=== PATIENT | male | born 1940 | race Caucasian/White ===

== ENCOUNTER 2020-02-26 01:32 | Inpatient (IN) | payer MEDICARE, OTHER, SELFPAY ==
[2020-02-26] VITALS (32 sets, daily range): BP systolic 91–144; BP diastolic 49–96; PULSE 65–86; RESP 14–21; TEMP 36.2–36.6; O2SAT 90–96; BMI 30.1; BMI 34.9
--- NOTE | 2020-02-26 02:01 | HP.PCM_ITS ---
Problem List (1) Septic shock Status: Acute (2) Acute respiratory failure with hypoxia Status: Acute (3) Pneumonia due to COVID-19 virus Status: Acute (4) Hyperglycemia Status: Acute (5) SURINDER (acute kidney injury) Status: Acute (6) Hypertension Status: Chronic Qualifiers: Hypertension type: essential hypertension Qualified Code(s): I10 - Essential (primary) hypertension (7) Hyperlipidemia Status: Chronic Qualifiers: Hyperlipidemia type: unspecified Qualified Code(s): E78.5 - Hyperlipidemia, unspecified (8) Hypothyroidism Status: Chronic Qualifiers: Hypothyroidism type: unspecified Qualified Code(s): E03.9 - Hypothyroidism, unspecified (9) Morbid obesity Status: Chronic (10) GERD (gastroesophageal reflux disease) Status: Chronic Qualifiers: Esophagitis presence: esophagitis presence not specified Qualified Code(s): K21.9 - Gastro-esophageal reflux disease without esophagitis History of Present Illness Date of Admission: 02/26/20 Chief Complaint: Worsening diarrhea, dyspnea, cough, alteration to sense of taste and smell The patient is a 79 w/ PMHx: HTN, HLD, GERD, Hypothyroidism, Morbid Obesity who presents to the [facility] on 02/25/20 from OSH ED [facility] in [facility] with history of onset COVID type symptoms ~ 1 week prior per their report with specifically noted diarrhea, abdominal cramping, body aches, dyspnea and cough with mild loss/decreased in sense of taste/smell however patient upon transfer noting it has been several weeks with these symptoms. Patient was initially seen the day prior in the [facility] ED on 02/24/20 with encouragement at that time to remain and be admitted given his worsened status; however, patient at that time per ED physician left AMA but returned 02/25/20 for re-evaluation per family strong encouragement given severe fatigue, malaise, weakness, increased dyspnea and continued ongoing additional symptoms. Patient clinically declined therefore OSH ED requested transfer to [facility] ICU. Requested prior to the patient transfer central line be placed given hypotension, critical presentation and usage of pressors upon transfer. Also, discussed transition to BIPAP for transfer if any concerns. Upon transfer and presentation to the [facility] ED ICU, patient placed on NRB with appropriate saturations, DA d/c with BP low normal range. OSH ED work-up included: VS: 98.6, 66, 18, 91/48, 96% on RA-->95/46, 94%, 76, NRB 15L, weight 250 lb CBC: WBC 3.7, Hgb 14.1, Plts 130 CMP: Na 137, K 3.7, Chl 102, CO2 27, glucose 166, BUN/Cr 31/1.65 (02/24/20 Cr 1.48), T bili 1.2, normal LFTs, alk phos 42, CA 7.5 LA: 1.4 BNP: 1877 Trop: 0.020 COVID: Positive PCR CXR: BL upper lobe PNA consistent with COVID EKG: Sinus bradycardia without acute evidence of ischemia Medications: DA 5 mcg, azithromycin 500 mg x 1, Lovenox 40 mg SC, Remdesivir 200 mg, Decadron 6 mg IV x 1 Bld Cx x 2 pending per ED Past Medical History Past Medical History (Chronic Problems): Chronic Problems Hypertension (Chronic) Hyperlipidemia (Chronic) Hypothyroidism (Chronic) Morbid obesity (Chronic) GERD (gastroesophageal reflux disease) (Chronic) Allergies No Known Allergies Allergy (Verified 02/26/20 01:38) Home Medications: Ambulatory Orders Medication Instructions Recorded Amlodipine [Norvasc] 10 mg PO DAILY 02/26/20 Carvedilol [Coreg] 25 mg PO BID 02/26/20 Furosemide [Lasix] 40 mg PO DAILY 02/26/20 Levothyroxine [Synthroid] 50 mcg PO DAILY 02/26/20 Losartan Potassium 100 mg PO DAILY 02/26/20 Surgical History: - - Testicular hydrocele intervention. Psychiatric History: No pertinent psych hx Lives: Alone Smoking Status: Never smoker Tobacco Use: Non-smoker Alcohol: None Drugs: None - *Family History Maternal History Items: Diabetes Paternal History Items: Heart Disease Review of Systems Constitutional: Reports: Anorexia, Malaise, Weakness, Fatigue. Denies: Chills, Fever, Weight Change HEENT: Reports: Nasal Congestion, - - Alteration to sense of taste and smell.. Denies: Head Aches, Sinus Congestion, Sinus Drainage Cardiovascular: Denies: Chest Pain, Palpitations Respiratory: Reports: Cough, Shortness of Breath, Shortness of breath at rest, Shortness of breath upon exertion. Denies: Sputum production, Wheezing Gastrointestinal: Reports: Abdominal Pain, Diarrhea. Denies: Nausea, Vomiting Genitourinary: Denies: Dysuria Musculoskeletal: Reports: Back Pain, Joint Pain, Muscle pain. Denies: Joint Tenderness Skin: Denies: Rash, Wounds Neurological: Reports: Confusion. Denies: Focal weakness, Numbness, Tingling Psychiatric: Denies: Anxiety, Depression, Homicidal Ideations, Suicidal Ideations Hematologic/ Lymphatic: Denies: Easy Bruising, Easy Bleeding VTE Information - Inpt Only VTE Present on Admission: No VTE Mechan Device Prophylaxis: SCD's VTE Pharm Prophylaxis ordered?: Yes Patient Problems: Active and Suspected Problems Septic shock (Acute) Acute respiratory failure with hypoxia (Acute) Pneumonia due to COVID-19 virus (Acute) Hyperglycemia (Acute) SURINDER (acute kidney injury) (Acute) Subjective: Patient seated upright in ICU bed, fatigued appearance, no overt respiratory distress currently, transition back to nonrebreather. Objective: Physical Examination: General: awake, alert, oriented x >3 including person, month, year, president and cooperative, seated upright in the ICU bed, fatigued and ill-appearing, no obvious respiratory distress. Skin: normal color, turgor, no icterus, cyanosis. HEENT: AT/NC, EOMI, PERRLA, moderately dry MM, no carotid bruits or JVD noted. Lungs: Diminished breath sounds throughout, greater bases, nonrebreather in place, no evident respiratory distress, no rales, ronchi or wheezing. Heart: Regular rate and rhythm; no gallop, rub audible. Abdomen: soft, morbidly obese, NTTP, ND, normal BS, no HSM. Extremities: no cyanosis or clubbing, bilateral ankle edema. Neurological: patient awake, alert, oriented as noted; cognitive function suspect nearing baseline intact; pupils equally reactive to light and accomodation; cranial nerves II-XII grossly normal, moving all 4 extremities, no focal deficits, strength moderately to severely global decrease secondary to acute presentation. Psychiatric: affect appears ill-appearing, fatigued otherwise normal, no acute evidence of depressive or anxiety feelings. - Physical Exam Current Medications Acetaminophen (Acetaminophen 325 Mg Tablet) 650 mg PO Q6H PRN PRN PRN Reason: Pain Score 1-10/Temp > 100.7 F Al Hydroxide/Mg Hydroxide (Mag Hydrox/Al Hydrox/Simeth 30 Ml Udc) 30 ml PO Q6H PRN PRN PRN Reason: Gastric Burning Dexamethasone Sodium Phosphate (Dexamethasone 10 Mg/Ml Vial) 6 mg IV DAILY [facility] Enoxaparin Sodium (Enoxaparin 40 Mg/0.4 Ml Syringe) 40 mg SC BID [facility] Guaifenesin (Guaifenesin 10 Ml Udc (200mg/10ml)) 10 ml PO Q4H PRN PRN PRN Reason: COUGH Hydralazine HCl (Hydralazine 20 Mg/Ml Vial) 10 mg IV Q4H PRN PRN PRN Reason: SBP > 160 Norepinephrine Bitartrate 8 mg (/ Sodium Chloride) 250 mls @ 9.375 mls/hr CONT INF .[id number] [facility]; Protocol Levothyroxine Sodium (Levothyroxine 50 Mcg Tablet) 50 mcg PO DAILY [facility] Magnesium Hydroxide (Magnesium Hydroxide 30 Ml Udc) 30 ml PO DAILY PRN PRN PRN Reason: Constipation Melatonin (Melatonin 3 Mg Tablet) 3 mg PO QHS PRN PRN PRN Reason: INSOMNIA Morphine Sulfate (Morphine 2 Mg/Ml Syringe) 2 mg IV Q3H PRN PRN PRN Reason: Pain Score 6-10 Nitroglycerin (Nitroglycerin (Inpatient Use) 0.4 Mg Tab.Subl) 0.4 mg SUBLINGUAL Q5M PRN PRN Reason: CARDIAC/CHEST PAIN Ondansetron HCl (Ondansetron 4 Mg/2 Ml Vial) 4 mg IV Q8H PRN PRN PRN Reason: NAUSEA/VOMITING Oxycodone HCl (Oxycodone 5 Mg Tablet) 5 mg PO Q4H PRN PRN PRN Reason: Pain Score 4-5 Pantoprazole Sodium (Pantoprazole Sodium 20 Mg Tablet) 20 mg PO BID [facility] Prochlorperazine Edisylate (Prochlorperazine 10 Mg/2 Ml Vial) 5 mg IV Q4H PRN PRN PRN Reason: Breakthrough Nausea/Vomiting Psyllium Hydrophilic Mucilloid (Psyllium 1 Packet) 1 packet PO DAILY PRN PRN PRN Reason: Constipation Senna/Docusate Sodium (Senna/Docusate Sodium 1 Tablet) 2 tablet PO BID PRN PRN PRN Reason: Constipation Throat Lozenges (Benzocaine/Menthol 1 Lozenge) 1 lozenge MUCOUS MEM Q2H PRN PRN PRN Reason: SORE THROAT Assessment/Plan All Active Problems Septic shock (Acute) Acute respiratory failure with hypoxia (Acute) Pneumonia due to COVID-19 virus (Acute) Hyperglycemia (Acute) SURINDER (acute kidney injury) (Acute) The patient is a 79 w/ PMHx: HTN, HLD, GERD, Hypothyroidism, Morbid Obesity who presents to the [facility] on 02/25/20 from OSH ED [facility] in [facility] with history of onset COVID type symptoms ~ 1 week prior per their report with specifically noted diarrhea, abdominal cramping, body aches, dyspnea and cough with mild loss/decreased in sense of taste/smell however patient upon transfer noting it has been several weeks with these symptoms. 1. Acute Septic Shock secondary to Acute Encephalopathy secondary to Acute Hypoxic Respiratory Failure secondary to Bilateral Pneumonia secondary to Acute Viral Syndrome, COVID-19: Will directly admit to the ICU under COVID precautions, given improved appearance from OSH ED report will continue NRB and place BIPAP if worsened status versus Airvo, hold on ABG, hold any further pressors but if needed would initaite NEP, HOB, IS parameters w/ respiratory viral panel and urine antigens, will obtain procalcitonin, CRP, CPK, Ferritin, LDH, D-dimer and if significantly elevated will request CTPA, continue suppo rtive care including q 2 hour turning including prone given no prone bed availability and judicious hydration, closely monitor for worsening status for ARDS and multiorgan failure, may require intubation given severity of presentation and decline, will consult both ICU and ID. Already per OSH ED received Decadron 6 mg IV x1 which will be continued for total of 10 days as well as remdesivir 200 mg IV x1 with continued regimen per ID discretion and likely convalescent plasma consideration therefore will obtain type and screen. Bld cx x 2 obtained in the OSH ED. 2. Hyperglycemia: OSH ED glucose 166, will obtain HgbA1c, possibly stress reponse. 3. CKD stage III versus SURINDER, unclear baseline: OSH ED BUN/Cr 31/1.65, prior day 02/24/20 Cr 1.48, unclear baseline, repeat CMP in AM. 4. Hypertension: We will hold patient losartan-HCTZ given acute presentation as noted #1, requiring pressor therapy, add back once appropriate. 5. Hyperlipidemia: Not on statin, defer to outpatient. 6. Hypothyroidism: Continue home synthroid regimen. 7. Morbid Obesity: Weight loss and lifestyle changes encouraged, nutrition consulted. 8. GERD: We will maintain on IV PPI. 9. DVT prophylaxis: SCDs, Lovenox 40 g subcu twice daily pending dimer with transition to therapeutic regimen if appropriate. 10. CODE status: Patient HCPOA and living will is not set up, encouraged him to request assist per case management/social work up for help setting up. Discussed CODE status at length including difference between FULL code, DNR-CCA and DNR-CC status. Following discussions about the differences in these status, requested Full Code status. Advanced Care Planning Face to Face Time: 16 minutes. Per patient request contacted family, Niece Elva French [employer]IC[employer]. She was updated about his current status and intended to relay to the other family members. Inpatient E&M: 86575 Init Hosp L3 Procedures: 10116 Advncd Care Plan 30 Min
[2020-02-26 02:15] LABS: Absolute Lymphocyte Count 0.35 X10^3/uL (0.83-4.51); Absolute Neutrophil Count 3.4 X10^3/uL (2.0-7.7); Basophil# 0.05 X10^3/uL; Basophil% 1.3 % (0-1); Hematocrit 40.5 % (40-54); Hemoglobin 13.5 g/dL (13.0-16.5); Lymphocyte # 0.35 X10^3/ul (4.0); Lymphocyte % 8.8 % (19-41); Mean Corp Hgb Conc 33.3 g/dL (32-36); Mean Corpuscular Hgb 32.6 pg (27.0-32.0); Mean Corpuscular Volume 97.8 fL (80-94); Mean Platelet Vol. 10.1 fl (6.2-12.0); Monocyte# 0.13 X10^3/uL; Monocyte% 3.3 % (0-10); NRBC Flagged by Analyzer 0 % (0-5); Neutrophil # 3.43 X10^3/uL (2.7-7.7); Neutrophil % 86.3 % (47-70); POSITIVE DIFFERENTIAL YES; Platelet Count 126 K/mm3 (150-450); RBC Distribution Width CV 13.5 % (11.6-14.6); RBC Distribution Width SD 48.7 fl (35.1-43.9); Red Blood Count 4.14 M/mm3 (4.6-6.2)
[2020-02-26 02:26] LABS: Allen Test Positive; Base Excess -1 mmol/L (-2 to +2); Bicarbonate 24.1 mmol/L (22-26); Blood Gas Specimen Type ART; FI02 100; O2 Delivery Device NRB; PO2 60 mmHG (75-100); SITE L Radial; SO2 91 % (95-99); Total Carbon Dioxide 25 mmol/L; pCO2 38.1 mmHg (35-45); pH 7.41 (7.35-7.45)
[2020-02-26 02:29] LABS: D-Dimer Quantitative (DVT/PE) 1.57 FEU/ug/m (0.27-0.49); Differential Indicated SCAN CRITERIA MET
--- NOTE | 2020-02-26 02:36 | CT_ITS ---
STUDY: CTA CHEST REASON FOR EXAM: Male, 79 years old. COVID, SEPTIC SHOCK, PNEUMONIA, DIARRHEA, DYSPNEA, COUGH, CENTRAL LINE PLACED, RESPIRATORY FAILURE, HX HTN RADIATION DOSAGE (If Supplied By Facility): CTDIvol = ( 18.56 ) mGy, DLP = ( 572.26 ) mGycm TECHNIQUE: The examination was performed with the intravenous administration of IV 100mL [id number]-370. Post-processing of the angiographic images was performed, with multiplanar reformation and 3D reconstruction. Individualized dose optimization techniques were used for this CT. COMPARISON: None. FINDINGS: Normal enhancement of the main pulmonary artery and right and left pulmonary arteries. Normal enhancement of the bilateral peripheral pulmonary arteries. There is no demonstrated pulmonary embolism. Normal thoracic aorta and visualized great vessels. There is no demonstrated aortic dissection. Normal heart and pericardium. There are visualized mediastinal lymph nodes, which mildly increased in size suggesting an infectious process. There are mildly enlarged bilateral hilar lymph nodes, which are consistent with lymphoid hyperplasia. Normal visualized trachea and bronchi. Scattered reticular interstitial opacities are seen in both lungs suggesting chronic interstitial lung disease. There are superimposed ill-defined groundglass opacities are seen more prominent in the upper lobes, may represent atypical pneumonia or viral pneumonia (COVID-19 ?). Normal pleura. Normal chest wall structures. Normal osseous structures. Normal visualized upper abdomen. CT/CTA Chest W/WO Contrast IMPRESSION: No demonstrated pulmonary embolism or arterial dissection. Scattered reticular interstitial opacities are seen in both lungs suggesting chronic interstitial lung disease. There are superimposed ill-defined groundglass opacities are seen more prominent in the upper lobes, may represent atypical pneumonia or viral pneumonia (COVID-19 ?). Electronically Signed: Meena Bro, at 6:05 EST Tel , Service support ,
[2020-02-26 02:37] LABS: Ferritin 921 ng/mL (26-388); LDH 477 U/L (87-241); Magnesium 2.3 mg/dL (1.6-2.6)
[2020-02-26 02:38] LABS: Lactic Acid 1.4 mmol/L (0.4-1.9)
[2020-02-26 02:47] LABS: Procalcitonin 0.16 ng/mL (0.00-0.09)
[2020-02-26 02:51] LABS: ALB/GLOB Ratio 0.8 RATIO (0.9-2.4); AST(SGOT) 43 U/L (15-37); Alanine Aminotransfer ALT/SGPT 31 U/L (16-61); Alkaline Phosphatase 45 U/L (45-117); Anion Gap 6 (5-15); BUN 35 mg/dL (7-18); BUN/Creat Ratio 25.4 RATIO (10-20); Calcium,Total 7.3 mg/dL (8.5-10.1); Chloride 105 mmol/L (98-107); Creatinine, Serum 1.38 mg/dL (0.70-1.30); EST Glomerular Filtration Rate 53 mL/min (>60); Est Glom Filt Rate - Afr Amer 64 mL/min (>60); Estimated Creatinine Clearance 46.99 ml/min; Globulin 3.7 g/dL (2.2-4.2); Glucose 215 mg/dL (74-106); Potassium 3.8 mmol/L (3.5-5.1); Protein, Total 6.7 g/dL (6.4-8.2); Sodium Level 139 mmol/L (136-145)
[2020-02-26 02:59] LABS: Differential Comment SCANNED
--- NOTE | 2020-02-26 06:11 | CON.PCM_ITS ---
Reason for Consult Date of Consultation: 02/26/20 Reason for Consultation: Respiratory failure, Covid, septic shock History of Present Illness: The patient is a 79-year-old male, with a history as outlined below, who presented as a transfer of care from an outside hospital with progressive short ness of breath, cough, diarrhea and altered taste/smell sensation. The patient reported to me that his symptoms have been present now for approximately 7 to 8 days. The patient was noted to have a positive coronavirus PCR at the outside hospital. He was also noted to have an elevated BNP to 1877. The patient was apparently hypotensive and started on dopamine prior to his transfer to our institution. The patient did receive a loading dose of remdesivir. On presentation to the intensive care unit, the patient was noted to be afebrile and hemodynamically stable. D-dimer was elevated to 1.57. Chemistry profile revealed a creatinine of 1.38. Liver function profile was largely within normal limits. Procalcitonin was not significantly elevated at 0.16. Type and screen was sent. The patient was started on Airvo heated high flow supplemental oxygen and is currently maintaining sats in the mid 90s on a flow rate of 60 L/min and FiO2 of 90%. He remains on scheduled Decadron and Lovenox. The patient's dopamine was discontinued upon his arrival to our ICU and he never had to be restarted on any form of vasopressor support. Past Medical History Past Medical History (Chronic Problems): Chronic Problems Hypertension (Chronic) Hyperlipidemia (Chronic) Hypothyroidism (Chronic) Morbid obesity (Chronic) GERD (gastroesophageal reflux disease) (Chronic) Allergies No Known Allergies Allergy (Verified 02/26/20 01:38) Home Medications: Ambulatory Orders Medication Instructions Recorded Carvedilol [Coreg] 12.5 mg PO BID 02/26/20 Levothyroxine [Synthroid] 50 mcg PO DAILY 02/26/20 Losartan Potassium 100 mg PO DAILY 02/26/20 Omeprazole 40 mg PO DAILY 02/26/20 Surgical History: - - Testicular hydrocele intervention. Psychiatric History: No pertinent psych hx Lives: Alone Smoking Status: Never smoker Tobacco Use: Non-smoker Alcohol: None Drugs: None - *Family History Maternal History Items: Diabetes Paternal History Items: Heart Disease Review of Systems Constitutional: Reports: Malaise, Weakness, Fatigue Eyes: Denies: Blurred vision, Double vision HEENT: Reports: Nasal Congestion Cardiovascular: Denies: Chest Pain, Palpitations Respiratory: Reports: Cough, Shortness of Breath Gastrointestinal: Reports: Abdominal Pain Genitourinary: Denies: Dysuria Musculoskeletal: Reports: Joint Pain, Muscle pain Skin: Denies: Rash, Wounds Neurological: Denies: Numbness, Tingling, Focal weakness Psychiatric: Denies: Anxiety, Depression, Homicidal Ideations, Suicidal Ideations Hematologic/ Lymphatic: Denies: Easy Bruising, Easy Bleeding Patient Problems: Active and Suspected Problems Septic shock (Acute) Acute respiratory failure with hypoxia (Acute) Pneumonia due to COVID-19 virus (Acute) Hyperglycemia (Acute) SURINDER (acute kidney injury) (Acute) Objective: The patient's most recent lab work, culture data and imaging studies have all been personally reviewed. Respiratory viral panel was negative. - Physical Exam Vitals/I&O's: Vital Signs Temp Pulse Resp BP Pulse Ox 97.9 F 68 14 107/82 H 92 02/26/20 04:00 02/26/20 05:00 02/26/20 05:00 02/26/20 05:00 02/26/20 05:00 Oxygen Flow Rate (L/min) 60 Oxygen Delivery Method Airvo Weight: 215 lb 13.321 oz Body Mass Index (BMI) 34.8 General: Alert, Cooperative, No apparent distress HEENT: Atraumatic, Normocephalic Oral: Moist Mucosa Neck: Supple, No Nodes, Trachea Midline Lungs: No rhonchi, No wheeze, No rales, Diminished Cardiovascular: Regular rate, Regular Rhythm Abdomen: Bowel Sounds Present, Soft, Non Tender, Obese Extremities: No clubbing, No cyanosis, No edema Skin: No breakdown Musculoskeletal: No Muscle Wasting Lymphatic: No Cervical, Supraclavicular, or Inguinal Adenopathy Neurological: Neuro grossly intact Psych/Mental Status: Normal Affect, Appropriate Labs (Last 48 Hours) 02/26/20 02/26/20 02/26/20 02:00 02:00 02:00 WBC RBC Hgb Hct MCV MCH MCHC RDW Std Deviation RDW Coeff of Charo Plt Count MPV Immature Gran % (Auto) Neut % (Auto) Lymph % (Auto) [place] % (Auto) Eos % (Auto) Baso % (Auto) Absolute Neuts (auto) Absolute Lymphs (auto) Nucleated RBC % Differential Comment Diff Path Review D-Dimer Quant (PE/DVT) 1.57 H* Specimen Type Sample Site pH Bicarbonate Actual Total CO2 Base Excess O2 Saturation O2 % ABG pCO2 ABG pO2 Gutierrez Test O2 Delivery Device Sodium Potassium Chloride Carbon Dioxide Anion Gap BUN Creatinine Estim Creat Clear Calc Est GFR (MDRD) Af Amer Est GFR (MDRD) Non-Af BUN/Creatinine Ratio Glucose Hemoglobin A1c Lactic Acid Calcium Magnesium 2.3 Ferritin 921 H Total Bilirubin AST ALT Alkaline Phosphatase Lactate Dehydrogenase 477 H C-React Prot Ext Range 111.00 H Total Protein Albumin Globulin Albumin/Globulin Ratio Procalcitonin 0.16 H Blood Type Antibody Screen 02/26/20 02/26/20 02/26/20 02:00 02:00 02:00 WBC 4.0 L RBC 4.14 L Hgb 13.5 Hct 40.5 MCV 97.8 H MCH 32.6 H MCHC 33.3 RDW Std Deviation 48.7 H RDW Coeff of Charo 13.5 Plt Count 126 L MPV 10.1 Immature Gran % (Auto) 0.300 Neut % (Auto) 86.3 H Lymph % (Auto) 8.8 L [place] % (Auto) 3.3 Eos % (Auto) 0.0 Baso % (Auto) 1.3 H Absolute Neuts (auto) 3.4 Absolute Lymphs (auto) 0.35 L Nucleated RBC % 0 Differential Comment SCANNED Diff Path Review May foll D-Dimer Quant (PE/DVT) Specimen Type Sample Site pH Bicarbonate Actual Total CO2 Base Excess O2 Saturation O2 % ABG pCO2 ABG pO2 Gutierrez Test O2 Delivery Device Sodium 139 Potassium 3.8 Chloride 105 Carbon Dioxide 28.0 Anion Gap 6 BUN 35 H Creatinine 1.38 H Estim Creat Clear Calc 46.99 Est GFR (MDRD) Af Amer 64 Est GFR (MDRD) Non-Af 53 L BUN/Creatinine Ratio 25.4 H Glucose 215 H Hemoglobin A1c Pending Lactic Acid Calcium 7.3 L Magnesium Ferritin Total Bilirubin 1.00 AST 43 H ALT 31 Alkaline Phosphatase 45 Lactate Dehydrogenase C-React Prot Ext Range Total Protein 6.7 Albumin 3.0 L Globulin 3.7 Albumin/Globulin Ratio 0.8 L Procalcitonin Blood Type Antibody Screen 02/26/20 02/26/20 02/26/20 02:00 02:15 02:17 WBC RBC Hgb Hct MCV MCH MCHC RDW Std Deviation RDW Coeff of Charo Plt Count MPV Immature Gran % (Auto) Neut % (Auto) Lymph % (Auto) [place] % (Auto) Eos % (Auto) Baso % (Auto) Absolute Neuts (auto) Absolute Lymphs (auto) Nucleated RBC % Differential Comment Diff Path Review D-Dimer Quant (PE/DVT) Specimen Type ART Sample Site L Radial pH 7.41 Bicarbonate Actual 24.1 Total CO2 25 Base Excess -1 O2 Saturation 91 L O2 % 100 ABG pCO2 38.1 ABG pO2 60 L Gutierrez Test Positive O2 Delivery Device NRB Sodium Potassium Chloride Carbon Dioxide Anion Gap BUN Creatinine Estim Creat Clear Calc Est GFR (MDRD) Af Amer Est GFR (MDRD) Non-Af BUN/Creatinine Ratio Glucose Hemoglobin A1c Lactic Acid 1.4 Calcium Magnesium Ferritin Total Bilirubin AST ALT Alkaline Phosphatase Lactate Dehydrogenase C-React Prot Ext Range Total Protein Albumin Globulin Albumin/Globulin Ratio Procalcitonin Blood Type A POSITIVE Antibody Screen NEGATIVE Microbiology 02/26/20 02:00 Mucosa - Nasopharyngeal Respiratory Panel (PCR) - Final Clinical Impression(s) from Imaging Studies Chest CTA 02/26/20 02:36 IMPRESSION: No demonstrated pulmonary embolism or arterial dissection. Scattered reticular interstitial opacities are seen in both lungs suggesting chronic interstitial lung disease. There are superimposed ill-defined groundglass opacities are seen more prominent in the upper lobes, may represent atypical pneumonia or viral pneumonia (COVID-19 ?). Electronically Signed: Meena Bro, at 6:05 EST Tel , Service support , Current Medications Acetaminophen (Acetaminophen 325 Mg Tablet) 650 mg PO Q6H PRN PRN PRN Reason: Pain Score 1-10/Temp > 100.7 F Al Hydroxide/Mg Hydroxide (Mag Hydrox/Al Hydrox/Simeth 30 Ml Udc) 30 ml PO Q6H PRN PRN PRN Reason: Gastric Burning Dexamethasone Sodium Phosphate (Dexamethasone 10 Mg/Ml Vial) 6 mg IV DAILY JONO Enoxaparin Sodium (Enoxaparin 40 Mg/0.4 Ml Syringe) 40 mg SC BID JONO Guaifenesin (Guaifenesin 10 Ml Udc (200mg/10ml)) 10 ml PO Q4H PRN PRN PRN Reason: COUGH Hydralazine HCl (Hydralazine 20 Mg/Ml Vial) 10 mg IV Q4H PRN PRN PRN Reason: SBP > 160 Norepinephrine Bitartrate 8 mg (/ Sodium Chloride) 250 mls @ 9.375 mls/hr CONT INF .[id number] JONO; Protocol Sodium Chloride () 1,000 mls @ 100 mls/hr IV .Q10H [facility] Stop: 02/26/20 12:39 Levothyroxine Sodium (Levothyroxine 50 Mcg Tablet) 50 mcg PO DAILY [facility] Magnesium Hydroxide (Magnesium Hydroxide 30 Ml Udc) 30 ml PO DAILY PRN PRN PRN Reason: Constipation Melatonin (Melatonin 3 Mg Tablet) 3 mg PO QHS PRN PRN PRN Reason: INSOMNIA Morphine Sulfate (Morphine 2 Mg/Ml Syringe) 2 mg IV Q3H PRN PRN PRN Reason: Pain Score 6-10 Nitroglycerin (Nitroglycerin (Inpatient Use) 0.4 Mg Tab.Subl) 0.4 mg SUBLINGUAL Q5M PRN PRN Reason: CARDIAC/CHEST PAIN Ondansetron HCl (Ondansetron 4 Mg/2 Ml Vial) 4 mg IV Q8H PRN PRN PRN Reason: NAUSEA/VOMITING Oxycodone HCl (Oxycodone 5 Mg Tablet) 5 mg PO Q4H PRN PRN PRN Reason: Pain Score 4-5 Pantoprazole Sodium (Pantoprazole Sodium 20 Mg Tablet) 20 mg PO BID [facility] Prochlorperazine Edisylate (Prochlorperazine 10 Mg/2 Ml Vial) 5 mg IV Q4H PRN PRN PRN Reason: Breakthrough Nausea/Vomiting Psyllium Hydrophilic Mucilloid (Psyllium 1 Packet) 1 packet PO DAILY PRN PRN PRN Reason: Constipation Senna/Docusate Sodium (Senna/Docusate Sodium 1 Tablet) 2 tablet PO BID PRN PRN PRN Reason: Constipation Sodium Chloride (0.9% Saline Lock 10 Ml Syringe) 10 - 40 ml IV UD PRN PRN Reason: Multilumen/Michel Flush Sodium Chloride (0.9 % Nacl (Sterile) Posiflush 10 Ml) 10 - 40 ml IV UD PRN PRN Reason: Port access or dressing change Throat Lozenges (Benzocaine/Menthol 1 Lozenge) 1 lozenge MUCOUS MEM Q2H PRN PRN PRN Reason: SORE THROAT Assessment/Plan Active and Suspected Problems Septic shock (Acute) Acute respiratory failure with hypoxia (Acute) Pneumonia due to COVID-19 virus (Acute) Hyperglycemia (Acute) SURINDER (acute kidney injury) (Acute) RECOMMENDATIONS: 1. Stop supplemental IV fluids. 2. Continue Airvo heated high flow supplemental oxygen to maintain saturations at or above 90%. 3. Continue Decadron daily. 4. Continue remdesivir daily. Monitor liver and renal function accordingly. 5. Infectious diseases consultation is pending. Will defer need for convalescent plasma. 6. Continue Lovenox as ordered. IMPRESSIONS: 1. Acute hypoxemic respiratory failure secondary to COVID-19 pneumonia The patient presented as a transfer from an outside facility with Covid-like symptoms for approximately 1 week. Plan to continue current supportive measures with Airvo heated high flow oxygen to maintain saturations at or above 90%. The patient will be continued on Decadron 6 mg daily x10 days. Recommend continuing remdesivir. Recommend discontinuation of supplemental IV fluids. Continue Lovenox at current dose, given lack of PE identified on CTA chest. 2. Morbid obesity/hypertension/hypothyroidism/GERD Complicates care, management, recovery and prognosis. Continue home medications as indicated. Start sliding scale insulin coverage, given risk for steroid- induced hyperglycemia. This note was generated with sciencebite dictation software. It may contain incorrect words, spelling, and punctuation that were not noted in checking the note before signing. Inpatient E&M: 39364 Init Hosp L3
[2020-02-26 07:19] LABS: Hemoglobin A1c 6.6 % (3.8-5.6)
--- NOTE | 2020-02-26 07:29 | PN_ITS ---
Patient Problems: Active and Suspected Problems Septic shock (Acute) Acute respiratory failure with hypoxia (Acute) Pneumonia due to COVID-19 virus (Acute) Hyperglycemia (Acute) SURINDER (acute kidney injury) (Acute) Reason for Visit: Follow-up for acute hypoxic respiratory failure due to COVID-19 pneumonia Objective: No fever. Patient on AIR VO. Patient still short of breath. Was admitted early in the morning today Physical exam General: Alert, Oriented x3, Cooperative HEENT: Atraumatic, PERRLA, EOMI, Normocephalic Oral: No Gingival or Mucosal Lesions/ Ulcerations Neck: Supple, No JVD, Negative Carotid Bruits Lungs: Air entry diminished in bilateral lungs. Bilateral coarse rhonchi. On 90% FiO2, 60 L/min flow rate. Cardiovascular: Regular rate, Regular Rhythm, Normal S1, Normal S2, No murmurs Abdomen: Bowel Sounds Present, Soft, Non Tender, Non-Distended : No renal angle tenderness. No suprapubic tenderness. Extremities: Mild bilateral ankle edema, Capillary Refill Less than 3 Seconds Skin: No rashes, No breakdown Musculoskeletal: No Tenderness to Palpation of Joints or Extremities Neurological: Cranial nerves II-XII grossly intact, Deep Tendon Reflexes 2+/4 and Symmetrical, Neuro grossly intact Psych/Mental Status: Normal Affect, Appropriate. Vitals/I&O's: Vital Signs Temp Pulse Resp BP Pulse Ox 97.9 F 69 18 109/63 93 02/26/20 04:00 02/26/20 07:24 02/26/20 07:24 02/26/20 07:00 02/26/20 07:24 Oxygen Flow Rate (L/min) 60 Oxygen Delivery Method Airvo Weight: 215 lb 13.321 oz Body Mass Index (BMI) 30.1 Microbiology Past 72 Hours 02/26/20 02:00 Mucosa - Nasopharyngeal Respiratory Panel (PCR) - Final Laboratory Results 02/26/20 02:00: D-Dimer Quant (PE/DVT) 1.57 H* 02/26/20 02:00: Magnesium 2.3, Ferritin 921 H, Lactate Dehydrogenase 477 H, C- React Prot Ext Range 111.00 H 02/26/20 02:00: Procalcitonin 0.16 H 02/26/20 02:00: WBC 4.0 L, RBC 4.14 L, Hgb 13.5, Hct 40.5, MCV 97.8 H, MCH 32.6 H, MCHC 33.3, RDW Std Deviation 48.7 H, RDW Coeff of Charo 13.5, Plt Count 126 L, MPV 10.1, Immature Gran % (Auto) 0.300, Neut % (Auto) 86.3 H, Lymph % (Auto) 8.8 L, [place] % (Auto) 3.3, Eos % (Auto) 0.0, Baso % (Auto) 1.3 H, Absolute Neuts (auto) 3.4, Absolute Lymphs (auto) 0.35 L, Nucleated RBC % 0, Differential Comment SCANNED, Diff Path Review August02/26/20 02:00: Sodium 139, Potassium 3.8, Chloride 105, Carbon Dioxide 28.0, Anion Gap 6, BUN 35 H, Creatinine 1.38 H, Estim Creat Clear Calc 46.99, Est GFR (MDRD) Af Amer 64, Est GFR (MDRD) Non-Af 53 L, BUN/Creatinine Ratio 25.4 H, Glucose 215 H, Calcium 7.3 L, Total Bilirubin 1.00, AST 43 H, ALT 31, Alkaline Phosphatase 45, Total Protein 6.7, Albumin 3.0 L, Globulin 3.7, Albumin/Globulin Ratio 0.8 L 02/26/20 02:00: Hemoglobin A1c 6.6 H 02/26/20 02:00: Lactic Acid 1.4 02/26/20 02:15: Blood Type A POSITIVE, Antibody Screen NEGATIVE 02/26/20 02:17: Specimen Type ART, Sample Site L Radial, pH 7.41, Bicarbonate Actual 24.1, Total CO2 25, Base Excess -1, O2 Saturation 91 L, O2 % 100, ABG pCO2 38.1, ABG pO2 60 L, Gutierrez Test Positive, O2 Delivery Device NRB Current Medications Acetaminophen (Acetaminophen 325 Mg Tablet) 650 mg PO Q6H PRN PRN PRN Reason: Pain Score 1-10/Temp > 100.7 F Al Hydroxide/Mg Hydroxide (Mag Hydrox/Al Hydrox/Simeth 30 Ml Udc) 30 ml PO Q6H PRN PRN PRN Reason: Gastric Burning Dexamethasone Sodium Phosphate (Dexamethasone 10 Mg/Ml Vial) 6 mg IV DAILY JONO Enoxaparin Sodium (Enoxaparin 40 Mg/0.4 Ml Syringe) 40 mg SC BID JONO Guaifenesin (Guaifenesin 10 Ml Udc (200mg/10ml)) 10 ml PO Q4H PRN PRN PRN Reason: COUGH Hydralazine HCl (Hydralazine 20 Mg/Ml Vial) 10 mg IV Q4H PRN PRN PRN Reason: SBP > 160 Norepinephrine Bitartrate 8 mg (/ Sodium Chloride) 250 mls @ 9.375 mls/hr CONT INF .[id number] JONO; Protocol Sodium Chloride () 1,000 mls @ 100 mls/hr IV .Q10H [facility] Stop: 02/26/20 12:39 Levothyroxine Sodium (Levothyroxine 50 Mcg Tablet) 50 mcg PO DAILY [facility] Magnesium Hydroxide (Magnesium Hydroxide 30 Ml Udc) 30 ml PO DAILY PRN PRN PRN Reason: Constipation Melatonin (Melatonin 3 Mg Tablet) 3 mg PO QHS PRN PRN PRN Reason: INSOMNIA Morphine Sulfate (Morphine 2 Mg/Ml Syringe) 2 mg IV Q3H PRN PRN PRN Reason: Pain Score 6-10 Nitroglycerin (Nitroglycerin (Inpatient Use) 0.4 Mg Tab.Subl) 0.4 mg SUBLINGUAL Q5M PRN PRN Reason: CARDIAC/CHEST PAIN Ondansetron HCl (Ondansetron 4 Mg/2 Ml Vial) 4 mg IV Q8H PRN PRN PRN Reason: NAUSEA/VOMITING Oxycodone HCl (Oxycodone 5 Mg Tablet) 5 mg PO Q4H PRN PRN PRN Reason: Pain Score 4-5 Pantoprazole Sodium (Pantoprazole Sodium 20 Mg Tablet) 20 mg PO BID [facility] Prochlorperazine Edisylate (Prochlorperazine 10 Mg/2 Ml Vial) 5 mg IV Q4H PRN PRN PRN Reason: Breakthrough Nausea/Vomiting Psyllium Hydrophilic Mucilloid (Psyllium 1 Packet) 1 packet PO DAILY PRN PRN PRN Reason: Constipation Senna/Docusate Sodium (Senna/Docusate Sodium 1 Tablet) 2 tablet PO BID PRN PRN PRN Reason: Constipation Sodium Chloride (0.9% Saline Lock 10 Ml Syringe) 10 - 40 ml IV UD PRN PRN Reason: Multilumen/Michel Flush Sodium Chloride (0.9 % Nacl (Sterile) Posiflush 10 Ml) 10 - 40 ml IV UD PRN PRN Reason: Port access or dressing change Throat Lozenges (Benzocaine/Menthol 1 Lozenge) 1 lozenge MUCOUS MEM Q2H PRN PRN PRN Reason: SORE THROAT STROKE Vital Signs/Narrative: Vital Signs Temp Pulse Resp BP Pulse Ox 02/26/20 07:24 69 18 93 02/26/20 07:00 68 16 109/63 93 02/26/20 06:00 65 15 94/55 L 96 02/26/20 05:00 68 14 107/82 H 92 02/26/20 04:00 97.9 F 66 17 105/70 93 Medical Necessity - Tobacco Use Smoking Status: Never smoker Tobacco Use: Non-smoker Assessment/Plan All Active Problems Septic shock (Acute) Acute respiratory failure with hypoxia (Acute) Pneumonia due to COVID-19 virus (Acute) Hyperglycemia (Acute) SURINDER (acute kidney injury) (Acute) The patient is a 79 w/ PMHx: HTN, HLD, GERD, Hypothyroidism, Morbid Obesity who was directly admitted in [facility] ICU on 02/26/2020 from OSH ED [facility] in [facility] with history of onset COVID type symptoms for several weeks including diarrhea, abdominal cramping, body aches, dyspnea and cough with decreased in sense of taste/smell with chest CTA finding s uggestive of atypical pneumonia in upper lobes but negative for PE. 1. Septic Shock with Acute Hypoxic Respiratory Failure and Acute Encephalopathy secondary to Bilateral Pneumonia secondary to COVID-19: Patient is being admitted in ICU on BiPAP. D-dimer elevated to 1.57. Creatinine 1.38. Procalcitonin 0.16 not significantly elevated. Patient on norepinephrine drip. On AIR VO, FiO2 91%, flow rate 60 L/min. On Decadron. D-dimer 1.57. CRP, LDH elevated. Lactic acid normal. Patient had remdesivir 200 mg IV in OSH. ID consult. Remdesivir and Decadron to continue. 2. Hyperglycemia: OSH ED glucose 166. A1c 6.6, suggestive of prediabetes. 3. CKD stage III versus SURINDER, unclear baseline: OSH ED BUN/Cr 31/1.65, prior day 02/24/20 Cr 1.48, unclear baseline. Here BUN/creatinine 35/1.38. Monitor kidney function electrolytes. 4. Hypertension: Hold losartan-HCTZ as patient had septic shock on norepinephrine drip. 5. Hyperlipidemia: Not on statin, outpatient evaluation and management 6. Hypothyroidism: Continue home synthroid regimen. 7. Morbid Obesity: Weight loss and lifestyle changes encouraged, nutrition consulted. A1c 6.6 suggestive of prediabetes. 8. GERD: on IV PPI. 9. DVT prophylaxis: SCDs, Lovenox 40 g subcu twice daily. Clinical Impression(s) from Imaging Studies Chest CTA 02/26/20 02:36 IMPRESSION: No demonstrated pulmonary embolism or arterial dissection. Scattered reticular interstitial opacities are seen in both lungs suggesting chronic interstitial lung disease. There are superimposed ill-defined groundglass opacities are seen more prominent in the upper lobes, may represent atypical pneumonia or viral pneumonia (COVID-19 ?).
[2020-02-26] MEDS: 0.9% Saline Lock 10 ML Syringe IV ×2 (08:44→21:45)
[2020-02-26] MEDS: Levothyroxine 50 MCG Tablet PO (10:12)
[2020-02-26] MEDS: Pantoprazole Sodium 20 MG Tablet PO ×2 (10:12→21:32)
[2020-02-26] MEDS: Enoxaparin 40 MG/0.4 ML Syringe SC ×2 (10:43→21:32)
[2020-02-26] MEDS: dexAMETHasone 10 MG/ML Vial 6 MG IV (10:43)
[2020-02-26 13:20] LABS: Bedside Glucose 197 mg/dL (70-110)
[2020-02-26 13:54] LABS: Pathologist Review Reviewed
[2020-02-26 15:19] LABS: Alkaline Phosphatase 46 U/L (45-117)
--- NOTE | 2020-02-26 15:44 | CASEMGMT ---
Social Work Phone call placed to pt in room as he is in Covid precautions. Pt able to speak on phone and is alert and oriented x3. SW spoke extensively with pt and discussed health care POA. Pt is aware of what a health care POA is and is able to explain what the document is and why it is important. SW confirmed pt knowledge and provided additional information. Pt stating that at this time that he does not want to complete this document. SW reinforced the importance of having the legal documentation in place and that without it, his sisters would be the legal next of kin on decision makers. Pt stating he would need to think about who he would like to make decisions for him. Pt made aware that SW will remain available should pt decide that he would like to complete paperwork. GARRET Gonzalez
--- NOTE | 2020-02-26 16:24 | PCM.HP.ID ---
Problem List (1) Pneumonia due to COVID-19 virus Status: Acute Reason for Consult: covid Consulted by: Dr. Nguyen History of Present Illness: The patient is a 79 year old M presented with septic shock. Sx started 02/09, had headache, cough, diarrhea, change in smell, ahces, and fatigue. Lives alone, no sick contacts. Came to ED, admitted on dex, oxygen, started on remdesivir. Feeling about the same today. Full ROS performed and neg except as noted above. - Medical History Past Medical History (Chronic Problems): Chronic Problems Hypertension (Chronic) Hyperlipidemia (Chronic) Hypothyroidism (Chronic) Morbid obesity (Chronic) GERD (gastroesophageal reflux disease) (Chronic) Allergies/Adverse Reactions: Allergies No Known Allergies Allergy (Verified 02/26/20 01:38) Home Medications: Ambulatory Orders Medication Instructions Recorded Carvedilol [Coreg] 12.5 mg PO BID 02/26/20 Levothyroxine [Synthroid] 50 mcg PO DAILY 02/26/20 Losartan Potassium 100 mg PO DAILY 02/26/20 Omeprazole 40 mg PO DAILY 02/26/20 - Social History Tobacco Use: non-smoker Vital Signs Temp Pulse Resp BP Pulse Ox 97.4 F L 77 19 H 144/89 H 93 02/26/20 13:00 02/26/20 14:00 02/26/20 14:00 02/26/20 14:00 02/26/20 07:24 Oxygen Flow Rate (L/min) 60 Oxygen Delivery Method Airvo Weight: 97.9 kg Body Mass Index (BMI) 30.1 Microbiology Past 72 Hours 02/26/20 02:00 Respiratory Panel (PCR) - Final Mucosa - Nasopharyngeal Laboratory Tests Past 24 Hrs 02/26/20 02/26/20 02/26/20 02:00 02:00 02:00 WBC RBC Hgb Hct MCV MCH MCHC RDW Std Deviation RDW Coeff of Charo Plt Count MPV Immature Gran % (Auto) Neut % (Auto) Lymph % (Auto) [place] % (Auto) Eos % (Auto) Baso % (Auto) Absolute Neuts (auto) Absolute Lymphs (auto) Nucleated RBC % Differential Comment Diff Path Review D-Dimer Quant (PE/DVT) 1.57 H* Specimen Type Sample Site pH Bicarbonate Actual Total CO2 Base Excess O2 Saturation O2 % ABG pCO2 ABG pO2 Gutierrez Test O2 Delivery Device Sodium Potassium Chloride Carbon Dioxide Anion Gap BUN Creatinine Estim Creat Clear Calc Est GFR (MDRD) Af Amer Est GFR (MDRD) Non-Af BUN/Creatinine Ratio Glucose Hemoglobin A1c Lactic Acid Calcium Magnesium 2.3 Ferritin 921 H Total Bilirubin AST ALT Alkaline Phosphatase Lactate Dehydrogenase 477 H C-React Prot Ext Range 111.00 H Total Protein Albumin Globulin Albumin/Globulin Ratio Procalcitonin 0.16 H Blood Type Antibody Screen 02/26/20 02/26/20 02/26/20 02:00 02:00 02:00 WBC 4.0 L RBC 4.14 L Hgb 13.5 Hct 40.5 MCV 97.8 H MCH 32.6 H MCHC 33.3 RDW Std Deviation 48.7 H RDW Coeff of Charo 13.5 Plt Count 126 L MPV 10.1 Immature Gran % (Auto) 0.300 Neut % (Auto) 86.3 H Lymph % (Auto) 8.8 L [place] % (Auto) 3.3 Eos % (Auto) 0.0 Baso % (Auto) 1.3 H Absolute Neuts (auto) 3.4 Absolute Lymphs (auto) 0.35 L Nucleated RBC % 0 Differential Comment SCANNED Diff Path Review Reviewed D-Dimer Quant (PE/DVT) Specimen Type Sample Site pH Bicarbonate Actual Total CO2 Base Excess O2 Saturation O2 % ABG pCO2 ABG pO2 Gutierrez Test O2 Delivery Device Sodium 139 Potassium 3.8 Chloride 105 Carbon Dioxide 28.0 Anion Gap 6 BUN 35 H Creatinine 1.38 H Estim Creat Clear Calc 46.99 Est GFR (MDRD) Af Amer 64 Est GFR (MDRD) Non-Af 53 L BUN/Creatinine Ratio 25.4 H Glucose 215 H Hemoglobin A1c 6.6 H Lactic Acid Calcium 7.3 L Magnesium Ferritin Total Bilirubin 1.00 AST 43 H ALT 31 Alkaline Phosphatase 45 Lactate Dehydrogenase C-React Prot Ext Range Total Protein 6.7 Albumin 3.0 L Globulin 3.7 Albumin/Globulin Ratio 0.8 L Procalcitonin Blood Type Antibody Screen 02/26/20 02/26/20 02/26/20 02:00 02:15 02:17 WBC RBC Hgb Hct MCV MCH MCHC RDW Std Deviation RDW Coeff of Charo Plt Count MPV Immature Gran % (Auto) Neut % (Auto) Lymph % (Auto) [place] % (Auto) Eos % (Auto) Baso % (Auto) Absolute Neuts (auto) Absolute Lymphs (auto) Nucleated RBC % Differential Comment Diff Path Review D-Dimer Quant (PE/DVT) Specimen Type ART Sample Site L Radial pH 7.41 Bicarbonate Actual 24.1 Total CO2 25 Base Excess -1 O2 Saturation 91 L O2 % 100 ABG pCO2 38.1 ABG pO2 60 L Gutierrez Test Positive O2 Delivery Device NRB Sodium Potassium Chloride Carbon Dioxide Anion Gap BUN Creatinine Estim Creat Clear Calc Est GFR (MDRD) Af Amer Est GFR (MDRD) Non-Af BUN/Creatinine Ratio Glucose Hemoglobin A1c Lactic Acid 1.4 Calcium Magnesium Ferritin Total Bilirubin AST ALT Alkaline Phosphatase Lactate Dehydrogenase C-React Prot Ext Range Total Protein Albumin Globulin Albumin/Globulin Ratio Procalcitonin Blood Type A POSITIVE Antibody Screen NEGATIVE 02/26/20 14:35 WBC RBC Hgb Hct MCV MCH MCHC RDW Std Deviation RDW Coeff of Charo Plt Count MPV Immature Gran % (Auto) Neut % (Auto) Lymph % (Auto) [place] % (Auto) Eos % (Auto) Baso % (Auto) Absolute Neuts (auto) Absolute Lymphs (auto) Nucleated RBC % Differential Comment Diff Path Review D-Dimer Quant (PE/DVT) Specimen Type Sample Site pH Bicarbonate Actual Total CO2 Base Excess O2 Saturation O2 % ABG pCO2 ABG pO2 Gutierrez Test O2 Delivery Device Sodium Potassium Chloride Carbon Dioxide Anion Gap BUN Creatinine Estim Creat Clear Calc Est GFR (MDRD) Af Amer Est GFR (MDRD) Non-Af BUN/Creatinine Ratio Glucose Hemoglobin A1c Lactic Acid Calcium Magnesium Ferritin Total Bilirubin AST ALT Alkaline Phosphatase 46 Lactate Dehydrogenase C-React Prot Ext Range Total Protein Albumin Globulin Albumin/Globulin Ratio Procalcitonin Blood Type Antibody Screen - Other Studies Radiology: [] reviewed Other Studies: [] Route of nutrition/ use of supplements: [] Nutritional Intake: [] IV Site: [] Kaye Catheter: [] - Physical Exam General: Alert, Oriented x3, Cooperative HEENT: Atraumatic, PERRLA, EOMI Neck: Supple, No Nodes Lungs: Diminished Cardiovascular: Regular rate, Regular Rhythm Abdomen: Soft, Non Tender, Non-Distended Extremities: No edema Skin: No rashes IV Site: Peripheral, without redness Musculoskeletal: No Tenderness to Palpation of Joints or Extremities - Assessment/Plan Antibiotics: [] Assessment/Plan: [] Active and Suspected Problems Septic shock (Acute) Acute respiratory failure with hypoxia (Acute) Pneumonia due to COVID-19 virus (Acute) Hyperglycemia (Acute) SURINDER (acute kidney injury) (Acute) covid with hypoxia - SURINDER and bp improved. On dex, remdesivir. CT neg for PE. Reviewed EUA and risk/benefit of plasma, we agree to start. Sx started 02/20/20. Will follow, thank you
[2020-02-26] MEDS: Insulin Lispro 100 UNIT/ML INSULN.PEN SC ×2 (17:18→21:32)
[2020-02-26 17:31] LABS: Bedside Glucose 196 mg/dL (70-110)
[2020-02-26 23:06] LABS: Bedside Glucose 197 mg/dL (70-110)
[2020-02-27] VITALS (37 sets, daily range): BP systolic 92–137; BP diastolic 50–77; PULSE 52–88; RESP 12–24; TEMP 36.3–36.7; O2SAT 90–97
[2020-02-27 04:57] LABS: Hematocrit 38.3 % (40-54); Hemoglobin 12.7 g/dL (13.0-16.5); Mean Corp Hgb Conc 33.2 g/dL (32-36); Mean Corpuscular Hgb 33.1 pg (27.0-32.0); Mean Corpuscular Volume 99.7 fL (80-94); Mean Platelet Vol. 10.3 fl (6.2-12.0); Platelet Count 143 K/mm3 (150-450); RBC Distribution Width CV 13.4 % (11.6-14.6); RBC Distribution Width SD 49.4 fl (35.1-43.9); Red Blood Count 3.84 M/mm3 (4.6-6.2); White Blood Count 4.3 K/mm3 (4.4-11.0)
[2020-02-27 05:22] LABS: ALB/GLOB Ratio 0.8 RATIO (0.9-2.4); AST(SGOT) 41 U/L (15-37); Alanine Aminotransfer ALT/SGPT 31 U/L (16-61); Albumin, Serum 2.8 g/dL (3.2-5.0); Alkaline Phosphatase 43 U/L (45-117); Anion Gap 6 (5-15); BUN 38 mg/dL (7-18); BUN/Creat Ratio 38.5 RATIO (10-20); Calcium,Total 7.6 mg/dL (8.5-10.1); Chloride 110 mmol/L (98-107); Creatinine, Serum 0.99 mg/dL (0.70-1.30); EST Glomerular Filtration Rate 78 mL/min (>60); Est Glom Filt Rate - Afr Amer 94 mL/min (>60); Globulin 3.4 g/dL (2.2-4.2); Glucose 204 mg/dL (74-106); Potassium 3.9 mmol/L (3.5-5.1); Protein, Total 6.2 g/dL (6.4-8.2); Sodium Level 143 mmol/L (136-145)
--- NOTE | 2020-02-27 06:07 | PN_ITS ---
Subjective: The patient was seen and examined at the bedside this morning. Events from the last 24 hours have been reviewed. The patient is currently afebrile, hemodynamically stable and maintaining appropriate oxygen saturations on Airvo heated high flow with an FiO2 requirement of 88% and flow rate of 60 L/min. The patient received convalescent plasma and remains on Decadron and remdesivir. Liver and renal function are stable. Objective: The patient's most recent lab work, culture data and imaging studies have all been personally reviewed. Respiratory viral panel was negative. General: Alert, Cooperative, No apparent distress HEENT: Atraumatic, PERRLA, Normocephalic Oral: Moist Mucosa, No Gingival or Mucosal Lesions/ Ulcerations Neck: Supple, No Nodes, Trachea Midline Lungs: No rhonchi, No wheeze, No rales, Diminished Cardiovascular: Regular rate, Regular Rhythm Abdomen: Bowel Sounds Present, Soft, Non Tender Extremities: No clubbing, No cyanosis, No edema Skin: No breakdown Musculoskeletal: No Tenderness to Palpation of Joints or Extremities Lymphatic: No Cervical, Supraclavicular, or Inguinal Adenopathy Neurological: Cranial nerves II-XII grossly intact, Neuro grossly intact Psych/Mental Status: Normal Affect, Appropriate Vital Signs Temp Pulse Resp BP Pulse Ox 98.1 F 52 L 18 95/53 L 94 02/27/20 00:09 02/27/20 05:23 02/27/20 05:23 02/27/20 05:00 02/27/20 05:23 Oxygen Flow Rate (L/min) 60 Oxygen Delivery Method Airvo Weight: 244 lb 0.827 oz Body Mass Index (BMI) 30.1 Intake and Output for Last 24 Hours 02/25/20 02/26/20 02/27/20 23:59 23:59 23:59 Intake Total 470 / 470 200 / 200 Output Total 1200 / 1200 0 / 0 Balance -730 / -730 200 / 200 Labs (Last 48 Hours) 02/26/20 02/26/20 02/26/20 02:00 02:00 02:00 WBC RBC Hgb Hct MCV MCH MCHC RDW Std Deviation RDW Coeff of Charo Plt Count MPV Immature Gran % (Auto) Neut % (Auto) Lymph % (Auto) Schley % (Auto) Eos % (Auto) Baso % (Auto) Absolute Neuts (auto) Absolute Lymphs (auto) Nucleated RBC % Differential Comment Diff Path Review D-Dimer Quant (PE/DVT) 1.57 H* Specimen Type Sample Site pH Bicarbonate Actual Total CO2 Base Excess O2 Saturation O2 % ABG pCO2 ABG pO2 Gutierrez Test O2 Delivery Device Sodium Potassium Chloride Carbon Dioxide Anion Gap BUN Creatinine Estim Creat Clear Calc Est GFR (MDRD) Af Amer Est GFR (MDRD) Non-Af BUN/Creatinine Ratio Glucose Hemoglobin A1c Lactic Acid Calcium Magnesium 2.3 Ferritin 921 H Total Bilirubin AST ALT Alkaline Phosphatase Lactate Dehydrogenase 477 H C-React Prot Ext Range 111.00 H Total Protein Albumin Globulin Albumin/Globulin Ratio Procalcitonin 0.16 H POC Glucose Blood Type Antibody Screen 02/26/20 02/26/20 02/26/20 02:00 02:00 02:00 WBC 4.0 L RBC 4.14 L Hgb 13.5 Hct 40.5 MCV 97.8 H MCH 32.6 H MCHC 33.3 RDW Std Deviation 48.7 H RDW Coeff of Charo 13.5 Plt Count 126 L MPV 10.1 Immature Gran % (Auto) 0.300 Neut % (Auto) 86.3 H Lymph % (Auto) 8.8 L Schley % (Auto) 3.3 Eos % (Auto) 0.0 Baso % (Auto) 1.3 H Absolute Neuts (auto) 3.4 Absolute Lymphs (auto) 0.35 L Nucleated RBC % 0 Differential Comment SCANNED Diff Path Review Reviewed D-Dimer Quant (PE/DVT) Specimen Type Sample Site pH Bicarbonate Actual Total CO2 Base Excess O2 Saturation O2 % ABG pCO2 ABG pO2 Gutierrez Test O2 Delivery Device Sodium 139 Potassium 3.8 Chloride 105 Carbon Dioxide 28.0 Anion Gap 6 BUN 35 H Creatinine 1.38 H Estim Creat Clear Calc 46.99 Est GFR (MDRD) Af Amer 64 Est GFR (MDRD) Non-Af 53 L BUN/Creatinine Ratio 25.4 H Glucose 215 H Hemoglobin A1c 6.6 H Lactic Acid Calcium 7.3 L Magnesium Ferritin Total Bilirubin 1.00 AST 43 H ALT 31 Alkaline Phosphatase 45 Lactate Dehydrogenase C-React Prot Ext Range Total Protein 6.7 Albumin 3.0 L Globulin 3.7 Albumin/Globulin Ratio 0.8 L Procalcitonin POC Glucose Blood Type Antibody Screen 02/26/20 02/26/20 02/26/20 02:00 02:15 02:17 WBC RBC Hgb Hct MCV MCH MCHC RDW Std Deviation RDW Coeff of Charo Plt Count MPV Immature Gran % (Auto) Neut % (Auto) Lymph % (Auto) Schley % (Auto) Eos % (Auto) Baso % (Auto) Absolute Neuts (auto) Absolute Lymphs (auto) Nucleated RBC % Differential Comment Diff Path Review D-Dimer Quant (PE/DVT) Specimen Type ART Sample Site L Radial pH 7.41 Bicarbonate Actual 24.1 Total CO2 25 Base Excess -1 O2 Saturation 91 L O2 % 100 ABG pCO2 38.1 ABG pO2 60 L Gutierrez Test Positive O2 Delivery Device NRB Sodium Potassium Chloride Carbon Dioxide Anion Gap BUN Creatinine Estim Creat Clear Calc Est GFR (MDRD) Af Amer Est GFR (MDRD) Non-Af BUN/Creatinine Ratio Glucose Hemoglobin A1c Lactic Acid 1.4 Calcium Magnesium Ferritin Total Bilirubin AST ALT Alkaline Phosphatase Lactate Dehydrogenase C-React Prot Ext Range Total Protein Albumin Globulin Albumin/Globulin Ratio Procalcitonin POC Glucose Blood Type A POSITIVE Antibody Screen NEGATIVE 02/26/20 02/26/20 02/26/20 10:48 14:35 17:17 WBC RBC Hgb Hct MCV MCH MCHC RDW Std Deviation RDW Coeff of Charo Plt Count MPV Immature Gran % (Auto) Neut % (Auto) Lymph % (Auto) Sch[place] % (Auto) Eos % (Auto) Baso % (Auto) Absolute Neuts (auto) Absolute Lymphs (auto) Nucleated RBC % Differential Comment Diff Path Review D-Dimer Quant (PE/DVT) Specimen Type Sample Site pH Bicarbonate Actual Total CO2 Base Excess O2 Saturation O2 % ABG pCO2 ABG pO2 Gutierrez Test O2 Delivery Device Sodium Potassium Chloride Carbon Dioxide Anion Gap BUN Creatinine Estim Creat Clear Calc Est GFR (MDRD) Af Amer Est GFR (MDRD) Non-Af BUN/Creatinine Ratio Glucose Hemoglobin A1c Lactic Acid Calcium Magnesium Ferritin Total Bilirubin AST ALT Alkaline Phosphatase 46 Lactate Dehydrogenase C-React Prot Ext Range Total Protein Albumin Globulin Albumin/Globulin Ratio Procalcitonin POC Glucose 197 H 196 H Blood Type Antibody Screen 02/26/20 02/27/20 02/27/20 21:30 04:15 04:15 WBC 4.3 L RBC 3.84 L Hgb 12.7 L Hct 38.3 L MCV 99.7 H MCH 33.1 H MCHC 33.2 RDW Std Deviation 49.4 H RDW Coeff of Charo 13.4 Plt Count 143 L MPV 10.3 Immature Gran % (Auto) Neut % (Auto) Lymph % (Auto) Schley % (Auto) Eos % (Auto) Baso % (Auto) Absolute Neuts (auto) Absolute Lymphs (auto) Nucleated RBC % Differential Comment Diff Path Review D-Dimer Quant (PE/DVT) Specimen Type Sample Site pH Bicarbonate Actual Total CO2 Base Excess O2 Saturation O2 % ABG pCO2 ABG pO2 Gutierrez Test O2 Delivery Device Sodium 143 Potassium 3.9 Chloride 110 H Carbon Dioxide 27.0 Anion Gap 6 BUN 38 H Creatinine 0.99 Estim Creat Clear Calc 65.50 Est GFR (MDRD) Af Amer 94 Est GFR (MDRD) Non-Af 78 BUN/Creatinine Ratio 38.5 H Glucose 204 H Hemoglobin A1c Lactic Acid Calcium 7.6 L Magnesium Ferritin Total Bilirubin 0.70 AST 41 H ALT 31 Alkaline Phosphatase 43 L Lactate Dehydrogenase C-React Prot Ext Range Total Protein 6.2 L Albumin 2.8 L Globulin 3.4 Albumin/Globulin Ratio 0.8 L Procalcitonin POC Glucose 197 H Blood Type Antibody Screen Microbiology 02/26/20 02:00 Mucosa - Nasopharyngeal Respiratory Panel (PCR) - Final Clinical Impression(s) from Imaging Studies Chest CTA 02/26/20 02:36 IMPRESSION: No demonstrated pulmonary embolism or arterial dissection. Scattered reticular interstitial opacities are seen in both lungs suggesting chronic interstitial lung disease. There are superimposed ill-defined groundglass opacities are seen more prominent in the upper lobes, may represent atypical pneumonia or viral pneumonia (COVID-19 ?). Electronically Signed: Meena Bro, at 6:05 EST Tel , Service support , Medical Necessity - Tobacco Use Smoking Status: Never smoker Tobacco Use: Non-smoker Assessment/Plan All Active Problems Septic shock (Acute) Acute respiratory failure with hypoxia (Acute) Pneumonia due to COVID-19 virus (Acute) Hyperglycemia (Acute) SURINDER (acute kidney injury) (Acute) RECOMMENDATIONS: 1. Continue Airvo heated high flow supplemental oxygen to maintain saturations at or above 90%. 2. Continue Decadron daily. 3. Continue remdesivir daily. Monitor liver and renal function accordingly. 4. Continue Lovenox as ordered. 5. Encourage incentive spirometer use and mobilize patient as tolerated. IMPRESSIONS: 1. Acute hypoxemic respiratory failure secondary to COVID-19 pneumonia The patient presented as a transfer from an outside facility with Covid-like symptoms for approximately 1 week. Plan to continue current supportive measures with Airvo heated high flow oxygen to maintain saturations at or above 90%. The patient has already received convalescent plasma and will remain on Decadron and remdesivir. Continue to monitor liver and renal function accordingly. Continue Lovenox at current dose, given lack of PE identified on CTA chest. 2. Morbid obesity/hypertension/hypothyroidism/GERD Complicates care, management, recovery and prognosis. Continue home medications as indicated. Continue sliding scale insulin coverage, given risk for steroid- induced hyperglycemia. This note was generated with [employer] dictation software. It may contain incorrect words, spelling, and punctuation that were not noted in checking the note before signing. Inpatient E&M: [id number] [facility] L3
--- NOTE | 2020-02-27 07:31 | PCM.PN.HOSP ---
Patient Problems: Active and Suspected Problems Septic shock (Acute) Acute respiratory failure with hypoxia (Acute) Pneumonia due to COVID-19 virus (Acute) Hyperglycemia (Acute) SURINDER (acute kidney injury) (Acute) Reason for Visit: Follow-up for acute hypoxic respiratory secondary to COVID-19 pneumonia Objective: Patient feels mild improvement in shortness of breath. Still on AIR VO, high FiO2. No fever. Heart rate and blood pressure within normal limit. Sinus rhythm on cardiac exercise physiologist Physical exam General: Alert, Oriented x3, Cooperative HEENT: Atraumatic, PERRLA, EOMI, Normocephalic Oral: No Gingival or Mucosal Lesions/ Ulcerations Neck: Supple, No JVD, Negative Carotid Bruits Lungs: Air entry severely diminished in bilateral lungs. No crepitation/rhonchi. Cardiovascular: Regular rate, Regular Rhythm, Normal S1, Normal S2, No murmurs Abdomen: Bowel Sounds Present, Soft, Non Tender, Non-Distended : No renal angle tenderness. No suprapubic tenderness. Extremities: Mild ankle edema, Capillary Refill Less than 3 Seconds Skin: No rashes, No breakdown Musculoskeletal: No Tenderness to Palpation of Joints or Extremities Neurological: Cranial nerves II-XII grossly intact, Deep Tendon Reflexes 2+/4 and Symmetrical, Neuro grossly intact Psych/Mental Status: Normal Affect, Appropriate. Vitals/I&O's: Vital Signs Temp Pulse Resp BP Pulse Ox 98.1 F 70 12 111/56 L 92 02/27/20 00:09 02/27/20 06:00 02/27/20 06:00 02/27/20 06:00 02/27/20 06:00 Oxygen Flow Rate (L/min) 60 Oxygen Delivery Method Airvo Weight: 244 lb 0.827 oz Body Mass Index (BMI) 30.1 Intake and Output for Last 24 Hours 02/25/20 02/26/20 02/27/20 23:59 23:59 23:59 Intake Total 470 / 470 200 / 200 Output Total 1200 / 1200 550 / 550 Balance -730 / -730 -350 / -350 Microbiology Past 72 Hours 02/27/20 00:01 Urine, Clean Catch Legionella Antigen - Final 02/27/20 00:01 Urine, Clean Catch Streptococcus pneumoniae Antigen (M - Final 02/26/20 02:00 Mucosa - Nasopharyngeal Respiratory Panel (PCR) - Final Laboratory Results 02/26/20 02:00: Diff Path Review Reviewed 02/26/20 10:48: POC Glucose 197 H 02/26/20 14:35: Alkaline Phosphatase 46 02/26/20 17:17: POC Glucose 196 H 02/26/20 21:30: POC Glucose 197 H 02/27/20 04:15: WBC 4.3 L, RBC 3.84 L, Hgb 12.7 L, Hct 38.3 L, MCV 99.7 H, MCH 33.1 H, MCHC 33.2, RDW Std Deviation 49.4 H, RDW Coeff of Charo 13.4, Plt Count 143 L, MPV 10.3 02/27/20 04:15: Sodium 143, Potassium 3.9, Chloride 110 H, Carbon Dioxide 27.0, Anion Gap 6, BUN 38 H, Creatinine 0.99, Estim Creat Clear Calc 65.50, Est GFR (MDRD) Af Amer 94, Est GFR (MDRD) Non-Af 78, BUN/Creatinine Ratio 38.5 H, Glucose 204 H, Calcium 7.6 L, Total Bilirubin 0.70, AST 41 H, ALT 31, Alkaline Phosphatase 43 L, Total Protein 6.2 L, Albumin 2.8 L, Globulin 3.4, Albumin/Globulin Ratio 0.8 L Current Medications Acetaminophen (Acetaminophen 325 Mg Tablet) 650 mg PO Q6H PRN PRN PRN Reason: Pain Score 1-10/Temp > 100.7 F Dexamethasone Sodium Phosphate (Dexamethasone 10 Mg/Ml Vial) 6 mg IV DAILY [facility] Last Admin: 02/26/20 10:43 Dose: 6 mg Documented by: Enoxaparin Sodium (Enoxaparin 40 Mg/0.4 Ml Syringe) 40 mg SC BID [facility] Last Admin: 02/26/20 21:32 Dose: 40 mg Documented by: Guaifenesin (Guaifenesin 10 Ml Udc (200mg/10ml)) 10 ml PO Q4H PRN PRN PRN Reason: COUGH Remdesivir 100 mg/ Sodium (Chloride) 250 mls @ 125 mls/hr IV QHS [facility]; Protocol Stop: 02/29/20 23:59 Last Infusion: 02/26/20 23:45 Dose: Infused Documented by: Insulin Human Lispro (Insulin Lispro 100 Unit/Ml Insuln.Pen) 0 unit SC ACHS [facility]; Protocol Last Admin: 02/26/20 21:32 Dose: 2 u Documented by: Levothyroxine Sodium (Levothyroxine 50 Mcg Tablet) 50 mcg PO DAILY [facility] Last Admin: 02/26/20 10:12 Dose: 50 mcg Documented by: Ondansetron HCl (Ondansetron 4 Mg/2 Ml Vial) 4 mg IV Q8H PRN PRN PRN Reason: NAUSEA/VOMITING Pantoprazole Sodium (Pantoprazole Sodium 20 Mg Tablet) 20 mg PO BID [facility] Last Admin: 02/26/20 21:32 Dose: 20 mg Documented by: Senna/Docusate Sodium (Senna/Docusate Sodium 1 Tablet) 2 tablet PO BID PRN PRN PRN Reason: Constipation Sodium Chloride (0.9% Saline Lock 10 Ml Syringe) 10 - 40 ml IV UD PRN PRN Reason: Multilumen/Michel Flush Last Admin: 02/26/20 21:45 Dose: 10 ml Documented by: Sodium Chloride (0.9 % Nacl (Sterile) Posiflush 10 Ml) 10 - 40 ml IV UD PRN PRN Reason: Port access or dressing change Throat Lozenges (Benzocaine/Menthol 1 Lozenge) 1 lozenge MUCOUS MEM Q2H PRN PRN PRN Reason: SORE THROAT STROKE Vital Signs/Narrative: Vital Signs Pulse Resp BP Pulse Ox 02/27/20 06:00 70 12 111/56 L 92 02/27/20 05:23 52 L 18 94 02/27/20 05:00 55 L 13 95/53 L 96 02/27/20 04:00 74 14 99/62 96 02/27/20 03:42 88 Medical Necessity - Tobacco Use Smoking Status: Never smoker Tobacco Use: Non-smoker Assessment/Plan All Active Problems Septic shock (Acute) Acute respiratory failure with hypoxia (Acute) Pneumonia due to COVID-19 virus (Acute) Hyperglycemia (Acute) SURINDER (acute kidney injury) (Acute) The patient is a 79 w/ PMHx: HTN, HLD, GERD, Hypothyroidism, Morbid Obesity who was directly admitted in [facility] ICU on 02/26/2020 from OSH ED [facility] in [facility] with history of onset COVID type symptoms for several weeks including diarrhea, abdominal cramping, body aches, dyspnea and cough with decreased in sense of taste/smell with chest CTA finding suggestive of atypical pneumonia in upper lobes but negative for PE. 1. Severe sepsis with acute Hypoxic Respiratory Failure and Acute Encephalopathy secondary to Bilateral Pneumonia secondary to COVID-19: Patient is being admitted in ICU on BiPAP. D-dimer elevated to 1.57. Creatinine 1.38. Procalcitonin 0.16 not significantly elevated. Patient did not get norepinephrine drip. On AIR VO, FiO2 91%, flow rate 60 L/min. On Decadron. D-dimer 1.57. CRP, LDH elevated. Lactic acid normal. Patient had remdesivir 200 mg IV in OSH. ID consult. Remdesivir and Decadron to continue. Patient received IV fluid in outside ER. 02/26: Correction: And had hypotension which responded to the IV fluid bolus in outside ER but did not require norepinephrine drip and patient did not had lactic acidosis more than 4.0 therefore diagnosis of septic shock is not correct. Patient got convalescent plasma yesterday night. Continue remdesivir, Decadron and Lovenox. Acute encephalopathy resolved. Mild leukopenia, anemia and mild thrombocytopenia probably secondary to COVID-19 viral infection although no baseline CBC available prior to this admission. 2. Hyperglycemia: OSH ED glucose 166. A1c 6.6, suggestive of prediabetes. 3. CKD stage III versus SURINDER, unclear baseline: OSH ED BUN/Cr 31/1.65, prior day 02/24/20 Cr 1.48, unclear baseline. Here BUN/creatinine 35/1.38. Monitor kidney function electrolytes. 4. Hypertension: Hold losartan-HCTZ as patient had septic shock on norepinephrine drip. 5. Hyperlipidemia: Not on statin, outpatient evaluation and management 6. Hypothyroidism: Continue home synthroid regimen. 7. Morbid Obesity: Weight loss and lifestyle changes encouraged, nutrition consulted. A1c 6.6 suggestive of prediabetes. 8. GERD: on IV PPI. 9. DVT prophylaxis: SCDs, Lovenox 40 g subcu twice daily. Clinical Impression(s) from Imaging Studies Chest CTA 02/26/20 02:36 IMPRESSION: No demonstrated pulmonary embolism or arterial dissection. Scattered reticular interstitial opacities are seen in both lungs suggesting chronic interstitial lung disease. There are superimposed ill-defined groundglass opacities are seen more prominent in the upper lobes, may represent atypical pneumonia or viral pneumonia (COVID-19 ?). Microbiology Past 72 Hours 02/27/20 00:01 Urine, Clean Catch Legionella Antigen - Final 02/27/20 00:01 Urine, Clean Catch Streptococcus pneumoniae Antigen (M - Final 02/26/20 02:00 Mucosa - Nasopharyngeal Respiratory Panel (PCR) - Final Laboratory Results 02/26/20 02:00: Diff Path Review Reviewed 02/26/20 14:35: Alkaline Phosphatase 46 02/26/20 17:17: POC Glucose 196 H 02/26/20 21:30: POC Glucose 197 H 02/27/20 04:15: WBC 4.3 L, RBC 3.84 L, Hgb 12.7 L, Hct 38.3 L, MCV 99.7 H, MCH 33.1 H, MCHC 33.2, RDW Std Deviation 49.4 H, RDW Coeff of Charo 13.4, Plt Count 143 L, MPV 10.3 02/27/20 04:15: Sodium 143, Potassium 3.9, Chloride 110 H, Carbon Dioxide 27.0, Anion Gap 6, BUN 38 H, Creatinine 0.99, Estim Creat Clear Calc 65.50, Est GFR (MDRD) Af Amer 94, Est GFR (MDRD) Non-Af 78, BUN/Creatinine Ratio 38.5 H, Glucose 204 H, Calcium 7.6 L, Total Bilirubin 0.70, AST 41 H, ALT 31, Alkaline Phosphatase 43 L, Total Protein 6.2 L, Albumin 2.8 L, Globulin 3.4, Albumin/Globulin Ratio 0.8 L 02/27/20 09:55: Magnesium 2.8 H 02/27/20 10:06: POC Glucose 197 H Inpatient E&M: [id number] Subs Hosp L3
--- NOTE | 2020-02-27 09:53 | CM.UR ---
Participated in interdisciplinary rounds. Remains on airvo. Currently on 2nd of 4 doses of remdesivir. Got plasma. bipap remains on standby. CM to assess patient. Andrea Calvillo RN, CCM.
[2020-02-27] MEDS: Insulin Lispro 100 UNIT/ML INSULN.PEN SC ×4 (10:08→21:38)
[2020-02-27] MEDS: Pantoprazole Sodium 20 MG Tablet PO ×2 (10:10→21:38)
[2020-02-27] MEDS: Levothyroxine 50 MCG Tablet PO (10:10)
[2020-02-27] MEDS: BENZOCAINE/MENTHOL 1 LOZENGE MUCOUS MEM ×2 (10:11→21:42)
[2020-02-27 10:33] LABS: Magnesium 2.8 mg/dL (1.6-2.6)
[2020-02-27 10:41] LABS: Bedside Glucose 197 mg/dL (70-110)
[2020-02-27] MEDS: Enoxaparin 40 MG/0.4 ML Syringe SC ×2 (11:00→21:38)
[2020-02-27] MEDS: dexAMETHasone 10 MG/ML Vial 6 MG IV (11:00)
--- NOTE | 2020-02-27 14:15 | CM.UR ---
RN CM Assessment Contacted patient via phone. Introduced role of RN CM to patient. Patient is alert, oriented and able to participate in RN CM Assessment. Care providers, pharmacy, and demographics verified. Admit Dx: Shortness of breath. Barriers/Issues: None noted PCP: Dr. Kenyon Specialists: was supposed to have his stomach checked out by Dr. Parekh but it had to be put on hold d/t developing sob. Preferred Pharmacy: [facility] Insurance: [facility] Rx Benefit: Yes LNOK: Carmen clay LW/HPOA: none. SW already spoke with patient. I brought up again however he declined. States he'll do after discharge. Living Arrangements: Lives in a 2 story home. States can live on first floor. States 3 steps with railing to get into the house. Denies problems with accessibility. ADL?s: Independent with ADLs in and out of home. 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 Transportation: Patient states he drives. DME: Walker, w/c. [facility] he has items available left from his . DME Co: Brian swartz HHC: None SNF: None Goal: Home. [facility] he has a eklutna around. [facility] he has a sister, 2 nephews and nieces within yelling distance. DC PLAN: Home. CM will follow for home o2 needs. Andrea Calvillo RN, CCM.
[2020-02-27] MEDS: 0.9% Saline Lock 10 ML Syringe IV (21:40)
[2020-02-28] VITALS (32 sets, daily range): BP systolic 103–151; BP diastolic 54–94; PULSE 60–96; RESP 12–66; TEMP 36.3–37.1; O2SAT 88–96
[2020-02-28 00:50] LABS: Bedside Glucose 151 mg/dL (70-110)
[2020-02-28 04:59] LABS: Hematocrit 40.4 % (40-54); Mean Corp Hgb Conc 32.2 g/dL (32-36); Mean Corpuscular Hgb 32.4 pg (27.0-32.0); Mean Corpuscular Volume 100.7 fL (80-94); Mean Platelet Vol. 9.8 fl (6.2-12.0); Platelet Count 158 K/mm3 (150-450); RBC Distribution Width CV 13.7 % (11.6-14.6); Red Blood Count 4.01 M/mm3 (4.6-6.2); White Blood Count 4.7 K/mm3 (4.4-11.0)
[2020-02-28 05:15] LABS: ALB/GLOB Ratio 0.8 RATIO (0.9-2.4); AST(SGOT) 39 U/L (15-37); Alanine Aminotransfer ALT/SGPT 26 U/L (16-61); Albumin, Serum 2.8 g/dL (3.2-5.0); Alkaline Phosphatase 47 U/L (45-117); Anion Gap 3 (5-15); BUN 31 mg/dL (7-18); BUN/Creat Ratio 37.6 RATIO (10-20); Calcium,Total 7.8 mg/dL (8.5-10.1); Chloride 114 mmol/L (98-107); Creatinine, Serum 0.82 mg/dL (0.70-1.30); EST Glomerular Filtration Rate 96 mL/min (>60); Est Glom Filt Rate - Afr Amer 116 mL/min (>60); Estimated Creatinine Clearance 79.08 ml/min; Globulin 3.5 g/dL (2.2-4.2); Glucose 149 mg/dL (74-106); Potassium 3.8 mmol/L (3.5-5.1); Protein, Total 6.3 g/dL (6.4-8.2); Sodium Level 146 mmol/L (136-145)
--- NOTE | 2020-02-28 06:03 | PCM.PN.INT ---
Subjective: The patient was seen and examined at the bedside this morning. Events from the last 24 hours have been reviewed. The patient is currently afebrile, hemodynamically stable and maintaining appropriate oxygen saturations on Airvo heated high flow with an FiO2 requirement of 93% and flow rate of 60 L/min. The patient did attempt to utilize BiPAP overnight but was only able to tolerate it for approximately 2 hours. The patient received convalescent plasma and remains on Decadron and remdesivir. Liver and renal function are stable. He does report feeling tired this morning, as he has been unable to sleep at night. Objective: The patient's most recent lab work, culture data and imaging studies have all been personally reviewed. Respiratory viral panel was negative. General: Alert, Cooperative, No apparent distress HEENT: Atraumatic, PERRLA, Normocephalic Oral: No Gingival or Mucosal Lesions/ Ulcerations Neck: Supple, No Nodes, Trachea Midline Lungs: No rhonchi, No wheeze, No rales, Diminished Cardiovascular: Regular rate, Regular Rhythm, Normal S1, Normal S2, No murmurs Abdomen: Bowel Sounds Present, Soft, Non Tender Extremities: No clubbing, No cyanosis, No edema Skin: No breakdown Musculoskeletal: No Tenderness to Palpation of Joints or Extremities, No Muscle Wasting Lymphatic: No Cervical, Supraclavicular, or Inguinal Adenopathy Neurological: Cranial nerves II-XII grossly intact, Neuro grossly intact Psych/Mental Status: Alert and oriented to time, place, person, mood and affect Vital Signs Temp Pulse Resp BP Pulse Ox 97.5 F L 67 21 H 103/54 L 94 02/28/20 04:00 02/28/20 05:00 02/28/20 05:00 02/28/20 05:00 02/28/20 05:00 Oxygen Flow Rate (L/min) 60 Oxygen Delivery Method Airvo Weight: 242 lb 4.608 oz Body Mass Index (BMI) 30.1 Intake and Output for Last 24 Hours 02/26/20 02/27/20 02/28/20 23:59 23:59 23:59 Intake Total 470 / 470 500 / 500 370 / 370 Output Total 1200 / 1200 2075 / 2075 550 / 550 Balance -730 / -730 -1575 / -1575 -180 / -180 Labs (Last 48 Hours) 02/26/20 02/26/20 02/26/20 02:00 02:00 10:48 WBC RBC Hgb Hct MCV MCH MCHC RDW Std Deviation RDW Coeff of Charo Plt Count MPV Diff Path Review Reviewed Sodium Potassium Chloride Carbon Dioxide Anion Gap BUN Creatinine Estim Creat Clear Calc Est GFR (MDRD) Af Amer Est GFR (MDRD) Non-Af BUN/Creatinine Ratio Glucose Hemoglobin A1c 6.6 H Calcium Magnesium Total Bilirubin AST ALT Alkaline Phosphatase Total Protein Albumin Globulin Albumin/Globulin Ratio POC Glucose 197 H 02/26/20 02/26/20 02/26/20 14:35 17:17 21:30 WBC RBC Hgb Hct MCV MCH MCHC RDW Std Deviation RDW Coeff of Charo Plt Count MPV Diff Path Review Sodium Potassium Chloride Carbon Dioxide Anion Gap BUN Creatinine Estim Creat Clear Calc Est GFR (MDRD) Af Amer Est GFR (MDRD) Non-Af BUN/Creatinine Ratio Glucose Hemoglobin A1c Calcium Magnesium Total Bilirubin AST ALT Alkaline Phosphatase 46 Total Protein Albumin Globulin Albumin/Globulin Ratio POC Glucose 196 H 197 H 02/27/20 02/27/20 02/27/20 04:15 04:15 09:55 WBC 4.3 L RBC 3.84 L Hgb 12.7 L Hct 38.3 L MCV 99.7 H MCH 33.1 H MCHC 33.2 RDW Std Deviation 49.4 H RDW Coeff of Charo 13.4 Plt Count 143 L MPV 10.3 Diff Path Review Sodium 143 Potassium 3.9 Chloride 110 H Carbon Dioxide 27.0 Anion Gap 6 BUN 38 H Creatinine 0.99 Estim Creat Clear Calc 65.50 Est GFR (MDRD) Af Amer 94 Est GFR (MDRD) Non-Af 78 BUN/Creatinine Ratio 38.5 H Glucose 204 H Hemoglobin A1c Calcium 7.6 L Magnesium 2.8 H Total Bilirubin 0.70 AST 41 H ALT 31 Alkaline Phosphatase 43 L Total Protein 6.2 L Albumin 2.8 L Globulin 3.4 Albumin/Globulin Ratio 0.8 L POC Glucose 02/27/20 02/27/20 02/28/20 10:06 21:37 04:40 WBC 4.7 RBC 4.01 L Hgb 13.0 Hct 40.4 MCV 100.7 H MCH 32.4 H MCHC 32.2 RDW Std Deviation 51.0 H RDW Coeff of Charo 13.7 Plt Count 158 MPV 9.8 Diff Path Review Sodium Potassium Chloride Carbon Dioxide Anion Gap BUN Creatinine Estim Creat Clear Calc Est GFR (MDRD) Af Amer Est GFR (MDRD) Non-Af BUN/Creatinine Ratio Glucose Hemoglobin A1c Calcium Magnesium Total Bilirubin AST ALT Alkaline Phosphatase Total Protein Albumin Globulin Albumin/Globulin Ratio POC Glucose 197 H 151 H 02/28/20 04:40 WBC RBC Hgb Hct MCV MCH MCHC RDW Std Deviation RDW Coeff of Charo Plt Count MPV Diff Path Review Sodium 146 H Potassium 3.8 Chloride 114 H Carbon Dioxide 29.0 Anion Gap 3 L BUN 31 H Creatinine 0.82 Estim Creat Clear Calc 79.08 Est GFR (MDRD) Af Amer 116 Est GFR (MDRD) Non-Af 96 BUN/Creatinine Ratio 37.6 H Glucose 149 H Hemoglobin A1c Calcium 7.8 L Magnesium Total Bilirubin 0.90 AST 39 H ALT 26 Alkaline Phosphatase 47 Total Protein 6.3 L Albumin 2.8 L Globulin 3.5 Albumin/Globulin Ratio 0.8 L POC Glucose Microbiology 02/27/20 00:01 Urine, Clean Catch Legionella Antigen - Final 02/27/20 00:01 Urine, Clean Catch Streptococcus pneumoniae Antigen (M - Final 02/26/20 02:00 Mucosa - Nasopharyngeal Respiratory Panel (PCR) - Final Clinical Impression(s) from Imaging Studies Chest CTA 02/26/20 02:36 IMPRESSION: No demonstrated pulmonary embolism or arterial dissection. Scattered reticular interstitial opacities are seen in both lungs suggesting chronic interstitial lung disease. There are superimposed ill-defined groundglass opacities are seen more prominent in the upper lobes, may represent atypical pneumonia or viral pneumonia (COVID-19 ?). Electronically Signed: Meena Bro, at 6:05 EST Tel , Service support , Medical Necessity - Tobacco Use Smoking Status: Never smoker Tobacco Use: Non-smoker Assessment/Plan All Active Problems Septic shock (Acute) Acute respiratory failure with hypoxia (Acute) Pneumonia due to COVID-19 virus (Acute) Hyperglycemia (Acute) SURINDER (acute kidney injury) (Acute) RECOMMENDATIONS: 1. Continue Airvo heated high flow supplemental oxygen to maintain saturations at or above 90%. 2. Continue Decadron daily. 3. Continue remdesivir daily. Monitor liver and renal function accordingly. 4. Continue Lovenox as ordered. 5. Encourage incentive spirometer use and mobilize patient as tolerated. IMPRESSIONS: 1. Acute hypoxemic respiratory failure secondary to COVID-19 pneumonia The patient presented as a transfer from an outside facility with Covid-like symptoms for approximately 1 week. Plan to continue current supportive measures with Airvo heated high flow oxygen to maintain saturations at or above 90%. The patient has already received convalescent plasma and will remain on Decadron and remdesivir. Continue to monitor liver and renal function accordingly. Continue Lovenox at current dose, given lack of PE identified on CTA chest. 2. Morbid obesity/hypertension/hypothyroidism/GERD Complicates care, management, recovery and prognosis. Continue home medications as indicated. Continue sliding scale insulin coverage, given risk for steroid-induced hyperglycemia. This note was generated with [email or web address] dictation software. It may contain incorrect words, spelling, and punctuation that were not noted in checking the note before signing. Inpatient E&M: [id number] [facility] Hosp L3
--- NOTE | 2020-02-28 07:28 | PCM.PN.HOSP ---
Patient Problems: Active and Suspected Problems Septic shock (Acute) Acute respiratory failure with hypoxia (Acute) Pneumonia due to COVID-19 virus (Acute) Hyperglycemia (Acute) SURINDER (acute kidney injury) (Acute) Reason for Visit: Follow-up for COVID-19 pneumonia with acute hypoxic respiratory failure. Objective: Currently on 60% FiO2, AIR VO. Heart rate and blood pressure is controlled. No fever in last 48 hours. Mild dry cough. Physical exam General: Alert, Oriented x3, Cooperative HEENT: Atraumatic, PERRLA, EOMI, Normocephalic Oral: No Gingival or Mucosal Lesions/ Ulcerations Neck: Supple, No JVD, Negative Carotid Bruits Lungs: Air entry severely diminished in bilateral lungs. No crepitation/rhonchi. On AIR VO Cardiovascular: Regular rate, Regular Rhythm, Normal S1, Normal S2, No murmurs Abdomen: Bowel Sounds Present, Soft, Non Tender, Non-Distended : No renal angle tenderness. No suprapubic tenderness. Extremities: Mild ankle edema, Capillary Refill Less than 3 Seconds Skin: No rashes, No breakdown Musculoskeletal: No Tenderness to Palpation of Joints or Extremities Neurological: Cranial nerves II-XII grossly intact, Deep Tendon Reflexes 2+/4 and Symmetrical, Neuro grossly intact Psych/Mental Status: Normal Affect, Appropriate. Vitals/I&O's: Vital Signs Temp Pulse Resp BP Pulse Ox 97.5 F L 80 21 H 145/86 H 90 02/28/20 04:00 02/28/20 07:00 02/28/20 07:00 02/28/20 07:00 02/28/20 07:00 Oxygen Flow Rate (L/min) 60 Oxygen Delivery Method Airvo Weight: 242 lb 4.608 oz Body Mass Index (BMI) 30.1 Intake and Output for Last 24 Hours 02/26/20 02/27/20 02/28/20 23:59 23:59 23:59 Intake Total 470 / 470 500 / 500 370 / 370 Output Total 1200 / 1200 2075 / 2075 550 / 550 Balance -730 / -730 -1575 / -1575 -180 / -180 Microbiology Past 72 Hours 02/27/20 00:01 Urine, Clean Catch Legionella Antigen - Final 02/27/20 00:01 Urine, Clean Catch Streptococcus pneumoniae Antigen (M - Final 02/26/20 02:00 Mucosa - Nasopharyngeal Respiratory Panel (PCR) - Final Laboratory Results 02/27/20 09:55: Magnesium 2.8 H 02/27/20 10:06: POC Glucose 197 H 02/27/20 21:37: POC Glucose 151 H 02/28/20 04:40: WBC 4.7, RBC 4.01 L, Hgb 13.0, Hct 40.4, MCV 100.7 H, MCH 32.4 H, MCHC 32.2, RDW Std Deviation 51.0 H, RDW Coeff of Charo 13.7, Plt Count 158, MPV 9.8 02/28/20 04:40: Sodium 146 H, Potassium 3.8, Chloride 114 H, Carbon Dioxide 29.0, Anion Gap 3 L, BUN 31 H, Creatinine 0.82, Estim Creat Clear Calc 79.08, Est GFR (MDRD) Af Amer 116, Est GFR (MDRD) Non-Af 96, BUN/Creatinine Ratio 37.6 H, Glucose 149 H, Calcium 7.8 L, Total Bilirubin 0.90, AST 39 H, ALT 26, Alkaline Phosphatase 47, Total Protein 6.3 L, Albumin 2.8 L, Globulin 3.5, Albumin/Globulin Ratio 0.8 L Current Medications Acetaminophen (Acetaminophen 325 Mg Tablet) 650 mg PO Q6H PRN PRN PRN Reason: Pain Score 1-10/Temp > 100.7 F Dexamethasone Sodium Phosphate (Dexamethasone 10 Mg/Ml Vial) 6 mg IV DAILY [facility] Last Admin: 02/27/20 11:00 Dose: 6 mg Documented by: Enoxaparin Sodium (Enoxaparin 40 Mg/0.4 Ml Syringe) 40 mg SC BID [facility] Last Admin: 02/27/20 21:38 Dose: 40 mg Documented by: Guaifenesin (Guaifenesin 10 Ml Udc (200mg/10ml)) 10 ml PO Q4H PRN PRN PRN Reason: COUGH Remdesivir 100 mg/ Sodium (Chloride) 250 mls @ 125 mls/hr IV QHS [facility]; Protocol Stop: 02/29/20 23:59 Last Infusion: 02/28/20 00:09 Dose: Infused Documented by: Insulin Human Lispro (Insulin Lispro 100 Unit/Ml Insuln.Pen) 0 unit SC [facility]; Protocol Last Admin: 02/27/20 21:38 Dose: 1 u Documented by: Levothyroxine Sodium (Levothyroxine 50 Mcg Tablet) 50 mcg PO DAILY [facility] Last Admin: 02/27/20 10:10 Dose: 50 mcg Documented by: Ondansetron HCl (Ondansetron 4 Mg/2 Ml Vial) 4 mg IV Q8H PRN PRN PRN Reason: NAUSEA/VOMITING Pantoprazole Sodium (Pantoprazole Sodium 20 Mg Tablet) 20 mg PO BID [facility] Last Admin: 02/27/20 21:38 Dose: 20 mg Documented by: Senna/Docusate Sodium (Senna/Docusate Sodium 1 Tablet) 2 tablet PO BID PRN PRN PRN Reason: Constipation Sodium Chloride (0.9% Saline Lock 10 Ml Syringe) 10 - 40 ml IV UD PRN PRN Reason: Multilumen/Michel Flush Last Admin: 02/27/20 21:40 Dose: 10 ml Documented by: Sodium Chloride (0.9 % Nacl (Sterile) Posiflush 10 Ml) 10 - 40 ml IV UD PRN PRN Reason: Port access or dressing change Throat Lozenges (Benzocaine/Menthol 1 Lozenge) 1 lozenge MUCOUS MEM Q2H PRN PRN PRN Reason: SORE THROAT Last Admin: 02/27/20 21:42 Dose: 1 lozenge Documented by: STROKE Vital Signs/Narrative: Vital Signs Temp Pulse Resp BP Pulse Ox 02/28/20 07:00 80 21 H 145/86 H 90 02/28/20 06:00 90 20 H 108/55 L 90 02/28/20 05:56 67 20 H 94 02/28/20 05:00 67 21 H 103/54 L 94 02/28/20 04:00 97.5 F L 74 22 H 108/74 92 Medical Necessity - Tobacco Use Smoking Status: Never smoker Tobacco Use: Non-smoker Assessment/Plan All Active Problems Septic shock (Acute) Acute respiratory failure with hypoxia (Acute) Pneumonia due to COVID-19 virus (Acute) Hyperglycemia (Acute) SURINDER (acute kidney injury) (Acute) The patient is a 79 w/ PMHx: HTN, HLD, GERD, Hypothyroidism, Morbid Obesity who was directly admitted in [facility] ICU on 02/26/2020 from OSH ED [facility] in [facility] with history of onset COVID type symptoms for several weeks including diarrhea, abdominal cramping, body aches, dyspnea and cough with decreased in sense of taste/smell with chest CTA finding suggestive of atypical pneumonia in upper lobes but negative for PE. 1. Severe sepsis with acute Hypoxic Respiratory Failure and Acute Encephalopathy secondary to Bilateral Pneumonia secondary to COVID-19: Patient is being admitted in ICU on BiPAP. D-dimer elevated to 1.57. Creatinine 1.38. Procalcitonin 0.16 not significantly elevated. Patient did not get norepinephrine drip. On AIR VO, FiO2 91%, flow rate 60 L/min. On Decadron. D-dimer 1.57. CRP, LDH elevated. Lactic acid normal. Patient had remdesivir 200 mg IV in OSH. ID consult. Remdesivir and Decadron to continue. Patient received IV fluid in outside ER. 02/26: Correction: And had hypotension which responded to the IV fluid bolus in outside ER but did not require norepinephrine drip and patient did not had lactic acidosis more than 4.0 therefore diagnosis of septic shock is not correct. Patient got convalescent plasma yesterday night. Continue remdesivir, Decadron and Lovenox. Acute encephalopathy resolved. Mild leukopenia, anemia and mild thrombocytopenia probably secondary to COVID-19 viral infection although no baseline CBC available prior to this admission. 02/27: No leukocytosis. Serum creatinine normal. Continue treatment. 2. Hyperglycemia: OSH ED glucose 166. A1c 6.6, suggestive of prediabetes. 3.Acute kidney injury most likely prerenal/dehydration, unclear baseline: OSH ED BUN/Cr 31/1.65, prior day 02/24/20 Cr 1.48, unclear baseline. Here BUN/creatinine 35/1.38. Monitor kidney function electrolytes. 02/27: It seems patient had acute kidney injury. BUN still elevated 31, creatinine 0.8. 4. Hypertension: Hold losartan-HCTZ as patient had septic shock on norepinephrine drip. 5. Hyperlipidemia: Not on statin, outpatient evaluation and management 6. Hypothyroidism: Continue home synthroid regimen. 7. Morbid Obesity: Weight loss and lifestyle changes encouraged, nutrition consulted. A1c 6.6 suggestive of prediabetes. 8. GERD: on IV PPI. 9. DVT prophylaxis: SCDs, Lovenox 40 g subcu twice daily. Clinical Impression(s) from Imaging Studies Chest CTA 02/26/20 02:36 IMPRESSION: No demonstrated pulmonary embolism or arterial dissection. Scattered reticular interstitial opacities are seen in both lungs suggesting chronic interstitial lung disease. There are superimposed ill-defined groundglass opacities are seen more prominent in the upper lobes, may represent atypical pneumonia or viral pneumonia (COVID-19 ?). Microbiology Past 72 Hours 02/27/20 00:01 Urine, Clean Catch Legionella Antigen - Final 02/27/20 00:01 Urine, Clean Catch Streptococcus pneumoniae Antigen (M - Final 02/26/20 02:00 Mucosa - Nasopharyngeal Respiratory Panel (PCR) - Final Laboratory Results 02/27/20 21:37: POC Glucose 151 H 02/28/20 04:40: WBC 4.7, RBC 4.01 L, Hgb 13.0, Hct 40.4, MCV 100.7 H, MCH 32.4 H, MCHC 32.2, RDW Std Deviation 51.0 H, RDW Coeff of Charo 13.7, Plt Count 158, MPV 9.8 02/28/20 04:40: Sodium 146 H, Potassium 3.8, Chloride 114 H, Carbon Dioxide 29.0, Anion Gap 3 L, BUN 31 H, Creatinine 0.82, Estim Creat Clear Calc 79.08, Est GFR (MDRD) Af Amer 116, Est GFR (MDRD) Non-Af 96, BUN/Creatinine Ratio 37.6 H, Glucose 149 H, Calcium 7.8 L, Total Bilirubin 0.90, AST 39 H, ALT 26, Alkaline Phosphatase 47, Total Protein 6.3 L, Albumin 2.8 L, Globulin 3.5, Albumin/Globulin Ratio 0.8 L Microbiology Past 72 Hours 02/27/20 00:01 Urine, Clean Catch Legionella Antigen - Final 02/27/20 00:01 Urine, Clean Catch Streptococcus pneumoniae Antigen (M - Final 02/26/20 02:00 Mucosa - Nasopharyngeal Respiratory Panel (PCR) - Final Laboratory Results 02/26/20 02:00: Diff Path Review Reviewed 02/26/20 14:35: Alkaline Phosphatase 46 02/26/20 17:17: POC Glucose 196 H 02/26/20 21:30: POC Glucose 197 H 02/27/20 04:15: WBC 4.3 L, RBC 3.84 L, Hgb 12.7 L, Hct 38.3 L, MCV 99.7 H, MCH 33.1 H, MCHC 33.2, RDW Std Deviation 49.4 H, RDW Coeff of Charo 13.4, Plt Count 143 L, MPV 10.3 02/27/20 04:15: Sodium 143, Potassium 3.9, Chloride 110 H, Carbon Dioxide 27.0, Anion Gap 6, BUN 38 H, Creatinine 0.99, Estim Creat Clear Calc 65.50, Est GFR (MDRD) Af Amer 94, Est GFR (MDRD) Non-Af 78, BUN/Creatinine Ratio 38.5 H, Glucose 204 H, Calcium 7.6 L, Total Bilirubin 0.70, AST 41 H, ALT 31, Alkaline Phosphatase 43 L, Total Protein 6.2 L, Albumin 2.8 L, Globulin 3.4, Albumin/Globulin Ratio 0.8 L 02/27/20 09:55: Magnesium 2.8 H 02/27/20 10:06: POC Glucose 197 H Inpatient E&M: 26780 Subs Hosp L2
[2020-02-28] MEDS: Pantoprazole Sodium 20 MG Tablet PO ×2 (08:53→21:26)
[2020-02-28] MEDS: Levothyroxine 50 MCG Tablet PO (08:53)
[2020-02-28] MEDS: BENZOCAINE/MENTHOL 1 LOZENGE MUCOUS MEM (08:54)
[2020-02-28] MEDS: dexAMETHasone 10 MG/ML Vial 6 MG IV (08:54)
[2020-02-28] MEDS: Enoxaparin 40 MG/0.4 ML Syringe SC ×2 (08:54→21:24)
[2020-02-28] MEDS: Insulin Lispro 100 UNIT/ML INSULN.PEN SC ×3 (11:30→21:37)
[2020-02-28 12:00] LABS: Bedside Glucose 138 mg/dL (70-110)
[2020-02-28 12:00] LABS: Bedside Glucose 220 mg/dL (70-110)
--- NOTE | 2020-02-28 20:43 | CPS ---
Pt.'s FiO2 decreased to 90%
[2020-02-28] MEDS: MELATONIN 3 MG TABLET PO (21:26)
[2020-02-28 23:25] LABS: Bedside Glucose 181 mg/dL (70-110)
[2020-02-29] VITALS (35 sets, daily range): BP systolic 109–164; BP diastolic 63–98; PULSE 57–103; RESP 12–23; TEMP 36.3–36.9; O2SAT 90–96
--- NOTE | 2020-02-29 00:17 | CPS ---
Pt.'s FiO2 decreased to 80%; weaning oxygen needs for pt.
[2020-02-29 04:34] LABS: Hematocrit 42.1 % (40-54); Hemoglobin 13.5 g/dL (13.0-16.5); Mean Corp Hgb Conc 32.1 g/dL (32-36); Mean Corpuscular Hgb 32.5 pg (27.0-32.0); Mean Corpuscular Volume 101.4 fL (80-94); Mean Platelet Vol. 9.9 fl (6.2-12.0); Platelet Count 176 K/mm3 (150-450); RBC Distribution Width CV 13.5 % (11.6-14.6); RBC Distribution Width SD 50.4 fl (35.1-43.9); Red Blood Count 4.15 M/mm3 (4.6-6.2); White Blood Count 4.1 K/mm3 (4.4-11.0)
[2020-02-29 04:43] LABS: ALB/GLOB Ratio 0.7 RATIO (0.9-2.4); AST(SGOT) 38 U/L (15-37); Alanine Aminotransfer ALT/SGPT 29 U/L (16-61); Albumin, Serum 2.7 g/dL (3.2-5.0); Alkaline Phosphatase 48 U/L (45-117); Anion Gap 5 (5-15); BUN 28 mg/dL (7-18); Chloride 112 mmol/L (98-107); Globulin 3.8 g/dL (2.2-4.2); Glucose 158 mg/dL (74-106); Protein, Total 6.5 g/dL (6.4-8.2); Sodium Level 146 mmol/L (136-145)
--- NOTE | 2020-02-29 06:21 | RAD_ITS ---
EXAM DESCRIPTION: PORTABLE AP CHEST CLINICAL HISTORY: 79 years Male, SOB SOB COMPARISON: Previous CT pulmonary exam obtained on 02/26/2020 FINDINGS: A right CVP line catheters are in place with its tip in superior vena cava. The rest of the thorax is intact.The heart and mediastinum appear to be within normal limits. The lungs demonstrate an ill-defined peripheral groundglass alveolar appearance which may represent atypical pneumonia or a viral pneumonia (COVID- 19 ?). This appearance was noted on the previous CTA of the chest and appears to have increased. RAD/Chest 1 View (Portable) IMPRESSION: Groundglass peripheral alveolar infiltrate in the lungs bilaterally consistent with a viral pneumonia (COVID- 19 ?), which appears to have increased. Electronically Signed: Shahbaz Ahumada, at 8:40 EST Tel , Service support ,
--- NOTE | 2020-02-29 07:18 | PN_ITS ---
Patient Problems: Active and Suspected Problems Septic shock (Acute) Acute respiratory failure with hypoxia (Acute) Pneumonia due to COVID-19 virus (Acute) Hyperglycemia (Acute) SURINDER (acute kidney injury) (Acute) Reason for Visit: Acute hypoxic respiratory failure secondary to COVID-19 pneumonia Objective: Patient is short of breath on high 80% FiO2, BiPAP. No fever. Short of breath. conductor/engineer sinus rhythm with PVCs. Physical exam General: Alert, Oriented x3, Cooperative HEENT: Atraumatic, PERRLA, EOMI, Normocephalic Oral: No Gingival or Mucosal Lesions/ Ulcerations Neck: Supple, No JVD, Negative Carotid Bruits Lungs: Air entry diminished in bilateral lung bases. No crepitation/rhonchi. Very hypoxic Cardiovascular: Regular rate, Regular Rhythm, Normal S1, Normal S2, No murmurs Abdomen: Bowel Sounds Present, Soft, Non Tender, Non-Distended : No renal angle tenderness. No suprapubic tenderness. Extremities: No edema, Capillary Refill Less than 3 Seconds Skin: No rashes, No breakdown Musculoskeletal: No Tenderness to Palpation of Joints or Extremities Neurological: Cranial nerves II-XII grossly intact, Deep Tendon Reflexes 2+/4 and Symmetrical, Neuro grossly intact Psych/Mental Status: Normal Affect, Appropriate. Vitals/I&O's: Vital Signs Temp Pulse Resp BP Pulse Ox 97.9 F 67 19 H 145/72 H 91 02/29/20 04:00 02/29/20 07:00 02/29/20 07:00 02/29/20 07:00 02/29/20 07:00 Oxygen Flow Rate (L/min) 60 Oxygen Delivery Method Bi-pap Weight: 234 lb 12.677 oz Body Mass Index (BMI) 30.1 Intake and Output for Last 24 Hours 02/27/20 02/28/20 02/29/20 23:59 23:59 23:59 Intake Total 500 / 500 1080 / 1080 Output Total 2075 / 2075 1250 / 1250 350 / 350 Balance -1575 / -1575 -170 / -170 -350 / -350 Microbiology Past 72 Hours 02/27/20 00:01 Urine, Clean Catch Legionella Antigen - Final 02/27/20 00:01 Urine, Clean Catch Streptococcus pneumoniae Antigen (M - Final 02/26/20 02:00 Mucosa - Nasopharyngeal Respiratory Panel (PCR) - Final Laboratory Results 02/28/20 08:44: POC Glucose 138 H 02/28/20 11:21: POC Glucose 220 H 02/28/20 21:35: POC Glucose 181 H 02/29/20 03:50: WBC 4.1 L, RBC 4.15 L, Hgb 13.5, Hct 42.1, MCV 101.4 H, MCH 32.5 H, MCHC 32.1, RDW Std Deviation 50.4 H, RDW Coeff of Charo 13.5, Plt Count 176, MPV 9.9 02/29/20 03:50: Sodium 146 H, Potassium 4.0, Chloride 112 H, Carbon Dioxide 29.0, Anion Gap 5, BUN 28 H, Creatinine 0.77, Estim Creat Clear Calc 64.84, Est GFR (MDRD) Af Amer 126, Est GFR (MDRD) Non-Af 104, BUN/Creatinine Ratio 36.5 H, Glucose 158 H, Calcium 8.0 L, Total Bilirubin 0.90, AST 38 H, ALT 29, Alkaline Phosphatase 48, Total Protein 6.5, Albumin 2.7 L, Globulin 3.8, Albumin/Globulin Ratio 0.7 L Current Medications Acetaminophen (Acetaminophen 325 Mg Tablet) 650 mg PO Q6H PRN PRN PRN Reason: Pain Score 1-10/Temp > 100.7 F Dexamethasone Sodium Phosphate (Dexamethasone 10 Mg/Ml Vial) 6 mg IV DAILY [facility] Last Admin: 02/28/20 08:54 Dose: 6 mg Documented by: Enoxaparin Sodium (Enoxaparin 40 Mg/0.4 Ml Syringe) 40 mg SC BID [facility] Last Admin: 02/28/20 21:24 Dose: 40 mg Documented by: Guaifenesin (Guaifenesin 10 Ml Udc (200mg/10ml)) 10 ml PO Q4H PRN PRN PRN Reason: COUGH Remdesivir 100 mg/ Sodium (Chloride) 250 mls @ 125 mls/hr IV QHS [facility]; Protocol Stop: 02/29/20 23:59 Last Infusion: 02/28/20 23:24 Dose: Infused Documented by: Insulin Human Lispro (Insulin Lispro 100 Unit/Ml Insuln.Pen) 0 unit SC [facility]S [facility]; Protocol Last Admin: 02/28/20 21:37 Dose: 1 u Documented by: Levothyroxine Sodium (Levothyroxine 50 Mcg Tablet) 50 mcg PO DAILY [facility] Last Admin: 02/28/20 08:53 Dose: 50 mcg Documented by: Melatonin (Melatonin 3 Mg Tablet) 3 mg PO QHS [facility] Last Admin: 02/28/20 21:26 Dose: 3 mg Documented by: Ondansetron HCl (Ondansetron 4 Mg/2 Ml Vial) 4 mg IV Q8H PRN PRN PRN Reason: NAUSEA/VOMITING Pantoprazole Sodium (Pantoprazole Sodium 20 Mg Tablet) 20 mg PO BID [facility] Last Admin: 02/28/20 21:26 Dose: 20 mg Documented by: Senna/Docusate Sodium (Senna/Docusate Sodium 1 Tablet) 2 tablet PO BID PRN PRN PRN Reason: Constipation Sodium Chloride (0.9% Saline Lock 10 Ml Syringe) 10 - 40 ml IV UD PRN PRN Reason: Multilumen/Michel Flush Last Admin: 02/27/20 21:40 Dose: 10 ml Documented by: Sodium Chloride (0.9 % Nacl (Sterile) Posiflush 10 Ml) 10 - 40 ml IV UD PRN PRN Reason: Port access or dressing change Throat Lozenges (Benzocaine/Menthol 1 Lozenge) 1 lozenge MUCOUS MEM Q2H PRN PRN PRN Reason: SORE THROAT Last Admin: 02/28/20 08:54 Dose: 1 lozenge Documented by: STROKE Vital Signs/Narrative: Vital Signs Temp Pulse Resp BP Pulse Ox 02/29/20 07:00 67 19 H 145/72 H 91 02/29/20 06:00 61 20 H 143/79 H 94 02/29/20 05:00 58 L 16 147/75 H 91 02/29/20 04:00 97.9 F 57 L 19 H 147/82 H 92 02/29/20 03:38 65 18 92 Medical Necessity - Tobacco Use Smoking Status: Never smoker Tobacco Use: Non-smoker Assessment/Plan All Active Problems Septic shock (Acute) Acute respiratory failure with hypoxia (Acute) Pneumonia due to COVID-19 virus (Acute) Hyperglycemia (Acute) SURINDER (acute kidney injury) (Acute) The patient is a 79 w/ PMHx: HTN, HLD, GERD, Hypothyroidism, Morbid Obesity who was directly admitted in [facility] ICU on 02/26/2020 from OSH ED [facility] in [facility] with history of onset COVID type symptoms for several weeks including diarrhea, abdominal cramping, body aches, dyspnea and cough with decreased in sense of taste/smell with chest CTA finding suggestive of atypical pneumonia in upper lobes but negative for PE. 1. Severe sepsis with acute Hypoxic Respiratory Failure and Acute Encephalopathy secondary to Bilateral Pneumonia secondary to COVID-19: Patient is being admitted in ICU on BiPAP. D-dimer elevated to 1.57. Creatinine 1.38. Procalcitonin 0.16 not significantly elevated. Patient did not get norepinephr ine drip. On AIR VO, FiO2 91%, flow rate 60 L/min. On Decadron. D-dimer 1.57. CRP, LDH elevated. Lactic acid normal. Patient had remdesivir 200 mg IV in OSH. ID consult. Remdesivir and Decadron to continue. Patient received IV fluid in outside ER. 02/26: Correction: And had hypotension which responded to the IV fluid bolus in outside ER but did not require norepinephrine drip and patient did not had lactic acidosis more than 4.0 therefore diagnosis of septic shock is not correct. Patient got convalescent plasma yesterday night. Continue remdesivir, Decadron and Lovenox. Acute encephalopathy resolved. Mild leukopenia, anemia and mild thrombocytopenia probably secondary to COVID-19 viral infection although no baseline CBC available prior to this admission. 02/27: No leukocytosis. Serum creatinine normal. Continue treatment. 02/28: Last day of remdesivir today. Serum sodium 146, chloride 112. On 80% FiO2 BiPAP. 2. Prediabetes: OSH ED glucose 166. A1c 6.6, suggestive of prediabetes. Leukosis controlled. 3.Acute kidney injury most likely prerenal/dehydration, unclear baseline: OSH ED BUN/Cr 31/1.65, prior day 02/24/20 Cr 1.48, unclear baseline. Here BUN/creatini ne 35/1.38. Monitor kidney function electrolytes. 02/27: It seems patient had acute kidney injury. BUN still elevated 31, creatinine 0.8. 4. Hypertension: Blood pressure 144/81. Resume losartan lower dose 5 mg daily. 5. Hyperlipidemia: Not on statin, outpatient evaluation and management 6. Hypothyroidism: Continue home synthroid regimen. 7. Morbid Obesity: Weight loss and lifestyle changes encouraged, nutrition consulted. A1c 6.6 suggestive of prediabetes. 8. GERD: on IV PPI. 9. DVT prophylaxis: SCDs, Lovenox 40 mg subcu twice daily. Total time of the visit including total time spent in counseling or coordination of care, (more than 50% of the total time, spent in obtaining medical information from nurses and other ancillary care providers,explaining to the patient about labs, imaging, diagnosis and management), , review of labs and imaging is 30 minutes. Clinical Impression(s) from Imaging Studies Chest CTA 02/26/20 02:36 IMPRESSION: No demonstrated pulmonary embolism or arterial dissection. Scattered reticular interstitial opacities are seen in both lungs suggesting chronic interstitial lung disease. There are superimposed ill-defined groundglass opacities are seen more prominent in the upper lobes, may represent atypical pneumonia or viral pneumonia (COVID-19 ?). Microbiology Past 72 Hours 02/27/20 00:01 Urine, Clean Catch Legionella Antigen - Final 02/27/20 00:01 Urine, Clean Catch Streptococcus pneumoniae Antigen (M - Final Laboratory Results 02/28/20 21:35: POC Glucose 181 H 02/29/20 03:50: WBC 4.1 L, RBC 4.15 L, Hgb 13.5, Hct 42.1, MCV 101.4 H, MCH 32.5 H, MCHC 32.1, RDW Std Deviation 50.4 H, RDW Coeff of Charo 13.5, Plt Count 176, MPV 9.9 02/29/20 03:50: Sodium 146 H, Potassium 4.0, Chloride 112 H, Carbon Dioxide 29.0, Anion Gap 5, BUN 28 H, Creatinine 0.77, Estim Creat Clear Calc 64.84, Est GFR (MDRD) Af Amer 126, Est GFR (MDRD) Non-Af 104, BUN/Creatinine Ratio 36.5 H, Glucose 158 H, Calcium 8.0 L, Total Bilirubin 0.90, AST 38 H, ALT 29, Alkaline Phosphatase 48, Total Protein 6.5, Albumin 2.7 L, Globulin 3.8, Albumin/Globulin Ratio 0.7 L 02/29/20 11:11: POC Glucose 151 H Inpatient E&M: [id number] Subs Hosp L3
[2020-02-29] MEDS: Enoxaparin 40 MG/0.4 ML Syringe SC ×2 (09:10→22:15)
[2020-02-29] MEDS: Pantoprazole Sodium 20 MG Tablet PO ×2 (09:10→22:15)
[2020-02-29] MEDS: dexAMETHasone 10 MG/ML Vial 6 MG IV (09:10)
[2020-02-29] MEDS: Levothyroxine 50 MCG Tablet PO (09:11)
--- NOTE | 2020-02-29 10:20 | PCM.PN.INT ---
Subjective: Patient did okay overnight. Patient continues to require BiPAP therapy essentially [id number] to maintain appropriate saturations. Patient feels subjectively unchanged compared to previous. Patient is having periodic coughing. Objective: Review of initial CTA shows possible early pneumomediastinum. Repeat chest x-ray today did not show significant subcutaneous emphysema or pneumomediastinum on my review. General: Alert, Oriented x3, Cooperative, No apparent distress - On BiPAP therapy, - - Obese. Appears stated age. HEENT: Atraumatic, PERRLA, EOMI, Normocephalic, - - Slight scleral injection without icterus Oral: Moist Mucosa, No Gingival or Mucosal Lesions/ Ulcerations Neck: Supple, No Nodes, Trachea Midline, JVD, Right Lungs: No rhonchi, No wheeze, No rales, Diminished, - - Coarse breath sounds with the BiPAP Cardiovascular: Normal S1, Normal S2, No murmurs, Irregular Rate, No rub noted, No Gallop Abdomen: Bowel Sounds Present, Soft, Non Tender, Non-Distended, Obese Extremities: No clubbing, No cyanosis, Edema - 1+ Skin: No rashes, No breakdown Musculoskeletal: No Tenderness to Palpation of Joints or Extremities Lymphatic: No Cervical, Supraclavicular, or Inguinal Adenopathy Neurological: Cranial nerves II-XII grossly intact, Neuro grossly intact, Motor Exam 5/5 strength throughout Psych/Mental Status: Alert and oriented to time, place, person, mood and affect Vital Signs Temp Pulse Resp BP Pulse Ox 36.6 C 103 H 16 132/78 H 93 02/29/20 09:00 02/29/20 09:00 02/29/20 09:00 02/29/20 09:00 02/29/20 09:00 Oxygen Flow Rate (L/min) 60 Oxygen Delivery Method Bi-pap Weight: 106.5 kg Body Mass Index (BMI) 30.1 Intake and Output for Last 24 Hours 02/27/20 02/28/20 02/29/20 23:59 23:59 23:59 Intake Total 500 / 500 1080 / 1080 Output Total 2075 / 2075 1250 / 1250 575 / 575 Balance -1575 / -1575 -170 / -170 -575 / -575 Labs (Last 48 Hours) 02/27/20 02/27/20 02/27/20 09:55 10:06 21:37 WBC RBC Hgb Hct MCV MCH MCHC RDW Std Deviation RDW Coeff of Charo Plt Count MPV Sodium Potassium Chloride Carbon Dioxide Anion Gap BUN Creatinine Estim Creat Clear Calc Est GFR (MDRD) Af Amer Est GFR (MDRD) Non-Af BUN/Creatinine Ratio Glucose Calcium Magnesium 2.8 H Total Bilirubin AST ALT Alkaline Phosphatase Total Protein Albumin Globulin Albumin/Globulin Ratio POC Glucose 197 H 151 H 02/28/20 02/28/20 02/28/20 04:40 04:40 08:44 WBC 4.7 RBC 4.01 L Hgb 13.0 Hct 40.4 MCV 100.7 H MCH 32.4 H MCHC 32.2 RDW Std Deviation 51.0 H RDW Coeff of Charo 13.7 Plt Count 158 MPV 9.8 Sodium 146 H Potassium 3.8 Chloride 114 H Carbon Dioxide 29.0 Anion Gap 3 L BUN 31 H Creatinine 0.82 Estim Creat Clear Calc 79.08 Est GFR (MDRD) Af Amer 116 Est GFR (MDRD) Non-Af 96 BUN/Creatinine Ratio 37.6 H Glucose 149 H Calcium 7.8 L Magnesium Total Bilirubin 0.90 AST 39 H ALT 26 Alkaline Phosphatase 47 Total Protein 6.3 L Albumin 2.8 L Globulin 3.5 Albumin/Globulin Ratio 0.8 L POC Glucose 138 H 02/28/20 02/28/20 02/29/20 11:21 21:35 03:50 WBC 4.1 L RBC 4.15 L Hgb 13.5 Hct 42.1 MCV 101.4 H MCH 32.5 H MCHC 32.1 RDW Std Deviation 50.4 H RDW Coeff of Charo 13.5 Plt Count 176 MPV 9.9 Sodium Potassium Chloride Carbon Dioxide Anion Gap BUN Creatinine Estim Creat Clear Calc Est GFR (MDRD) Af Amer Est GFR (MDRD) Non-Af BUN/Creatinine Ratio Glucose Calcium Magnesium Total Bilirubin AST ALT Alkaline Phosphatase Total Protein Albumin Globulin Albumin/Globulin Ratio POC Glucose 220 H 181 H 02/29/20 03:50 WBC RBC Hgb Hct MCV MCH MCHC RDW Std Deviation RDW Coeff of Charo Plt Count MPV Sodium 146 H Potassium 4.0 Chloride 112 H Carbon Dioxide 29.0 Anion Gap 5 BUN 28 H Creatinine 0.77 Estim Creat Clear Calc 64.84 Est GFR (MDRD) Af Amer 126 Est GFR (MDRD) Non-Af 104 BUN/Creatinine Ratio 36.5 H Glucose 158 H Calcium 8.0 L Magnesium Total Bilirubin 0.90 AST 38 H ALT 29 Alkaline Phosphatase 48 Total Protein 6.5 Albumin 2.7 L Globulin 3.8 Albumin/Globulin Ratio 0.7 L POC Glucose Microbiology 02/27/20 00:01 Urine, Clean Catch Legionella Antigen - Final 02/27/20 00:01 Urine, Clean Catch Streptococcus pneumoniae Antigen (M - Final Clinical Impression(s) from Imaging Studies Chest X-Ray 02/29/20 06:21 IMPRESSION: Groundglass peripheral alveolar infiltrate in the lungs bilaterally consistent with a viral pneumonia (COVID- 19 ?), which appears to have increased. Electronically Signed: Shahbaz Ahumada, at 8:40 EST Tel , Service support , Medical Necessity - Tobacco Use Smoking Status: Never smoker Tobacco Use: Non-smoker Assessment/Plan All Active Problems Septic shock (Acute) Acute respiratory failure with hypoxia (Acute) Pneumonia due to COVID-19 virus (Acute) Hyperglycemia (Acute) SURINDER (acute kidney injury) (Acute) RECOMMENDATIONS: 1. Continue BiPAP to maintain saturations at or above 90%. Airvo breaks as tolerated 2. Continue Decadron (4/10) daily. 3. Continue remdesivir (4/5) daily. Monitor liver and renal function accordingly. 4. Continue Lovenox as ordered. 5. Encourage incentive spirometer use and mobilize patient as tolerated. 6. Diuretic challenge IMPRESSIONS: 1. Acute hypoxemic respiratory failure secondary to COVID-19 pneumonia The patient presented as a transfer from an outside facility with Covid-like symptoms for approximately 1 week. Plan to continue current supportive measures with Airvo heated high flow oxygen to maintain saturations at or above 90%. The patient has already received convalescent plasma and will remain on Decadron and remdesivir. Continue to monitor liver and renal function accordingly. Continue Lovenox at current dose, given lack of PE identified on CTA chest. Patient to be seen by infectious disease later today. Will attempt to challenge with diuretic therapy. Some concern the patient may progress to intubation eventually. Chest x-ray does not show significant pneumomediastinum, but will have to watch closely for subcutaneous emphysema. 2. Morbid obesity/hypertension/hypothyroidism/GERD Complicates care, management, recovery and prognosis. Continue home medications as indicated. Continue sliding scale insulin coverage, given risk for steroid-induced hyperglycemia. TIME: 32 minutes critical care time spent addressing patient's acute hypoxic respiratory failure, hyperglycemia, review of all data and collaboration with care team (9 AM to 10 AM) [id number]: [id number] Critical care first hour
[2020-02-29] MEDS: Furosemide 20 MG/2 ML VIAL IV (11:08)
[2020-02-29] MEDS: Insulin Lispro 100 UNIT/ML INSULN.PEN SC ×3 (11:12→22:19)
[2020-02-29 11:20] LABS: Bedside Glucose 151 mg/dL (70-110)
[2020-02-29 17:08] LABS: BUN/Creat Ratio 19.7 RATIO (10-20); Creatinine, Serum 1.42 mg/dL (0.70-1.30); EST Glomerular Filtration Rate 51 mL/min (>60); Est Glom Filt Rate - Afr Amer 62 mL/min (>60); Estimated Creatinine Clearance 45.66 ml/min
--- NOTE | 2020-02-29 20:11 | PN.ID_ITS ---
Patient Problems: Active and Suspected Problems Septic shock (Acute) Acute respiratory failure with hypoxia (Acute) Pneumonia due to COVID-19 virus (Acute) Hyperglycemia (Acute) SURINDER (acute kidney injury) (Acute) Subjective: Still on high fiO2 bipap, feeling ok, no fever - Physical Exam Vitals/I&O's: Vital Signs Temp Pulse Resp BP Pulse Ox 98.4 F 71 19 H 148/81 H 92 02/29/20 12:00 02/29/20 20:05 02/29/20 20:05 02/29/20 18:00 02/29/20 20:05 Oxygen Flow Rate (L/min) 60 Oxygen Delivery Method Bi-pap Weight: 106.5 kg Body Mass Index (BMI) 30.1 Intake and Output for Last 24 Hours 02/27/20 02/28/20 02/29/20 23:59 23:59 23:59 Intake Total 500 / 500 1080 / 1080 Output Total 2075 / 2075 1250 / 1250 1300 / 1300 Balance -1575 / -1575 -170 / -170 -1300 / -1300 General: Alert, Cooperative, No apparent distress Lungs: Diminished Cardiovascular: Regular rate, Regular Rhythm Abdomen: Soft, Non Tender, Non-Distended Skin: No rashes Microbiology Past 72 Hours 02/27/20 00:01 Urine, Clean Catch Legionella Antigen - Final 02/27/20 00:01 Urine, Clean Catch Streptococcus pneumoniae Antigen (M - Final Laboratory Results 02/28/20 21:35: POC Glucose 181 H 02/29/20 03:50: WBC 4.1 L, RBC 4.15 L, Hgb 13.5, Hct 42.1, MCV 101.4 H, MCH 32.5 H, MCHC 32.1, RDW Std Deviation 50.4 H, RDW Coeff of Charo 13.5, Plt Count 176, MPV 9.9 02/29/20 03:50: Sodium 146 H, Potassium 4.0, Chloride 112 H, Carbon Dioxide 29.0, Anion Gap 5, BUN 28 H, Creatinine 1.42 H, Estim Creat Clear Calc 45.66, Est GFR (MDRD) Af Amer 62, Est GFR (MDRD) Non-Af 51 L, BUN/Creatinine Ratio 19.7, Glucose 158 H, Calcium 8.0 L, Total Bilirubin 0.90, AST 38 H, ALT 29, Alkaline Phosphatase 48, Total Protein 6.5, Albumin 2.7 L, Globulin 3.8, Albumin/Globulin Ratio 0.7 L 02/29/20 11:11: POC Glucose 151 H Current Medications Acetaminophen (Acetaminophen 325 Mg Tablet) 650 mg PO Q6H PRN PRN PRN Reason: Pain Score 1-10/Temp > 100.7 F Carvedilol (Carvedilol 12.5 Mg Tablet) 12.5 mg PO BID REPLACED BY [facility] Dexamethasone Sodium Phosphate (Dexamethasone 10 Mg/Ml Vial) 6 mg IV DAILY REPLACED BY [facility] Stop: 03/06/20 10:01 Last Admin: 02/29/20 09:10 Dose: 6 mg Documented by: Enoxaparin Sodium (Enoxaparin 40 Mg/0.4 Ml Syringe) 40 mg SC BID REPLACED BY [facility] Last Admin: 02/29/20 09:10 Dose: 40 mg Documented by: Guaifenesin (Guaifenesin 10 Ml Udc (200mg/10ml)) 10 ml PO Q4H PRN PRN PRN Reason: COUGH Remdesivir 100 mg/ Sodium (Chloride) 250 mls @ 125 mls/hr IV QHS REPLACED BY [facility]; Protocol Stop: 02/29/20 23:59 Last Infusion: 02/28/20 23:24 Dose: Infused Documented by: Insulin Human Lispro (Insulin Lispro 100 Unit/Ml Insuln.Pen) [facility] Protocol Last Admin: 02/29/20 16:48 Dose: 1 u Documented by: Levothyroxine Sodium (Levothyroxine 50 Mcg Tablet) 50 mcg PO DAILY REPLACED BY [facility] Last Admin: 02/29/20 09:11 Dose: 50 mcg Documented by: Losartan Potassium (Losartan Potassium 25 Mg Tablet) 25 mg PO DAILY REPLACED BY [facility] Melatonin (Melatonin 3 Mg Tablet) 3 mg PO QHS REPLACED BY [facility] Last Admin: 02/28/20 21:26 Dose: 3 mg Documented by: Ondansetron HCl (Ondansetron 4 Mg/2 Ml Vial) 4 mg IV Q8H PRN PRN PRN Reason: NAUSEA/VOMITING Pantoprazole Sodium (Pantoprazole Sodium 20 Mg Tablet) 20 mg PO BID REPLACED BY [facility] Last Admin: 02/29/20 09:10 Dose: 20 mg Documented by: Senna/Docusate Sodium (Senna/Docusate Sodium 1 Tablet) 2 tablet PO BID PRN PRN PRN Reason: Constipation Sodium Chloride (0.9% Saline Lock 10 Ml Syringe) 10 - 40 ml IV UD PRN PRN Reason: Multilumen/Michel Flush Last Admin: 02/27/20 21:40 Dose: 10 ml Documented by: Sodium Chloride (0.9 % Nacl (Sterile) Posiflush 10 Ml) 10 - 40 ml IV UD PRN PRN Reason: Port access or dressing change Throat Lozenges (Benzocaine/Menthol 1 Lozenge) 1 lozenge MUCOUS MEM Q2H PRN PRN PRN Reason: SORE THROAT Last Admin: 02/28/20 08:54 Dose: 1 lozenge Documented by: Medical Necessity - Tobacco Use Smoking Status: Never smoker Tobacco Use: Non-smoker Route of nutrition/ use of supplements: [] Nutritional Intake: [] IV Site: [] Kaye Catheter: [] - Assessment/Plan Antibiotics: [] Assessment/Plan: [] Active and Suspected Problems Septic shock (Acute) Acute respiratory failure with hypoxia (Acute) Pneumonia due to COVID-19 virus (Acute) Hyperglycemia (Acute) SURINDER (acute kidney injury) (Acute) covid with hypoxia - SURINDER and bp improved. On dex, remdesivir. CT neg for PE. Got plasma 02/26. Sx started 02/20/20. On 80% NIPPV. Will follow
[2020-02-29 22:00] LABS: Bedside Glucose 188 mg/dL (70-110)
[2020-02-29] MEDS: MELATONIN 3 MG TABLET PO (22:15)
[2020-02-29] MEDS: Carvedilol 12.5 MG Tablet PO (22:15)
[2020-02-29] MEDS: 0.9% Saline Lock 10 ML Syringe IV (22:24)
[2020-02-29] MEDS: Acetaminophen 325 MG Tablet 650 MG PO (22:27)
[2020-02-29] MEDS: BENZOCAINE/MENTHOL 1 LOZENGE MUCOUS MEM (22:32)
[2020-02-29 23:21] LABS: Bedside Glucose 169 mg/dL (70-110)
[2020-03-01] VITALS (31 sets, daily range): BP systolic 109–160; BP diastolic 54–89; PULSE 55–89; RESP 12–26; TEMP 36.3–36.6; O2SAT 70–98
[2020-03-01 04:29] LABS: Hematocrit 42.3 % (40-54); Hemoglobin 13.8 g/dL (13.0-16.5); Mean Corp Hgb Conc 32.6 g/dL (32-36); Mean Corpuscular Hgb 32.8 pg (27.0-32.0); Mean Corpuscular Volume 100.5 fL (80-94); Mean Platelet Vol. 9.8 fl (6.2-12.0); Platelet Count 195 K/mm3 (150-450); RBC Distribution Width CV 13.3 % (11.6-14.6); RBC Distribution Width SD 49.6 fl (35.1-43.9); Red Blood Count 4.21 M/mm3 (4.6-6.2)
[2020-03-01] MEDS: Acetaminophen 325 MG Tablet 650 MG PO ×3 (04:32→20:56)
[2020-03-01 04:54] LABS: ALB/GLOB Ratio 0.7 RATIO (0.9-2.4); AST(SGOT) 53 U/L (15-37); Alanine Aminotransfer ALT/SGPT 41 U/L (16-61); Albumin, Serum 2.6 g/dL (3.2-5.0); Alkaline Phosphatase 56 U/L (45-117); Anion Gap 5 (5-15); BUN 38 mg/dL (7-18); BUN/Creat Ratio 46.2 RATIO (10-20); Chloride 113 mmol/L (98-107); Creatinine, Serum 0.82 mg/dL (0.70-1.30); EST Glomerular Filtration Rate 96 mL/min (>60); Est Glom Filt Rate - Afr Amer 116 mL/min (>60); Estimated Creatinine Clearance 79.08 ml/min; Globulin 3.9 g/dL (2.2-4.2); Glucose 148 mg/dL (74-106); Potassium 3.9 mmol/L (3.5-5.1); Protein, Total 6.5 g/dL (6.4-8.2); Sodium Level 147 mmol/L (136-145)
--- NOTE | 2020-03-01 07:42 | PN_ITS ---
Patient Problems: Active and Suspected Problems Septic shock (Acute) Acute respiratory failure with hypoxia (Acute) Pneumonia due to COVID-19 virus (Acute) Hyperglycemia (Acute) SURINDER (acute kidney injury) (Acute) Reason for Visit: Follow-up for acute hypoxic respiratory failure secondary to pneumonia. Patient on BiPAP Objective: No fever but patient is still on FiO2 70% on BiPAP. Heart rate is low in 50s. Blood pressure in normal range. Physical exam General: Alert, Oriented x3, Cooperative HEENT: Atraumatic, PERRLA, EOMI, Normocephalic Oral: No Gingival or Mucosal Lesions/ Ulcerations Neck: Supple, No JVD, Negative Carotid Bruits Lungs: Air entry diminished in bilateral lung bases. No crepitation/rhonchi, on high FiO2 AIRVO Cardiovascular: Regular rate, Regular Rhythm, Normal S1, Normal S2, No murmurs Abdomen: Bowel Sounds Present, Soft, Non Tender, Non-Distended : No renal angle tenderness. No suprapubic tenderness. Extremities: No edema, Capillary Refill Less than 3 Seconds Skin: No rashes, No breakdown Musculoskeletal: No Tenderness to Palpation of Joints or Extremities Neurological: Cranial nerves II-XII grossly intact, Deep Tendon Reflexes 2+/4 and Symmetrical, Neuro grossly intact Psych/Mental Status: Normal Affect, Appropriate. Vitals/I&O's: Vital Signs Temp Pulse Resp BP Pulse Ox 97.4 F L 56 L 16 137/87 H 95 03/01/20 04:00 03/01/20 06:00 03/01/20 06:00 03/01/20 06:00 03/01/20 06:00 Oxygen Flow Rate (L/min) 60 Oxygen Delivery Method Bi-pap Weight: 230 lb 13.184 oz Body Mass Index (BMI) 30.1 Intake and Output for Last 24 Hours 02/28/20 02/29/20 03/01/20 23:59 23:59 23:59 Intake Total 1080 / 1080 310 / 310 500 / 500 Output Total 1250 / 1250 1750 / 1750 600 / 600 Balance -170 / -170 -1440 / -1440 -100 / -100 Microbiology Past 72 Hours 02/27/20 00:01 Urine, Clean Catch Legionella Antigen - Final 02/27/20 00:01 Urine, Clean Catch Streptococcus pneumoniae Antigen (M - Final Laboratory Results 02/29/20 03:50: Creatinine 1.42 H, Estim Creat Clear Calc 45.66, Est GFR (MDRD) Af Amer 62, Est GFR (MDRD) Non-Af 51 L, BUN/Creatinine Ratio 19.7 02/29/20 11:11: POC Glucose 151 H 02/29/20 16:39: POC Glucose 188 H 02/29/20 22:13: POC Glucose 169 H 03/01/20 04:00: WBC 5.0, RBC 4.21 L, Hgb 13.8, Hct 42.3, MCV 100.5 H, MCH 32.8 H , MCHC 32.6, RDW Std Deviation 49.6 H, RDW Coeff of Charo 13.3, Plt Count 195, MPV 9.8 03/01/20 04:00: Sodium 147 H, Potassium 3.9, Chloride 113 H, Carbon Dioxide 29.0, Anion Gap 5, BUN 38 H, Creatinine 0.82, Estim Creat Clear Calc 79.08, Est GFR (MDRD) Af Amer 116, Est GFR (MDRD) Non-Af 96, BUN/Creatinine Ratio 46.2 H, Glucose 148 H, Calcium 8.0 L, Total Bilirubin 1.20 H, AST 53 H, ALT 41, Alkaline Phosphatase 56, Total Protein 6.5, Albumin 2.6 L, Globulin 3.9, Albumin/Globulin Ratio 0.7 L Current Medications Acetaminophen (Acetaminophen 325 Mg Tablet) 650 mg PO Q6H PRN PRN PRN Reason: Pain Score 1-10/Temp > 100.7 F Last Admin: 03/01/20 04:32 Dose: 650 mg Documented by: Carvedilol (Carvedilol 12.5 Mg Tablet) 12.5 mg PO BID [facility] Last Admin: 02/29/20 22:15 Dose: 12.5 mg Documented by: Dexamethasone Sodium Phosphate (Dexamethasone 10 Mg/Ml Vial) 6 mg IV DAILY [facility] Stop: 03/06/20 10:01 Last Admin: 02/29/20 09:10 Dose: 6 mg Documented by: Enoxaparin Sodium (Enoxaparin 40 Mg/0.4 Ml Syringe) 40 mg SC BID [facility] Last Admin: 02/29/20 22:15 Dose: 40 mg Documented by: Guaifenesin (Guaifenesin 10 Ml Udc (200mg/10ml)) 10 ml PO Q4H PRN PRN PRN Reason: COUGH Insulin Human Lispro (Insulin Lispro 100 Unit/Ml Insuln.Pen) 0 unit SC ACHS [facility]; Protocol Last Admin: 02/29/20 22:19 Dose: 1 u Documented by: Levothyroxine Sodium (Levothyroxine 50 Mcg Tablet) 50 mcg PO DAILY [facility] Last Admin: 02/29/20 09:11 Dose: 50 mcg Documented by: Losartan Potassium (Losartan Potassium 25 Mg Tablet) 25 mg PO DAILY [facility] Melatonin (Melatonin 3 Mg Tablet) 3 mg PO QHS [facility] Last Admin: 02/29/20 22:15 Dose: 3 mg Documented by: Ondansetron HCl (Ondansetron 4 Mg/2 Ml Vial) 4 mg IV Q8H PRN PRN PRN Reason: NAUSEA/VOMITING Pantoprazole Sodium (Pantoprazole Sodium 20 Mg Tablet) 20 mg PO BID [facility] Last Admin: 02/29/20 22:15 Dose: 20 mg Documented by: Senna/Docusate Sodium (Senna/Docusate Sodium 1 Tablet) 2 tablet PO BID PRN PRN PRN Reason: Constipation Sodium Chloride (0.9% Saline Lock 10 Ml Syringe) 10 - 40 ml IV UD PRN PRN Reason: Multilumen/Michel Flush Last Admin: 02/29/20 22:24 Dose: 10 ml Documented by: Sodium Chloride (0.9 % Nacl (Sterile) Posiflush 10 Ml) 10 - 40 ml IV UD PRN PRN Reason: Port access or dressing change Throat Lozenges (Benzocaine/Menthol 1 Lozenge) 1 lozenge MUCOUS MEM Q2H PRN PRN PRN Reason: SORE THROAT Last Admin: 02/29/20 22:32 Dose: 1 lozenge Documented by: STROKE Vital Signs/Narrative: Vital Signs Temp Pulse Resp BP Pulse Ox 03/01/20 06:00 56 L 16 137/87 H 95 03/01/20 05:00 59 L 18 146/81 H 91 03/01/20 04:30 58 L 19 H 92 03/01/20 04:00 97.4 F L 60 16 129/65 H 92 Medical Necessity - Tobacco Use Smoking Status: Never smoker Tobacco Use: Non-smoker Assessment/Plan All Active Problems Septic shock (Acute) Acute respiratory failure with hypoxia (Acute) Pneumonia due to COVID-19 virus (Acute) Hyperglycemia (Acute) SURINDER (acute kidney injury) (Acute) The patient is a 79 w/ PMHx: HTN, HLD, GERD, Hypothyroidism, Morbid Obesity who was directly admitted in [facility] ICU on 02/26/2020 from OSH ED [facility] in [facility] with history of onset COVID type symptoms for several weeks including diarrhea, abdominal cramping, body aches, dyspnea and cough with decreased in sense of taste/smell with chest CTA finding suggestive of atypical pneumonia in upper lobes but negative for PE. 1. Severe sepsis with acute Hypoxic Respiratory Failure and Acute Encephalopathy secondary to Bilateral Pneumonia secondary to COVID-19: Patient is being admitted in ICU on BiPAP. D-dimer elevated to 1.57. Creatinine 1.38. Procalcitonin 0.16 not significantly elevated. Patient did not get norepinephrine drip. On AIR VO, FiO2 91%, flow rate 60 L/min. On Decadron. D-dimer 1.57. CRP, LDH elevated. Lactic acid normal. Patient had remdesivir 200 mg IV in OSH. ID consult. Remdesivir and Decadron to continue. Patient received IV fluid in outside ER. 02/26: Correction: And had hypotension which responded to the IV fluid bolus in outside ER but did not require norepinephrine drip and patient did not had lactic acidosis more than 4.0 therefore diagnosis of septic shock is not correct. Patient got convalescent plasma yesterday night. Continue remdesivir, Decadron and Lovenox. Acute encephalopathy resolved. Mild leukopenia, anemia and mild thrombocytopenia probably secondary to COVID-19 viral infection although no baseline CBC available prior to this admission. 02/27: No leukocytosis. Serum creatinine normal. Continue treatment. 02/28: Last day of remdesivir today. Serum sodium 146, chloride 112. On 80% FiO2 BiPAP. 03/01: 2. Prediabetes: OSH ED glucose 166. A1c 6.6, suggestive of prediabetes. Leukosis controlled. 3.Acute kidney injury most likely prerenal/dehydration, unclear baseline: OSH ED BUN/Cr 31/1.65, prior day 02/24/20 Cr 1.48, unclear baseline. Here BUN/creatinine 35/1.38. Monitor kidney function electrolytes. 02/27: It seems patient had acute kidney injury. BUN still elevated 31, creatinine 0.8. 4. Hypertension: Blood pressure 144/81. Resume losartan lower dose 5 mg daily. 5. Hyperlipidemia: Not on statin, outpatient evaluation and management 6. Hypothyroidism: Continue home synthroid regimen. 7. Morbid Obesity: Weight loss and lifestyle changes encouraged, nutrition consulted. A1c 6.6 suggestive of prediabetes. 8. GERD: on IV PPI. 9. DVT prophylaxis: SCDs, Lovenox 40 mg subcu twice daily. Total time of the visit including total time spent in counseling or coordination of care, (more than 50% of the total time, spent in obtaining medical information from nurses and other ancillary care providers,explaining to the patient about labs, imaging, diagnosis and management), , review of labs and imaging is 30 minutes. Laboratory Results 02/29/20 03:50: Creatinine 1.42 H, Estim Creat Clear Calc 45.66, Est GFR (MDRD) Af Amer 62, Est GFR (MDRD) Non-Af 51 L, BUN/Creatinine Ratio 19.7 02/29/20 16:39: POC Glucose 188 H 02/29/20 22:13: POC Glucose 169 H 03/01/20 04:00: WBC 5.0, RBC 4.21 L, Hgb 13.8, Hct 42.3, MCV 100.5 H, MCH 32.8 H , MCHC 32.6, RDW Std Deviation 49.6 H, RDW Coeff of Charo 13.3, Plt Count 195, MPV 9.8 03/01/20 04:00: Sodium 147 H, Potassium 3.9, Chloride 113 H, Carbon Dioxide 29.0, Anion Gap 5, BUN 38 H, Creatinine 0.82, Estim Creat Clear Calc 79.08, Est GFR (MDRD) Af Amer 116, Est GFR (MDRD) Non-Af 96, BUN/Creatinine Ratio 46.2 H, Glucose 148 H, Calcium 8.0 L, Total Bilirubin 1.20 H, AST 53 H, ALT 41, Alkaline Phosphatase 56, Total Protein 6.5, Albumin 2.6 L, Globulin 3.9, Albumin/Globulin Ratio 0.7 L Clinical Impression(s) from Imaging Studies Chest CTA 02/26/20 02:36 IMPRESSION: No demonstrated pulmonary embolism or arterial dissection. Scattered reticular interstitial opacities are seen in both lungs suggesting chronic interstitial lung disease. There are superimposed ill-defined groundglass opacities are seen more prominent in the upper lobes, may represent atypical pneumonia or viral pneumonia (COVID-19 ?). Microbiology Past 72 Hours 02/27/20 00:01 Urine, Clean Catch Legionella Antigen - Final 02/27/20 00:01 Urine, Clean Catch Streptococcus pneumoniae Antigen (M - Final Inpatient E&M: [id number] Subs Hosp L2
[2020-03-01] MEDS: Pantoprazole Sodium 20 MG Tablet PO ×2 (09:02→20:56)
[2020-03-01] MEDS: Carvedilol 12.5 MG Tablet PO ×2 (09:02→20:56)
[2020-03-01] MEDS: Enoxaparin 40 MG/0.4 ML Syringe SC ×2 (09:02→20:56)
[2020-03-01] MEDS: Losartan Potassium 25 MG Tablet PO (09:02)
[2020-03-01] MEDS: dexAMETHasone 10 MG/ML Vial 6 MG IV (09:03)
[2020-03-01] MEDS: Levothyroxine 50 MCG Tablet PO (09:03)
[2020-03-01] MEDS: 0.9% Saline Lock 10 ML Syringe IV (09:03)
--- NOTE | 2020-03-01 09:12 | PN_ITS ---
Subjective: Patient did okay overnight. Patient has been relatively BiPAP dependent over the last 24 hours. Patient overall feels subjectively unchanged compared to previous. Patient does feel comfortable on BiPAP, but gets short of breath very quickly and transition to Airvo. General: Alert, Oriented x3, Cooperative, No apparent distress - On BiPAP, - - Obese. Readily moves himself around the bed without difficulty. HEENT: Atraumatic, PERRLA, EOMI, Normocephalic, - - No scleral icterus or injection noted Oral: No Gingival or Mucosal Lesions/ Ulcerations, Dry Mucosa Neck: Supple, No Nodes, Trachea Midline Lungs: No rhonchi, No wheeze, No rales, Diminished, - - Symmetric expansion. No dullness to percussion. No crepitus noted supraclavicularly Cardiovascular: Regular rate, Regular Rhythm, Normal S1, Normal S2, No murmurs, No rub noted, No Gallop Abdomen: Bowel Sounds Present, Soft, Non Tender, Non-Distended Extremities: No clubbing, No cyanosis, No edema, Capillary Refill Less than 3 Seconds Skin: No rashes, No breakdown Musculoskeletal: No Tenderness to Palpation of Joints or Extremities Lymphatic: No Cervical, Supraclavicular, or Inguinal Adenopathy Neurological: Cranial nerves II-XII grossly intact, Neuro grossly intact, Motor Exam 5/5 strength throughout Psych/Mental Status: Alert and oriented to time, place, person, mood and affect Vital Signs Temp Pulse Resp BP Pulse Ox 36.3 C L 55 L 20 H 137/87 H 93 03/01/20 04:00 03/01/20 07:15 03/01/20 07:15 03/01/20 06:00 03/01/20 07:15 Oxygen Flow Rate (L/min) 60 Oxygen Delivery Method Bi-pap Weight: 104.7 kg Body Mass Index (BMI) 30.1 Intake and Output for Last 24 Hours 02/28/20 02/29/20 03/01/20 23:59 23:59 23:59 Intake Total 1080 / 1080 310 / 310 500 / 500 Output Total 1250 / 1250 1750 / 1750 600 / 600 Balance -170 / -170 -1440 / -1440 -100 / -100 Labs (Last 48 Hours) 02/28/20 02/28/20 02/28/20 08:44 11:21 21:35 WBC RBC Hgb Hct MCV MCH MCHC RDW Std Deviation RDW Coeff of Charo Plt Count MPV Sodium Potassium Chloride Carbon Dioxide Anion Gap BUN Creatinine Estim Creat Clear Calc Est GFR (MDRD) Af Amer Est GFR (MDRD) Non-Af BUN/Creatinine Ratio Glucose Calcium Total Bilirubin AST ALT Alkaline Phosphatase Total Protein Albumin Globulin Albumin/Globulin Ratio POC Glucose 138 H 220 H 181 H 02/29/20 02/29/20 02/29/20 03:50 03:50 11:11 WBC 4.1 L RBC 4.15 L Hgb 13.5 Hct 42.1 MCV 101.4 H MCH 32.5 H MCHC 32.1 RDW Std Deviation 50.4 H RDW Coeff of Charo 13.5 Plt Count 176 MPV 9.9 Sodium 146 H Potassium 4.0 Chloride 112 H Carbon Dioxide 29.0 Anion Gap 5 BUN 28 H Creatinine 1.42 H Estim Creat Clear Calc 45.66 Est GFR (MDRD) Af Amer 62 Est GFR (MDRD) Non-Af 51 L BUN/Creatinine Ratio 19.7 Glucose 158 H Calcium 8.0 L Total Bilirubin 0.90 AST 38 H ALT 29 Alkaline Phosphatase 48 Total Protein 6.5 Albumin 2.7 L Globulin 3.8 Albumin/Globulin Ratio 0.7 L POC Glucose 151 H 02/29/20 02/29/20 03/01/20 16:39 22:13 04:00 WBC 5.0 RBC 4.21 L Hgb 13.8 Hct 42.3 MCV 100.5 H MCH 32.8 H MCHC 32.6 RDW Std Deviation 49.6 H RDW Coeff of Charo 13.3 Plt Count 195 MPV 9.8 Sodium Potassium Chloride Carbon Dioxide Anion Gap BUN Creatinine Estim Creat Clear Calc Est GFR (MDRD) Af Amer Est GFR (MDRD) Non-Af BUN/Creatinine Ratio Glucose Calcium Total Bilirubin AST ALT Alkaline Phosphatase Total Protein Albumin Globulin Albumin/Globulin Ratio POC Glucose 188 H 169 H 03/01/20 04:00 WBC RBC Hgb Hct MCV MCH MCHC RDW Std Deviation RDW Coeff of Charo Plt Count MPV Sodium 147 H Potassium 3.9 Chloride 113 H Carbon Dioxide 29.0 Anion Gap 5 BUN 38 H Creatinine 0.82 Estim Creat Clear Calc 79.08 Est GFR (MDRD) Af Amer 116 Est GFR (MDRD) Non-Af 96 BUN/Creatinine Ratio 46.2 H Glucose 148 H Calcium 8.0 L Total Bilirubin 1.20 H AST 53 H ALT 41 Alkaline Phosphatase 56 Total Protein 6.5 Albumin 2.6 L Globulin 3.9 Albumin/Globulin Ratio 0.7 L POC Glucose Medical Necessity - Tobacco Use Smoking Status: Never smoker Tobacco Use: Non-smoker Assessment/Plan All Active Problems Septic shock (Acute) Acute respiratory failure with hypoxia (Acute) Pneumonia due to COVID-19 virus (Acute) Hyperglycemia (Acute) SURINDER (acute kidney injury) (Acute) RECOMMENDATIONS: 1. Continue BiPAP to maintain saturations at or above 90%. Airvo breaks as tolerated 2. Continue Decadron (5/10) daily. 3. Completed convalescent serum and remdesivir 4. Continue Lovenox as ordered. 5. Encourage incentive spirometer use and mobilize patient as tolerated. 6. Hold on diuretic challenge for now IMPRESSIONS: 1. Acute hypoxemic respiratory failure secondary to COVID-19 pneumonia The patient presented as a transfer from an outside facility with Covid- like symptoms for approximately 1 week. Plan to continue current supportive measures with Airvo heated high flow oxygen to maintain saturations at or above 90%. The patient has already received convalescent plasma and remdesivir. Will remain on Decadron to complete 10 days. Continue Lovenox at current dose, given lack of PE identified on CTA chest. Infectious diseases following. Will hold on challenge with diuretic therapy given hypernatremia and hyperchloremia. Some concern the patient may progress to intubation eventually. Chest x-ray does not show significant pneumomediastinum, but will have to watch closely for subcutaneous emphysema clinically. 2. Morbid obesity/hypertension/hypothyroidism/GERD Complicates care, management, recovery and prognosis. Continue home medications as indicated. Continue sliding scale insulin coverage, given risk for steroid-induced hyperglycemia. TIME: 35 minutes critical care time spent addressing patient's acute hypoxic respiratory failure, hyperglycemia, review of all data and collaboration with care team (8 AM to 9 AM) [phone] [id number] Critical care first hour
--- NOTE | 2020-03-01 10:05 | CASEMGMT ---
RN CM Note: participated in ICU interdisciplinary rounds. Remains on Bipap and Airvo. Passed mobility/PT OT to work with patient today. Last dose of Remdesivir given today, remains on Decadron IV, Lovenox. DC Plan: If patient continues to require high flow oxygen, may qualify for LTACH vs home with home oxygen. Ashley RUIZN RN ACM
--- NOTE | 2020-03-01 11:34 | CASEMGMT ---
SW participated in ICU rounds. Pt remains on bipapp. SW will continue to follow and available to speak w/pt via phone regarding LW/POA forms once pt is able to speak by phone, should pt want to follow up. ALFIE Singh
[2020-03-01] MEDS: Insulin Lispro 100 UNIT/ML INSULN.PEN SC ×3 (12:26→20:57)
[2020-03-01 14:06] LABS: Bedside Glucose 163 mg/dL (70-110)
[2020-03-01 17:21] LABS: Bedside Glucose 202 mg/dL (70-110)
[2020-03-01] MEDS: MELATONIN 3 MG TABLET PO (20:56)
[2020-03-01 21:46] LABS: Bedside Glucose 173 mg/dL (70-110)
[2020-03-02] VITALS (36 sets, daily range): BP systolic 96–153; BP diastolic 53–89; PULSE 56–94; RESP 12–73; TEMP 36.1–36.6; O2SAT 88–95
[2020-03-02 05:23] LABS: ALB/GLOB Ratio 0.6 RATIO (0.9-2.4); AST(SGOT) 47 U/L (15-37); Alanine Aminotransfer ALT/SGPT 49 U/L (16-61); Albumin, Serum 2.6 g/dL (3.2-5.0); Alkaline Phosphatase 67 U/L (45-117); Anion Gap 3 (5-15); BUN 34 mg/dL (7-18); Calcium,Total 8.2 mg/dL (8.5-10.1); Chloride 112 mmol/L (98-107); Creatinine, Serum 0.68 mg/dL (0.70-1.30); EST Glomerular Filtration Rate 120 mL/min (>60); Est Glom Filt Rate - Afr Amer 145 mL/min (>60); Estimated Creatinine Clearance 64.84 ml/min; Glucose 109 mg/dL (74-106); Potassium 4.1 mmol/L (3.5-5.1); Protein, Total 6.6 g/dL (6.4-8.2); Sodium Level 145 mmol/L (136-145)
[2020-03-02] MEDS: Furosemide 40 MG/4 ML Vial IV (06:10)
[2020-03-02] MEDS: 0.9% Saline Lock 10 ML Syringe IV ×2 (06:10→08:29)
--- NOTE | 2020-03-02 07:29 | PN_ITS ---
Patient Problems: Active and Suspected Problems Septic shock (Acute) Acute respiratory failure with hypoxia (Acute) Pneumonia due to COVID-19 virus (Acute) Hyperglycemia (Acute) SURINDER (acute kidney injury) (Acute) Reason for Visit: Acute hypoxic respiratory failure secondary to COVID-19 pneumonia Objective: Patient no fever, intermittently on BiPAP and AIR VO. Mild cough. He states his breathing status is stable over last 3 days, neither feels better nor worse. Physical exam General: Alert, Oriented x3, Cooperative HEENT: Atraumatic, PERRLA, EOMI, Normocephalic Oral: No Gingival or Mucosal Lesions/ Ulcerations Neck: Supple, No JVD, Negative Carotid Bruits Lungs: Air entry diminished in bilateral lung bases. No crepitation/rhonchi. On FiO2, 65% FiO2 BiPAP Cardiovascular: Regular rate, Regular Rhythm, Normal S1, Normal S2, No murmurs Abdomen: Bowel Sounds Present, Soft, Non Tender, Non-Distended : No renal angle tenderness. No suprapubic tenderness. Extremities: No edema, Capillary Refill Less than 3 Seconds Skin: No rashes, No breakdown Musculoskeletal: No Tenderness to Palpation of Joints or Extremities Neurological: Cranial nerves II-XII grossly intact, Deep Tendon Reflexes 2+/4 and Symmetrical, Neuro grossly intact Psych/Mental Status: Normal Affect, Appropriate. Vitals/I&O's: Vital Signs Temp Pulse Resp BP Pulse Ox 97.1 F L 79 21 H 120/65 88 03/02/20 04:00 03/02/20 06:00 03/02/20 06:00 03/02/20 06:00 03/02/20 06:00 Oxygen Flow Rate (L/min) 60 Oxygen Delivery Method Airvo Weight: 232 lb 9.403 oz Body Mass Index (BMI) 30.1 Intake and Output for Last 24 Hours 02/29/20 03/01/20 03/02/20 23:59 23:59 23:59 Intake Total 310 / 310 1620 / 1620 440 / 440 Output Total 1750 / 1750 1900 / 1900 700 / 700 Balance -1440 / -1440 -280 / -280 -260 / -260 Laboratory Results 03/01/20 12:24: POC Glucose 163 H 03/01/20 17:08: POC Glucose 202 H 03/01/20 20:54: POC Glucose 173 H 03/02/20 04:45: Sodium 145, Potassium 4.1, Chloride 112 H, Carbon Dioxide 30.0, Anion Gap 3 L, BUN 34 H, Creatinine 0.68 L, Estim Creat Clear Calc 64.84, Est GFR (MDRD) Af Amer 145, Est GFR (MDRD) Non-Af 120, BUN/Creatinine Ratio 50.0 H, Glucose 109 H, Calcium 8.2 L, Total Bilirubin 1.30 H, AST 47 H, ALT 49, Alkaline Phosphatase 67, Total Protein 6.6, Albumin 2.6 L, Globulin 4.0, Albumin/Globulin Ratio 0.6 L Current Medications Acetaminophen (Acetaminophen 325 Mg Tablet) 650 mg PO Q6H PRN PRN PRN Reason: Pain Score 1-10/Temp > 100.7 F Last Admin: 03/01/20 20:56 Dose: 650 mg Documented by: Carvedilol (Carvedilol 12.5 Mg Tablet) 12.5 mg PO BID [facility] Last Admin: 03/01/20 20:56 Dose: 12.5 mg Documented by: Dexamethasone Sodium Phosphate (Dexamethasone 10 Mg/Ml Vial) 6 mg IV DAILY [facility] Stop: 03/06/20 10:01 Last Admin: 03/01/20 09:03 Dose: 6 mg Documented by: Enoxaparin Sodium (Enoxaparin 40 Mg/0.4 Ml Syringe) 40 mg SC BID [facility] Last Admin: 03/01/20 20:56 Dose: 40 mg Documented by: Guaifenesin (Guaifenesin 10 Ml Udc (200mg/10ml)) 10 ml PO Q4H PRN PRN PRN Reason: COUGH Insulin Human Lispro (Insulin Lispro 100 Unit/Ml Insuln.Pen) 0 unit SC [facility]; Protocol Last Admin: 03/01/20 20:57 Dose: 1 u Documented by: Levothyroxine Sodium (Levothyroxine 50 Mcg Tablet) 50 mcg PO DAILY [facility] Last Admin: 03/01/20 09:03 Dose: 50 mcg Documented by: Losartan Potassium (Losartan Potassium 25 Mg Tablet) 25 mg PO DAILY [facility] Last Admin: 03/01/20 09:02 Dose: 25 mg Documented by: Melatonin (Melatonin 3 Mg Tablet) 3 mg PO QHS [facility] Last Admin: 03/01/20 20:56 Dose: 3 mg Documented by: Ondansetron HCl (Ondansetron 4 Mg/2 Ml Vial) 4 mg IV Q8H PRN PRN PRN Reason: NAUSEA/VOMITING Pantoprazole Sodium (Pantoprazole Sodium 20 Mg Tablet) 20 mg PO BID JONO Last Admin: 03/01/20 20:56 Dose: 20 mg Documented by: Senna/Docusate Sodium (Senna/Docusate Sodium 1 Tablet) 2 tablet PO BID PRN PRN PRN Reason: Constipation Sodium Chloride (0.9% Saline Lock 10 Ml Syringe) 10 - 40 ml IV UD PRN PRN Reason: Multilumen/Michel Flush Last Admin: 03/02/20 06:10 Dose: 30 ml Documented by: Sodium Chloride (0.9 % Nacl (Sterile) Posiflush 10 Ml) 10 - 40 ml IV UD PRN PRN Reason: Port access or dressing change Throat Lozenges (Benzocaine/Menthol 1 Lozenge) 1 lozenge MUCOUS MEM Q2H PRN PRN PRN Reason: SORE THROAT Last Admin: 02/29/20 22:32 Dose: 1 lozenge Documented by: STROKE Vital Signs/Narrative: Vital Signs Temp Pulse Resp BP Pulse Ox 03/02/20 06:00 79 21 H 120/65 88 03/02/20 05:00 69 26 H 136/77 H 88 03/02/20 04:55 76 16 89 03/02/20 04:00 97.1 F L 72 23 H 152/83 H 90 03/02/20 03:47 62 Medical Necessity - Tobacco Use Smoking Status: Never smoker Tobacco Use: Non-smoker Assessment/Plan All Active Problems Septic shock (Acute) Acute respiratory failure with hypoxia (Acute) Pneumonia due to COVID-19 virus (Acute) Hyperglycemia (Acute) SURINDER (acute kidney injury) (Acute) The patient is a 79 w/ PMHx: HTN, HLD, GERD, Hypothyroidism, Morbid Obesity who was directly admitted in [facility] ICU on 02/26/2020 from OSH ED [facility] in [facility] with history of onset COVID type symptoms for several weeks including diarrhea, abdominal cramping, body aches, dyspnea and cough with decreased in sense of taste/smell with chest CTA finding suggestive of atypical pneumonia in upper lobes but negative for PE. 1. Severe sepsis with acute Hypoxic Respiratory Failure and Acute Encephalopathy secondary to Bilateral Pneumonia secondary to COVID-19: Patient is being admitted in ICU on BiPAP. D-dimer elevated to 1.57. Creatinine 1.38. Procalcitonin 0.16 not significantly elevated. Patient did not get norepinephrine drip. On AIR VO, FiO2 91%, flow rate 60 L/min. On Decadron. D-dimer 1.57. CRP, LDH elevated. Lactic acid normal. Patient had remdesivir 200 mg IV in OSH. ID consult. Remdesivir and Decadron to continue. Patient received IV fluid in outside ER. 02/26: Correction: And had hypotension which responded to the IV fluid bolus in outside ER but did not require norepinephrine drip and patient did not had lactic acidosis more than 4.0 therefore diagnosis of septic shock is not correct. Patient got convalescent plasma yesterday night. Continue remdesivir, Decadron and Lovenox. Acute encephalopathy resolved. Mild leukopenia, anemia and mild thrombocytopenia probably secondary to COVID-19 viral infection although no baseline CBC available prior to this admission. 02/27: No leukocytosis. Serum creatinine normal. Continue treatment. 02/28: Last day of remdesivir today. Serum sodium 146, chloride 112. On 80% FiO2 BiPAP. 03/02: Lasix was given today. Patient on BiPAP with AIRVO breaks. On 65% FiO2 BiPAP. On Decadron 2. Prediabetes: OSH ED glucose 166. A1c 6.6, suggestive of prediabetes. Leukosis controlled. 3.Acute kidney injury most likely prerenal/dehydration, unclear baseline: OSH ED BUN/Cr 31/1.65, prior day 02/24/20 Cr 1.48, unclear baseline. Here BUN/creatinine 35/1.38. Monitor kidney function electrolytes. 02/27: It seems patient had acute kidney injury. BUN still elevated 31, creatinine 0.8. 4. Hypertension: Blood pressure 144/81. Resume losartan lower dose 5 mg daily. 5. Hyperlipidemia: Not on statin, outpatient evaluation and management 6. Hypothyroidism: Continue home synthroid regimen. 7. Morbid Obesity: Weight loss and lifestyle changes encouraged, nutrition consulted. A1c 6.6 suggestive of prediabetes. 8. GERD: on IV PPI. 9. DVT prophylaxis: SCDs, Lovenox 40 mg subcu twice daily. Total time of the visit including total time spent in counseling or coordination of care, (more than 50% of the total time, spent in obtaining medical information from nurses and other ancillary care providers,explaining to the patient about labs, imaging, diagnosis and management), , review of labs and imaging is 30 minutes. Laboratory Results 03/01/20 12:24: POC Glucose 163 H 03/01/20 17:08: POC Glucose 202 H 03/01/20 20:54: POC Glucose 173 H 03/02/20 04:45: Sodium 145, Potassium 4.1, Chloride 112 H, Carbon Dioxide 30.0, Anion Gap 3 L, BUN 34 H, Creatinine 0.68 L, Estim Creat Clear Calc 64.84, Est GFR (MDRD) Af Amer 145, Est GFR (MDRD) Non-Af 120, BUN/Creatinine Ratio 50.0 H, Glucose 109 H, Calcium 8.2 L, Total Bilirubin 1.30 H, AST 47 H, ALT 49, Alkaline Phosphatase 67, Total Protein 6.6, Albumin 2.6 L, Globulin 4.0, Albumin/Globulin Ratio 0.6 L Clinical Impression(s) from Imaging Studies Chest CTA 02/26/20 02:36 IMPRESSION: No demonstrated pulmonary embolism or arterial dissection. Scattered reticular interstitial opacities are seen in both lungs suggesting chronic interstitial lung disease. There are superimposed ill-defined groundglass opacities are seen more prominent in the upper lobes, may represent atypical pneumonia or viral pneumonia (COVID-19 ?). Microbiology Past 72 Hours 02/27/20 00:01 Urine, Clean Catch Legionella Antigen - Final 02/27/20 00:01 Urine, Clean Catch Streptococcus pneumoniae Antigen (M - Final Inpatient E&M: 27612 Subs Hosp L3
--- NOTE | 2020-03-02 08:02 | PN_ITS ---
Subjective: Patient did okay overnight. Patient was able to take longer breaks on Airvo yesterday than the day previous. Patient states he feels worse than y esterday. Patient is unable to describe exactly how he is worse compared to yesterday. Patient was attempted on Airvo this morning and lasted only 15 minutes before desaturating. Patient has had a good response to Lasix given this morning. Patient has been tolerating Kaye removal well. General: Alert, Oriented x3, Cooperative, No apparent distress - On BiPAP therapy, - - Obese. HEENT: Atraumatic, PERRLA, EOMI, Normocephalic, - - Slight scleral injection without icterus Oral: Moist Mucosa, No Gingival or Mucosal Lesions/ Ulcerations Neck: Supple, No Nodes, Trachea Midline, JVD, Right Lungs: No rhonchi, No wheeze, No rales, Diminished, - - Symmetric expansion. No dullness to percussion. Cardiovascular: Regular rate, Regular Rhythm, Normal S1, Normal S2, No murmurs, No rub noted, No Gallop Abdomen: Bowel Sounds Present, Soft, Non Tender, Non-Distended, Obese Extremities: No clubbing, No cyanosis, Edema - Trace to 1+ Skin: No rashes, No breakdown Musculoskeletal: No Tenderness to Palpation of Joints or Extremities Lymphatic: No Cervical, Supraclavicular, or Inguinal Adenopathy Neurological: Cranial nerves II-XII grossly intact, Neuro grossly intact, Motor Exam 5/5 strength throughout Psych/Mental Status: Alert and oriented to time, place, person, mood and affect Vital Signs Temp Pulse Resp BP Pulse Ox 36.2 C L 79 21 H 120/65 88 03/02/20 04:00 03/02/20 06:00 03/02/20 06:00 03/02/20 06:00 03/02/20 06:00 Oxygen Flow Rate (L/min) 60 Oxygen Delivery Method Airvo Weight: 105.5 kg Body Mass Index (BMI) 30.1 Intake and Output for Last 24 Hours 02/29/20 03/01/20 03/02/20 23:59 23:59 23:59 Intake Total 310 / 310 1620 / 1620 440 / 440 Output Total 1750 / 1750 1900 / 1900 700 / 700 Balance -1440 / -1440 -280 / -280 -260 / -260 Labs (Last 48 Hours) 02/29/20 02/29/20 02/29/20 03:50 11:11 16:39 WBC RBC Hgb Hct MCV MCH MCHC RDW Std Deviation RDW Coeff of Charo Plt Count MPV Sodium Potassium Chloride Carbon Dioxide Anion Gap BUN Creatinine 1.42 H Estim Creat Clear Calc 45.66 Est GFR (MDRD) Af Amer 62 Est GFR (MDRD) Non-Af 51 L BUN/Creatinine Ratio 19.7 Glucose Calcium Total Bilirubin AST ALT Alkaline Phosphatase Total Protein Albumin Globulin Albumin/Globulin Ratio POC Glucose 151 H 188 H 02/29/20 03/01/20 03/01/20 22:13 04:00 04:00 WBC 5.0 RBC 4.21 L Hgb 13.8 Hct 42.3 MCV 100.5 H MCH 32.8 H MCHC 32.6 RDW Std Deviation 49.6 H RDW Coeff of Charo 13.3 Plt Count 195 MPV 9.8 Sodium 147 H Potassium 3.9 Chloride 113 H Carbon Dioxide 29.0 Anion Gap 5 BUN 38 H Creatinine 0.82 Estim Creat Clear Calc 79.08 Est GFR (MDRD) Af Amer 116 Est GFR (MDRD) Non-Af 96 BUN/Creatinine Ratio 46.2 H Glucose 148 H Calcium 8.0 L Total Bilirubin 1.20 H AST 53 H ALT 41 Alkaline Phosphatase 56 Total Protein 6.5 Albumin 2.6 L Globulin 3.9 Albumin/Globulin Ratio 0.7 L POC Glucose 169 H 03/01/20 03/01/20 03/01/20 12:24 17:08 20:54 WBC RBC Hgb Hct MCV MCH MCHC RDW Std Deviation RDW Coeff of Charo Plt Count MPV Sodium Potassium Chloride Carbon Dioxide Anion Gap BUN Creatinine Estim Creat Clear Calc Est GFR (MDRD) Af Amer Est GFR (MDRD) Non-Af BUN/Creatinine Ratio Glucose Calcium Total Bilirubin AST ALT Alkaline Phosphatase Total Protein Albumin Globulin Albumin/Globulin Ratio POC Glucose 163 H 202 H 173 H 03/02/20 04:45 WBC RBC Hgb Hct MCV MCH MCHC RDW Std Deviation RDW Coeff of Charo Plt Count MPV Sodium 145 Potassium 4.1 Chloride 112 H Carbon Dioxide 30.0 Anion Gap 3 L BUN 34 H Creatinine 0.68 L Estim Creat Clear Calc 64.84 Est GFR (MDRD) Af Amer 145 Est GFR (MDRD) Non-Af 120 BUN/Creatinine Ratio 50.0 H Glucose 109 H Calcium 8.2 L Total Bilirubin 1.30 H AST 47 H ALT 49 Alkaline Phosphatase 67 Total Protein 6.6 Albumin 2.6 L Globulin 4.0 Albumin/Globulin Ratio 0.6 L POC Glucose Medical Necessity - Tobacco Use Smoking Status: Never smoker Tobacco Use: Non-smoker Assessment/Plan All Active Problems Septic shock (Acute) Acute respiratory failure with hypoxia (Acute) Pneumonia due to COVID-19 virus (Acute) Hyperglycemia (Acute) SURINDER (acute kidney injury) (Acute) RECOMMENDATIONS: 1. Continue BiPAP to maintain saturations at or above 90%. Airvo breaks as tolerated 2. Continue Decadron (09/15) daily. Completed convalescent serum and remdesivir 3. Diuretic challenge 4. Continue Lovenox as ordered. 5. Encourage incentive spirometer use and mobilize patient as tolerated. 6. Attempt p.o. intake if able to stand Airvo today IMPRESSIONS: 1. Acute hypoxemic respiratory failure secondary to COVID-19 pneumonia The patient presented as a transfer from an outside facility with Covid- like symptoms for approximately 1 week. Plan to continue current supportive measures with Airvo heated high flow oxygen to maintain saturations at or above 90%. The patient has already received convalescent plasma and remdesivir. Will remain on Decadron to complete 10 days. Continue Lovenox at current dose, given lack of PE identified on CTA chest. Infectious diseases following. Patient appears to be improving somewhat. We will give a diuretic challenge today. If able to tolerate Airvo for significant amount of time, initiation of supplements for nutrition would be appropriate. 2. Morbid obesity/hypertension/hypothyroidism/GERD Complicates care, management, recovery and prognosis. Continue home medications as indicated. Continue sliding scale insulin coverage, given risk for steroid-induced hyperglycemia. TIME: 31 minutes critical care time spent addressing patient's acute hypoxic respiratory failure, hyperglycemia, review of all data and collaboration with care team (7 AM to 8 AM) [id number] [id number] Critical care first hour
[2020-03-02] MEDS: Enoxaparin 40 MG/0.4 ML Syringe SC ×2 (08:26→20:02)
[2020-03-02] MEDS: Pantoprazole Sodium 20 MG Tablet PO ×2 (08:27→20:02)
[2020-03-02] MEDS: Levothyroxine 50 MCG Tablet PO (08:27)
[2020-03-02] MEDS: Carvedilol 12.5 MG Tablet PO (08:28)
[2020-03-02] MEDS: dexAMETHasone 10 MG/ML Vial 6 MG IV (08:28)
[2020-03-02] MEDS: Losartan Potassium 25 MG Tablet PO (08:28)
[2020-03-02] MEDS: Insulin Lispro 100 UNIT/ML INSULN.PEN SC ×2 (12:16→16:57)
[2020-03-02] MEDS: Acetaminophen 325 MG Tablet 650 MG PO (12:17)
[2020-03-02] MEDS: BENZOCAINE/MENTHOL 1 LOZENGE MUCOUS MEM (12:18)
--- NOTE | 2020-03-02 15:12 | PN.ID_ITS ---
Patient Problems: Active and Suspected Problems Septic shock (Acute) Acute respiratory failure with hypoxia (Acute) Pneumonia due to COVID-19 virus (Acute) Hyperglycemia (Acute) SURINDER (acute kidney injury) (Acute) Subjective: Feeling a little better, no fever, still some dyspnea - Physical Exam Vitals/I&O's: Vital Signs Temp Pulse Resp BP Pulse Ox 97.2 F L 63 66 H 106/70 93 03/02/20 12:00 03/02/20 15:00 03/02/20 14:00 03/02/20 15:00 03/02/20 15:00 Oxygen Flow Rate (L/min) 65 Oxygen Delivery Method Bi-pap Weight: 105.5 kg Body Mass Index (BMI) 30.1 Intake and Output for Last 24 Hours 02/29/20 03/01/20 03/02/20 23:59 23:59 23:59 Intake Total 310 / 310 1620 / 1620 1380 / 1380 Output Total 1750 / 1750 1900 / 1900 2725 / 2725 Balance -1440 / -1440 -280 / -280 -1345 / -1345 General: Alert, Cooperative, No apparent distress Lungs: Diminished Cardiovascular: Regular rate, Regular Rhythm Abdomen: Soft, Non Tender, Non-Distended Skin: No rashes Laboratory Results 03/01/20 17:08: POC Glucose 202 H 03/01/20 20:54: POC Glucose 173 H 03/02/20 04:45: Sodium 145, Potassium 4.1, Chloride 112 H, Carbon Dioxide 30.0, Anion Gap 3 L, BUN 34 H, Creatinine 0.68 L, Estim Creat Clear Calc 64.84, Est GFR (MDRD) Af Amer 145, Est GFR (MDRD) Non-Af 120, BUN/Creatinine Ratio 50.0 H, Glucose 109 H, Calcium 8.2 L, Total Bilirubin 1.30 H, AST 47 H, ALT 49, Alkaline Phosphatase 67, Total Protein 6.6, Albumin 2.6 L, Globulin 4.0, Albumin/Globulin Ratio 0.6 L Current Medications Acetaminophen (Acetaminophen 325 Mg Tablet) 650 mg PO Q6H PRN PRN PRN Reason: Pain Score 1-10/Temp > 100.7 F Last Admin: 03/02/20 12:17 Dose: 650 mg Documented by: Carvedilol (Carvedilol 12.5 Mg Tablet) 12.5 mg PO BID [facility] Last Admin: 03/02/20 08:28 Dose: 12.5 mg Documented by: Dexamethasone Sodium Phosphate (Dexamethasone 10 Mg/Ml Vial) 6 mg IV DAILY [facility] Stop: 03/06/20 10:01 Last Admin: 03/02/20 08:28 Dose: 6 mg Documented by: Enoxaparin Sodium (Enoxaparin 40 Mg/0.4 Ml Syringe) 40 mg SC BID [facility] Last Admin: 03/02/20 08:26 Dose: 40 mg Documented by: Guaifenesin (Guaifenesin 10 Ml Udc (200mg/10ml)) 10 ml PO Q4H PRN PRN PRN Reason: COUGH Insulin Human Lispro (Insulin Lispro 100 Unit/Ml Insuln.Pen) 0 unit SC [facility]; Protocol Last Admin: 03/02/20 12:16 Dose: 2 u Documented by: Levothyroxine Sodium (Levothyroxine 50 Mcg Tablet) 50 mcg PO DAILY [facility] Last Admin: 03/02/20 08:27 Dose: 50 mcg Documented by: Losartan Potassium (Losartan Potassium 25 Mg Tablet) 25 mg PO DAILY [facility] Last Admin: 03/02/20 08:28 Dose: 25 mg Documented by: Melatonin (Melatonin 3 Mg Tablet) 3 mg PO QHS [facility] Last Admin: 03/01/20 20:56 Dose: 3 mg Documented by: Nutritional Formula (Lactose Free) (Ensure Clear 120 Ml Liquid) 240 ml PO TIDCM [facility] Last Admin: 03/02/20 14:33 Dose: Not Given Documented by: Ondansetron HCl (Ondansetron 4 Mg/2 Ml Vial) 4 mg IV Q8H PRN PRN PRN Reason: NAUSEA/VOMITING Pantoprazole Sodium (Pantoprazole Sodium 20 Mg Tablet) 20 mg PO BID [facility] Last Admin: 03/02/20 08:27 Dose: 20 mg Documented by: Senna/Docusate Sodium (Senna/Docusate Sodium 1 Tablet) 2 tablet PO BID PRN PRN PRN Reason: Constipation Sodium Chloride (0.9% Saline Lock 10 Ml Syringe) 10 - 40 ml IV UD PRN PRN Reason: Multilumen/Michel Flush Last Admin: 03/02/20 08:29 Dose: 10 ml Documented by: Sodium Chloride (0.9 % Nacl (Sterile) Posiflush 10 Ml) 10 - 40 ml IV UD PRN PRN Reason: Port access or dressing change Throat Lozenges (Benzocaine/Menthol 1 Lozenge) 1 lozenge MUCOUS MEM Q2H PRN PRN PRN Reason: SORE THROAT Last Admin: 03/02/20 12:18 Dose: 1 lozenge Documented by: Medical Necessity - Tobacco Use Smoking Status: Never smoker Tobacco Use: Non-smoker Route of nutrition/ use of supplements: [] Nutritional Intake: [] IV Site: [] Kaye Catheter: [] - Assessment/Plan Antibiotics: [] Assessment/Plan: [] Active and Suspected Problems Septic shock (Acute) Acute respiratory failure with hypoxia (Acute) Pneumonia due to COVID-19 virus (Acute) Hyperglycemia (Acute) SURINDER (acute kidney injury) (Acute) covid with hypoxia - SURINDER and bp improved. On dex, completed remdesivir. CT neg for PE. Got plasma 02/26. Sx started 02/20/20. On 65% NIPPV, improved. Will follow
[2020-03-02] MEDS: Ensure Clear 120 ML Liquid 240 ML PO (16:57)
[2020-03-02 17:15] LABS: Bedside Glucose 202 mg/dL (70-110)
[2020-03-02 17:15] LABS: Bedside Glucose 243 mg/dL (70-110)
[2020-03-02] MEDS: MELATONIN 3 MG TABLET PO (20:02)
[2020-03-02 22:00] LABS: Bedside Glucose 142 mg/dL (70-110)
[2020-03-03] VITALS (55 sets, daily range): BP systolic 67–153; BP diastolic 47–99; PULSE 63–97; RESP 11–27; TEMP 36.3–39.7; O2SAT 87–98; BMI 31.8
--- NOTE | 2020-03-03 03:00 | CPS ---
pts SpO2 in mid 80's and RN had to increase FiO2 to 100%
[2020-03-03 03:17] LABS: Absolute Lymphocyte Count 0.29 X10^3/uL (0.83-4.51); Absolute Neutrophil Count 5.9 X10^3/uL (2.0-7.7); Basophil# 0.01 X10^3/uL; Basophil% 0.2 % (0-1); Eosinophil# 0.07 X10^3/uL; Eosinophils% 1.1 % (0-5); Hematocrit 43.4 % (40-54); Hemoglobin 14.4 g/dL (13.0-16.5); Lymphocyte # 0.29 X10^3/ul (4.0); Lymphocyte % 4.5 % (19-41); Mean Corp Hgb Conc 33.2 g/dL (32-36); Mean Corpuscular Hgb 32.9 pg (27.0-32.0); Mean Corpuscular Volume 99.1 fL (80-94); Mean Platelet Vol. 9.7 fl (6.2-12.0); Monocyte# 0.11 X10^3/uL; Monocyte% 1.7 % (0-10); NRBC Flagged by Analyzer 0 % (0-5); Neutrophil # 5.86 X10^3/uL (2.7-7.7); Neutrophil % 91.7 % (47-70); POSITIVE DIFFERENTIAL YES; Platelet Count 204 K/mm3 (150-450); RBC Distribution Width CV 13.3 % (11.6-14.6); RBC Distribution Width SD 49.1 fl (35.1-43.9); Red Blood Count 4.38 M/mm3 (4.6-6.2); White Blood Count 6.4 K/mm3 (4.4-11.0)
[2020-03-03 03:26] LABS: Differential Indicated SCAN CRITERIA MET
[2020-03-03 03:36] LABS: Anion Gap 3 (5-15); BUN 31 mg/dL (7-18); Calcium,Total 8.2 mg/dL (8.5-10.1); Chloride 107 mmol/L (98-107); Creatinine, Serum 0.74 mg/dL (0.70-1.30); EST Glomerular Filtration Rate 109 mL/min (>60); Est Glom Filt Rate - Afr Amer 132 mL/min (>60); Estimated Creatinine Clearance 64.84 ml/min; Glucose 125 mg/dL (74-106); Potassium 3.9 mmol/L (3.5-5.1); Sodium Level 142 mmol/L (136-145)
--- NOTE | 2020-03-03 08:45 | NURSING ---
0845 Dr. Horner, RT and PURSE FRAMER present in pt room, prep for intubation 0850 HR 71 R 24 BP 139/82 SpO2 94 Etomidate 20mg IVPush propofol 15mcq/kg/min initiated fentanyl 200mcq/hr initiated 0855 HR 74 R 26 BP 209/103 SpO2 94 per order, propofol increased to 20mcq/kg/min 0858 150mg succs per order given IV 0900 HR 93 R 25 BP 194/114 SpO2 86 #8 OET 26cm at lip per Dr. Horner, good color exchange, bilat breath sds audible 0905 HR 100 R 14 BP 196/100 SpO2 84 per order, propofol increased to 30mcq/kg/min 0910 HR 97 R 15 BP 180/100 SpO2 91 per order, propofol increased to 40mcq/kg/min. Dr. Horner remains present in pt room.
[2020-03-03] MEDS: Propofol 10MG/Ml 1,000 MG/100 ML Bottle 6.2 MG CONT INF ×3 (08:50→23:45)
[2020-03-03] MEDS: Etomidate 20 MG/10 ML Vial IV (08:50)
--- NOTE | 2020-03-03 09:04 | RAD_ITS ---
EXAM DESCRIPTION: PORTABLE AP CHEST CLINICAL HISTORY: 79 years Male, ET and amp; OG placement, septic shock, respiratory failure, COVID. ET and amp; OG placement, septic shock, respiratory failure, COVID. COMPARISON: Previous portable chest obtained on 02/29/2020 FINDINGS: An endotracheal tube and NG tube are noted in place. A right PICC line catheter is also seen with its tip in the superior vena cava. The rest of the thorax is intact. The heart and mediastinum appear to be within normal limits. The lungs demonstrate diffuse patchy alveolar infiltrates predominantly in the periphery of the lungs bilaterally which have increased when compared with the previous study consistent with patient''s known Covid 19 pneumonia. RAD/Chest 1 View (Portable) IMPRESSION: An NG tube and endotracheal tube are noted in place along with a PICC line in this patient with bilateral alveolar infiltrates which have increased consistent with the patient''s known Covid 19 pneumonia. Electronically Signed: Shahbaz Ahumada, at 11:57 EST Tel , Service support ,
[2020-03-03] MEDS: 0.9% Saline Lock 10 ML Syringe IV ×5 (09:30→20:14)
--- NOTE | 2020-03-03 09:44 | PCM.PN.INT ---
Subjective: Patient was significant difficulty overnight. Patient had to be increased to 100% BiPAP to maintain appropriate saturations. No hemodynamic instability was otherwise noted. This morning, patient states that he would like his nephew to make decisions for him if possible. Patient also reported that he was getting tired of breathing and wants to know other options. Objective: At approximately 9 AM, patient was intubated in a semiurgent fashion. After needed supplies were gathered, patient was given 20 of etomidate and initiated on propofol and fentanyl. A glide scope was used, while wearing advanced respiratory protection, to visualize the airway. This was anterior and there was significant dried secretions noted in the posterior pharynx and around the cords. This was suctioned free. Initial attempt at intubation was unsuccessful secondary to anterior positioning and patient agitation. Patient was given bag mask ventilation with a Peep valve of 10 with recovery of saturations. The patient was then given 150 of succinylcholine and visualization improved. Patient was intubated using an 8?0 endotracheal tube without complication. Patient did have to have a significant amount of air added to the cuff to help with leak. Bilateral breath sounds, positive color change and lack of air in the abdomen were all used to verify tube placement. OG was placed using direct visualization while glide scope was in place. Patient was noted to have an enlarged trachea on chest x-ray with bilateral infiltrates that appeared worse compared to previous. Significant dried secretions were removed using a Yankauer after intubation. General: Alert, Oriented x3 - Prior to intubation, Cooperative, - - Obese. Moderate to severe respiratory distress with vocalization while on BiPAP. Fair vent synchrony following intubation. HEENT: Atraumatic, PERRLA, EOMI, Normocephalic, - - Scleral injection without icterus Oral: Moist Mucosa, No Gingival or Mucosal Lesions/ Ulcerations Neck: Supple, No JVD, No Nodes, Trachea Midline Lungs: No wheeze, No rales, Diminished, Rhonchi - Right greater than left, - - Symmetric expansion Cardiovascular: Regular rate, Regular Rhythm, Normal S1, Normal S2, No murmurs, No rub noted, No Gallop Abdomen: Bowel Sounds Present, Soft, Non Tender, Non-Distended, Obese Extremities: No clubbing, No cyanosis, Edema - Trace to 1+ Skin: - - No change compared to previous Musculoskeletal: No Tenderness to Palpation of Joints or Extremities Lymphatic: No Cervical, Supraclavicular, or Inguinal Adenopathy Neurological: Cranial nerves II-XII grossly intact, Neuro grossly intact, Motor Exam 5/5 strength throughout Psych/Mental Status: Anxious, Restless Vital Signs Temp Pulse Resp BP Pulse Ox 36.6 C 67 23 H 153/86 H 90 03/03/20 04:00 03/03/20 06:00 03/03/20 06:00 03/03/20 06:00 03/03/20 06:00 Oxygen Flow Rate (L/min) 92 Oxygen Delivery Method Bi-pap Weight: 103.7 kg Body Mass Index (BMI) 30.1 Intake and Output for Last 24 Hours 03/01/20 03/02/20 03/03/20 23:59 23:59 23:59 Intake Total 1620 / 1620 1974 Output Total 1900 / 1900 3025 / 3025 375 / 375 Balance -280 / -280 -1050 / -1050 -375 / -375 Labs (Last 48 Hours) 03/01/20 03/01/20 03/01/20 12:24 17:08 20:54 WBC RBC Hgb Hct MCV MCH MCHC RDW Std Deviation RDW Coeff of Charo Plt Count MPV Immature Gran % (Auto) Neut % (Auto) Lymph % (Auto) [place] % (Auto) Eos % (Auto) Baso % (Auto) Absolute Neuts (auto) Absolute Lymphs (auto) Nucleated RBC % Sodium Potassium Chloride Carbon Dioxide Anion Gap BUN Creatinine Estim Creat Clear Calc Est GFR (MDRD) Af Amer Est GFR (MDRD) Non-Af BUN/Creatinine Ratio Glucose Calcium Total Bilirubin AST ALT Alkaline Phosphatase Total Protein Albumin Globulin Albumin/Globulin Ratio POC Glucose 163 H 202 H 173 H 03/02/20 03/02/20 03/02/20 04:45 12:15 16:55 WBC RBC Hgb Hct MCV MCH MCHC RDW Std Deviation RDW Coeff of Charo Plt Count MPV Immature Gran % (Auto) Neut % (Auto) Lymph % (Auto) [place] % (Auto) Eos % (Auto) Baso % (Auto) Absolute Neuts (auto) Absolute Lymphs (auto) Nucleated RBC % Sodium 145 Potassium 4.1 Chloride 112 H Carbon Dioxide 30.0 Anion Gap 3 L BUN 34 H Creatinine 0.68 L Estim Creat Clear Calc 64.84 Est GFR (MDRD) Af Amer 145 Est GFR (MDRD) Non-Af 120 BUN/Creatinine Ratio 50.0 H Glucose 109 H Calcium 8.2 L Total Bilirubin 1.30 H AST 47 H ALT 49 Alkaline Phosphatase 67 Total Protein 6.6 Albumin 2.6 L Globulin 4.0 Albumin/Globulin Ratio 0.6 L POC Glucose 202 H 243 H 03/02/20 03/03/20 03/03/20 21:39 03:00 03:00 WBC 6.4 RBC 4.38 L Hgb 14.4 Hct 43.4 MCV 99.1 H MCH 32.9 H MCHC 33.2 RDW Std Deviation 49.1 H RDW Coeff of Charo 13.3 Plt Count 204 MPV 9.7 Immature Gran % (Auto) 0.800 Neut % (Auto) 91.7 H Lymph % (Auto) 4.5 L [place] % (Auto) 1.7 Eos % (Auto) 1.1 Baso % (Auto) 0.2 Absolute Neuts (auto) 5.9 Absolute Lymphs (auto) 0.29 L Nucleated RBC % 0 Sodium 142 Potassium 3.9 Chloride 107 Carbon Dioxide 32.0 Anion Gap 3 L BUN 31 H Creatinine 0.74 Estim Creat Clear Calc 64.84 Est GFR (MDRD) Af Amer 132 Est GFR (MDRD) Non-Af 109 BUN/Creatinine Ratio 42.0 H Glucose 125 H Calcium 8.2 L Total Bilirubin AST ALT Alkaline Phosphatase Total Protein Albumin Globulin Albumin/Globulin Ratio POC Glucose 142 H Medical Necessity - Tobacco Use Smoking Status: Never smoker Tobacco Use: Non-smoker Assessment/Plan All Active Problems Septic shock (Acute) Acute respiratory failure with hypoxia (Acute) Pneumonia due to COVID-19 virus (Acute) Hyperglycemia (Acute) SURINDER (acute kidney injury) (Acute) RECOMMENDATIONS: 1. Titrate PEEP as needed. Attempt to decrease FiO2 to 60% or less 2. Continue Decadron (10/15) daily. Completed convalescent serum and remdesivir 3. Obtain sputum culture 4. Transition from Lovenox to Eliquis 5. Encourage incentive spirometer use and mobilize patient as tolerated. 6. Attempt p.o. intake if able to stand Airvo today IMPRESSIONS: 1. Acute hypoxemic respiratory failure secondary to COVID-19 pneumonia The patient had significant desaturation and decompensation overnight. Patient has elected to be intubated on 03/03/2020. Patient is requiring high PEEP and FiO2 initially. Significant secretions were noted in the pharynx and neck to vocal cord. Attempt high PEEP strategy with ventilator. ABG in an hour and obtain sputum. Continue Decadron. Will transition from Lovenox to Eliquis. Spontaneous breathing and awakening trials per protocol. We will add antibiotics if cultures are positive, otherwise will monitor clinically. 2. Morbid obesity/hypertension/hypothyroidism/GERD Complicates care, management, recovery and prognosis. Continue home medications as indicated. Continue sliding scale insulin coverage, given risk for steroid-induced hyperglycemia. TIME: 40 minutes critical care time spent addressing patient's acute hypoxic respiratory failure, hyperglycemia, review of all data and collaboration with care team (7 AM to 9:15 AM) [phone] [id number] Critical care first hour
[2020-03-03] MEDS: TITRATION PARAMETER CHANGE 1 EACH IV ×2 (09:47→22:26)
--- NOTE | 2020-03-03 10:44 | PCM.PN.HOSP ---
Patient Problems: Active and Suspected Problems Septic shock (Acute) Acute respiratory failure with hypoxia (Acute) Pneumonia due to COVID-19 virus (Acute) Hyperglycemia (Acute) SURINDER (acute kidney injury) (Acute) Subjective: Patient seen and examined. He was emergently intubated this morning o/a of worsening respiratory status. He was requiring 100% BiPAP to maintain appropriate saturations and was getting tired of breathing this morning. He was therefore emergently intubated and significant dried secretions were removed after intubation. He was sedated with propofol and fentanyl. Unable to do review of systems as patient is intubated with RASS score of -4. Vitals/I&O's: Vital Signs Temp Pulse Resp BP Pulse Ox 97.8 F 76 23 H 153/86 H 95 03/03/20 04:00 03/03/20 10:36 03/03/20 06:00 03/03/20 06:00 03/03/20 10:36 Oxygen Flow Rate (L/min) 92 Oxygen Delivery Method Bi-pap Weight: 228 lb 9.91 oz Body Mass Index (BMI) 30.1 Intake and Output for Last 24 Hours 03/01/20 03/02/20 03/03/20 23:59 23:59 23:59 Intake Total 1620 / 1620 1974 / 1974 4.15 / 4.15 Output Total 1900 / 1900 3025 / 3025 375 / 375 Balance -280 / -280 -1050 / -1050 -370.85 / -370.85 General: - - intubated, sedated, RASS score is -4. HEENT: Atraumatic, PERRLA, EOMI, Normocephalic Oral: Dry Mucosa Neck: Supple, No JVD, Negative Carotid Bruits Lungs: - - coarse crackles in mid and lower lung greene. intubated and sedated. RASS score is -4 Cardiovascular: Regular rate, Regular Rhythm, Normal S1, Normal S2, No murmurs Abdomen: Bowel Sounds Present, Soft, Non Tender, Non-Distended, No Hepato-splenomegaly Extremities: No clubbing, No cyanosis, No edema, Capillary Refill Less than 3 Seconds Skin: No rashes, No breakdown Musculoskeletal: No Tenderness to Palpation of Joints or Extremities Lymphatic: No Cervical, Supraclavicular, or Inguinal Adenopathy Neurological: Cranial nerves II-XII grossly intact, Motor Exam 5/5 strength throughout Psych/Mental Status: - - sedated Laboratory Results 03/02/20 12:15: POC Glucose 202 H 03/02/20 16:55: POC Glucose 243 H 03/02/20 21:39: POC Glucose 142 H 03/03/20 03:00: WBC 6.4, RBC 4.38 L, Hgb 14.4, Hct 43.4, MCV 99.1 H, MCH 32.9 H, MCHC 33.2, RDW Std Deviation 49.1 H, RDW Coeff of Charo 13.3, Plt Count 204, MPV 9.7, Immature Gran % (Auto) 0.800, Neut % (Auto) 91.7 H, Lymph % (Auto) 4.5 L, [place] % (Auto) 1.7, Eos % (Auto) 1.1, Baso % (Auto) 0.2, Absolute Neuts (auto) 5.9, Absolute Lymphs (auto) 0.29 L, Nucleated RBC % 0 03/03/20 03:00: Sodium 142, Potassium 3.9, Chloride 107, Carbon Dioxide 32.0, Anion Gap 3 L, BUN 31 H, Creatinine 0.74, Estim Creat Clear Calc 64.84, Est GFR (MDRD) Af Amer 132, Est GFR (MDRD) Non-Af 109, BUN/Creatinine Ratio 42.0 H, Glucose 125 H, Calcium 8.2 L Diagnostic Data Chest CTA 02/26/20 02:36 IMPRESSION: No demonstrated pulmonary embolism or arterial dissection. Scattered reticular interstitial opacities are seen in both lungs suggesting chronic interstitial lung disease. There are superimposed ill-defined groundglass opacities are seen more prominent in the upper lobes, may represent atypical pneumonia or viral pneumonia (COVID-19 ?). Electronically Signed: Meena Bro, at 6:05 EST Tel , Service support , Current Medications Acetaminophen (Acetaminophen 325 Mg Tablet) 650 mg PO Q6H PRN PRN PRN Reason: Pain Score 1-10/Temp > 100.7 F Last Admin: 03/02/20 12:17 Dose: 650 mg Documented by: Apixaban (Apixaban 5 Mg Tablet) 5 mg GT BID JONO Carvedilol (Carvedilol 12.5 Mg Tablet) 12.5 mg PO BID [facility] Last Admin: 03/02/20 20:01 Dose: Not Given Documented by: Dexamethasone Sodium Phosphate (Dexamethasone 10 Mg/Ml Vial) 6 mg IV DAILY [facility] Stop: 03/06/20 10:01 Last Admin: 03/02/20 08:28 Dose: 6 mg Documented by: Guaifenesin (Guaifenesin 10 Ml Udc (200mg/10ml)) 10 ml PO Q4H PRN PRN PRN Reason: COUGH Propofol (Diprivan) 1,000 mg in 100 mls @ 24.888 mls/hr CONT INF .Q4H2M [facility]; Protocol Last Titration: 03/03/20 09:10 Dose: 40 mcg/kg/min, 24.9 mls/hr Documented by: Fentanyl Citrate 1,000 mcg/ (Sodium Chloride) 100 mls @ 20 mls/hr CONT INF .Q5H [facility]; Protocol Last Admin: 03/03/20 09:46 Dose: 200 mcg/hr, 20 mls/hr Documented by: Insulin Human Lispro (Insulin Lispro 100 Unit/Ml Insuln.Pen) 0 unit SC ACHS [facility]; Protocol Last Admin: 03/03/20 09:44 Dose: Not Given Documented by: Levothyroxine Sodium (Levothyroxine 50 Mcg Tablet) 50 mcg PO DAILY [facility] Last Admin: 03/02/20 08:27 Dose: 50 mcg Documented by: Losartan Potassium (Losartan Potassium 25 Mg Tablet) 25 mg PO DAILY [facility] Last Admin: 03/02/20 08:28 Dose: 25 mg Documented by: Melatonin (Melatonin 3 Mg Tablet) 3 mg PO QHS [facility] Last Admin: 03/02/20 20:02 Dose: 3 mg Documented by: Nutritional Formula (Lactose Free) (Ensure Clear 120 Ml Liquid) 240 ml PO TIDCM [facility] Last Admin: 03/03/20 09:47 Dose: Not Given Documented by: Ondansetron HCl (Ondansetron 4 Mg/2 Ml Vial) 4 mg IV Q8H PRN PRN PRN Reason: NAUSEA/VOMITING Pantoprazole Sodium (Pantoprazole Sodium 20 Mg Tablet) 20 mg PO BID [facility] Last Admin: 03/02/20 20:02 Dose: 20 mg Documented by: Senna/Docusate Sodium (Senna/Docusate Sodium 1 Tablet) 2 tablet PO BID PRN PRN PRN Reason: Constipation Sodium Chloride (0.9% Saline Lock 10 Ml Syringe) 10 - 40 ml IV UD PRN PRN Reason: Multilumen/Michel Flush Last Admin: 03/02/20 08:29 Dose: 10 ml Documented by: Sodium Chloride (0.9 % Nacl (Sterile) Posiflush 10 Ml) 10 - 40 ml IV UD PRN PRN Reason: Port access or dressing change Throat Lozenges (Benzocaine/Menthol 1 Lozenge) 1 lozenge MUCOUS MEM Q2H PRN PRN PRN Reason: SORE THROAT Last Admin: 03/02/20 12:18 Dose: 1 lozenge Documented by: STROKE Vital Signs/Narrative: Vital Signs Pulse Pulse Ox 03/03/20 10:36 76 95 Medical Necessity - Tobacco Use Smoking Status: Never smoker Tobacco Use: Non-smoker Assessment/Plan All Active Problems Septic shock (Acute) Acute respiratory failure with hypoxia (Acute) Pneumonia due to COVID-19 virus (Acute) Hyperglycemia (Acute) SURINDER (acute kidney injury) (Acute) # Acute hypoxic respiratory failure due to COVID 19 pneumonia - was emrgently intubated today because he was requiring 100% FiO2 on BIPAP and was getting tired with work of breathing -sedated with propofol and fentanyl -on remdesivir and decadron. also received convalescent pasma -ID and pulmonology on board. -on breathing treatment with bronchodilators -also on IV lasix; in cumulative negative balance by 5.6L # SURINDER: resolved. Cr is down to 0.74 today # Hypetension: on losartan 25mg daily. #Hyperlipidemia: diet controlled. #Hypothyroidism: on synthroid #GERD: on pantoprazole 20mg bid DVT prophylaxis; on eliquis Inpatient E&M: [address] [facility] L3
[2020-03-03 10:46] LABS: Base Excess 2 mmol/L (-2 to +2); Bicarbonate 27.7 mmol/L (22-26); Blood Gas Specimen Type ART; FI02 100; Mode AC; O2 Delivery Device ET Tube; PEEP 14; PO2 89 mmHG (75-100); RR 12; SITE R Radial; SO2 96 % (95-99); Total Carbon Dioxide 29 mmol/L; Vt 500; pH 7.33 (7.35-7.45)
[2020-03-03 11:13] LABS: CPK Total, Creatine Kinase 34 U/L (39-308); Triglycerides 137 mg/dL
--- NOTE | 2020-03-03 11:40 | PCM.NTREPORT ---
Nutrition Therapy Report - History Nutrition Services has been consulted to:: Manage enteral nutrition Current diet / nutrition support order:: clear liquid diet, 240mL ensure clear TID - Anthropometric Measurements Height:: 5 ft 11 in Weight:: 103.7 kg Body Mass Index (BMI):: 31.8 - Relevant Labs Relevant Labs:: WBC 4.1 K/mm3 (4.4-11.0) L 02/29/20 03:50 RBC 4.38 M/mm3 (4.6-6.2) L 03/03/20 03:00 Hgb 12.7 g/dL (13.0-16.5) L 02/27/20 04:15 Hct 38.3 % (40-54) L 02/27/20 04:15 MCV 99.1 fL (80-94) H 03/03/20 03:00 MCH 32.9 pg (27.0-32.0) H 03/03/20 03:00 RDW Std Deviation 49.1 fl (35.1-43.9) H 03/03/20 03:00 Plt Count 143 K/mm3 (150-450) L 02/27/20 04:15 Neut % (Auto) 91.7 % (47-70) H 03/03/20 03:00 Lymph % (Auto) 4.5 % (19-41) L 03/03/20 03:00 Baso % (Auto) 1.3 % (0-1) H 02/26/20 02:00 Absolute Lymphs (auto) 0.29 X10^3/uL (0.83-4.51) L 03/03/20 03:00 D-Dimer Quant (PE/DVT) 1.57 FEU/ug/m (0.27-0.49) H* 02/26/20 02:00 Sodium 147 mmol/L (136-145) H 03/01/20 04:00 Chloride 112 mmol/L (98-107) H 03/02/20 04:45 Anion Gap 3 (5-15) L 03/03/20 03:00 BUN 31 mg/dL (7-18) H 03/03/20 03:00 Creatinine 0.68 mg/dL (0.70-1.30) L 03/02/20 04:45 Est GFR (MDRD) Non-Af 51 mL/min (>60) L 02/29/20 03:50 BUN/Creatinine Ratio 42.0 RATIO (10-20) H 03/03/20 03:00 Glucose 125 mg/dL (74-106) H 03/03/20 03:00 Hemoglobin A1c 6.6 % (3.8-5.6) H 02/26/20 02:00 Calcium 8.2 mg/dL (8.5-10.1) L 03/03/20 03:00 Magnesium 2.8 mg/dL (1.6-2.6) H 02/27/20 09:55 Ferritin 921 ng/mL (26-388) H 02/26/20 02:00 Total Bilirubin 1.30 mg/dL (0.20-1.00) H 03/02/20 04:45 AST 47 U/L (15-37) H 03/02/20 04:45 Alkaline Phosphatase 43 U/L (45-117) L 02/27/20 04:15 Lactate Dehydrogenase 477 U/L (87-241) H 02/26/20 02:00 Total Creatine Kinase 34 U/L (39-308) L 03/03/20 03:00 C-React Prot Ext Range 111.00 mg/L (0.0-3.0) H 02/26/20 02:00 Total Protein 6.3 g/dL (6.4-8.2) L 02/28/20 04:40 Albumin 2.6 g/dL (3.2-5.0) L 03/02/20 04:45 Albumin/Globulin Ratio 0.6 RATIO (0.9-2.4) L 03/02/20 04:45 Procalcitonin 0.16 ng/mL (0.00-0.09) H 02/26/20 02:00 - Assessment Food / Nutrition-Related History:: Pt intuabted this AM. OGT in place. Per harsha Gan for enteral nutrition support at this time. Wt decrease of 1.8kg since last review. Has BLE 1+ pitting edema so anticipate wt loss to continue w/ changes in fluid status. Has not had a BM- RN aware. - Nutrition Diagnosis Problem / Etiology / Signs & Symptoms (PES):: Pt w/ inadequate oral intake r/t resp failure w/ COVID-19 as evidenced by estimated PO intake meeting less than 50% of estimated nutritional needs for greater than 5 days. - Nutrition Intervention Nutrition Prescription:: Re-estimated nutritional needs: 3180-7682 calories, 123-154 g protein. - Food / Nutrient Delivery Interventions Summary of nutrition intervention:: Will make NPO and d/c ONS while intubated. Will order enteral nutrition support, see below. Nutrition support ordered as / adjusted to:: While intubated, Vital AF 1.2 at goal rate of 70mL/hour w/ 125mL H2O flush every 4 hours to provide 2016 calories, 126 g protein, and 2112mL total fluid per day. Would start tube feeds at 20mL/hour and increase by 15mL every 8 to 12 hours as pt tolerates until goal rate achieved. - MNT Monitoring MNT Follow-up in:: 1-2 days
[2020-03-03] MEDS: Levothyroxine 50 MCG Tablet PO (12:51)
[2020-03-03] MEDS: Acetaminophen 325 MG Tablet 650 MG PO (12:51)
[2020-03-03] MEDS: Pantoprazole Sodium 20 MG Tablet PO ×2 (12:51→19:49)
[2020-03-03] MEDS: Losartan Potassium 25 MG Tablet PO (12:51)
[2020-03-03] MEDS: Carvedilol 12.5 MG Tablet PO ×2 (12:51→19:49)
[2020-03-03] MEDS: dexAMETHasone 10 MG/ML Vial 6 MG IV (12:54)
[2020-03-03] MEDS: Propofol 10MG/Ml 1,000 MG/100 ML Bottle 18.7 MG CONT INF (13:00)
--- NOTE | 2020-03-03 16:11 | PCM.RX.CS ---
Consult Pharmacy has been consulted to manage selected antiobiotic: Vancomycin Type of Consult: New start Labs: Sodium 142 mmol/L (136-145) 03/03/20 03:00 Potassium 3.9 mmol/L (3.5-5.1) 03/03/20 03:00 Chloride 107 mmol/L (98-107) 03/03/20 03:00 Carbon Dioxide 32.0 mmol/L (21.0-32.0) 03/03/20 03:00 Anion Gap 3 (5-15) L 03/03/20 03:00 BUN 31 mg/dL (7-18) H 03/03/20 03:00 Creatinine 0.74 mg/dL (0.70-1.30) 03/03/20 03:00 Est GFR (MDRD) Af Amer 132 mL/min (>60) 03/03/20 03:00 Est GFR (MDRD) Non-Af 109 mL/min (>60) 03/03/20 03:00 BUN/Creatinine Ratio 42.0 RATIO (10-20) H 03/03/20 03:00 Glucose 125 mg/dL (74-106) H 03/03/20 03:00 Microbiology: Microbiology 03/03/20 Unknown Sputum, Induced/Lukens Gram Stain - Final 02/27/20 00:01 Urine, Clean Catch Legionella Antigen - Final 02/27/20 00:01 Urine, Clean Catch Streptococcus pneumoniae Antigen (M - Final 02/26/20 02:00 Mucosa - Nasopharyngeal Respiratory Panel (PCR) - Final Weight used for dosin.7 kg Estimated Creatinine Clearance: 93ML/MIN Goal Trough: 15-20 mcg/mL Pharmacy Plan for Drug Dosing: Give initial load dose of 2000mg IV x1, then will continue with 2000mg IV q12h per [facility] dosing protocol. Will check a vanc trough before the 4th dose. The patient's CrCl of 93ml/min was calculated using an adjusted body weight of 86.7kg and SCr rounded to 0.8 per protocol since patient is >65 yrs. Pharmacy Service will continue to monitor and adjust dosing as required. Follow-Up Labs: Trough Vancomycin Labs to be done on [date and time ordered]: 03/05/20 02:30
[2020-03-03] MEDS: APIXABAN 5 MG TABLET GT ×2 (16:56→19:50)
[2020-03-03] MEDS: Vital AF 1.2 Cal Liquid 1,000 ML 20 ML GT (16:56)
[2020-03-03] MEDS: Insulin Lispro 100 UNIT/ML INSULN.PEN SC ×2 (17:02→23:04)
[2020-03-03 18:51] LABS: Bedside Glucose 190 mg/dL (70-110)
[2020-03-03] MEDS: Senna/Docusate Sodium 1 Tablet 2 TABLET GT (19:47)
[2020-03-03] MEDS: Polyethylene Glycol 3350 17 GM PACKET GT (19:47)
[2020-03-03] MEDS: Chlorhexidine 15 ML PO (22:59)
[2020-03-03] MEDS: Vital AF 1.2 Cal Liquid 1,000 ML 35 ML GT (23:45)
[2020-03-04] VITALS (39 sets, daily range): BP systolic 94–127; BP diastolic 54–85; PULSE 66–84; RESP 11–20; TEMP 38.1–38.7; O2SAT 89–96
[2020-03-04 00:15] LABS: Bedside Glucose 176 mg/dL (70-110)
[2020-03-04] MEDS: Acetaminophen 325 MG Tablet 650 MG PO (04:01)
[2020-03-04 04:03] LABS: Absolute Lymphocyte Count 0.36 X10^3/uL (0.83-4.51); Absolute Neutrophil Count 7.6 X10^3/uL (2.0-7.7); Basophil# 0.02 X10^3/uL; Basophil% 0.2 % (0-1); Eosinophil# 0.04 X10^3/uL; Eosinophils% 0.5 % (0-5); Hematocrit 43.5 % (40-54); Hemoglobin 13.8 g/dL (13.0-16.5); Lymphocyte # 0.36 X10^3/ul (4.0); Lymphocyte % 4.3 % (19-41); Mean Corp Hgb Conc 31.7 g/dL (32-36); Mean Corpuscular Hgb 32.6 pg (27.0-32.0); Mean Corpuscular Volume 102.8 fL (80-94); Mean Platelet Vol. 10.2 fl (6.2-12.0); Monocyte# 0.19 X10^3/uL; Monocyte% 2.3 % (0-10); NRBC Flagged by Analyzer 0 % (0-5); Neutrophil # 7.58 X10^3/uL (2.7-7.7); Neutrophil % 91.5 % (47-70); POSITIVE DIFFERENTIAL YES; Platelet Count 232 K/mm3 (150-450); RBC Distribution Width CV 14.4 % (11.6-14.6); RBC Distribution Width SD 54.9 fl (35.1-43.9); Red Blood Count 4.23 M/mm3 (4.6-6.2); White Blood Count 8.3 K/mm3 (4.4-11.0)
[2020-03-04 04:05] LABS: Differential Indicated SCAN CRITERIA MET
[2020-03-04 04:26] LABS: Anion Gap 5 (5-15); BUN 59 mg/dL (7-18); BUN/Creat Ratio 30.9 RATIO (10-20); Calcium,Total 7.6 mg/dL (8.5-10.1); Chloride 108 mmol/L (98-107); Creatinine, Serum 1.91 mg/dL (0.70-1.30); EST Glomerular Filtration Rate 36 mL/min (>60); Est Glom Filt Rate - Afr Amer 44 mL/min (>60); Estimated Creatinine Clearance 33.95 ml/min; Glucose 139 mg/dL (74-106); Potassium 4.8 mmol/L (3.5-5.1); Sodium Level 141 mmol/L (136-145)
[2020-03-04 04:28] LABS: Differential Comment SCANNED; Platelet Estimate ADEQUATE (ADEQ)
[2020-03-04] MEDS: Propofol 10MG/Ml 1,000 MG/100 ML Bottle 12.4 MG CONT INF (04:43)
[2020-03-04] MEDS: Insulin Lispro 100 UNIT/ML INSULN.PEN SC ×3 (06:37→17:33)
[2020-03-04] MEDS: TITRATION PARAMETER CHANGE 1 EACH IV (07:19)
--- NOTE | 2020-03-04 07:30 | PCM.PN.HOSP ---
Patient Problems: Active and Suspected Problems Septic shock (Acute) Acute respiratory failure with hypoxia (Acute) Pneumonia due to COVID-19 virus (Acute) Hyperglycemia (Acute) SURINDER (acute kidney injury) (Acute) Subjective: Patient seen and examined. He remains intubated and sedated. he remains febrile, with temperature of 101.6 this morning. No active events overnight. He is in cumulative negative balance by 3.19L. Vitals/I&O's: Vital Signs Temp Pulse Resp BP Pulse Ox 101.6 F H 67 14 98/56 L 95 03/04/20 04:00 03/04/20 04:46 03/04/20 04:46 03/04/20 04:00 03/04/20 04:46 Oxygen Flow Rate (L/min) 92 Oxygen Delivery Method Mechanical Ventilator Weight: 232 lb 2.348 oz Body Mass Index (BMI) 31.8 Intake and Output for Last 24 Hours 03/02/20 03/03/20 03/04/20 23:59 23:59 23:59 Intake Total 1974 1488.82 / 1488.82 Output Total 3025 / 3025 1195 / 1195 250 / 250 Balance -1050 / -1050 816.10 / 819.53 1238.82 / 1238.82 General: - - intubated, sedated, RASS score is -1 HEENT: Atraumatic, PERRLA, EOMI, Normocephalic Oral: Dry Mucosa Neck: Supple, No JVD, Negative Carotid Bruits Lungs: - - coarse crackles in mid and lower lung greene. intubated and sedated. RASS score is -1 Cardiovascular: Regular rate, Regular Rhythm, Normal S1, Normal S2, No murmurs Abdomen: Bowel Sounds Present, Soft, Non Tender, Non-Distended, No Hepato-splenomegaly Extremities: No clubbing, No cyanosis, No edema, Capillary Refill Less than 3 Seconds Skin: No rashes, No breakdown Musculoskeletal: No Tenderness to Palpation of Joints or Extremities Lymphatic: No Cervical, Supraclavicular, or Inguinal Adenopathy Neurological: Cranial nerves II-XII grossly intact, Motor Exam 5/5 strength throughout Psych/Mental Status: - - sedated Microbiology Past 72 Hours 03/03/20 Unknown Sputum, Induced/Lukens Gram Stain - Final Laboratory Results 03/03/20 03:00: Total Creatine Kinase 34 L, Triglycerides 137 03/03/20 10:39: Specimen Type ART, Sample Site R Radial, pH 7.33 L, Bicarbonate Actual 27.7 H, Total CO2 29, Base Excess 2, O2 Saturation 96, O2 % 100, ABG pCO2 52.0 H, ABG pO2 89, Respiration Rate 12, O2 Delivery Device ET Tube, Vent Mode AC, Tidal Volume 500, POC PEEP 14 03/03/20 16:53: POC Glucose 190 H 03/03/20 23:03: POC Glucose 176 H 03/04/20 03:40: WBC 8.3, RBC 4.23 L, Hgb 13.8, Hct 43.5, MCV 102.8 H, MCH 32.6 H, MCHC 31.7 L, RDW Std Deviation 54.9 H, RDW Coeff of Charo 14.4, Plt Count 232, MPV 10.2, Immature Gran % (Auto) 1.200 H, Neut % (Auto) 91.5 H, Lymph % (Auto) 4.3 L, [place] % (Auto) 2.3, Eos % (Auto) 0.5, Baso % (Auto) 0.2, Absolute Neuts (auto) 7.6, Absolute Lymphs (auto) 0.36 L, Nucleated RBC % 0, Differential Comment SCANNED, Platelet Estimate ADEQUATE 03/04/20 03:40: Sodium 141, Potassium 4.8, Chloride 108 H, Carbon Dioxide 28.0, Anion Gap 5, BUN 59 H, Creatinine 1.91 H, Estim Creat Clear Calc 33.95, Est GFR (MDRD) Af Amer 44 L, Est GFR (MDRD) Non-Af 36 L, BUN/Creatinine Ratio 30.9 H, Glucose 139 H, Calcium 7.6 L Current Medications Acetaminophen (Acetaminophen 325 Mg Tablet) 650 mg PO Q6H PRN PRN PRN Reason: Pain Score 1-10/Temp > 100.7 F Last Admin: 03/04/20 04:01 Dose: 650 mg Documented by: Apixaban (Apixaban 5 Mg Tablet) 5 mg GT BID [facility] Last Admin: 03/03/20 19:50 Dose: 5 mg Documented by: Carvedilol (Carvedilol 12.5 Mg Tablet) 12.5 mg PO BID [facility] Last Admin: 03/03/20 19:49 Dose: 12.5 mg Documented by: Chlorhexidine Gluconate (Chlorhexidine 15 Ml) 15 ml PO BID [facility] Last Admin: 03/03/20 22:59 Dose: 15 ml Documented by: Dexamethasone Sodium Phosphate (Dexamethasone 10 Mg/Ml Vial) 6 mg IV DAILY [facility] Stop: 03/06/20 10:01 Last Admin: 03/03/20 12:54 Dose: 6 mg Documented by: Guaifenesin (Guaifenesin 10 Ml Udc (200mg/10ml)) 10 ml PO Q4H PRN PRN PRN Reason: COUGH Propofol (Diprivan) 1,000 mg in 100 mls @ 25.272 mls/hr CONT INF .Q3H58M [facility]; Protocol Last Titration: 03/04/20 07:00 Dose: 15 mcg/kg/min, 9.5 mls/hr Documented by: Fentanyl Citrate 1,000 mcg/ (Sodium Chloride) 100 mls @ 20 mls/hr CONT INF .Q5H [facility]; Protocol Last Titration: 03/04/20 06:33 Dose: 125 mcg/hr, 12.5 mls/hr Documented by: Enteral Nutritional Formula (Vital Af 1.2 Homer Liquid) 1,000 mls @ 70 mls/hr GT .[id number] [facility] Last Admin: 03/04/20 03:42 Dose: Not Given Documented by: Vancomycin IV Pharmacy to Dose (1 ea/ Sodium Chloride) 500 mls @ 250 mls/hr IV X1 PRN; Protocol PRN Reason: Rx to Dose Meropenem 1 gm/ Sodium (Chloride) 100 mls @ 33 mls/hr IV Q8 [facility] Last Admin: 03/04/20 06:40 Dose: 33 mls/hr Documented by: Norepinephrine Bitartrate 8 mg (/ Sodium Chloride) 250 mls @ 9.375 mls/hr CONT INF .[id number] [facility]; Protocol Last Titration: 03/04/20 04:00 Dose: 4 mcg/min, 7.5 mls/hr Documented by: Vancomycin HCl 2,000 mg/ (Sodium Chloride) 540 mls @ 250 mls/hr IV Q12H [facility] Last Infusion: 03/04/20 06:39 Dose: Infused Documented by: Insulin Human Lispro (Insulin Lispro 100 Unit/Ml Insuln.Pen) 0 unit SC Q6 [facility]; Protocol Last Admin: 03/04/20 06:37 Dose: 1 u Documented by: Levothyroxine Sodium (Levothyroxine 50 Mcg Tablet) 50 mcg PO DAILY [facility] Last Admin: 03/03/20 12:51 Dose: 50 mcg Documented by: Losartan Potassium (Losartan Potassium 25 Mg Tablet) 25 mg PO DAILY [facility] Last Admin: 03/03/20 12:51 Dose: 25 mg Documented by: Melatonin (Melatonin 3 Mg Tablet) 3 mg PO QHS [facility] Last Admin: 03/03/20 22:17 Dose: Not Given Documented by: Ondansetron HCl (Ondansetron 4 Mg/2 Ml Vial) 4 mg IV Q8H PRN PRN PRN Reason: NAUSEA/VOMITING Pantoprazole Sodium (Pantoprazole Sodium 20 Mg Tablet) 20 mg PO BID [facility] Last Admin: 03/03/20 19:49 Dose: 20 mg Documented by: Polyethylene Glycol (Polyethylene Glycol 3350 17 Gm Packet) 17 gm GT BID [facility] Last Admin: 03/03/20 19:47 Dose: 17 gm Documented by: Senna/Docusate Sodium (Senna/Docusate Sodium 1 Tablet) 2 tablet GT BID [facility] Last Admin: 03/03/20 19:47 Dose: 2 tablet Documented by: Sodium Chloride (0.9% Saline Lock 10 Ml Syringe) 10 - 40 ml IV UD PRN PRN Reason: Multilumen/Michel Flush Last Admin: 03/03/20 20:14 Dose: 10 ml Documented by: Sodium Chloride (0.9 % Nacl (Sterile) Posiflush 10 Ml) 10 - 40 ml IV UD PRN PRN Reason: Port access or dressing change Throat Lozenges (Benzocaine/Menthol 1 Lozenge) 1 lozenge MUCOUS MEM Q2H PRN PRN PRN Reason: SORE THROAT Last Admin: 03/02/20 12:18 Dose: 1 lozenge Documented by: STROKE Vital Signs/Narrative: Vital Signs Temp Pulse Resp BP Pulse Ox 03/04/20 04:46 67 14 95 03/04/20 04:00 101.6 F H 68 12 98/56 L 94 Medical Necessity - Tobacco Use Smoking Status: Never smoker Tobacco Use: Non-smoker Assessment/Plan All Active Problems Septic shock (Acute) Acute respiratory failure with hypoxia (Acute) Pneumonia due to COVID-19 virus (Acute) Hyperglycemia (Acute) SURINDER (acute kidney injury) (Acute) # Acute hypoxic respiratory failure due to COVID 19 pneumonia - remains intubated. -sedated with propofol and fentanyl -on remdesivir and decadron. also received convalescent pasma -ID and pulmonology on board. -is febrile today. on IV meropenem -on breathing treatment with bronchodilators #Septic shock: still remains febrile. On IV meropenem # SURINDER: Cr is up to 1.91 today. # Hypertension: on losartan 25mg daily and carvedilol 12.5mg bid #Hyperlipidemia: diet controlled. #Hypothyroidism: on synthroid #GERD: on pantoprazole 20mg bid DVT prophylaxis; on eliquis
--- NOTE | 2020-03-04 07:38 | PN_ITS ---
Subjective: Patient did okay overnight. Patient's oxygenation has stabilized and PEEP was able to be weaned to 12 overnight. Patient has had significant fever that has been responsive to Tylenol. Patient was started on empiric antibiotics. Some improvement in Levophed. General: - - Intubated and sedated. RASS -1. Glasses in place. Obese. HEENT: Atraumatic, PERRLA, EOMI, Normocephalic, - - No scleral icterus or injection noted Oral: Moist Mucosa, No Gingival or Mucosal Lesions/ Ulcerations Neck: Supple, No JVD, No Nodes, Trachea Midline, - - IJ is clean, dry and intact Lungs: No rhonchi, No wheeze, No rales, Diminished, - - Symmetric expansion. No dullness to percussion. Cardiovascular: Normal S1, Normal S2, No murmurs, No rub noted, No Gallop Abdomen: Bowel Sounds Present, Soft, Non Tender, Non-Distended, Obese Extremities: No clubbing, No cyanosis, Edema Skin: No rashes, No breakdown Musculoskeletal: No Tenderness to Palpation of Joints or Extremities Lymphatic: No Cervical, Supraclavicular, or Inguinal Adenopathy Neurological: Cranial nerves II-XII grossly intact, Neuro grossly intact, Motor Exam 5/5 strength throughout Psych/Mental Status: Flat Affect Vital Signs Temp Pulse Resp BP Pulse Ox 38.7 C H 67 14 98/56 L 95 03/04/20 04:00 03/04/20 04:46 03/04/20 04:46 03/04/20 04:00 03/04/20 04:46 Oxygen Flow Rate (L/min) 92 Oxygen Delivery Method Mechanical Ventilator Weight: 105.3 kg Body Mass Index (BMI) 31.8 Intake and Output for Last 24 Hours 03/02/20 03/03/20 03/04/20 23:59 23:59 23:59 Intake Total 1974 1488.82 / 1488.82 Output Total 3025 / 3025 1195 / 1195 250 / 250 Balance -1050 / -1050 816.10 / 819.53 1238.82 / 1238.82 Labs (Last 48 Hours) 03/02/20 03/02/20 03/02/20 12:15 16:55 21:39 WBC RBC Hgb Hct MCV MCH MCHC RDW Std Deviation RDW Coeff of Charo Plt Count MPV Immature Gran % (Auto) Neut % (Auto) Lymph % (Auto) [place] % (Auto) Eos % (Auto) Baso % (Auto) Absolute Neuts (auto) Absolute Lymphs (auto) Nucleated RBC % Differential Comment Platelet Estimate Specimen Type Sample Site pH Bicarbonate Actual Total CO2 Base Excess O2 Saturation O2 % ABG pCO2 ABG pO2 Respiration Rate O2 Delivery Device Vent Mode Tidal Volume POC PEEP Sodium Potassium Chloride Carbon Dioxide Anion Gap BUN Creatinine Estim Creat Clear Calc Est GFR (MDRD) Af Amer Est GFR (MDRD) Non-Af BUN/Creatinine Ratio Glucose Calcium Total Creatine Kinase Triglycerides POC Glucose 202 H 243 H 142 H 03/03/20 03/03/20 03/03/20 03:00 03:00 03:00 WBC 6.4 RBC 4.38 L Hgb 14.4 Hct 43.4 MCV 99.1 H MCH 32.9 H MCHC 33.2 RDW Std Deviation 49.1 H RDW Coeff of Charo 13.3 Plt Count 204 MPV 9.7 Immature Gran % (Auto) 0.800 Neut % (Auto) 91.7 H Lymph % (Auto) 4.5 L [place] % (Auto) 1.7 Eos % (Auto) 1.1 Baso % (Auto) 0.2 Absolute Neuts (auto) 5.9 Absolute Lymphs (auto) 0.29 L Nucleated RBC % 0 Differential Comment Platelet Estimate Specimen Type Sample Site pH Bicarbonate Actual Total CO2 Base Excess O2 Saturation O2 % ABG pCO2 ABG pO2 Respiration Rate O2 Delivery Device Vent Mode Tidal Volume POC PEEP Sodium 142 Potassium 3.9 Chloride 107 Carbon Dioxide 32.0 Anion Gap 3 L BUN 31 H Creatinine 0.74 Estim Creat Clear Calc 64.84 Est GFR (MDRD) Af Amer 132 Est GFR (MDRD) Non-Af 109 BUN/Creatinine Ratio 42.0 H Glucose 125 H Calcium 8.2 L Total Creatine Kinase 34 L Triglycerides 137 POC Glucose 03/03/20 03/03/20 03/03/20 10:39 16:53 23:03 WBC RBC Hgb Hct MCV MCH MCHC RDW Std Deviation RDW Coeff of Charo Plt Count MPV Immature Gran % (Auto) Neut % (Auto) Lymph % (Auto) [place] % (Auto) Eos % (Auto) Baso % (Auto) Absolute Neuts (auto) Absolute Lymphs (auto) Nucleated RBC % Differential Comment Platelet Estimate Specimen Type ART Sample Site R Radial pH 7.33 L Bicarbonate Actual 27.7 H Total CO2 29 Base Excess 2 O2 Saturation 96 O2 % 100 ABG pCO2 52.0 H ABG pO2 89 Respiration Rate 12 O2 Delivery Device ET Tube Vent Mode AC Tidal Volume 500 POC PEEP 14 Sodium Potassium Chloride Carbon Dioxide Anion Gap BUN Creatinine Estim Creat Clear Calc Est GFR (MDRD) Af Amer Est GFR (MDRD) Non-Af BUN/Creatinine Ratio Glucose Calcium Total Creatine Kinase Triglycerides POC Glucose 190 H 176 H 03/04/20 03/04/20 03:40 03:40 WBC 8.3 RBC 4.23 L Hgb 13.8 Hct 43.5 MCV 102.8 H MCH 32.6 H MCHC 31.7 L RDW Std Deviation 54.9 H RDW Coeff of Charo 14.4 Plt Count 232 MPV 10.2 Immature Gran % (Auto) 1.200 H Neut % (Auto) 91.5 H Lymph % (Auto) 4.3 L [place] % (Auto) 2.3 Eos % (Auto) 0.5 Baso % (Auto) 0.2 Absolute Neuts (auto) 7.6 Absolute Lymphs (auto) 0.36 L Nucleated RBC % 0 Differential Comment SCANNED Platelet Estimate ADEQUATE Specimen Type Sample Site pH Bicarbonate Actual Total CO2 Base Excess O2 Saturation O2 % ABG pCO2 ABG pO2 Respiration Rate O2 Delivery Device Vent Mode Tidal Volume POC PEEP Sodium 141 Potassium 4.8 Chloride 108 H Carbon Dioxide 28.0 Anion Gap 5 BUN 59 H Creatinine 1.91 H Estim Creat Clear Calc 33.95 Est GFR (MDRD) Af Amer 44 L Est GFR (MDRD) Non-Af 36 L BUN/Creatinine Ratio 30.9 H Glucose 139 H Calcium 7.6 L Total Creatine Kinase Triglycerides POC Glucose Microbiology 03/03/20 Unknown Sputum, Induced/Lukens Gram Stain - Final Clinical Impression(s) from Imaging Studies Chest X-Ray 03/03/20 09:04 IMPRESSION: An NG tube and endotracheal tube are noted in place along with a PICC line in this patient with bilateral alveolar infiltrates which have increased consistent with the patient''s known Covid 19 pneumonia. Electronically Signed: Shahbaz Ahumada, at 11:57 EST Tel , Service support , Medical Necessity - Tobacco Use Smoking Status: Never smoker Tobacco Use: Non-smoker Assessment/Plan All Active Problems Septic shock (Acute) Acute respiratory failure with hypoxia (Acute) Pneumonia due to COVID-19 virus (Acute) Hyperglycemia (Acute) SURINDER (acute kidney injury) (Acute) RECOMMENDATIONS: 1. Titrate PEEP as needed. Attempt to decrease FiO2 to 60% or less 2. Continue Decadron (8/10) daily. Completed convalescent serum and remdesivir 3. Continue empiric antibiotics pending friedman culture 4. Transition from Lovenox to Eliquis 5. Encourage incentive spirometer use and mobilize patient as tolerated. 6. Hold on any diuretic therapy today 7. Wean Levophed as tolerated IMPRESSIONS: 1. Acute hypoxemic respiratory failure secondary to COVID-19 pneumonia The patient had significant desaturation and decompensation overnight. Patient has elected to be intubated on 03/03/2020. Patient is requiring high PEEP and FiO2 initially. Significant secretions were noted in the pharynx and neck to vocal cord. Attempt high PEEP strategy with ventilator. ABG showed adequate oxygenation and ventilation following intubation. Continue Decadron. Continue Eliquis. Spontaneous breathing and awakening trials per protocol. Continue patient on empiric antibiotics pending culture data. 2. Morbid obesity/hypertension/hypothyroidism/GERD Complicates care, management, recovery and prognosis. Continue home medications as indicated. Continue sliding scale insulin coverage, given risk for steroid-induced hyperglycemia. 3. Possible septic shock Patient with significant fever following intubation and then requiring pressor therapy. May have an element of hypotension related to sedation from the ventilator. Patient initiated on empiric antibiotics pending infectious disease evaluation. Patient did have increasing infiltrates on chest x-ray, so superimposed bacterial pneumonia would be a possibility. Sputum cultures have been obtained. TIME: 38 minutes critical care time spent addressing patient's acute hypoxic respiratory failure, hyperglycemia, review of all data and collaboration with care team (5:30 AM to 6:30 AM) [id number] Critical care first hour
[2020-03-04] MEDS: Chlorhexidine 15 ML PO ×2 (07:50→22:29)
[2020-03-04] MEDS: Losartan Potassium 25 MG Tablet PO (07:51)
[2020-03-04] MEDS: dexAMETHasone 10 MG/ML Vial 6 MG IV (07:51)
[2020-03-04] MEDS: Carvedilol 12.5 MG Tablet PO ×2 (07:51→22:26)
[2020-03-04] MEDS: APIXABAN 5 MG TABLET GT ×2 (07:52→22:25)
[2020-03-04] MEDS: Polyethylene Glycol 3350 17 GM PACKET GT ×2 (07:52→22:28)
[2020-03-04] MEDS: Senna/Docusate Sodium 1 Tablet 2 TABLET GT ×2 (07:53→22:26)
[2020-03-04] MEDS: Pantoprazole Sodium 20 MG Tablet PO ×2 (07:53→22:27)
[2020-03-04] MEDS: Levothyroxine 50 MCG Tablet PO (07:54)
[2020-03-04] MEDS: 0.9% Saline Lock 10 ML Syringe IV ×2 (07:56→20:41)
[2020-03-04 08:26] LABS: Bedside Glucose 162 mg/dL (70-110)
--- NOTE | 2020-03-04 09:40 | PCM.RX.CS ---
Consult Pharmacy has been consulted to manage selected antiobiotic: Vancomycin Type of Consult: Follow-up Suspected Infection: Pneumonia Labs: Sodium 141 mmol/L (136-145) 03/04/20 03:40 Potassium 4.8 mmol/L (3.5-5.1) 03/04/20 03:40 Chloride 108 mmol/L (98-107) H 03/04/20 03:40 Carbon Dioxide 28.0 mmol/L (21.0-32.0) 03/04/20 03:40 Anion Gap 5 (5-15) 03/04/20 03:40 BUN 59 mg/dL (7-18) H 03/04/20 03:40 Creatinine 1.91 mg/dL (0.70-1.30) H 03/04/20 03:40 Est GFR (MDRD) Af Amer 44 mL/min (>60) L 03/04/20 03:40 Est GFR (MDRD) Non-Af 36 mL/min (>60) L 03/04/20 03:40 BUN/Creatinine Ratio 30.9 RATIO (10-20) H 03/04/20 03:40 Glucose 139 mg/dL (74-106) H 03/04/20 03:40 Microbiology: Microbiology 03/03/20 Unknown Sputum, Induced/Lukens Gram Stain - Final 03/03/20 Unknown Sputum, Induced/Lukens Respiratory Culture - Preliminary Gram negative [place] 02/27/20 00:01 Urine, Clean Catch Legionella Antigen - Final 02/27/20 00:01 Urine, Clean Catch Streptococcus pneumoniae Antigen (M - Final 02/26/20 02:00 Mucosa - Nasopharyngeal Respiratory Panel (PCR) - Final Estimated Creatinine Clearance: 39ml/min Goal Trough: 15-20 mcg/mL Pharmacy Plan for Drug Dosing: DAILY ASSESSMENT Current Vancomcyin Dose: 2000mg q12h (,15) Number of Doses Received: 2000mg x2 Current Renal Function: SrCr 1.91 Renal Function Trend: SrCr increased from 0.74 on 03/03 Lab/Micro: Any Change in Vanc Plan: holding current dose of Vancomycin due to increase in SrCr. Will re-dose after level results on 03/05 at 0230 Pending Level: 03/05 at 0230 Pharmacy Service will continue to monitor and adjust dosing as required. Follow-Up Labs: Trough Vancomycin - 03/05 @ 0230
[2020-03-04 11:51] LABS: Bedside Glucose 228 mg/dL (70-110)
--- NOTE | 2020-03-04 14:28 | PN.ID_ITS ---
Patient Problems: Active and Suspected Problems Septic shock (Acute) Acute respiratory failure with hypoxia (Acute) Pneumonia due to COVID-19 virus (Acute) Hyperglycemia (Acute) SURINDER (acute kidney injury) (Acute) Subjective: Intubated, high fever - Physical Exam Vitals/I&O's: Vital Signs Temp Pulse Resp BP Pulse Ox 101.1 F H 75 12 102/59 L 96 03/04/20 12:00 03/04/20 12:00 03/04/20 12:00 03/04/20 12:15 03/04/20 12:00 Oxygen Flow Rate (L/min) 92 Oxygen Delivery Method Mechanical Ventilator Weight: 105.3 kg Body Mass Index (BMI) 31.8 Intake and Output for Last 24 Hours 03/02/20 03/03/20 03/04/20 23:59 23:59 23:59 Intake Total 1974 2298.16 / 2298.16 Output Total 3025 / 3025 1195 / 1195 515 / 515 Balance -1050 / -1050 816.10 / 819.53 1783.16 / 1783.16 General: Lethargic Lungs: Diminished Cardiovascular: Regular rate, Regular Rhythm Abdomen: Soft, Non Tender, Non-Distended Skin: No rashes Microbiology Past 72 Hours 03/03/20 Unknown Sputum, Induced/Lukens Gram Stain - Final 03/03/20 Unknown Sputum, Induced/Lukens Respiratory Culture - Preliminary Gram negative [place] Laboratory Results 03/03/20 16:53: POC Glucose 190 H 03/03/20 23:03: POC Glucose 176 H 03/04/20 03:40: WBC 8.3, RBC 4.23 L, Hgb 13.8, Hct 43.5, MCV 102.8 H, MCH 32.6 H , MCHC 31.7 L, RDW Std Deviation 54.9 H, RDW Coeff of Charo 14.4, Plt Count 232, MPV 10.2, Immature Gran % (Auto) 1.200 H, Neut % (Auto) 91.5 H, Lymph % (Auto) 4.3 L, [place] % (Auto) 2.3, Eos % (Auto) 0.5, Baso % (Auto) 0.2, Absolute Neuts (auto) 7.6, Absolute Lymphs (auto) 0.36 L, Nucleated RBC % 0, Differential Comment SCANNED, Platelet Estimate ADEQUATE 03/04/20 03:40: Sodium 141, Potassium 4.8, Chloride 108 H, Carbon Dioxide 28.0, Anion Gap 5, BUN 59 H, Creatinine 1.91 H, Estim Creat Clear Calc 33.95, Est GFR (MDRD) Af Amer 44 L, Est GFR (MDRD) Non-Af 36 L, BUN/Creatinine Ratio 30.9 H, Glucose 139 H, Calcium 7.6 L 03/04/20 06:36: POC Glucose 162 H 03/04/20 11:03: POC Glucose 228 H Current Medications Acetaminophen (Acetaminophen 325 Mg Tablet) 650 mg PO Q6H PRN PRN PRN Reason: Pain Score 1-10/Temp > 100.7 F Last Admin: 03/04/20 04:01 Dose: 650 mg Documented by: Apixaban (Apixaban 5 Mg Tablet) 5 mg GT BID [facility] Last Admin: 03/04/20 07:52 Dose: 5 mg Documented by: Carvedilol (Carvedilol 12.5 Mg Tablet) 12.5 mg PO BID [facility] Last Admin: 03/04/20 07:51 Dose: 12.5 mg Documented by: Chlorhexidine Gluconate (Chlorhexidine 15 Ml) 15 ml PO BID [facility] Last Admin: 03/04/20 07:50 Dose: 15 ml Documented by: Dexamethasone Sodium Phosphate (Dexamethasone 10 Mg/Ml Vial) 6 mg IV DAILY [facility] Stop: 03/06/20 10:01 Last Admin: 03/04/20 07:51 Dose: 6 mg Documented by: Guaifenesin (Guaifenesin 10 Ml Udc (200mg/10ml)) 10 ml PO Q4H PRN PRN PRN Reason: COUGH Propofol (Diprivan) 1,000 mg in 100 mls @ 25.272 mls/hr CONT INF .Q3H58M [facility]; Protocol Last Admin: 03/04/20 13:44 Dose: Not Given Documented by: Fentanyl Citrate 1,000 mcg/ (Sodium Chloride) 100 mls @ 20 mls/hr CONT INF .Q5H [facility]; Protocol Last Titration: 03/04/20 12:00 Dose: 100 mcg/hr, 10 mls/hr Documented by: Enteral Nutritional Formula (Vital Af 1.2 Homer Liquid) 1,000 mls @ 70 mls/hr GT .[id number] [facility] Last Admin: 03/04/20 03:42 Dose: Not Given Documented by: Vancomycin IV Pharmacy to Dose (1 ea/ Sodium Chloride) 500 mls @ 250 mls/hr IV X1 PRN; Protocol PRN Reason: Rx to Dose Norepinephrine Bitartrate 8 mg (/ Sodium Chloride) 250 mls @ 9.375 mls/hr CONT INF .[id number] [facility]; Protocol Last Titration: 03/04/20 12:15 Dose: 1 mcg/min, 1.9 mls/hr Documented by: Meropenem 500 mg/ Sodium (Chloride) 60 mls @ 100 mls/hr IV Q8 [facility] Last Admin: 03/04/20 13:45 Dose: 100 mls/hr Documented by: Insulin Human Lispro (Insulin Lispro 100 Unit/Ml Insuln.Pen) 0 unit SC Q6 [facility]; Protocol Last Admin: 03/04/20 11:17 Dose: 2 u Documented by: Levothyroxine Sodium (Levothyroxine 50 Mcg Tablet) 50 mcg PO DAILY [facility] Last Admin: 03/04/20 07:54 Dose: 50 mcg Documented by: Losartan Potassium (Losartan Potassium 25 Mg Tablet) 25 mg PO DAILY [facility] Last Admin: 03/04/20 07:51 Dose: 25 mg Documented by: Melatonin (Melatonin 3 Mg Tablet) 3 mg PO QHS [facility] Last Admin: 03/03/20 22:17 Dose: Not Given Documented by: Ondansetron HCl (Ondansetron 4 Mg/2 Ml Vial) 4 mg IV Q8H PRN PRN PRN Reason: NAUSEA/VOMITING Pantoprazole Sodium (Pantoprazole Sodium 20 Mg Tablet) 20 mg PO BID [facility] Last Admin: 03/04/20 07:53 Dose: 20 mg Documented by: Polyethylene Glycol (Polyethylene Glycol 3350 17 Gm Packet) 17 gm GT BID [facility] Last Admin: 03/04/20 07:52 Dose: 17 gm Documented by: Senna/Docusate Sodium (Senna/Docusate Sodium 1 Tablet) 2 tablet GT BID [facility] Last Admin: 03/04/20 07:53 Dose: 2 tablet Documented by: Sodium Chloride (0.9% Saline Lock 10 Ml Syringe) 10 - 40 ml IV UD PRN PRN Reason: Multilumen/Michel Flush Last Admin: 03/04/20 07:56 Dose: 20 ml Documented by: Sodium Chloride (0.9 % Nacl (Sterile) Posiflush 10 Ml) 10 - 40 ml IV UD PRN PRN Reason: Port access or dressing change Throat Lozenges (Benzocaine/Menthol 1 Lozenge) 1 lozenge MUCOUS MEM Q2H PRN PRN PRN Reason: SORE THROAT Last Admin: 03/02/20 12:18 Dose: 1 lozenge Documented by: Medical Necessity - Tobacco Use Smoking Status: Never smoker Tobacco Use: Non-smoker Route of nutrition/ use of supplements: [] Nutritional Intake: [] IV Site: [] Kaye Catheter: [] - Assessment/Plan Antibiotics: [] Assessment/Plan: [] Active and Suspected Problems Septic shock (Acute) Acute respiratory failure with hypoxia (Acute) Pneumonia due to COVID-19 virus (Acute) Hyperglycemia (Acute) SURINDER (acute kidney injury) (Acute) covid with hypoxia - On dex, completed remdesivir. CT neg for PE. Got plasma 02/26. Sx started 02/20/20. Now intubated. High fever, sputum with GNR, new SURINDER. On empiric haily, will adjust dose. Will follow, d/w Dr. Horner and nursing
[2020-03-04] MEDS: Propofol 10MG/Ml 1,000 MG/100 ML Bottle 6.3 MG CONT INF (16:20)
[2020-03-04] MEDS: Vital AF 1.2 Cal Liquid 1,000 ML 70 ML GT (20:28)
[2020-03-04] MEDS: MELATONIN 3 MG TABLET PO (22:27)
[2020-03-04 23:36] LABS: Bedside Glucose 214 mg/dL (70-110)
[2020-03-05] VITALS (33 sets, daily range): BP systolic 102–153; BP diastolic 56–86; PULSE 69–99; RESP 11–90; TEMP 36.6–39.1; O2SAT 90–94
[2020-03-05] MEDS: Propofol 10MG/Ml 1,000 MG/100 ML Bottle 6.3 MG CONT INF (00:10)
[2020-03-05] MEDS: Insulin Lispro 100 UNIT/ML INSULN.PEN SC ×4 (00:29→17:53)
[2020-03-05 05:20] LABS: Bedside Glucose 191 mg/dL (70-110)
[2020-03-05 05:20] LABS: Absolute Neutrophil Count 8.6 X10^3/uL (2.0-7.7); Basophil# 0.02 X10^3/uL; Basophil% 0.2 % (0-1); Eosinophils% 1.1 % (0-5); Hematocrit 41.6 % (40-54); Hemoglobin 13.5 g/dL (13.0-16.5); Lymphocyte % 5.3 % (19-41); Mean Corp Hgb Conc 32.5 g/dL (32-36); Mean Corpuscular Hgb 33.3 pg (27.0-32.0); Mean Corpuscular Volume 102.7 fL (80-94); Mean Platelet Vol. 10.6 fl (6.2-12.0); Monocyte# 0.22 X10^3/uL; Monocyte% 2.3 % (0-10); NRBC Flagged by Analyzer 0 % (0-5); Neutrophil # 8.55 X10^3/uL (2.7-7.7); Neutrophil % 89.9 % (47-70); POSITIVE DIFFERENTIAL YES; Platelet Count 200 K/mm3 (150-450); RBC Distribution Width CV 14.1 % (11.6-14.6); RBC Distribution Width SD 53.5 fl (35.1-43.9); Red Blood Count 4.05 M/mm3 (4.6-6.2); White Blood Count 9.5 K/mm3 (4.4-11.0)
[2020-03-05 05:33] LABS: Differential Indicated SCAN CRITERIA MET
[2020-03-05 05:47] LABS: Anion Gap 5 (5-15); BUN 73 mg/dL (7-18); Calcium,Total 7.6 mg/dL (8.5-10.1); Chloride 109 mmol/L (98-107); Creatinine, Serum 1.43 mg/dL (0.70-1.30); EST Glomerular Filtration Rate 51 mL/min (>60); Est Glom Filt Rate - Afr Amer 62 mL/min (>60); Estimated Creatinine Clearance 45.34 ml/min; Glucose 172 mg/dL (74-106); Potassium 4.4 mmol/L (3.5-5.1); Sodium Level 143 mmol/L (136-145)
[2020-03-05 05:50] LABS: Differential Comment SCANNED
[2020-03-05 06:36] LABS: Bedside Glucose 175 mg/dL (70-110)
--- NOTE | 2020-03-05 07:27 | PCM.PN.INT ---
Subjective: Patient did okay overnight. Patient has been tolerating tube feeds at goal. Patient did have a bowel movement overnight and Levophed has been discontinued. Patient has remained persistently febrile. Patient's oxygenation status has been slightly variable, but PEEP has remained consistent. General: - - Intubated and sedated. RASS -1. Good vent synchrony. Obese. HEENT: Atraumatic, PERRLA, EOMI, Normocephalic, - - No scleral icterus or injection noted Oral: Moist Mucosa, No Gingival or Mucosal Lesions/ Ulcerations Neck: Supple, No JVD, No Nodes, Trachea Midline Lungs: No wheeze, No rales, Diminished, Rhonchi - Improved with suctioning Cardiovascular: Regular rate, Regular Rhythm, Normal S1, Normal S2, No murmurs, No rub noted, No Gallop Abdomen: Bowel Sounds Present, Soft, Non Tender, Non-Distended, Obese Extremities: No clubbing, No cyanosis, Edema Skin: - - No significant change compared to previous Musculoskeletal: No Tenderness to Palpation of Joints or Extremities, No Muscle Wasting Lymphatic: No Cervical, Supraclavicular, or Inguinal Adenopathy Neurological: Cranial nerves II-XII grossly intact, Neuro grossly intact, Motor Exam 5/5 strength throughout Psych/Mental Status: Appropriate, Flat Affect Vital Signs Temp Pulse Resp BP Pulse Ox 37.9 C H 79 17 121/69 H 92 03/05/20 06:00 03/05/20 07:20 03/05/20 07:20 03/05/20 06:00 03/05/20 07:20 Oxygen Flow Rate (L/min) 92 Oxygen Delivery Method Mechanical Ventilator Weight: 103.4 kg Body Mass Index (BMI) 31.8 Intake and Output for Last 24 Hours 03/03/20 03/04/20 03/05/20 23:59 23:59 23:59 Intake Total 3499.42 / 3640.72 1199.10 / 1199.10 Output Total 1195 / 1195 1220 / 1220 740 / 740 Balance 816.10 / 819.53 2279.42 / 2420.72 459.10 / 459.10 Labs (Last 48 Hours) 03/03/20 03/03/20 03/03/20 03:00 10:39 16:53 WBC RBC Hgb Hct MCV MCH MCHC RDW Std Deviation RDW Coeff of Charo Plt Count MPV Immature Gran % (Auto) Neut % (Auto) Lymph % (Auto) Coffee % (Auto) Eos % (Auto) Baso % (Auto) Absolute Neuts (auto) Absolute Lymphs (auto) Nucleated RBC % Differential Comment Platelet Estimate Specimen Type ART Sample Site R Radial pH 7.33 L Bicarbonate Actual 27.7 H Total CO2 29 Base Excess 2 O2 Saturation 96 O2 % 100 ABG pCO2 52.0 H ABG pO2 89 Respiration Rate 12 O2 Delivery Device ET Tube Vent Mode AC Tidal Volume 500 POC PEEP 14 Sodium Potassium Chloride Carbon Dioxide Anion Gap BUN Creatinine Estim Creat Clear Calc Est GFR (MDRD) Af Amer Est GFR (MDRD) Non-Af BUN/Creatinine Ratio Glucose Calcium Total Creatine Kinase 34 L Triglycerides 137 Random Vancomycin POC Glucose 190 H 03/03/20 03/04/20 03/04/20 23:03 03:40 03:40 WBC 8.3 RBC 4.23 L Hgb 13.8 Hct 43.5 MCV 102.8 H MCH 32.6 H MCHC 31.7 L RDW Std Deviation 54.9 H RDW Coeff of Charo 14.4 Plt Count 232 MPV 10.2 Immature Gran % (Auto) 1.200 H Neut % (Auto) 91.5 H Lymph % (Auto) 4.3 L Coffee % (Auto) 2.3 Eos % (Auto) 0.5 Baso % (Auto) 0.2 Absolute Neuts (auto) 7.6 Absolute Lymphs (auto) 0.36 L Nucleated RBC % 0 Differential Comment SCANNED Platelet Estimate ADEQUATE Specimen Type Sample Site pH Bicarbonate Actual Total CO2 Base Excess O2 Saturation O2 % ABG pCO2 ABG pO2 Respiration Rate O2 Delivery Device Vent Mode Tidal Volume POC PEEP Sodium 141 Potassium 4.8 Chloride 108 H Carbon Dioxide 28.0 Anion Gap 5 BUN 59 H Creatinine 1.91 H Estim Creat Clear Calc 33.95 Est GFR (MDRD) Af Amer 44 L Est GFR (MDRD) Non-Af 36 L BUN/Creatinine Ratio 30.9 H Glucose 139 H Calcium 7.6 L Total Creatine Kinase Triglycerides Random Vancomycin POC Glucose 176 H 03/04/20 03/04/20 03/04/20 06:36 11:03 17:32 WBC RBC Hgb Hct MCV MCH MCHC RDW Std Deviation RDW Coeff of Charo Plt Count MPV Immature Gran % (Auto) Neut % (Auto) Lymph % (Auto) Coffee % (Auto) Eos % (Auto) Baso % (Auto) Absolute Neuts (auto) Absolute Lymphs (auto) Nucleated RBC % Differential Comment Platelet Estimate Specimen Type Sample Site pH Bicarbonate Actual Total CO2 Base Excess O2 Saturation O2 % ABG pCO2 ABG pO2 Respiration Rate O2 Delivery Device Vent Mode Tidal Volume POC PEEP Sodium Potassium Chloride Carbon Dioxide Anion Gap BUN Creatinine Estim Creat Clear Calc Est GFR (MDRD) Af Amer Est GFR (MDRD) Non-Af BUN/Creatinine Ratio Glucose Calcium Total Creatine Kinase Triglycerides Random Vancomycin POC Glucose 162 H 228 H 214 H 03/05/20 03/05/20 03/05/20 00:27 05:00 05:00 WBC 9.5 RBC 4.05 L Hgb 13.5 Hct 41.6 MCV 102.7 H MCH 33.3 H MCHC 32.5 RDW Std Deviation 53.5 H RDW Coeff of Charo 14.1 Plt Count 200 MPV 10.6 Immature Gran % (Auto) 1.200 H Neut % (Auto) 89.9 H Lymph % (Auto) 5.3 L Coffee % (Auto) 2.3 Eos % (Auto) 1.1 Baso % (Auto) 0.2 Absolute Neuts (auto) 8.6 H Absolute Lymphs (auto) 0.50 L Nucleated RBC % 0 Differential Comment SCANNED Platelet Estimate Specimen Type Sample Site pH Bicarbonate Actual Total CO2 Base Excess O2 Saturation O2 % ABG pCO2 ABG pO2 Respiration Rate O2 Delivery Device Vent Mode Tidal Volume POC PEEP Sodium 143 Potassium 4.4 Chloride 109 H Carbon Dioxide 29.0 Anion Gap 5 BUN 73 H Creatinine 1.43 H Estim Creat Clear Calc 45.34 Est GFR (MDRD) Af Amer 62 Est GFR (MDRD) Non-Af 51 L BUN/Creatinine Ratio 51.0 H Glucose 172 H Calcium 7.6 L Total Creatine Kinase Triglycerides Random Vancomycin POC Glucose 191 H 03/05/20 03/05/20 05:00 06:24 WBC RBC Hgb Hct MCV MCH MCHC RDW Std Deviation RDW Coeff of Charo Plt Count MPV Immature Gran % (Auto) Neut % (Auto) Lymph % (Auto) Coffee % (Auto) Eos % (Auto) Baso % (Auto) Absolute Neuts (auto) Absolute Lymphs (auto) Nucleated RBC % Differential Comment Platelet Estimate Specimen Type Sample Site pH Bicarbonate Actual Total CO2 Base Excess O2 Saturation O2 % ABG pCO2 ABG pO2 Respiration Rate O2 Delivery Device Vent Mode Tidal Volume POC PEEP Sodium Potassium Chloride Carbon Dioxide Anion Gap BUN Creatinine Estim Creat Clear Calc Est GFR (MDRD) Af Amer Est GFR (MDRD) Non-Af BUN/Creatinine Ratio Glucose Calcium Total Creatine Kinase Triglycerides Random Vancomycin Pending POC Glucose 175 H Microbiology 03/03/20 Unknown Sputum, Induced/Lukens Gram Stain - Final 03/03/20 Unknown Sputum, Induced/Lukens Respiratory Culture - Preliminary Gram negative [place] Medical Necessity - Tobacco Use Smoking Status: Never smoker Tobacco Use: Non-smoker Assessment/Plan All Active Problems Septic shock (Acute) Acute respiratory failure with hypoxia (Acute) Pneumonia due to COVID-19 virus (Acute) Hyperglycemia (Acute) SURINDER (acute kidney injury) (Acute) RECOMMENDATIONS: 1. Titrate PEEP as needed. Attempt to decrease FiO2 to 60% or less 2. Continue Decadron (12/16) daily. Completed convalescent serum and remdesivir 3. Continue empiric antibiotics. Discontinue vancomycin if no gram positives later today 4. Continue Eliquis for anticoagulation 5. Encourage incentive spirometer use and mobilize patient as tolerated. 6. Hold on any diuretic therapy today. IMPRESSIONS: 1. Acute hypoxemic respiratory failure secondary to COVID-19 pneumonia The patient had significant desaturation and decompensation overnight. Patient has elected to be intubated on 03/03/2020. Patient is requiring high PEEP and FiO2. Significant secretions were noted in the pharynx and neck to vocal cord. Continue Decadron and Eliquis. Spontaneous breathing and awakening trials per protocol. Continue patient on empiric antibiotics pending culture data. If patient shows no gram-positive's in the next 24 hours, likely okay to discontinue vancomycin 2. Morbid obesity/hypertension/hypothyroidism/GERD Complicates care, management, recovery and prognosis. Continue home medications as indicated. Continue sliding scale insulin coverage, given risk for steroid-induced hyperglycemia. 3. Possible septic shock Patient with significant fever following intubation and then requiring pressor therapy. May have an element of hypotension related to sedation from the ventilator. Patient initiated on empiric antibiotics pending infectious disease evaluation. Patient did have increasing infiltrates on chest x-ray, so superimposed bacterial pneumonia would be a possibility. Sputum cultures are only showing a gram-negative to this point.. TIME: 37 minutes critical care time spent addressing patient's acute hypoxic respiratory failure, hyperglycemia, review of all data and collaboration with care team (5:40 AM to 6:40 AM) [id number]: [id number] Critical care first hour
[2020-03-05] MEDS: Vital AF 1.2 Cal Liquid 1,000 ML 70 ML GT (07:30)
--- NOTE | 2020-03-05 07:30 | PN_ITS ---
Patient Problems: Active and Suspected Problems Septic shock (Acute) Acute respiratory failure with hypoxia (Acute) Pneumonia due to COVID-19 virus (Acute) Hyperglycemia (Acute) SURINDER (acute kidney injury) (Acute) Subjective: Patient seen and examined. He remains intubated and sedated. He is on tube feeding. He is on 60% FiO2 on the vent. He still remains febrile. Vitals/I&O's: Vital Signs Temp Pulse Resp BP Pulse Ox 100.3 F H 79 17 121/69 H 92 03/05/20 06:00 03/05/20 07:20 03/05/20 07:20 03/05/20 06:00 03/05/20 07:20 Oxygen Flow Rate (L/min) 92 Oxygen Delivery Method Mechanical Ventilator Weight: 227 lb 15.327 oz Body Mass Index (BMI) 31.8 Intake and Output for Last 24 Hours 03/03/20 03/04/20 03/05/20 23:59 23:59 23:59 Intake Total 3499.42 / 3640.72 1199.10 / 1199.10 Output Total 1195 / 1195 1220 / 1220 740 / 740 Balance 816.10 / 819.53 2279.42 / 2420.72 459.10 / 459.10 General: - - intubated, sedated, RASS score is -1 HEENT: Atraumatic, PERRLA, EOMI, Normocephalic Oral: Dry Mucosa Neck: Supple, No JVD, Negative Carotid Bruits Lungs: - - coarse crackles in mid and lower lung greene. intubated and sedated. RASS score is -1 Cardiovascular: Regular rate, Regular Rhythm, Normal S1, Normal S2, No murmurs Abdomen: Bowel Sounds Present, Soft, Non Tender, Non-Distended, No Hepato- splenomegaly Extremities: No clubbing, No cyanosis, No edema, Capillary Refill Less than 3 Seconds Skin: No rashes, No breakdown Musculoskeletal: No Tenderness to Palpation of Joints or Extremities Lymphatic: No Cervical, Supraclavicular, or Inguinal Adenopathy Neurological: Cranial nerves II-XII grossly intact, Motor Exam 5/5 strength throughout Psych/Mental Status: - - sedated Microbiology Past 72 Hours 03/03/20 Unknown Sputum, Induced/Lukens Gram Stain - Final 03/03/20 Unknown Sputum, Induced/Lukens Respiratory Culture - Preliminary Gram negative [place] Laboratory Results 03/04/20 06:36: POC Glucose 162 H 03/04/20 11:03: POC Glucose 228 H 03/04/20 17:32: POC Glucose 214 H 03/05/20 00:27: POC Glucose 191 H 03/05/20 05:00: WBC 9.5, RBC 4.05 L, Hgb 13.5, Hct 41.6, MCV 102.7 H, MCH 33.3 H , MCHC 32.5, RDW Std Deviation 53.5 H, RDW Coeff of Charo 14.1, Plt Count 200, MPV 10.6, Immature Gran % (Auto) 1.200 H, Neut % (Auto) 89.9 H, Lymph % (Auto) 5.3 L , [place] % (Auto) 2.3, Eos % (Auto) 1.1, Baso % (Auto) 0.2, Absolute Neuts (auto) 8.6 H, Absolute Lymphs (auto) 0.50 L, Nucleated RBC % 0, Differential Comment SCANNED 03/05/20 05:00: Sodium 143, Potassium 4.4, Chloride 109 H, Carbon Dioxide 29.0, Anion Gap 5, BUN 73 H, Creatinine 1.43 H, Estim Creat Clear Calc 45.34, Est GFR (MDRD) Af Amer 62, Est GFR (MDRD) Non-Af 51 L, BUN/Creatinine Ratio 51.0 H, Glucose 172 H, Calcium 7.6 L 03/05/20 05:00: Random Vancomycin Pending 03/05/20 06:24: POC Glucose 175 H Diagnostic Data Chest CTA 02/26/20 02:36 IMPRESSION: No demonstrated pulmonary embolism or arterial dissection. Scattered reticular interstitial opacities are seen in both lungs suggesting chronic interstitial lung disease. There are superimposed ill-defined groundglass opacities are seen more prominent in the upper lobes, may represent atypical pneumonia or viral pneumonia (COVID-19 ?). Electronically Signed: Meena Bro, at 6:05 EST Tel , Service support , Chest X-Ray 03/03/20 09:04 IMPRESSION: An NG tube and endotracheal tube are noted in place along with a PICC line in this patient with bilateral alveolar infiltrates which have increased consistent with the patient''s known Covid 19 pneumonia. Electronically Signed: Shahbaz Ahumada, at 11:57 EST Tel , Service support , Current Medications Acetaminophen (Acetaminophen 325 Mg Tablet) 650 mg PO Q6H PRN PRN PRN Reason: Pain Score 1-10/Temp > 100.7 F Last Admin: 03/04/20 04:01 Dose: 650 mg Documented by: Apixaban (Apixaban 5 Mg Tablet) 5 mg GT BID [facility] Last Admin: 03/04/20 22:25 Dose: 5 mg Documented by: Carvedilol (Carvedilol 12.5 Mg Tablet) 12.5 mg PO BID [facility] Last Admin: 03/04/20 22:26 Dose: 12.5 mg Documented by: Chlorhexidine Gluconate (Chlorhexidine 15 Ml) 15 ml PO BID [facility] Last Admin: 03/04/20 22:29 Dose: 15 ml Documented by: Dexamethasone Sodium Phosphate (Dexamethasone 10 Mg/Ml Vial) 6 mg IV DAILY [facility] [place] Stop: 03/06/20 10:01 Last Admin: 03/04/20 07:51 Dose: 6 mg Documented by: Guaifenesin (Guaifenesin 10 Ml Udc (200mg/10ml)) 10 ml PO Q4H PRN PRN PRN Reason: COUGH Propofol (Diprivan) 1,000 mg in 100 mls @ 24.816 mls/hr CONT INF .Q4H2M [facility]; Protocol Last Titration: 03/05/20 06:00 Dose: 10 mcg/kg/min, 6.3 mls/hr Documented by: Fentanyl Citrate 1,000 mcg/ (Sodium Chloride) 100 mls @ 20 mls/hr CONT INF .Q5H [facility]; Protocol Last Titration: 03/05/20 06:00 Dose: 100 mcg/hr, 10 mls/hr Documented by: Enteral Nutritional Formula (Vital Af 1.2 Homer Liquid) 1,000 mls @ 70 mls/hr GT .[id number] [facility] [place] Last Admin: 03/04/20 21:38 Dose: Not Given Documented by: Vancomycin IV Pharmacy to Dose (1 ea/ Sodium Chloride) 500 mls @ 250 mls/hr IV X1 PRN; Protocol PRN Reason: Rx to Dose Norepinephrine Bitartrate 8 mg (/ Sodium Chloride) 250 mls @ 9.375 mls/hr CONT INF .[id number] [facility]; Protocol Last Admin: 03/04/20 19:44 Dose: Not Given Documented by: Meropenem 500 mg/ Sodium (Chloride) 60 mls @ 100 mls/hr IV Q8 [facility] [place] Last Admin: 03/05/20 06:20 Dose: 100 mls/hr Documented by: Insulin Human Lispro (Insulin Lispro 100 Unit/Ml Insuln.Pen) 0 unit SC Q6 [facility]; Protocol Last Admin: 03/05/20 06:25 Dose: 1 u Documented by: Levothyroxine Sodium (Levothyroxine 50 Mcg Tablet) 50 mcg PO DAILY [facility] Last Admin: 03/04/20 07:54 Dose: 50 mcg Documented by: Losartan Potassium (Losartan Potassium 25 Mg Tablet) 25 mg PO DAILY [facility] Last Admin: 03/04/20 07:51 Dose: 25 mg Documented by: Melatonin (Melatonin 3 Mg Tablet) 3 mg PO QHS [facility] Last Admin: 03/04/20 22:27 Dose: 3 mg Documented by: Ondansetron HCl (Ondansetron 4 Mg/2 Ml Vial) 4 mg IV Q8H PRN PRN PRN Reason: NAUSEA/VOMITING Pantoprazole Sodium (Pantoprazole Sodium 20 Mg Tablet) 20 mg PO BID [facility] [place] Last Admin: 03/04/20 22:27 Dose: 20 mg Documented by: Polyethylene Glycol (Polyethylene Glycol 3350 17 Gm Packet) 17 gm GT BID [facility] [place] Last Admin: 03/04/20 22:28 Dose: 17 gm Documented by: Senna/Docusate Sodium (Senna/Docusate Sodium 1 Tablet) 2 tablet GT BID [facility] [place] Last Admin: 03/04/20 22:26 Dose: 2 tablet Documented by: Sodium Chloride (0.9% Saline Lock 10 Ml Syringe) 10 - 40 ml IV UD PRN PRN Reason: Multilumen/Michel Flush Last Admin: 03/04/20 20:41 Dose: 10 ml Documented by: Sodium Chloride (0.9 % Nacl (Sterile) Posiflush 10 Ml) 10 - 40 ml IV UD PRN PRN Reason: Port access or dressing change Throat Lozenges (Benzocaine/Menthol 1 Lozenge) 1 lozenge MUCOUS MEM Q2H PRN PRN PRN Reason: SORE THROAT Last Admin: 03/02/20 12:18 Dose: 1 lozenge Documented by: STROKE Vital Signs/Narrative: Vital Signs Temp Pulse Resp BP Pulse Ox 03/05/20 07:20 79 17 92 03/05/20 06:00 100.3 F H 71 12 121/69 H 94 03/05/20 05:00 100.2 F H 78 16 130/67 H 93 03/05/20 04:12 81 13 91 03/05/20 04:00 100.5 F H 77 13 125/66 H 90 Medical Necessity - Tobacco Use Smoking Status: Never smoker Tobacco Use: Non-smoker Assessment/Plan All Active Problems Septic shock (Acute) Acute respiratory failure with hypoxia (Acute) Pneumonia due to COVID-19 virus (Acute) Hyperglycemia (Acute) SURINDER (acute kidney injury) (Acute) # Acute hypoxic respiratory failure due to COVID 19 pneumonia - remains intubated. -sedated with propofol and fentanyl -on remdesivir and decadron. also received convalescent pasma -ID and pulmonology on board. -remains febrile. On IV meropenem. -on breathing treatment with bronchodilators #Septic shock: still remains febrile. On IV meropenem # SURINDER: Cr is down to 1.43 today. Was likely a pre-renal SURINDER from hypotension. # Hypertension: on losartan 25mg daily and carvedilol 12.5mg bid #Hyperlipidemia: diet controlled. #Hypothyroidism: on synthroid #GERD: on pantoprazole 20mg bid Nutrition: on tube feeding. DVT prophylaxis; on eliquis Inpatient E&M: [id number] [facility]
[2020-03-05] MEDS: Chlorhexidine 15 ML PO ×2 (08:54→22:56)
[2020-03-05] MEDS: TITRATION PARAMETER CHANGE 1 EACH IV (08:54)
[2020-03-05] MEDS: 0.9% Saline Lock 10 ML Syringe IV (08:55)
[2020-03-05] MEDS: Carvedilol 12.5 MG Tablet PO ×2 (08:56→22:44)
[2020-03-05] MEDS: Levothyroxine 50 MCG Tablet PO (08:56)
[2020-03-05] MEDS: Losartan Potassium 25 MG Tablet PO (08:56)
[2020-03-05] MEDS: Pantoprazole Sodium 20 MG Tablet PO ×2 (08:56→22:45)
[2020-03-05] MEDS: dexAMETHasone 10 MG/ML Vial 6 MG IV (08:58)
[2020-03-05] MEDS: APIXABAN 5 MG TABLET GT ×2 (08:58→22:42)
[2020-03-05] MEDS: Polyethylene Glycol 3350 17 GM PACKET GT ×2 (08:58→22:45)
[2020-03-05] MEDS: Senna/Docusate Sodium 1 Tablet 2 TABLET GT ×2 (08:58→22:43)
[2020-03-05 09:58] LABS: Vancomycin, Random Level 13.2 ug/mL (0.0-15.0)
--- NOTE | 2020-03-05 11:48 | PCM.RX.CS ---
Consult Pharmacy has been consulted to manage selected antiobiotic: Vancomycin Type of Consult: Follow-up Labs: Sodium 143 mmol/L (136-145) 03/05/20 05:00 Potassium 4.4 mmol/L (3.5-5.1) 03/05/20 05:00 Chloride 109 mmol/L (98-107) H 03/05/20 05:00 Carbon Dioxide 29.0 mmol/L (21.0-32.0) 03/05/20 05:00 Anion Gap 5 (5-15) 03/05/20 05:00 BUN 73 mg/dL (7-18) H 03/05/20 05:00 Creatinine 1.43 mg/dL (0.70-1.30) H 03/05/20 05:00 Est GFR (MDRD) Af Amer 62 mL/min (>60) 03/05/20 05:00 Est GFR (MDRD) Non-Af 51 mL/min (>60) L 03/05/20 05:00 BUN/Creatinine Ratio 51.0 RATIO (10-20) H 03/05/20 05:00 Glucose 172 mg/dL (74-106) H 03/05/20 05:00 Random Vancomycin 13.2 ug/mL (0.0-15.0) 03/05/20 05:00 Microbiology: Microbiology 03/03/20 13:25 Blood Culture (Wb) #2 - Right Hand Blood Culture - Preliminary No growth in 48 hours. 03/03/20 13:15 Blood Culture (Wb) - Central Line Blood Culture - Preliminary No growth in 48 hours. 03/03/20 13:00 Urine Catheter - Kaye Urine Culture - Final Culture exhibits no growth. 03/03/20 Unknown Sputum, Induced/Lukens Gram Stain - Final 03/03/20 Unknown Sputum, Induced/Lukens Respiratory Culture - Preliminary Serratia marcescens Streptococcus pneumoniae 02/27/20 00:01 Urine, Clean Catch Legionella Antigen - Final 02/27/20 00:01 Urine, Clean Catch Streptococcus pneumoniae Antigen (M - Final 02/26/20 02:00 Mucosa - Nasopharyngeal Respiratory Panel (PCR) - Final Goal Trough: 15-20 mcg/mL Pharmacy Plan for Drug Dosing: VANCOMYCIN LEVEL RECEIVED Current Vancomycin Dose: ON HOLD D/T RENAL FUNCTION Number of Doses Received: 2 Vancomycin Level: 13.2 Hours Since Last Dose: 25hr Renal Function: 1.43 Renal Function Trend: improved since 03/04 Vancomycin Plan/Comments: Patient's random trough resulted in a value of 13.2 (~25hrs from last admin dose). Will restart scheduled vancomycin at 1g IV Q12hr and check a trough prior to 4th dose of new regimen, given the patient's renal function is improving. Pending Level: 03/07/20 @0030 Pharmacy Service will continue to monitor and adjust dosing as required.
[2020-03-05] MEDS: Vancomycin IV 1,000 MG/200 ML BAG 200 MG IV (13:40)
[2020-03-05 18:16] LABS: Bedside Glucose 214 mg/dL (70-110)
[2020-03-05] MEDS: Propofol 10MG/Ml 1,000 MG/100 ML Bottle 6.2 MG CONT INF (20:45)
[2020-03-05] MEDS: MELATONIN 3 MG TABLET PO (22:44)
[2020-03-05] MEDS: Acetaminophen 650 MG/20 ML UDC GT (23:11)
[2020-03-06] VITALS (31 sets, daily range): BP systolic 108–164; BP diastolic 44–91; PULSE 74–90; RESP 12–21; TEMP 38.4–39.2; O2SAT 85–96
[2020-03-06] MEDS: Insulin Lispro 100 UNIT/ML INSULN.PEN SC ×4 (00:24→18:14)
[2020-03-06] MEDS: Vancomycin IV 1,000 MG/200 ML BAG 200 MG IV (00:33)
[2020-03-06] MEDS: Vital AF 1.2 Cal Liquid 1,000 ML 70 ML GT (02:36)
[2020-03-06 04:53] LABS: Absolute Neutrophil Count 7.5 X10^3/uL (2.0-7.7); Basophil# 0.01 X10^3/uL; Basophil% 0.1 % (0-1); Differential Indicated SCAN CRITERIA MET; Eosinophil# 0.18 X10^3/uL; Eosinophils% 2.1 % (0-5); Hematocrit 41.9 % (40-54); Hemoglobin 13.1 g/dL (13.0-16.5); Lymphocyte % 4.8 % (19-41); Mean Corp Hgb Conc 31.3 g/dL (32-36); Mean Corpuscular Hgb 32.5 pg (27.0-32.0); Mean Platelet Vol. 10.2 fl (6.2-12.0); Monocyte# 0.19 X10^3/uL; Monocyte% 2.3 % (0-10); NRBC Flagged by Analyzer 0 % (0-5); Neutrophil # 7.51 X10^3/uL (2.7-7.7); Neutrophil % 89.3 % (47-70); POSITIVE DIFFERENTIAL YES; Platelet Count 186 K/mm3 (150-450); RBC Distribution Width CV 13.8 % (11.6-14.6); RBC Distribution Width SD 53.1 fl (35.1-43.9); Red Blood Count 4.03 M/mm3 (4.6-6.2); White Blood Count 8.4 K/mm3 (4.4-11.0)
[2020-03-06] MEDS: Propofol 10MG/Ml 1,000 MG/100 ML Bottle 6.2 MG CONT INF (04:55)
[2020-03-06 05:06] LABS: Anion Gap 4 (5-15); BUN 57 mg/dL (7-18); BUN/Creat Ratio 49.1 RATIO (10-20); Calcium,Total 7.9 mg/dL (8.5-10.1); Chloride 110 mmol/L (98-107); Creatinine, Serum 1.16 mg/dL (0.70-1.30); EST Glomerular Filtration Rate 65 mL/min (>60); Est Glom Filt Rate - Afr Amer 78 mL/min (>60); Glucose 199 mg/dL (74-106); Potassium 4.7 mmol/L (3.5-5.1); Sodium Level 144 mmol/L (136-145)
[2020-03-06 06:50] LABS: Bedside Glucose 185 mg/dL (70-110)
--- NOTE | 2020-03-06 07:12 | PN_ITS ---
Subjective: Patient did well overnight. No pressors have been reported. Patient did have a bowel movement and fever. Urine output has been doing well. Patient has been able to be weaned to 45% FiO2, but did not have a spontaneous breathing trial secondary to a PEEP of 12. Patient opens eyes to voice, but is not following commands for me. General: - - RASS -2. Obese. HEENT: Atraumatic, PERRLA, EOMI, Normocephalic, - - No scleral icterus or injection noted Oral: Moist Mucosa, No Gingival or Mucosal Lesions/ Ulcerations Neck: Supple, No JVD, No Nodes, Trachea Midline Lungs: No rhonchi, No wheeze, No rales, Diminished, - - Symmetric expansion. No dullness to percussion Cardiovascular: Regular rate, Regular Rhythm, Normal S1, Normal S2, No murmurs, No rub noted, No Gallop Abdomen: Bowel Sounds Present, Soft, Non Tender, Non-Distended, Hyperactive Bowel Sounds, Obese Extremities: No clubbing, No cyanosis, Edema Skin: - - No change from previous Musculoskeletal: No Tenderness to Palpation of Joints or Extremities, No Muscle Wasting Lymphatic: No Cervical, Supraclavicular, or Inguinal Adenopathy Neurological: Cranial nerves II-XII grossly intact, Neuro grossly intact Psych/Mental Status: Flat Affect Vital Signs Temp Pulse Resp BP Pulse Ox 38.6 C H 81 15 135/72 H 91 03/06/20 06:00 03/06/20 06:00 03/06/20 06:00 03/06/20 06:00 03/06/20 06:00 Oxygen Flow Rate (L/min) 92 Oxygen Delivery Method Mechanical Ventilator Weight: 105.1 kg Body Mass Index (BMI) 31.8 Intake and Output for Last 24 Hours 03/04/20 03/05/20 03/06/20 23:59 23:59 23:59 Intake Total 3499.42 / 3640.72 3410.13 / 3548.83 1008.70 / 1008.70 Output Total 1220 / 1220 2019 / 2095 825 / 825 Balance 2279.42 / 2420.72 1390.13 / 1453.83 183.70 / 183.70 Labs (Last 48 Hours) 03/04/20 03/04/20 03/04/20 06:36 11:03 17:32 WBC RBC Hgb Hct MCV MCH MCHC RDW Std Deviation RDW Coeff of Charo Plt Count MPV Immature Gran % (Auto) Neut % (Auto) Lymph % (Auto) [place] % (Auto) Eos % (Auto) Baso % (Auto) Absolute Neuts (auto) Absolute Lymphs (auto) Nucleated RBC % Differential Comment Sodium Potassium Chloride Carbon Dioxide Anion Gap BUN Creatinine Estim Creat Clear Calc Est GFR (MDRD) Af Amer Est GFR (MDRD) Non-Af BUN/Creatinine Ratio Glucose Calcium Random Vancomycin POC Glucose 162 H 228 H 214 H 03/05/20 03/05/20 03/05/20 00:27 05:00 05:00 WBC 9.5 RBC 4.05 L Hgb 13.5 Hct 41.6 MCV 102.7 H MCH 33.3 H MCHC 32.5 RDW Std Deviation 53.5 H RDW Coeff of Charo 14.1 Plt Count 200 MPV 10.6 Immature Gran % (Auto) 1.200 H Neut % (Auto) 89.9 H Lymph % (Auto) 5.3 L [place] % (Auto) 2.3 Eos % (Auto) 1.1 Baso % (Auto) 0.2 Absolute Neuts (auto) 8.6 H Absolute Lymphs (auto) 0.50 L Nucleated RBC % 0 Differential Comment SCANNED Sodium 143 Potassium 4.4 Chloride 109 H Carbon Dioxide 29.0 Anion Gap 5 BUN 73 H Creatinine 1.43 H Estim Creat Clear Calc 45.34 Est GFR (MDRD) Af Amer 62 Est GFR (MDRD) Non-Af 51 L BUN/Creatinine Ratio 51.0 H Glucose 172 H Calcium 7.6 L Random Vancomycin POC Glucose 191 H 03/05/20 03/05/20 03/05/20 05:00 06:24 17:51 WBC RBC Hgb Hct MCV MCH MCHC RDW Std Deviation RDW Coeff of Charo Plt Count MPV Immature Gran % (Auto) Neut % (Auto) Lymph % (Auto) [place] % (Auto) Eos % (Auto) Baso % (Auto) Absolute Neuts (auto) Absolute Lymphs (auto) Nucleated RBC % Differential Comment Sodium Potassium Chloride Carbon Dioxide Anion Gap BUN Creatinine Estim Creat Clear Calc Est GFR (MDRD) Af Amer Est GFR (MDRD) Non-Af BUN/Creatinine Ratio Glucose Calcium Random Vancomycin 13.2 POC Glucose 175 H 214 H 11/29/20 11/29/20 11/29/20 00:22 04:35 04:35 WBC 8.4 RBC 4.03 L Hgb 13.1 Hct 41.9 MCV 104.0 H MCH 32.5 H MCHC 31.3 L RDW Std Deviation 53.1 H RDW Coeff of Charo 13.8 Plt Count 186 MPV 10.2 Immature Gran % (Auto) 1.400 H Neut % (Auto) 89.3 H Lymph % (Auto) 4.8 L [place] % (Auto) 2.3 Eos % (Auto) 2.1 Baso % (Auto) 0.1 Absolute Neuts (auto) 7.5 Absolute Lymphs (auto) 0.40 L Nucleated RBC % 0 Differential Comment Sodium 144 Potassium 4.7 Chloride 110 H Carbon Dioxide 30.0 Anion Gap 4 L BUN 57 H Creatinine 1.16 Estim Creat Clear Calc 55.90 Est GFR (MDRD) Af Amer 78 Est GFR (MDRD) Non-Af 65 BUN/Creatinine Ratio 49.1 H Glucose 199 H Calcium 7.9 L Random Vancomycin POC Glucose 185 H Microbiology 03/03/20 13:25 Blood Culture (Wb) #2 - Right Hand Blood Culture - Preliminary No growth in 48 hours. 03/03/20 13:15 Blood Culture (Wb) - Central Line Blood Culture - Preliminary No growth in 48 hours. 03/03/20 13:00 Urine Catheter - Kaye Urine Culture - Final Culture exhibits no growth. 03/03/20 Unknown Sputum, Induced/Lukens Gram Stain - Final 03/03/20 Unknown Sputum, Induced/Lukens Respiratory Culture - Preliminary Serratia marcescens Streptococcus pneumoniae Medical Necessity - Tobacco Use Smoking Status: Never smoker Tobacco Use: Non-smoker Assessment/Plan All Active Problems Septic shock (Acute) Acute respiratory failure with hypoxia (Acute) Pneumonia due to COVID-19 virus (Acute) Hyperglycemia (Acute) SURINDER (acute kidney injury) (Acute) RECOMMENDATIONS: 1. Titrate PEEP as tolerated. Attempt to decrease FiO2 to 60% or less 2. Continue Decadron (01/15) daily. Completed convalescent serum and remdesivir 3. Continue empiric antibiotics. Discontinue vancomycin 4. Continue Eliquis for anticoagulation 5. Encourage incentive spirometer use and mobilize patient as tolerated. 6. Hold on any diuretic therapy today. IMPRESSIONS: 1. Acute hypoxemic respiratory failure secondary to COVID-19 pneumonia The patient had significant desaturation and decompensation despite BiPAP therapy. Patient has elected to be intubated on 03/03/2020. Patient is still requiring high PEEP. Significant secretions were noted in the pharynx and neck to vocal cord. Continue Decadron for another 24 hours and Eliquis. Spontaneous breathing and awakening trials per protocol. Continue patient on empiric antibiotics pending culture data. Vancomycin discontinued secondary to a lack of gram positives on sputum 2. Morbid obesity/hypertension/hypothyroidism/GERD Complicates care, management, recovery and prognosis. Continue home medications as indicated. Continue sliding scale insulin coverage, given risk for steroid-induced hyperglycemia. 3. Possible septic shock Patient with significant fever following intubation and then requiring pressor therapy. Patient has been able to be discontinued from Levophed for over 48 hours. Patient is tolerating this well. Patient is growing pneumococcus and Serratia from his sputum. Patient is on appropriate antibiotics at this time. TIME: 33 minutes critical care time spent addressing patient's acute hypoxic respiratory failure, hyperglycemia, review of all data and collaboration with care team (6 AM to 7 AM) [phone]: [id number] Critical care first hour
--- NOTE | 2020-03-06 07:24 | PCM.PN.HOSP ---
Patient Problems: Active and Suspected Problems Septic shock (Acute) Acute respiratory failure with hypoxia (Acute) Pneumonia due to COVID-19 virus (Acute) Hyperglycemia (Acute) SURINDER (acute kidney injury) (Acute) Subjective: Patient seen and examined. He remains intubated and sedated. He is not on 45% FiO2 on the vent but still requires PEEP of 12. Patient not on any pressors. No active events overnight. He still does remain febrile. Vitals/I&O's: Vital Signs Temp Pulse Resp BP Pulse Ox 101.4 F H 83 18 135/72 H 91 03/06/20 06:00 03/06/20 07:11 03/06/20 07:11 03/06/20 06:00 03/06/20 07:11 Oxygen Flow Rate (L/min) 92 Oxygen Delivery Method Mechanical Ventilator Weight: 231 lb 11.293 oz Body Mass Index (BMI) 31.8 Intake and Output for Last 24 Hours 03/04/20 03/05/20 03/06/20 23:59 23:59 23:59 Intake Total 3499.42 / 3640.72 3410.13 / 3548.83 1068.70 / 1068.70 Output Total 1220 / 1220 2020 / 2095 825 / 825 Balance 2279.42 / 2420.72 1390.13 / 1453.83 243.70 / 243.70 General: - - intubated, sedated, RASS score is -1 HEENT: Atraumatic, PERRLA, EOMI, Normocephalic Oral: Dry Mucosa Neck: Supple, No JVD, Negative Carotid Bruits Lungs: - - coarse crackles in mid and lower lung greene. intubated and sedated. RASS score is -1 Cardiovascular: Regular rate, Regular Rhythm, Normal S1, Normal S2, No murmurs Abdomen: Bowel Sounds Present, Soft, Non Tender, Non-Distended, No Hepato-splenomegaly Extremities: No clubbing, No cyanosis, No edema, Capillary Refill Less than 3 Seconds Skin: No rashes, No breakdown Musculoskeletal: No Tenderness to Palpation of Joints or Extremities Lymphatic: No Cervical, Supraclavicular, or Inguinal Adenopathy Neurological: Cranial nerves II-XII grossly intact, Motor Exam 5/5 strength throughout Psych/Mental Status: - - sedated Microbiology Past 72 Hours 03/03/20 13:25 Blood Culture (Wb) #2 - Right Hand Blood Culture - Preliminary No growth in 48 hours. 03/03/20 13:15 Blood Culture (Wb) - Central Line Blood Culture - Preliminary No growth in 48 hours. 03/03/20 13:00 Urine Catheter - Kaye Urine Culture - Final Culture exhibits no growth. 03/03/20 Unknown Sputum, Induced/Lukens Gram Stain - Final 03/03/20 Unknown Sputum, Induced/Lukens Respiratory Culture - Preliminary Serratia marcescens Streptococcus pneumoniae Laboratory Results 03/05/20 05:00: Random Vancomycin 13.2 03/05/20 17:51: POC Glucose 214 H 03/06/20 00:22: POC Glucose 185 H 03/06/20 04:35: WBC 8.4, RBC 4.03 L, Hgb 13.1, Hct 41.9, MCV 104.0 H, MCH 32.5 H, MCHC 31.3 L, RDW Std Deviation 53.1 H, RDW Coeff of Charo 13.8, Plt Count 186, MPV 10.2, Immature Gran % (Auto) 1.400 H, Neut % (Auto) 89.3 H, Lymph % (Auto) 4.8 L, [place] % (Auto) 2.3, Eos % (Auto) 2.1, Baso % (Auto) 0.1, Absolute Neuts (auto) 7.5, Absolute Lymphs (auto) 0.40 L, Nucleated RBC % 0 03/06/20 04:35: Sodium 144, Potassium 4.7, Chloride 110 H, Carbon Dioxide 30.0, Anion Gap 4 L, BUN 57 H, Creatinine 1.16, Estim Creat Clear Calc 55.90, Est GFR (MDRD) Af Amer 78, Est GFR (MDRD) Non-Af 65, BUN/Creatinine Ratio 49.1 H, Glucose 199 H, Calcium 7.9 L Diagnostic Data Chest CTA 02/26/20 02:36 IMPRESSION: No demonstrated pulmonary embolism or arterial dissection. Scattered reticular interstitial opacities are seen in both lungs suggesting chronic interstitial lung disease. There are superimposed ill-defined groundglass opacities are seen more prominent in the upper lobes, may represent atypical pneumonia or viral pneumonia (COVID-19 ?). Electronically Signed: Meena Bro, at 6:05 EST Tel , Service support , Chest X-Ray 03/03/20 09:04 IMPRESSION: An NG tube and endotracheal tube are noted in place along with a PICC line in this patient with bilateral alveolar infiltrates which have increased consistent with the patient''s known Covid 19 pneumonia. Electronically Signed: Shahbaz Ahumada, at 11:57 EST Tel , Service support , Current Medications Acetaminophen (Acetaminophen 650 Mg/20 Ml Udc) 650 mg GT Q6H PRN PRN PRN Reason: Pain Score 1-10/Temp > 100.7 F Last Admin: 03/05/20 23:11 Dose: 650 mg Documented by: Apixaban (Apixaban 5 Mg Tablet) 5 mg GT BID [facility] Last Admin: 03/05/20 22:42 Dose: 5 mg Documented by: Carvedilol (Carvedilol 12.5 Mg Tablet) 12.5 mg PO BID [facility] Last Admin: 03/05/20 22:44 Dose: 12.5 mg Documented by: Chlorhexidine Gluconate (Chlorhexidine 15 Ml) 15 ml PO BID [facility] Last Admin: 03/05/20 22:56 Dose: 15 ml Documented by: Dexamethasone Sodium Phosphate (Dexamethasone 10 Mg/Ml Vial) 6 mg IV DAILY [facility] Stop: 03/06/20 10:01 Last Admin: 03/05/20 08:58 Dose: 6 mg Documented by: Guaifenesin (Guaifenesin 10 Ml Udc (200mg/10ml)) 10 ml PO Q4H PRN PRN PRN Reason: COUGH Propofol (Diprivan) 1,000 mg in 100 mls @ 24.816 mls/hr CONT INF .Q4H2M [facility]; Protocol Last Titration: 03/06/20 06:00 Dose: 10 mcg/kg/min, 6.2 mls/hr Documented by: Fentanyl Citrate 1,000 mcg/ (Sodium Chloride) 100 mls @ 20 mls/hr CONT INF .Q5H [facility]; Protocol Last Titration: 03/06/20 06:00 Dose: 75 mcg/hr, 7.5 mls/hr Documented by: Enteral Nutritional Formula (Vital Af 1.2 Homer Liquid) 1,000 mls @ 70 mls/hr GT .[id number] [facility] Last Admin: 03/06/20 02:36 Dose: 70 mls/hr Documented by: Meropenem 500 mg/ Sodium (Chloride) 60 mls @ 100 mls/hr IV Q8 [facility] Last Infusion: 03/06/20 06:44 Dose: Infused Documented by: Insulin Human Lispro (Insulin Lispro 100 Unit/Ml Insuln.Pen) 0 unit SC Q6 [facility]; Protocol Last Admin: 03/06/20 06:41 Dose: 2 u Documented by: Levothyroxine Sodium (Levothyroxine 50 Mcg Tablet) 50 mcg PO DAILY [facility] Last Admin: 03/05/20 08:56 Dose: 50 mcg Documented by: Losartan Potassium (Losartan Potassium 25 Mg Tablet) 25 mg PO DAILY [facility] Last Admin: 03/05/20 08:56 Dose: 25 mg Documented by: Melatonin (Melatonin 3 Mg Tablet) 3 mg PO QHS [facility] Last Admin: 03/05/20 22:44 Dose: 3 mg Documented by: Ondansetron HCl (Ondansetron 4 Mg/2 Ml Vial) 4 mg IV Q8H PRN PRN PRN Reason: NAUSEA/VOMITING Pantoprazole Sodium (Pantoprazole Sodium 20 Mg Tablet) 20 mg PO BID [facility] Last Admin: 03/05/20 22:45 Dose: 20 mg Documented by: Polyethylene Glycol (Polyethylene Glycol 3350 17 Gm Packet) 17 gm GT BID [facility] Last Admin: 03/05/20 22:45 Dose: 17 gm Documented by: Senna/Docusate Sodium (Senna/Docusate Sodium 1 Tablet) 2 tablet GT BID [facility] Last Admin: 03/05/20 22:43 Dose: 2 tablet Documented by: Sodium Chloride (0.9% Saline Lock 10 Ml Syringe) 10 - 40 ml IV UD PRN PRN Reason: Multilumen/Michel Flush Last Admin: 03/05/20 08:55 Dose: 10 ml Documented by: Sodium Chloride (0.9 % Nacl (Sterile) Posiflush 10 Ml) 10 - 40 ml IV UD PRN PRN Reason: Port access or dressing change Throat Lozenges (Benzocaine/Menthol 1 Lozenge) 1 lozenge MUCOUS MEM Q2H PRN PRN PRN Reason: SORE THROAT Last Admin: 03/02/20 12:18 Dose: 1 lozenge Documented by: STROKE Vital Signs/Narrative: Vital Signs Temp Pulse Resp BP Pulse Ox 03/06/20 07:11 83 18 91 03/06/20 06:00 101.4 F H 81 15 135/72 H 91 03/06/20 05:00 101.5 F H 79 15 119/61 90 03/06/20 04:05 88 19 H 92 03/06/20 04:00 101.7 F H 85 16 116/61 92 Medical Necessity - Tobacco Use Smoking Status: Never smoker Tobacco Use: Non-smoker Assessment/Plan All Active Problems Septic shock (Acute) Acute respiratory failure with hypoxia (Acute) Pneumonia due to COVID-19 virus (Acute) Hyperglycemia (Acute) SURINDER (acute kidney injury) (Acute) # Acute hypoxic respiratory failure due to COVID 19 pneumonia - remains intubated. and sedated. RASS score is -1 today -now down to FiO2 of 45%, but PEEP remains 12 -sedated with propofol and fentanyl -on remdesivir and decadron. also received convalescent pasma -ID and pulmonology on board. -remains febrile. On IV meropenem. -on breathing treatment with bronchodilators #Septic shock: still remains febrile. On IV meropenem. Off pressors # SURINDER: resolved. Cr now down to 1.16 # Hypertension: on losartan 25mg daily and carvedilol 12.5mg bid #Hyperlipidemia: diet controlled. #Hypothyroidism: on synthroid #GERD: on pantoprazole 20mg bid Nutrition: on tube feeding. DVT prophylaxis; on eliquis Inpatient E&M: [id number] [facility] H[facility] L3
[2020-03-06] MEDS: dexAMETHasone 10 MG/ML Vial 6 MG IV (08:52)
[2020-03-06] MEDS: Polyethylene Glycol 3350 17 GM PACKET GT (08:53)
[2020-03-06] MEDS: Chlorhexidine 15 ML PO ×2 (08:53→20:07)
[2020-03-06] MEDS: Losartan Potassium 25 MG Tablet PO (08:53)
[2020-03-06] MEDS: Senna/Docusate Sodium 1 Tablet 2 TABLET GT (08:53)
[2020-03-06] MEDS: Pantoprazole Sodium 20 MG Tablet PO (08:53)
[2020-03-06] MEDS: Carvedilol 12.5 MG Tablet PO (08:53)
[2020-03-06] MEDS: APIXABAN 5 MG TABLET GT (08:53)
[2020-03-06] MEDS: TITRATION PARAMETER CHANGE 1 EACH IV (08:53)
[2020-03-06] MEDS: Levothyroxine 50 MCG Tablet PO (08:53)
[2020-03-06 11:51] LABS: Bedside Glucose 198 mg/dL (70-110)
[2020-03-06] MEDS: Acetaminophen 650 MG/20 ML UDC GT (12:07)
[2020-03-06 13:11] LABS: Bedside Glucose 209 mg/dL (70-110)
[2020-03-06] MEDS: Propofol 10MG/Ml 1,000 MG/100 ML Bottle 6.3 MG CONT INF (17:33)
--- NOTE | 2020-03-06 18:00 | RAD_ITS ---
STUDY: X-RAY CHEST REASON FOR EXAM: Male, 79 years old. OG TUBE PLACEMENT -- COVID, RESP FAILURE TECHNIQUE: Frontal view of the chest COMPARISON: 03 March 2020 FINDINGS: Gastric tube is located with its tip in the proximal fundus and side-port at the gastroesophageal junction. There are bilateral extensive consolidation/pneumonias. Endotracheal tube is in place with its tip 3 sinus and the sesar, 4 cm below the lower edge of the clavicles. There is no pneumothorax. Cardiac size is normal. Osseous structures are intact. RAD/Chest 1 View (Portable) IMPRESSION: Gastric tube with tip in the proximal fundus, consider advancement if placement into the antrum is desired. Extensive bilateral pneumonia. Electronically Signed: Hazel Ríos, at 20:20 EST Tel , Service support ,
--- NOTE | 2020-03-06 23:09 | RAD_ITS ---
HISTORY: OG TUBE PLACEMENT EXAM: XR Chest 1 View: COMPARISON: Study from 5 hours earlier FINDINGS: # of images incl. paperwork: 2 Orogastric tube has been advanced. The tip in the proximal sidehole now below is in the lowest portion of the study below the diaphragm Severe multifocal bilateral airspace disease persists. Endotracheal tube terminates over the trachea above the sesar. Calcific plaque within the aortic arch persists. Pulmonary hypoexpansion remains. Heart is not enlarged. No acute osseous pathology perceived. Pulmonary vascularity is indistinct. No effusions. RAD/Chest 1 View (Portable) IMPRESSION: Advancement of esophagogastric tube now terminating lower than the lowest portion of the study. Severe persistent bilateral airspace disease consistent with pneumonia. at 0053 Reported and signed by: Dominick Haywood MD Electronically Signed: Dominick Haywood MD at 0:52 EST Tel , Service support ,
[2020-03-07] VITALS (36 sets, daily range): BP systolic 107–148; BP diastolic 56–88; PULSE 74–91; RESP 12–25; TEMP 38.4–38.8; O2SAT 88–95
[2020-03-07 00:06] LABS: Bedside Glucose 132 mg/dL (70-110)
[2020-03-07] MEDS: APIXABAN 5 MG TABLET GT ×3 (01:58→22:09)
[2020-03-07] MEDS: Pantoprazole Sodium 20 MG Tablet PO ×2 (01:59→08:41)
[2020-03-07] MEDS: Senna/Docusate Sodium 1 Tablet 2 TABLET GT ×3 (01:59→22:09)
[2020-03-07] MEDS: MELATONIN 3 MG TABLET PO (02:00)
[2020-03-07] MEDS: Carvedilol 12.5 MG Tablet PO ×3 (02:00→22:09)
[2020-03-07] MEDS: Vital AF 1.2 Cal Liquid 1,000 ML 70 ML GT ×2 (02:17→17:03)
[2020-03-07 03:10] LABS: Bedside Glucose 189 mg/dL (70-110)
[2020-03-07] MEDS: Acetaminophen 650 MG/20 ML UDC GT ×2 (03:52→12:56)
[2020-03-07] MEDS: Propofol 10MG/Ml 1,000 MG/100 ML Bottle 6.3 MG CONT INF ×3 (03:53→19:31)
[2020-03-07 05:08] LABS: Absolute Neutrophil Count 8.5 X10^3/uL (2.0-7.7); Basophil# 0.02 X10^3/uL; Basophil% 0.2 % (0-1); Eosinophil# 0.05 X10^3/uL; Eosinophils% 0.5 % (0-5); Hematocrit 41.8 % (40-54); Hemoglobin 13.1 g/dL (13.0-16.5); Lymphocyte % 4.3 % (19-41); Mean Corp Hgb Conc 31.3 g/dL (32-36); Mean Corpuscular Hgb 32.9 pg (27.0-32.0); Mean Platelet Vol. 10.5 fl (6.2-12.0); Monocyte# 0.23 X10^3/uL; Monocyte% 2.5 % (0-10); NRBC Flagged by Analyzer 0 % (0-5); Neutrophil # 8.48 X10^3/uL (2.7-7.7); Neutrophil % 91.4 % (47-70); POSITIVE DIFFERENTIAL YES; Platelet Count 185 K/mm3 (150-450); RBC Distribution Width CV 13.6 % (11.6-14.6); RBC Distribution Width SD 53.9 fl (35.1-43.9); Red Blood Count 3.98 M/mm3 (4.6-6.2); White Blood Count 9.3 K/mm3 (4.4-11.0)
[2020-03-07 05:13] LABS: Differential Indicated SCAN CRITERIA MET
[2020-03-07 05:22] LABS: Anion Gap 3 (5-15); BUN 52 mg/dL (7-18); BUN/Creat Ratio 50.5 RATIO (10-20); Calcium,Total 8.1 mg/dL (8.5-10.1); Chloride 111 mmol/L (98-107); Creatinine, Serum 1.03 mg/dL (0.70-1.30); EST Glomerular Filtration Rate 74 mL/min (>60); Est Glom Filt Rate - Afr Amer 90 mL/min (>60); Estimated Creatinine Clearance 62.95 ml/min; Glucose 185 mg/dL (74-106); Potassium 4.9 mmol/L (3.5-5.1); Sodium Level 144 mmol/L (136-145)
[2020-03-07] MEDS: Insulin Lispro 100 UNIT/ML INSULN.PEN SC ×4 (06:20→23:17)
[2020-03-07] MEDS: guaiFENesin 10 ML UDC (200MG/10ML) PO ×5 (06:21→22:09)
--- NOTE | 2020-03-07 07:04 | PN_ITS ---
Subjective: Patient did well overnight. Patient has had multiple mucous plugs that have been able to be removed through suctioning. Tube feeds were held secondary to malposition of OG, but her back up to full rate. Patient has been able to be weaned to 8 of PEEP. Patient has remained persistently febrile. General: - - RASS -1. Follows commands. Obese. Good vent synchrony HEENT: Atraumatic, PERRLA, EOMI, Normocephalic, - - Glasses in place Oral: Moist Mucosa, No Gingival or Mucosal Lesions/ Ulcerations Neck: Supple, No Nodes, Trachea Midline, JVD, Right Lungs: No rhonchi, No wheeze, No rales, Diminished, - - Symmetric expansion. No dullness to percussion. Cardiovascular: Regular rate, Regular Rhythm, Normal S1, Normal S2, No murmurs, No rub noted, No Gallop Abdomen: Bowel Sounds Present, Soft, Non Tender, Non-Distended, Obese Extremities: No clubbing, No cyanosis, Edema - 1-2+ lower extremity Skin: - - No change compared to previous Musculoskeletal: No Tenderness to Palpation of Joints or Extremities Lymphatic: No Cervical, Supraclavicular, or Inguinal Adenopathy Neurological: Cranial nerves II-XII grossly intact, Neuro grossly intact, Motor Exam 5/5 strength throughout Psych/Mental Status: Appropriate, Flat Affect Vital Signs Temp Pulse Resp BP Pulse Ox 38.7 C H 77 20 H 121/67 H 91 03/07/20 05:00 03/07/20 05:30 03/07/20 05:30 03/07/20 05:00 03/07/20 05:30 Oxygen Flow Rate (L/min) 92 Oxygen Delivery Method Mechanical Ventilator Weight: 104.5 kg Body Mass Index (BMI) 31.8 Intake and Output for Last 24 Hours 03/05/20 03/06/20 03/07/20 23:59 23:59 23:59 Intake Total 3407.63 / 3546.33 42 / 1256.55 / 1256.55 Output Total 2019 2350 / 2349 495 / 495 Balance 1387.63 / 1451.33 -346.58 / -332.78 761.55 / 761.55 Labs (Last 48 Hours) 11/28/20 11/28/20 11/29/20 05:00 17:51 00:22 WBC RBC Hgb Hct MCV MCH MCHC RDW Std Deviation RDW Coeff of Charo Plt Count MPV Immature Gran % (Auto) Neut % (Auto) Lymph % (Auto) [place] % (Auto) Eos % (Auto) Baso % (Auto) Absolute Neuts (auto) Absolute Lymphs (auto) Nucleated RBC % Sodium Potassium Chloride Carbon Dioxide Anion Gap BUN Creatinine Estim Creat Clear Calc Est GFR (MDRD) Af Amer Est GFR (MDRD) Non-Af BUN/Creatinine Ratio Glucose Calcium Random Vancomycin 13.2 POC Glucose 214 H 185 H 03/06/20 03/06/20 03/06/20 04:35 04:35 06:36 WBC 8.4 RBC 4.03 L Hgb 13.1 Hct 41.9 MCV 104.0 H MCH 32.5 H MCHC 31.3 L RDW Std Deviation 53.1 H RDW Coeff of Charo 13.8 Plt Count 186 MPV 10.2 Immature Gran % (Auto) 1.400 H Neut % (Auto) 89.3 H Lymph % (Auto) 4.8 L [place] % (Auto) 2.3 Eos % (Auto) 2.1 Baso % (Auto) 0.1 Absolute Neuts (auto) 7.5 Absolute Lymphs (auto) 0.40 L Nucleated RBC % 0 Sodium 144 Potassium 4.7 Chloride 110 H Carbon Dioxide 30.0 Anion Gap 4 L BUN 57 H Creatinine 1.16 Estim Creat Clear Calc 55.90 Est GFR (MDRD) Af Amer 78 Est GFR (MDRD) Non-Af 65 BUN/Creatinine Ratio 49.1 H Glucose 199 H Calcium 7.9 L Random Vancomycin POC Glucose 198 H 03/06/20 03/06/20 03/06/20 11:50 18:12 23:03 WBC RBC Hgb Hct MCV MCH MCHC RDW Std Deviation RDW Coeff of Charo Plt Count MPV Immature Gran % (Auto) Neut % (Auto) Lymph % (Auto) [place] % (Auto) Eos % (Auto) Baso % (Auto) Absolute Neuts (auto) Absolute Lymphs (auto) Nucleated RBC % Sodium Potassium Chloride Carbon Dioxide Anion Gap BUN Creatinine Estim Creat Clear Calc Est GFR (MDRD) Af Amer Est GFR (MDRD) Non-Af BUN/Creatinine Ratio Glucose Calcium Random Vancomycin POC Glucose 209 H 189 H 132 H 03/07/20 03/07/20 04:00 04:00 WBC 9.3 RBC 3.98 L Hgb 13.1 Hct 41.8 MCV 105.0 H MCH 32.9 H MCHC 31.3 L RDW Std Deviation 53.9 H RDW Coeff of Charo 13.6 Plt Count 185 MPV 10.5 Immature Gran % (Auto) 1.100 H Neut % (Auto) 91.4 H Lymph % (Auto) 4.3 L [place] % (Auto) 2.5 Eos % (Auto) 0.5 Baso % (Auto) 0.2 Absolute Neuts (auto) 8.5 H Absolute Lymphs (auto) 0.40 L Nucleated RBC % 0 Sodium 144 Potassium 4.9 Chloride 111 H Carbon Dioxide 30.0 Anion Gap 3 L BUN 52 H Creatinine 1.03 Estim Creat Clear Calc 62.95 Est GFR (MDRD) Af Amer 90 Est GFR (MDRD) Non-Af 74 BUN/Creatinine Ratio 50.5 H Glucose 185 H Calcium 8.1 L Random Vancomycin POC Glucose Microbiology 03/03/20 Unknown Sputum, Induced/Lukens Gram Stain - Final 03/03/20 Unknown Sputum, Induced/Lukens Respiratory Culture - Final Serratia marcescens Streptococcus pneumoniae 03/03/20 13:25 Blood Culture (Wb) #2 - Right Hand Blood Culture - Pre liminary No growth in 48 hours. 03/03/20 13:15 Blood Culture (Wb) - Central Line Blood Culture - Preliminary No growth in 48 hours. 03/03/20 13:00 Urine Catheter - Kaye Urine Culture - Final Culture exhibits no growth. Clinical Impression(s) from Imaging Studies Chest X-Ray 03/06/20 18:00 IMPRESSION: Gastric tube with tip in the proximal fundus, consider advancement if placement into the antrum is desired. Extensive bilateral pneumonia. Electronically Signed: Hazel Ríos, at 20:20 EST Tel , Service support , Chest X-Ray 03/06/20 23:09 IMPRESSION: Advancement of esophagogastric tube now terminating lower than the lowest portion of the study. Severe persistent bilateral airspace disease consistent with pneumonia. at 0053 Reported and signed by: Dominick Haywood MD Electronically Signed: Dominick Haywood MD at 0:52 EST Tel , Service support , Medical Necessity - Tobacco Use Smoking Status: Never smoker Tobacco Use: Non-smoker Assessment/Plan All Active Problems Septic shock (Acute) Acute respiratory failure with hypoxia (Acute) Pneumonia due to COVID-19 virus (Acute) Hyperglycemia (Acute) SURINDER (acute kidney injury) (Acute) RECOMMENDATIONS: 1. Titrate PEEP as tolerated. Attempt to decrease FiO2 to 60% or less 2. Continue Decadron (01/15) daily. Completed convalescent serum and remdesivir 3. Continue empiric antibiotics. 4. Continue Eliquis for anticoagulation 5. Encourage incentive spirometer use and mobilize patient as tolerated. 6. Initiate diuresis IMPRESSIONS: 1. Acute hypoxemic respiratory failure secondary to COVID-19 pneumonia The patient had significant desaturation and decompensation despite BiPAP therapy. Patient has elected to be intubated on 03/03/2020. Patient is still requiring high PEEP. Significant secretions were noted in the pharynx and neck to vocal cord. Patient completed course of Decadron. Continue Eliquis. Spontaneous breathing and awakening trials per protocol. Continue patient on empiric antibiotics pending culture data. Will initiate diuretic therapy given lower extremity edema and persistent hypoxia. Unclear on why patient continues to have fever despite appropriate antibiotics. Infectious disease is following. Respiratory status continues to improve. Robitussin will be scheduled to help with mucous plugging. 2. Morbid obesity/hypertension/hypothyroidism/GERD Complicates care, management, recovery and prognosis. Continue home medications as indicated. Continue sliding scale insulin coverage, given risk for steroid-induced hyperglycemia. 3. Possible septic shock Patient with significant fever following intubation and then requiring pressor therapy. Patient has been able to be discontinued from Levophed for over 48 hours. Patient is tolerating this well. Patient's hemodynamics are much improved. However, patient is having persistent fevers despite adequate antibiotics. Infectious disease is following. Patient has been on anticoagulation, but will check lower extremity Dopplers given edema. Atelectasis would be a consideration, but oxygenation continues to improve. TIME: 35 minutes critical care time spent addressing patient's acute hypoxic respiratory failure, hyperglycemia, review of all data and collaboration with care team (5:30 AM to 6:30 AM) [phone]: [id number] Critical care first hour
--- NOTE | 2020-03-07 07:07 | VDLE_ITS ---
Reason For Study: Shortness of breath RIGHT LEFT GSV is normal. GSV is normal. Right CFV, FV and PopV are comrpessible. Left CFV, FV and PopV are compressible. T/P Trunk is compressible. T/P Trunk is compressible. PTV is compressible. PTV is compressible. RT PerV is compressible. Acute deep vein thrombosis is noted in the Procedure left peroneal vein. This is a venous duplex using B-mode, color flow and spectral Doppler. Exam performed portable in ICU/CCU. The exam was abbreviated due to the COVID 19 protocol. A preliminary report was called and/or faxed to [facility]. Interpretation Summary No evidence for acute deep venous thrombosis right lower extremity Acute deep venous thrombosis left peroneal vein Patent and compressible bilateral great saphenous veins COVID-19 protocol utilized Ordering Physician: Luisito Horner Referring Physician: Redd Kenyon Performed By: Olga Harvey RVT
--- NOTE | 2020-03-07 07:32 | PCM.PN.HOSP ---
Patient Problems: Active and Suspected Problems Septic shock (Acute) Acute respiratory failure with hypoxia (Acute) Pneumonia due to COVID-19 virus (Acute) Hyperglycemia (Acute) SURINDER (acute kidney injury) (Acute) Subjective: Patient seen and examined. He still does have a fever with temperature being 101.7 Fahrenheit this morning. He remains intubated with FiO2 of 55% and PEEP of 8. Vitals/I&O's: Vital Signs Temp Pulse Resp BP Pulse Ox 101.7 F H 76 19 H 128/62 H 91 03/07/20 06:00 03/07/20 06:00 03/07/20 06:00 03/07/20 06:00 03/07/20 06:00 Oxygen Flow Rate (L/min) 92 Oxygen Delivery Method Mechanical Ventilator Weight: 230 lb 6.129 oz Body Mass Index (BMI) 31.8 Intake and Output for Last 24 Hours 03/05/20 03/06/20 03/07/20 23:59 23:59 23:59 Intake Total 3407.63 / 3546.33 / 1256.55 / 1256.55 Output Total 2019 2350 / 2350 495 / 495 Balance 1387.63 / 1451.33 -346.58 / -332.78 761.55 / 761.55 General: - - intubated, sedated, RASS score is -1 HEENT: Atraumatic, PERRLA, EOMI, Normocephalic Oral: Dry Mucosa Neck: Supple, No JVD, Negative Carotid Bruits Lungs: - - coarse crackles in mid and lower lung greene. intubated and sedated. RASS score is -1 Cardiovascular: Regular rate, Regular Rhythm, Normal S1, Normal S2, No murmurs Abdomen: Bowel Sounds Present, Soft, Non Tender, Non-Distended, No Hepato-splenomegaly Extremities: No clubbing, No cyanosis, No edema, Capillary Refill Less than 3 Seconds Skin: No rashes, No breakdown Musculoskeletal: No Tenderness to Palpation of Joints or Extremities Lymphatic: No Cervical, Supraclavicular, or Inguinal Adenopathy Neurological: Cranial nerves II-XII grossly intact, Motor Exam 5/5 strength throughout Psych/Mental Status: - - sedated Microbiology Past 72 Hours 03/03/20 Unknown Sputum, Induced/Lukens Gram Stain - Final 03/03/20 Unknown Sputum, Induced/Lukens Respiratory Culture - Final Serratia marcescens Streptococcus pneumoniae 03/03/20 13:25 Blood Culture (Wb) #2 - Right Hand Blood Culture - Preliminary No growth in 48 hours. 03/03/20 13:15 Blood Culture (Wb) - Central Line Blood Culture - Preliminary No growth in 48 hours. 03/03/20 13:00 Urine Catheter - Kaye Urine Culture - Final Culture exhibits no growth. Laboratory Results 03/06/20 06:36: POC Glucose 198 H 03/06/20 11:50: POC Glucose 209 H 03/06/20 18:12: POC Glucose 189 H 03/06/20 23:03: POC Glucose 132 H 03/07/20 04:00: WBC 9.3, RBC 3.98 L, Hgb 13.1, Hct 41.8, MCV 105.0 H, MCH 32.9 H, MCHC 31.3 L, RDW Std Deviation 53.9 H, RDW Coeff of Charo 13.6, Plt Count 185, MPV 10.5, Immature Gran % (Auto) 1.100 H, Neut % (Auto) 91.4 H, Lymph % (Auto) 4.3 L, [place] % (Auto) 2.5, Eos % (Auto) 0.5, Baso % (Auto) 0.2, Absolute Neuts (auto) 8.5 H, Absolute Lymphs (auto) 0.40 L, Nucleated RBC % 0 03/07/20 04:00: Sodium 144, Potassium 4.9, Chloride 111 H, Carbon Dioxide 30.0, Anion Gap 3 L, BUN 52 H, Creatinine 1.03, Estim Creat Clear Calc 62.95, Est GFR (MDRD) Af Amer 90, Est GFR (MDRD) Non-Af 74, BUN/Creatinine Ratio 50.5 H, Glucose 185 H, Calcium 8.1 L Current Medications Acetaminophen (Acetaminophen 650 Mg/20 Ml Udc) 650 mg GT Q6H PRN PRN PRN Reason: Pain Score 1-10/Temp > 100.7 F Last Admin: 03/07/20 03:52 Dose: 650 mg Documented by: Apixaban (Apixaban 5 Mg Tablet) 5 mg GT BID JONO Last Admin: 03/07/20 01:58 Dose: 5 mg Documented by: Carvedilol (Carvedilol 12.5 Mg Tablet) 12.5 mg PO BID [facility] Last Admin: 03/07/20 02:00 Dose: 12.5 mg Documented by: Chlorhexidine Gluconate (Chlorhexidine 15 Ml) 15 ml PO BID [facility] Last Admin: 03/06/20 20:07 Dose: 15 ml Documented by: Furosemide (Furosemide 40 Mg/4 Ml Vial) 40 mg IV BID@1000,1800 JONO Guaifenesin (Guaifenesin 10 Ml Udc (200mg/10ml)) 10 ml PO Q4 [facility] Propofol (Diprivan) 1,000 mg in 100 mls @ 25.224 mls/hr CONT INF .Q3H58M [facility]; Protocol Last Admin: 03/07/20 06:15 Dose: Not Given Documented by: Fentanyl Citrate 1,000 mcg/ (Sodium Chloride) 100 mls @ 20 mls/hr CONT INF .Q5H [facility]; Protocol Last Admin: 03/07/20 06:15 Dose: Not Given Documented by: Enteral Nutritional Formula (Vital Af 1.2 Homer Liquid) 1,000 mls @ 70 mls/hr GT .[id number] [facility] Last Admin: 03/07/20 02:17 Dose: 70 mls/hr Documented by: Meropenem 500 mg/ Sodium (Chloride) 60 mls @ 100 mls/hr IV Q8 [facility] Last Admin: 03/07/20 06:22 Dose: 100 mls/hr Documented by: Insulin Human Lispro (Insulin Lispro 100 Unit/Ml Insuln.Pen) 0 unit SC Q6 [facility]; Protocol Last Admin: 03/07/20 06:20 Dose: 2 u Documented by: Levothyroxine Sodium (Levothyroxine 50 Mcg Tablet) 50 mcg PO DAILY [facility] Last Admin: 03/06/20 08:53 Dose: 50 mcg Documented by: Losartan Potassium (Losartan Potassium 25 Mg Tablet) 25 mg PO DAILY [facility] Last Admin: 03/06/20 08:53 Dose: 25 mg Documented by: Melatonin (Melatonin 3 Mg Tablet) 3 mg PO QHS [facility] Last Admin: 03/07/20 02:00 Dose: 3 mg Documented by: Ondansetron HCl (Ondansetron 4 Mg/2 Ml Vial) 4 mg IV Q8H PRN PRN PRN Reason: NAUSEA/VOMITING Pantoprazole Sodium (Pantoprazole Sodium 20 Mg Tablet) 20 mg PO BID [facility] Last Admin: 03/07/20 01:59 Dose: 20 mg Documented by: Polyethylene Glycol (Polyethylene Glycol 3350 17 Gm Packet) 17 gm GT DAILY PRN PRN Reason: Constipation Senna/Docusate Sodium (Senna/Docusate Sodium 1 Tablet) 2 tablet GT BID [facility] Last Admin: 03/07/20 01:59 Dose: 2 tablet Documented by: Sodium Chloride (0.9% Saline Lock 10 Ml Syringe) 10 - 40 ml IV UD PRN PRN Reason: Multilumen/Michel Flush Last Admin: 03/05/20 08:55 Dose: 10 ml Documented by: Sodium Chloride (0.9 % Nacl (Sterile) Posiflush 10 Ml) 10 - 40 ml IV UD PRN PRN Reason: Port access or dressing change Throat Lozenges (Benzocaine/Menthol 1 Lozenge) 1 lozenge MUCOUS MEM Q2H PRN PRN PRN Reason: SORE THROAT Last Admin: 03/02/20 12:18 Dose: 1 lozenge Documented by: STROKE Vital Signs/Narrative: Vital Signs Temp Pulse Resp BP Pulse Ox 03/07/20 06:00 101.7 F H 76 19 H 128/62 H 91 03/07/20 05:30 77 20 H 91 03/07/20 05:00 101.6 F H 77 20 H 121/67 H 91 03/07/20 04:00 101.5 F H 84 21 H 123/67 H 90 Medical Necessity - Tobacco Use Smoking Status: Never smoker Tobacco Use: Non-smoker Assessment/Plan All Active Problems Septic shock (Acute) Acute respiratory failure with hypoxia (Acute) Pneumonia due to COVID-19 virus (Acute) Hyperglycemia (Acute) SURINDER (acute kidney injury) (Acute) # Acute hypoxic respiratory failure due to COVID 19 pneumonia - remains intubated. and sedated. RASS score is -1 today -now down to FiO2 of 45%, but PEEP remains 12 -sedated with propofol and fentanyl -on remdesivir and decadron. also received convalescent pasma -ID and pulmonology on board. -remains febrile. On IV meropenem. -on breathing treatment with bronchodilators #Septic shock: still remains febrile. On IV meropenem. Off pressors # SURINDER: resolved. # Hypertension: on losartan 25mg daily and carvedilol 12.5mg bid #Hyperlipidemia: diet controlled. #Hypothyroidism: on synthroid #GERD: on pantoprazole 20mg bid Nutrition: on tube feeding. DVT prophylaxis; on eliquis Inpatient E&M: [id number] [facility] L3
[2020-03-07 07:55] LABS: Bedside Glucose 197 mg/dL (70-110)
[2020-03-07] MEDS: TITRATION PARAMETER CHANGE 1 EACH IV (07:57)
[2020-03-07] MEDS: Levothyroxine 50 MCG Tablet PO (08:42)
[2020-03-07] MEDS: Losartan Potassium 25 MG Tablet PO (08:42)
[2020-03-07] MEDS: Furosemide 40 MG/4 ML Vial IV ×2 (08:43→16:22)
[2020-03-07] MEDS: 0.9 % NaCl (Sterile) Posiflush 10 mL IV (09:12)
[2020-03-07] MEDS: Chlorhexidine 15 ML PO ×2 (09:13→19:42)
--- NOTE | 2020-03-07 10:45 | CASEMGMT ---
RN CAMILO Note: participated in ICU interdisiciplinary rounds. Patient remains intubated on ventilator, 55-60% O2 and continues to require high peep. TF @ 70 ml/hr, Fentanyl gtt. Passed Mobility screen- PT/OT to see. CM will continue to follow for dc planning. DC PLANNING: TBD. Ashley Kidd RN ACM
[2020-03-07] MEDS: dexAMETHasone 4 MG Tablet 6 MG PO (13:08)
--- NOTE | 2020-03-07 13:31 | PCM.PN.ID ---
Patient Problems: Active and Suspected Problems Septic shock (Acute) Acute respiratory failure with hypoxia (Acute) Pneumonia due to COVID-19 virus (Acute) Hyperglycemia (Acute) SURINDER (acute kidney injury) (Acute) Subjective: On vent, persistent fever, minimal secretions - Physical Exam Vitals/I&O's: Vital Signs Temp Pulse Resp BP Pulse Ox 101.6 F H 77 25 H 128/67 H 91 03/07/20 11:00 03/07/20 11:44 03/07/20 11:44 03/07/20 11:00 03/07/20 11:44 Oxygen Flow Rate (L/min) 92 Oxygen Delivery Method Mechanical Ventilator Weight: 104.5 kg Body Mass Index (BMI) 31.8 Intake and Output for Last 24 Hours 03/05/20 03/06/20 03/07/20 23:59 23:59 23:59 Intake Total 3407.63 / 3546.33 42 / 1584.36 / 1584.36 Output Total 2019 2350 / 2349 214 / 214 Balance 1387.63 / 1451.33 -346.58 / -332.78 -560.64 / -560.64 General: No apparent distress Lungs: Diminished Cardiovascular: Regular rate, Regular Rhythm Abdomen: Soft, Non Tender, Non-Distended Skin: No rashes Microbiology Past 72 Hours 03/03/20 Unknown Sputum, Induced/Lukens Gram Stain - Final 03/03/20 Unknown Sputum, Induced/Lukens Respiratory Culture - Final Serratia marcescens Streptococcus pneumoniae 03/03/20 13:25 Blood Culture (Wb) #2 - Right Hand Blood Culture - Preliminary No growth in 48 hours. 03/03/20 13:15 Blood Culture (Wb) - Central Line Blood Culture - Preliminary No growth in 48 hours. 03/03/20 13:00 Urine Catheter - Kaye Urine Culture - Final Culture exhibits no growth. Laboratory Results 03/06/20 18:12: POC Glucose 189 H 03/06/20 23:03: POC Glucose 132 H 03/07/20 04:00: WBC 9.3, RBC 3.98 L, Hgb 13.1, Hct 41.8, MCV 105.0 H, MCH 32.9 H, MCHC 31.3 L, RDW Std Deviation 53.9 H, RDW Coeff of Charo 13.6, Plt Count 185, MPV 10.5, Immature Gran % (Auto) 1.100 H, Neut % (Auto) 91.4 H, Lymph % (Auto) 4.3 L, [place] % (Auto) 2.5, Eos % (Auto) 0.5, Baso % (Auto) 0.2, Absolute Neuts (auto) 8.5 H, Absolute Lymphs (auto) 0.40 L, Nucleated RBC % 0 03/07/20 04:00: Sodium 144, Potassium 4.9, Chloride 111 H, Carbon Dioxide 30.0, Anion Gap 3 L, BUN 52 H, Creatinine 1.03, Estim Creat Clear Calc 62.95, Est GFR (MDRD) Af Amer 90, Est GFR (MDRD) Non-Af 74, BUN/Creatinine Ratio 50.5 H, Glucose 185 H, Calcium 8.1 L 03/07/20 06:20: POC Glucose 197 H Current Medications Acetaminophen (Acetaminophen 650 Mg/20 Ml Udc) 650 mg GT Q6H PRN PRN PRN Reason: Pain Score 1-10/Temp > 100.7 F Last Admin: 03/07/20 12:56 Dose: 650 mg Documented by: Apixaban (Apixaban 5 Mg Tablet) 5 mg GT BID [facility] Last Admin: 03/07/20 08:43 Dose: 5 mg Documented by: Carvedilol (Carvedilol 12.5 Mg Tablet) 12.5 mg PO BID [facility] Last Admin: 03/07/20 08:42 Dose: 12.5 mg Documented by: Chlorhexidine Gluconate (Chlorhexidine 15 Ml) 15 ml PO BID [facility] Last Admin: 03/07/20 09:13 Dose: 15 ml Documented by: Dexamethasone (Dexamethasone 4 Mg Tablet) 6 mg PO DAILY [facility] Stop: 03/16/20 10:01 Furosemide (Furosemide 40 Mg/4 Ml Vial) 40 mg IV BID@1000,1700 [facility] Guaifenesin (Guaifenesin 10 Ml Udc (200mg/10ml)) 10 ml PO Q4 [facility] Last Admin: 03/07/20 08:43 Dose: 10 ml Documented by: Propofol (Diprivan) 1,000 mg in 100 mls @ 25.08 mls/hr CONT INF .Q4H [facility]; Protocol Last Titration: 11/30/20 11:00 Dose: 10 mcg/kg/min, 6.3 mls/hr Documented by: Fentanyl Citrate 1,000 mcg/ (Sodium Chloride) 100 mls @ 20 mls/hr CONT INF .Q5H [facility]; Protocol Last Admin: 03/07/20 11:32 Dose: Not Given Documented by: Enteral Nutritional Formula (Vital Af 1.2 Homer Liquid) 1,000 mls @ 70 mls/hr GT .[id number] [facility] Last Admin: 03/07/20 02:17 Dose: 70 mls/hr Documented by: Meropenem 500 mg/ Sodium (Chloride) 60 mls @ 100 mls/hr IV Q8 [facility] Last Infusion: 03/07/20 06:58 Dose: Infused Documented by: Pantoprazole Sodium 40 mg/ (Sodium Chloride) 110 mls @ 330 mls/hr IV Q12 [facility] Insulin Human Lispro (Insulin Lispro 100 Unit/Ml Insuln.Pen) 0 unit SC Q6 [facility]; Protocol Last Admin: 03/07/20 06:20 Dose: 2 u Documented by: Levothyroxine Sodium (Levothyroxine 50 Mcg Tablet) 50 mcg PO DAILY [facility] Last Admin: 03/07/20 08:42 Dose: 50 mcg Documented by: Losartan Potassium (Losartan Potassium 25 Mg Tablet) 25 mg PO DAILY [facility] Last Admin: 03/07/20 08:42 Dose: 25 mg Documented by: Melatonin (Melatonin 3 Mg Tablet) 3 mg PO QHS [facility] Last Admin: 03/07/20 02:00 Dose: 3 mg Documented by: Ondansetron HCl (Ondansetron 4 Mg/2 Ml Vial) 4 mg IV Q8H PRN PRN PRN Reason: NAUSEA/VOMITING Polyethylene Glycol (Polyethylene Glycol 3350 17 Gm Packet) 17 gm GT DAILY PRN PRN Reason: Constipation Senna/Docusate Sodium (Senna/Docusate Sodium 1 Tablet) 2 tablet GT BID [facility] Last Admin: 03/07/20 08:41 Dose: 2 tablet Documented by: Sodium Chloride (0.9% Saline Lock 10 Ml Syringe) 10 - 40 ml IV UD PRN PRN Reason: Multilumen/Michel Flush Last Admin: 03/05/20 08:55 Dose: 10 ml Documented by: Sodium Chloride (0.9 % Nacl (Sterile) Posiflush 10 Ml) 10 - 40 ml IV UD PRN PRN Reason: Port access or dressing change Last Admin: 03/07/20 09:12 Dose: 10 ml Documented by: Throat Lozenges (Benzocaine/Menthol 1 Lozenge) 1 lozenge MUCOUS MEM Q2H PRN PRN PRN Reason: SORE THROAT Last Admin: 03/02/20 12:18 Dose: 1 lozenge Documented by: Medical Necessity - Tobacco Use Smoking Status: Never smoker Tobacco Use: Non-smoker Route of nutrition/ use of supplements: [] Nutritional Intake: [] IV Site: [] Kaye Catheter: [] - Assessment/Plan Antibiotics: [] Assessment/Plan: [] Active and Suspected Problems Septic shock (Acute) Acute respiratory failure with hypoxia (Acute) Pneumonia due to COVID-19 virus (Acute) Hyperglycemia (Acute) SURINDER (acute kidney injury) (Acute) covid with hypoxia - Completed 10 days of dex, completed remdesivir. CT neg for PE. Got plasma 02/26. Sx started 02/20/20. Now intubated. Persistent fever despite meropenem and sputum with only rare serratia and strep pneumo. R chest cvc was placed at OSH, recommend removal. Will check bcx x2, restart dex. Vent setting improving, wbc normal. Will follow, d/w Dr. Horner and nursing
[2020-03-07 13:51] LABS: Bedside Glucose 202 mg/dL (70-110)
[2020-03-07] MEDS: 0.9% Saline Lock 10 ML Syringe IV (16:22)
[2020-03-07 17:20] LABS: Bedside Glucose 249 mg/dL (70-110)
[2020-03-08] VITALS (33 sets, daily range): BP systolic 94–150; BP diastolic 59–88; PULSE 68–88; RESP 12–26; TEMP 38.1–38.6; O2SAT 90–94; BMI 31.1
[2020-03-08 01:16] LABS: Bedside Glucose 204 mg/dL (70-110)
[2020-03-08] MEDS: Propofol 10MG/Ml 1,000 MG/100 ML Bottle 6.3 MG CONT INF (02:02)
[2020-03-08] MEDS: guaiFENesin 10 ML UDC (200MG/10ML) PO ×6 (02:08→21:26)
[2020-03-08] MEDS: TITRATION PARAMETER CHANGE 1 EACH IV (03:37)
[2020-03-08 05:08] LABS: Absolute Lymphocyte Count 0.62 X10^3/uL (0.83-4.51); Absolute Neutrophil Count 7.2 X10^3/uL (2.0-7.7); Basophil# 0.01 X10^3/uL; Basophil% 0.1 % (0-1); Eosinophil# 0.07 X10^3/uL; Eosinophils% 0.9 % (0-5); Hemoglobin 13.3 g/dL (13.0-16.5); Lymphocyte # 0.62 X10^3/ul (4.0); Lymphocyte % 7.6 % (19-41); Mean Corp Hgb Conc 32.4 g/dL (32-36); Mean Corpuscular Hgb 32.8 pg (27.0-32.0); Mean Platelet Vol. 10.5 fl (6.2-12.0); Monocyte# 0.19 X10^3/uL; Monocyte% 2.3 % (0-10); NRBC Flagged by Analyzer 0 % (0-5); Neutrophil # 7.18 X10^3/uL (2.7-7.7); Neutrophil % 87.9 % (47-70); Platelet Count 221 K/mm3 (150-450); RBC Distribution Width CV 13.4 % (11.6-14.6); RBC Distribution Width SD 50.5 fl (35.1-43.9); Red Blood Count 4.06 M/mm3 (4.6-6.2); White Blood Count 8.2 K/mm3 (4.4-11.0)
[2020-03-08 05:27] LABS: Anion Gap 3 (5-15); BUN 56 mg/dL (7-18); BUN/Creat Ratio 49.1 RATIO (10-20); Calcium,Total 8.4 mg/dL (8.5-10.1); Chloride 107 mmol/L (98-107); Creatinine, Serum 1.14 mg/dL (0.70-1.30); EST Glomerular Filtration Rate 66 mL/min (>60); Est Glom Filt Rate - Afr Amer 80 mL/min (>60); Estimated Creatinine Clearance 56.88 ml/min; Glucose 155 mg/dL (74-106); Potassium 4.4 mmol/L (3.5-5.1); Sodium Level 143 mmol/L (136-145)
[2020-03-08] MEDS: Insulin Lispro 100 UNIT/ML INSULN.PEN SC ×3 (05:31→17:06)
--- NOTE | 2020-03-08 07:57 | PCM.PN.HOSP ---
Patient Problems: Active and Suspected Problems Septic shock (Acute) Acute respiratory failure with hypoxia (Acute) Pneumonia due to COVID-19 virus (Acute) Hyperglycemia (Acute) SURINDER (acute kidney injury) (Acute) Subjective: Patient seen and examined. He remains intubated, and is on minimal sedation with propofol and fentanyl. PEEP is still 8. He still is febrile. Review of systems otherwise negative. Vitals/I&O's: Vital Signs Temp Pulse Resp BP Pulse Ox 101.0 F H 85 25 H 115/71 92 03/08/20 06:00 03/08/20 07:39 03/08/20 07:39 03/08/20 06:00 03/08/20 07:39 Oxygen Flow Rate (L/min) 92 Oxygen Delivery Method Mechanical Ventilator Weight: 223 lb 8.78 oz Body Mass Index (BMI) 31.8 Intake and Output for Last 24 Hours 03/06/20 03/07/20 03/08/20 23:59 23:59 23:59 Intake Total 42 / 3727.96 / 3741.76 819.20 / 819.20 Output Total 2350 / 2350 4520 / 4520 400 / 400 Balance -346.58 / -332.78 -792.04 / -778.24 419.20 / 419.20 General: - - intubated, sedated, RASS score is -1 HEENT: Atraumatic, PERRLA, EOMI, Normocephalic Oral: Dry Mucosa Neck: Supple, No JVD, Negative Carotid Bruits Lungs: - - coarse crackles in mid and lower lung greene. intubated and sedated. RASS score is -1 Cardiovascular: Regular rate, Regular Rhythm, Normal S1, Normal S2, No murmurs Abdomen: Bowel Sounds Present, Soft, Non Tender, Non-Distended, No Hepato-splenomegaly Extremities: No clubbing, No cyanosis, No edema, Capillary Refill Less than 3 Seconds Skin: No rashes, No breakdown Musculoskeletal: No Tenderness to Palpation of Joints or Extremities Lymphatic: No Cervical, Supraclavicular, or Inguinal Adenopathy Neurological: Cranial nerves II-XII grossly intact, Motor Exam 5/5 strength throughout Psych/Mental Status: - - sedated Microbiology Past 72 Hours 03/03/20 Unknown Sputum, Induced/Lukens Gram Stain - Final 03/03/20 Unknown Sputum, Induced/Lukens Respiratory Culture - Final Serratia marcescens Streptococcus pneumoniae 03/03/20 13:25 Blood Culture (Wb) #2 - Right Hand Blood Culture - Preliminary No growth in 48 hours. 03/03/20 13:15 Blood Culture (Wb) - Central Line Blood Culture - Preliminary No growth in 48 hours. 03/03/20 13:00 Urine Catheter - Kaye Urine Culture - Final Culture exhibits no growth. Laboratory Results 03/07/20 12:14: POC Glucose 202 H 03/07/20 16:56: POC Glucose 249 H 03/07/20 23:16: POC Glucose 204 H 03/08/20 04:50: WBC 8.2, RBC 4.06 L, Hgb 13.3, Hct 41.0, MCV 101.0 H, MCH 32.8 H, MCHC 32.4, RDW Std Deviation 50.5 H, RDW Coeff of Charo 13.4, Plt Count 221, MPV 10.5, Immature Gran % (Auto) 1.200 H, Neut % (Auto) 87.9 H, Lymph % (Auto) 7.6 L, [place] % (Auto) 2.3, Eos % (Auto) 0.9, Baso % (Auto) 0.1, Absolute Neuts (auto) 7.2, Absolute Lymphs (auto) 0.62 L, Nucleated RBC % 0 03/08/20 04:50: Sodium 143, Potassium 4.4, Chloride 107, Carbon Dioxide 33.0 H, Anion Gap 3 L, BUN 56 H, Creatinine 1.14, Estim Creat Clear Calc 56.88, Est GFR (MDRD) Af Amer 80, Est GFR (MDRD) Non-Af 66, BUN/Creatinine Ratio 49.1 H, Glucose 155 H, Calcium 8.4 L Current Medications Acetaminophen (Acetaminophen 650 Mg/20 Ml Udc) 650 mg GT Q6H PRN PRN PRN Reason: Pain Score 1-10/Temp > 100.7 F Last Admin: 03/07/20 12:56 Dose: 650 mg Documented by: Apixaban (Apixaban 5 Mg Tablet) 5 mg GT BID JONO Last Admin: 03/07/20 22:09 Dose: 5 mg Documented by: Carvedilol (Carvedilol 12.5 Mg Tablet) 12.5 mg PO BID [facility] [place] Last Admin: 03/07/20 22:09 Dose: 12.5 mg Documented by: Chlorhexidine Gluconate (Chlorhexidine 15 Ml) 15 ml PO BID [facility] [place] Last Admin: 03/07/20 19:42 Dose: 15 ml Documented by: Dexamethasone (Dexamethasone 4 Mg Tablet) 6 mg PO DAILY [facility] [place] Stop: 03/16/20 10:01 Last Admin: 03/07/20 13:08 Dose: 6 mg Documented by: Furosemide (Furosemide 40 Mg/4 Ml Vial) 40 mg IV BID@1000,1700 [facility] [place] Last Admin: 03/07/20 16:22 Dose: 40 mg Documented by: Guaifenesin (Guaifenesin 10 Ml Udc (200mg/10ml)) 10 ml PO Q4 [facility] [place] Last Admin: 03/08/20 05:21 Dose: 10 ml Documented by: Propofol (Diprivan) 1,000 mg in 100 mls @ 24.336 mls/hr CONT INF .Q4H7M [facility] [place]; Protocol Last Titration: 03/08/20 06:00 Dose: 10 mcg/kg/min, 6.1 mls/hr Documented by: Fentanyl Citrate 1,000 mcg/ (Sodium Chloride) 100 mls @ 20 mls/hr CONT INF .Q5H [facility] [place]; Protocol Last Titration: 03/08/20 06:00 Dose: 75 mcg/hr, 7.5 mls/hr Documented by: Enteral Nutritional Formula (Vital Af 1.2 [place] Liquid) 1,000 mls @ 70 mls/hr GT .[id number] [facility] [place] Last Admin: 03/08/20 06:23 Dose: Not Given Documented by: Meropenem 500 mg/ Sodium (Chloride) 60 mls @ 100 mls/hr IV Q8 [facility] [place] Last Infusion: 03/08/20 06:21 Dose: Infused Documented by: Pantoprazole Sodium 40 mg/ (Sodium Chloride) 110 mls @ 330 mls/hr IV Q12 [facility] [place] Last Infusion: 03/07/20 22:20 Dose: Infused Documented by: Insulin Human Lispro (Insulin Lispro 100 Unit/Ml Insuln.Pen) 0 unit SC Q6 [facility] [place]; Protocol Last Admin: 03/08/20 05:31 Dose: 1 u Documented by: Levothyroxine Sodium (Levothyroxine 50 Mcg Tablet) 50 mcg PO DAILY [facility] [place] Last Admin: 03/07/20 08:42 Dose: 50 mcg Documented by: Losartan Potassium (Losartan Potassium 25 Mg Tablet) 25 mg PO DAILY [facility] [place] Last Admin: 03/07/20 08:42 Dose: 25 mg Documented by: Melatonin (Melatonin 3 Mg Tablet) 3 mg PO QHS [facility] [place] Last Admin: 03/07/20 22:09 Dose: Not Given Documented by: Ondansetron HCl (Ondansetron 4 Mg/2 Ml Vial) 4 mg IV Q8H PRN PRN PRN Reason: NAUSEA/VOMITING Polyethylene Glycol (Polyethylene Glycol 3350 17 Gm Packet) 17 gm GT DAILY PRN PRN Reason: Constipation Senna/Docusate Sodium (Senna/Docusate Sodium 1 Tablet) 2 tablet GT BID [facility] [place] Last Admin: 03/07/20 22:09 Dose: 2 tablet Documented by: Sodium Chloride (0.9% Saline Lock 10 Ml Syringe) 10 - 40 ml IV UD PRN PRN Reason: Multilumen/Michel Flush Last Admin: 03/07/20 16:22 Dose: 40 ml Documented by: Sodium Chloride (0.9 % Nacl (Sterile) Posiflush 10 Ml) 10 - 40 ml IV UD PRN PRN Reason: Port access or dressing change Last Admin: 03/07/20 09:12 Dose: 10 ml Documented by: Throat Lozenges (Benzocaine/Menthol 1 Lozenge) 1 lozenge MUCOUS MEM Q2H PRN PRN PRN Reason: SORE THROAT Last Admin: 03/02/20 12:18 Dose: 1 lozenge Documented by: STROKE Vital Signs/Narrative: Vital Signs Temp Pulse Resp BP Pulse Ox 03/08/20 07:39 85 25 H 92 03/08/20 06:00 101.0 F H 74 18 115/71 91 03/08/20 05:00 100.9 F H 79 22 H 150/88 H 91 03/08/20 04:00 101.1 F H 74 18 132/77 H 92 Medical Necessity - Tobacco Use Smoking Status: Never smoker Tobacco Use: Non-smoker Assessment/Plan All Active Problems Septic shock (Acute) Acute respiratory failure with hypoxia (Acute) Pneumonia due to COVID-19 virus (Acute) Hyperglycemia (Acute) SURINDER (acute kidney injury) (Acute) # Acute hypoxic respiratory failure due to COVID 19 pneumonia - remains intubated. and sedated. RASS score is -1 -on PEEP of 8 and FiO2 of 55% -sedated with propofol and fentanyl -completed a course of remdesivir and decadron. also received convalescent pasma -ID and pulmonology on board. -remains febrile. On IV meropenem. dexamethasone restarted per ID -ID recommends removal of right chest central venous catheter. blood cultures repeated -on breathing treatment with bronchodilators #Septic shock: still remains febrile. On IV meropenem. Off pressors. ID on board ID recommends removal of right chest central line. blood cultures repeated. # SURINDER: resolved. # Hypertension: on losartan 25mg daily and carvedilol 12.5mg bid #Hyperlipidemia: diet controlled. #Hypothyroidism: on synthroid #GERD: on pantoprazole 20mg bid Nutrition: on tube feeding. DVT prophylaxis; on eliquis Inpatient E&M: [id number] [facility] L3
[2020-03-08] MEDS: dexAMETHasone 4 MG Tablet 6 MG PO (08:32)
[2020-03-08] MEDS: Chlorhexidine 15 ML PO ×2 (08:32→19:46)
[2020-03-08] MEDS: Losartan Potassium 25 MG Tablet PO (08:33)
[2020-03-08] MEDS: APIXABAN 5 MG TABLET GT ×2 (08:33→21:25)
[2020-03-08] MEDS: Levothyroxine 50 MCG Tablet PO (08:33)
[2020-03-08] MEDS: Furosemide 40 MG/4 ML Vial IV ×2 (08:34→16:46)
[2020-03-08] MEDS: Carvedilol 12.5 MG Tablet PO ×2 (08:34→21:25)
[2020-03-08] MEDS: 0.9% Saline Lock 10 ML Syringe IV ×3 (09:03→21:34)
--- NOTE | 2020-03-08 10:55 | PCM.PN.INT ---
Subjective: Patient did okay overnight. Oxygenation continues to improve slowly. Patient continues to be persistently febrile, but has remained hemodynamically stable. Patient is tolerating tube feeds. Patient denied any pain. Patient was able to sit at the side of the bed yesterday. Objective: Acute left DVT noted on lower extremity Doppler General: - - RASS -1. Obese. Good vent synchrony noted. HEENT: Atraumatic, PERRLA, EOMI, Normocephalic, - - No scleral icterus or injection noted. Glasses in place. Oral: Moist Mucosa, No Gingival or Mucosal Lesions/ Ulcerations Neck: Supple, No JVD, No Nodes, Trachea Midline Lungs: No rhonchi, No wheeze, No rales, Diminished, - - Symmetric expansion. No dullness to percussion. Cardiovascular: Regular rate, Regular Rhythm, Normal S1, Normal S2, No murmurs, No rub noted, No Gallop Abdomen: Bowel Sounds Present, Soft, Non Tender, Non-Distended, Obese Extremities: No clubbing, No cyanosis, No edema Skin: No rashes, No breakdown Musculoskeletal: No Tenderness to Palpation of Joints or Extremities Lymphatic: No Cervical, Supraclavicular, or Inguinal Adenopathy Neurological: Cranial nerves II-XII grossly intact, Deep Tendon Reflexes 2+/4 and Symmetrical, Neuro grossly intact Psych/Mental Status: Flat Affect Vital Signs Temp Pulse Resp BP Pulse Ox 38.3 C H 85 25 H 115/71 92 03/08/20 06:00 03/08/20 07:39 03/08/20 07:39 03/08/20 06:00 03/08/20 07:39 Oxygen Flow Rate (L/min) 92 Oxygen Delivery Method Mechanical Ventilator Weight: 101.4 kg Body Mass Index (BMI) 31.8 Intake and Output for Last 24 Hours 03/06/20 03/07/20 03/08/20 23:59 23:59 23:59 Intake Total 42 / 3727.96 / 3741.76 1056.40 / 1056.40 Output Total 2350 / 2350 4520 / 4520 775 / 775 Balance -346.58 / -332.78 -792.04 / -778.24 281.40 / 281.40 Labs (Last 48 Hours) 03/06/20 03/06/20 03/06/20 06:36 11:50 18:12 WBC RBC Hgb Hct MCV MCH MCHC RDW Std Deviation RDW Coeff of Charo Plt Count MPV Immature Gran % (Auto) Neut % (Auto) Lymph % (Auto) [place] % (Auto) Eos % (Auto) Baso % (Auto) Absolute Neuts (auto) Absolute Lymphs (auto) Nucleated RBC % Sodium Potassium Chloride Carbon Dioxide Anion Gap BUN Creatinine Estim Creat Clear Calc Est GFR (MDRD) Af Amer Est GFR (MDRD) Non-Af BUN/Creatinine Ratio Glucose Calcium POC Glucose 198 H 209 H 189 H 03/06/20 03/07/20 03/07/20 23:03 04:00 04:00 WBC 9.3 RBC 3.98 L Hgb 13.1 Hct 41.8 MCV 105.0 H MCH 32.9 H MCHC 31.3 L RDW Std Deviation 53.9 H RDW Coeff of Charo 13.6 Plt Count 185 MPV 10.5 Immature Gran % (Auto) 1.100 H Neut % (Auto) 91.4 H Lymph % (Auto) 4.3 L [place] % (Auto) 2.5 Eos % (Auto) 0.5 Baso % (Auto) 0.2 Absolute Neuts (auto) 8.5 H Absolute Lymphs (auto) 0.40 L Nucleated RBC % 0 Sodium 144 Potassium 4.9 Chloride 111 H Carbon Dioxide 30.0 Anion Gap 3 L BUN 52 H Creatinine 1.03 Estim Creat Clear Calc 62.95 Est GFR (MDRD) Af Amer 90 Est GFR (MDRD) Non-Af 74 BUN/Creatinine Ratio 50.5 H Glucose 185 H Calcium 8.1 L POC Glucose 132 H 03/07/20 03/07/20 03/07/20 06:20 12:14 16:56 WBC RBC Hgb Hct MCV MCH MCHC RDW Std Deviation RDW Coeff of Charo Plt Count MPV Immature Gran % (Auto) Neut % (Auto) Lymph % (Auto) [place] % (Auto) Eos % (Auto) Baso % (Auto) Absolute Neuts (auto) Absolute Lymphs (auto) Nucleated RBC % Sodium Potassium Chloride Carbon Dioxide Anion Gap BUN Creatinine Estim Creat Clear Calc Est GFR (MDRD) Af Amer Est GFR (MDRD) Non-Af BUN/Creatinine Ratio Glucose Calcium POC Glucose 197 H 202 H 249 H 03/07/20 03/08/20 03/08/20 23:16 04:50 04:50 WBC 8.2 RBC 4.06 L Hgb 13.3 Hct 41.0 MCV 101.0 H MCH 32.8 H MCHC 32.4 RDW Std Deviation 50.5 H RDW Coeff of Charo 13.4 Plt Count 221 MPV 10.5 Immature Gran % (Auto) 1.200 H Neut % (Auto) 87.9 H Lymph % (Auto) 7.6 L [place] % (Auto) 2.3 Eos % (Auto) 0.9 Baso % (Auto) 0.1 Absolute Neuts (auto) 7.2 Absolute Lymphs (auto) 0.62 L Nucleated RBC % 0 Sodium 143 Potassium 4.4 Chloride 107 Carbon Dioxide 33.0 H Anion Gap 3 L BUN 56 H Creatinine 1.14 Estim Creat Clear Calc 56.88 Est GFR (MDRD) Af Amer 80 Est GFR (MDRD) Non-Af 66 BUN/Creatinine Ratio 49.1 H Glucose 155 H Calcium 8.4 L POC Glucose 204 H Microbiology 03/03/20 Unknown Sputum, Induced/Lukens Gram Stain - Final 03/03/20 Unknown Sputum, Induced/Lukens Respiratory Culture - Final Serratia marcescens Streptococcus pneumoniae Medical Necessity - Tobacco Use Smoking Status: Never smoker Tobacco Use: Non-smoker Assessment/Plan All Active Problems Septic shock (Acute) Acute respiratory failure with hypoxia (Acute) Pneumonia due to COVID-19 virus (Acute) Hyperglycemia (Acute) SURINDER (acute kidney injury) (Acute) RECOMMENDATIONS: 1. Titrate PEEP as tolerated. Attempt to decrease FiO2 to 60% or less 2. Completed 1 course and on second Decadron (05/18) daily. Completed convalescent serum and remdesivir 3. Continue empiric antibiotics. 4. Continue Eliquis for anticoagulation 5. Encourage incentive spirometer use and mobilize patient as tolerated. 6. Continue diuresis IMPRESSIONS: 1. Acute hypoxemic respiratory failure secondary to COVID-19 pneumonia The patient had significant desaturation and decompensation despite BiPAP therapy. Patient has elected to be intubated on 03/03/2020. Patient is still requiring high PEEP. Significant secretions were noted in the pharynx and neck to vocal cord. Patient completed course of Decadron. Continue Eliquis. Spontaneous breathing and awakening trials per protocol. Continue patient on empiric antibiotics pending culture data. Will continue diuretic therapy given lower extremity edema and persistent hypoxia. Infectious disease is following. Respiratory status continues to improve. Robitussin has helped with mucous plugging. 2. Morbid obesity/hypertension/hypothyroidism/GERD Complicates care, management, recovery and prognosis. Continue home medications as indicated. Continue sliding scale insulin coverage, given risk for steroid-induced hyperglycemia. 3. Possible septic shock/DVT Patient with significant fever following intubation and then requiring pressor therapy. Patient has been able to be discontinued from Levophed for over 48 hours. Patient is tolerating this well. Patient's hemodynamics are much improved. However, patient is having persistent fevers despite adequate antibiotics. Infectious disease is following. Patient was found to have a left lower extremity DVT. It is unclear if this was present prior to initiation of full anticoagulation or represents a new finding. Anticipate continuation of Eliquis TIME: 36 minutes critical care time spent addressing patient's acute hypoxic respiratory failure, hyperglycemia, review of all data and collaboration with care team (6 AM to 7:30 AM) [phone] [id number] Critical care first hour
--- NOTE | 2020-03-08 11:03 | NT.THERAPY_ITS ---
Nutrition Therapy Report - History Nutrition Services has been consulted to:: Manage enteral nutrition Current diet / nutrition support order:: NPO; Vital AF 1.2 at 70mL/hour w/ 125mL H2O flush every 4 hours to provide 2016 calories, 126 g protein, 2112mL total fluid/day. - Anthropometric Measurements Height:: 5 ft 11 in Weight:: 101.4 kg Body Mass Index (BMI):: 31.1 - Relevant Labs Relevant Labs:: WBC 4.1 K/mm3 (4.4-11.0) L 02/29/20 03:50 RBC 4.06 M/mm3 (4.6-6.2) L 03/08/20 04:50 Hgb 12.7 g/dL (13.0-16.5) L 02/27/20 04:15 Hct 38.3 % (40-54) L 02/27/20 04:15 MCV 101.0 fL (80-94) H 03/08/20 04:50 MCH 32.8 pg (27.0-32.0) H 03/08/20 04:50 MCHC 31.3 g/dL (32-36) L 03/07/20 04:00 RDW Std Deviation 50.5 fl (35.1-43.9) H 03/08/20 04:50 Plt Count 143 K/mm3 (150-450) L 02/27/20 04:15 Immature Gran % (Auto) 1.200 % (0.0-0.9) H 03/08/20 04:50 Neut % (Auto) 87.9 % (47-70) H 03/08/20 04:50 Lymph % (Auto) 7.6 % (19-41) L 03/08/20 04:50 Baso % (Auto) 1.3 % (0-1) H 02/26/20 02:00 Absolute Neuts (auto) 8.5 X10^3/uL (2.0-7.7) H 03/07/20 04:00 Absolute Lymphs (auto) 0.62 X10^3/uL (0.83-4.51) L 03/08/20 04:50 D-Dimer Quant (PE/DVT) 1.57 FEU/ug/m (0.27-0.49) H* 02/26/20 02:00 Sodium 147 mmol/L (136-145) H 03/01/20 04:00 Chloride 111 mmol/L (98-107) H 03/07/20 04:00 Carbon Dioxide 33.0 mmol/L (21.0-32.0) H 03/08/20 04:50 Anion Gap 3 (5-15) L 03/08/20 04:50 BUN 56 mg/dL (7-18) H 03/08/20 04:50 Creatinine 1.43 mg/dL (0.70-1.30) H 03/05/20 05:00 Est GFR (MDRD) Af Amer 44 mL/min (>60) L 03/04/20 03:40 Est GFR (MDRD) Non-Af 51 mL/min (>60) L 03/05/20 05:00 BUN/Creatinine Ratio 49.1 RATIO (10-20) H 03/08/20 04:50 Glucose 155 mg/dL (74-106) H 03/08/20 04:50 Hemoglobin A1c 6.6 % (3.8-5.6) H 02/26/20 02:00 Calcium 8.4 mg/dL (8.5-10.1) L 03/08/20 04:50 Magnesium 2.8 mg/dL (1.6-2.6) H 02/27/20 09:55 Ferritin 921 ng/mL (26-388) H 02/26/20 02:00 Total Bilirubin 1.30 mg/dL (0.20-1.00) H 03/02/20 04:45 AST 47 U/L (15-37) H 03/02/20 04:45 Alkaline Phosphatase 43 U/L (45-117) L 02/27/20 04:15 Lactate Dehydrogenase 477 U/L (87-241) H 02/26/20 02:00 Total Creatine Kinase 34 U/L (39-308) L 03/03/20 03:00 C-React Prot Ext Range 111.00 mg/L (0.0-3.0) H 02/26/20 02:00 Total Protein 6.3 g/dL (6.4-8.2) L 02/28/20 04:40 Albumin 2.6 g/dL (3.2-5.0) L 03/02/20 04:45 Albumin/Globulin Ratio 0.6 RATIO (0.9-2.4) L 03/02/20 04:45 Procalcitonin 0.16 ng/mL (0.00-0.09) H 02/26/20 02:00 - Assessment Food / Nutrition-Related History:: Discussed in ICU rounds. Vital AF 1.2 running now at 10mL/hour; per nursing staff additional Vital AF not available from pharmacy so rate was decreased as hanging liter was almost empty. Was tolerating at goal rate of 70mL/hour w/ minimal residuals per nursing staff. Had multiple BMs yesterday. Wt decrease of 3.1 kg noted since last review, on lasix BID. Has BLE 2+ pitting edema. Elevated blood glucose, continues on steroid. - Food / Nutrient Delivery Interventions Summary of nutrition intervention:: Per pharmacy, unclear if additional Vital AF 1.2 will be available later this date. Will change to Vital HP. Estimated needs 0450-0847 calories, 123-154 g protein per day. Nutrition support ordered as / adjusted to:: Vital HP at goal rate of 60mL/hour w/ 125mL H2O flush every 4 hours to provide 1440 calories, 125 g protein, and 19 53mL total fluid per day. Would initiate at 20mL/hour and increase by 20mL every 8 hours as pt tolerates until goal rate achieved. As ordered, tube feeds will meet ~70% of estimated daily calorie needs and 100% estimated protein needs. - MNT Monitoring Further MNT monitoring and evaluation required?: Yes MNT Follow-up in:: 1-2 days
--- NOTE | 2020-03-08 11:45 | PCM.PN.ID ---
Patient Problems: Active and Suspected Problems Septic shock (Acute) Acute respiratory failure with hypoxia (Acute) Pneumonia due to COVID-19 virus (Acute) Hyperglycemia (Acute) SURINDER (acute kidney injury) (Acute) Subjective: On bipap, sleeping this AM, still with fever - Physical Exam Vitals/I&O's: Vital Signs Temp Pulse Resp BP Pulse Ox 101.0 F H 85 25 H 115/71 92 03/08/20 06:00 03/08/20 07:39 03/08/20 07:39 03/08/20 06:00 03/08/20 07:39 Oxygen Flow Rate (L/min) 92 Oxygen Delivery Method Mechanical Ventilator Weight: 101.4 kg Body Mass Index (BMI) 31.1 Intake and Output for Last 24 Hours 03/06/20 03/07/20 03/08/20 23:59 23:59 23:59 Intake Total 42 / 3727.96 / 3741.76 1074.95 / 1074.95 Output Total 2350 / 2350 4520 / 4520 775 / 775 Balance -346.58 / -332.78 -792.04 / -778.24 299.95 / 299.95 General: No apparent distress Lungs: Clear to auscultation, Diminished Cardiovascular: Regular rate, Regular Rhythm Abdomen: Soft, Non Tender, Non-Distended Skin: No rashes Microbiology Past 72 Hours 03/03/20 Unknown Sputum, Induced/Lukens Gram Stain - Final 03/03/20 Unknown Sputum, Induced/Lukens Respiratory Culture - Final Serratia marcescens Streptococcus pneumoniae 03/03/20 13:25 Blood Culture (Wb) #2 - Right Hand Blood Culture - Preliminary No growth in 48 hours. 03/03/20 13:15 Blood Culture (Wb) - Central Line Blood Culture - Preliminary No growth in 48 hours. 03/03/20 13:00 Urine Catheter - Kaye Urine Culture - Final Culture exhibits no growth. Laboratory Results 03/07/20 12:14: POC Glucose 202 H 03/07/20 16:56: POC Glucose 249 H 03/07/20 23:16: POC Glucose 204 H 03/08/20 04:50: WBC 8.2, RBC 4.06 L, Hgb 13.3, Hct 41.0, MCV 101.0 H, MCH 32.8 H, MCHC 32.4, RDW Std Deviation 50.5 H, RDW Coeff of Charo 13.4, Plt Count 221, MPV 10.5, Immature Gran % (Auto) 1.200 H, Neut % (Auto) 87.9 H, Lymph % (Auto) 7.6 L, [place] % (Auto) 2.3, Eos % (Auto) 0.9, Baso % (Auto) 0.1, Absolute Neuts (auto) 7.2, Absolute Lymphs (auto) 0.62 L, Nucleated RBC % 0 03/08/20 04:50: Sodium 143, Potassium 4.4, Chloride 107, Carbon Dioxide 33.0 H, Anion Gap 3 L, BUN 56 H, Creatinine 1.14, Estim Creat Clear Calc 56.88, Est GFR (MDRD) Af Amer 80, Est GFR (MDRD) Non-Af 66, BUN/Creatinine Ratio 49.1 H, Glucose 155 H, Calcium 8.4 L Current Medications Acetaminophen (Acetaminophen 650 Mg/20 Ml Udc) 650 mg GT Q6H PRN PRN PRN Reason: Pain Score 1-10/Temp > 100.7 F Last Admin: 03/07/20 12:56 Dose: 650 mg Documented by: Apixaban (Apixaban 5 Mg Tablet) 5 mg GT BID [facility] Last Admin: 03/08/20 08:33 Dose: 5 mg Documented by: Carvedilol (Carvedilol 12.5 Mg Tablet) 12.5 mg PO BID [facility] Last Admin: 03/08/20 08:34 Dose: 12.5 mg Documented by: Chlorhexidine Gluconate (Chlorhexidine 15 Ml) 15 ml PO BID [facility] Last Admin: 03/08/20 08:32 Dose: 15 ml Documented by: Dexamethasone (Dexamethasone 4 Mg Tablet) 6 mg PO DAILY [facility] Stop: 03/16/20 10:01 Last Admin: 03/08/20 08:32 Dose: 6 mg Documented by: Furosemide (Furosemide 40 Mg/4 Ml Vial) 40 mg IV BID@1000,1700 [facility] Last Admin: 03/08/20 08:34 Dose: 40 mg Documented by: Guaifenesin (Guaifenesin 10 Ml Udc (200mg/10ml)) 10 ml PO Q4 [facility] Last Admin: 03/08/20 08:34 Dose: 10 ml Documented by: Propofol (Diprivan) 1,000 mg in 100 mls @ 24.336 mls/hr CONT INF .Q4H7M [facility]; Protocol Last Titration: 03/08/20 11:00 Dose: 10 mcg/kg/min, 6.1 mls/hr Documented by: Fentanyl Citrate 1,000 mcg/ (Sodium Chloride) 100 mls @ 20 mls/hr CONT INF .Q5H [facility]; Protocol Last Titration: 03/08/20 11:00 Dose: 75 mcg/hr, 7.5 mls/hr Documented by: Meropenem 500 mg/ Sodium (Chloride) 60 mls @ 100 mls/hr IV Q8 [facility] Last Infusion: 03/08/20 06:21 Dose: Infused Documented by: Pantoprazole Sodium 40 mg/ (Sodium Chloride) 110 mls @ 330 mls/hr IV Q12 [facility] Last Admin: 03/08/20 10:43 Dose: 330 mls/hr Documented by: Enteral Nutritional Formula (Vital High Protein) 1,000 mls @ 60 mls/hr GT .[id number] [facility] Insulin Human Lispro (Insulin Lispro 100 Unit/Ml Insuln.Pen) 0 unit SC Q6 [facility]; Protocol Last Admin: 03/08/20 05:31 Dose: 1 u Documented by: Levothyroxine Sodium (Levothyroxine 50 Mcg Tablet) 50 mcg PO DAILY [facility] Last Admin: 03/08/20 08:33 Dose: 50 mcg Documented by: Losartan Potassium (Losartan Potassium 25 Mg Tablet) 25 mg PO DAILY [facility] Last Admin: 03/08/20 08:33 Dose: 25 mg Documented by: Melatonin (Melatonin 3 Mg Tablet) 3 mg PO QHS [facility] Last Admin: 03/07/20 22:09 Dose: Not Given Documented by: Ondansetron HCl (Ondansetron 4 Mg/2 Ml Vial) 4 mg IV Q8H PRN PRN PRN Reason: NAUSEA/VOMITING Polyethylene Glycol (Polyethylene Glycol 3350 17 Gm Packet) 17 gm GT DAILY PRN PRN Reason: Constipation Senna/Docusate Sodium (Senna/Docusate Sodium 1 Tablet) 2 tablet GT BID [facility] Last Admin: 03/08/20 09:04 Dose: Not Given Documented by: Sodium Chloride (0.9% Saline Lock 10 Ml Syringe) 10 - 40 ml IV UD PRN PRN Reason: Multilumen/Michel Flush Last Admin: 03/08/20 09:03 Dose: 20 ml Documented by: Sodium Chloride (0.9 % Nacl (Sterile) Posiflush 10 Ml) 10 - 40 ml IV UD PRN PRN Reason: Port access or dressing change Last Admin: 03/07/20 09:12 Dose: 10 ml Documented by: Throat Lozenges (Benzocaine/Menthol 1 Lozenge) 1 lozenge MUCOUS MEM Q2H PRN PRN PRN Reason: SORE THROAT Last Admin: 03/02/20 12:18 Dose: 1 lozenge Documented by: Medical Necessity - Tobacco Use Smoking Status: Never smoker Tobacco Use: Non-smoker Route of nutrition/ use of supplements: [] Nutritional Intake: [] IV Site: [] Kaye Catheter: [] - Assessment/Plan Antibiotics: [] Assessment/Plan: [] Active and Suspected Problems Septic shock (Acute) Acute respiratory failure with hypoxia (Acute) Pneumonia due to COVID-19 virus (Acute) Hyperglycemia (Acute) SURINDER (acute kidney injury) (Acute) covid with hypoxia - Completed 10 days of dex, completed remdesivir. CT neg for PE. Got plasma 02/26. Sx started 02/20/20. Now intubated. Persistent fever despite meropenem and sputum with only rare serratia and strep pneumo. R chest cvc was placed at OSH, recommend removal. Pending bcx x2, restarted dex. Vent setting improving, wbc normal. Cont haily for now. Will follow
[2020-03-08] MEDS: Vital High Protein 1,000 ML 60 ML GT (12:27)
[2020-03-08 12:50] LABS: Bedside Glucose 233 mg/dL (70-110)
[2020-03-08] MEDS: Propofol 10MG/Ml 1,000 MG/100 ML Bottle 6.1 MG CONT INF (14:26)
[2020-03-08 17:15] LABS: Bedside Glucose 244 mg/dL (70-110)
[2020-03-08] MEDS: MELATONIN 3 MG TABLET PO (21:25)
[2020-03-09] VITALS (36 sets, daily range): BP systolic 71–132; BP diastolic 50–78; PULSE 68–104; RESP 12–27; TEMP 37.9–38.8; O2SAT 88–96
[2020-03-09 00:56] LABS: Bedside Glucose 143 mg/dL (70-110)
[2020-03-09] MEDS: Propofol 10MG/Ml 1,000 MG/100 ML Bottle 6.1 MG CONT INF ×3 (01:47→22:53)
[2020-03-09] MEDS: guaiFENesin 10 ML UDC (200MG/10ML) PO ×6 (02:20→21:09)
[2020-03-09] MEDS: 0.9% Saline Lock 10 ML Syringe IV ×2 (04:24→21:32)
[2020-03-09 04:46] LABS: Absolute Lymphocyte Count 0.77 X10^3/uL (0.83-4.51); Absolute Neutrophil Count 8.6 X10^3/uL (2.0-7.7); Basophil# 0.02 X10^3/uL; Basophil% 0.2 % (0-1); Hematocrit 42.4 % (40-54); Hemoglobin 13.4 g/dL (13.0-16.5); Lymphocyte # 0.77 X10^3/ul (4.0); Lymphocyte % 7.8 % (19-41); Mean Corp Hgb Conc 31.6 g/dL (32-36); Mean Corpuscular Hgb 32.1 pg (27.0-32.0); Mean Corpuscular Volume 101.4 fL (80-94); Mean Platelet Vol. 10.5 fl (6.2-12.0); Monocyte# 0.31 X10^3/uL; Monocyte% 3.2 % (0-10); NRBC Flagged by Analyzer 0 % (0-5); Neutrophil # 8.58 X10^3/uL (2.7-7.7); Neutrophil % 87.2 % (47-70); Platelet Count 230 K/mm3 (150-450); RBC Distribution Width CV 13.4 % (11.6-14.6); RBC Distribution Width SD 50.5 fl (35.1-43.9); Red Blood Count 4.18 M/mm3 (4.6-6.2); White Blood Count 9.8 K/mm3 (4.4-11.0)
[2020-03-09 04:59] LABS: Anion Gap 4 (5-15); BUN 62 mg/dL (7-18); BUN/Creat Ratio 53.9 RATIO (10-20); Calcium,Total 8.2 mg/dL (8.5-10.1); Chloride 104 mmol/L (98-107); Creatinine, Serum 1.15 mg/dL (0.70-1.30); EST Glomerular Filtration Rate 65 mL/min (>60); Est Glom Filt Rate - Afr Amer 79 mL/min (>60); Estimated Creatinine Clearance 56.38 ml/min; Glucose 157 mg/dL (74-106); Sodium Level 143 mmol/L (136-145)
--- NOTE | 2020-03-09 11:05 | PN_ITS ---
Subjective: The patient was seen and examined at the bedside this morning. Events from the last 24 hours have been reviewed. The patient does continue to have some low- grade fevers but remains hemodynamically stable. The patient remains on assist control mode of mechanical ventilation with an FiO2 requirement of 55% and PEEP of 8. The patient did okay this morning on his spontaneous breathing trial with marginal oxygen saturations. The patient is currently documented to be overall net -2.4 L for the hospital admission. Objective: The patient's most recent lab work, culture data and imaging studies have all been personally reviewed. Sputum culture dated March 03 was positive for Serratia marcescens and Streptococcus pneumoniae. General: - - Remains intubated, sedated and mechanically ventilated. HEENT: Atraumatic, Normocephalic Oral: Moist Mucosa, - - Stable endotracheal and OG tubes. Neck: Supple, No Nodes, Trachea Midline Lungs: No rhonchi, No wheeze, No rales, Diminished Cardiovascular: Regular rate, Regular Rhythm Abdomen: Bowel Sounds Present, Soft, Non Tender, Obese Extremities: No clubbing, No cyanosis, No edema Skin: No breakdown Musculoskeletal: No Muscle Wasting Lymphatic: No Cervical, Supraclavicular, or Inguinal Adenopathy Neurological: Neuro grossly intact Vital Signs Temp Pulse Resp BP Pulse Ox 100.4 F H 74 19 H 113/71 93 03/09/20 08:00 03/09/20 09:36 03/09/20 09:36 03/09/20 09:00 03/09/20 09:36 Oxygen Flow Rate (L/min) 92 Oxygen Delivery Method Mechanical Ventilator Weight: 220 lb 0.341 oz Body Mass Index (BMI) 31.1 Intake and Output for Last 24 Hours 03/07/20 03/08/20 03/09/20 23:59 23:59 23:59 Intake Total 3727.96 / 3741.76 2484.66 / 3073.26 1388.15 / 1388.15 Output Total 4520 / 4520 3375 / 3975 1050 / 1050 Balance -792.04 / -778.24 -890.34 / -901.74 338.15 / 338.15 Labs (Last 48 Hours) 03/07/20 03/07/20 03/07/20 12:14 16:56 23:16 WBC RBC Hgb Hct MCV MCH MCHC RDW Std Deviation RDW Coeff of Charo Plt Count MPV Immature Gran % (Auto) Neut % (Auto) Lymph % (Auto) [place] % (Auto) Eos % (Auto) Baso % (Auto) Absolute Neuts (auto) Absolute Lymphs (auto) Nucleated RBC % Sodium Potassium Chloride Carbon Dioxide Anion Gap BUN Creatinine Estim Creat Clear Calc Est GFR (MDRD) Af Amer Est GFR (MDRD) Non-Af BUN/Creatinine Ratio Glucose Calcium POC Glucose 202 H 249 H 204 H 03/08/20 03/08/20 03/08/20 04:50 04:50 12:24 WBC 8.2 RBC 4.06 L Hgb 13.3 Hct 41.0 MCV 101.0 H MCH 32.8 H MCHC 32.4 RDW Std Deviation 50.5 H RDW Coeff of Charo 13.4 Plt Count 221 MPV 10.5 Immature Gran % (Auto) 1.200 H Neut % (Auto) 87.9 H Lymph % (Auto) 7.6 L [place] % (Auto) 2.3 Eos % (Auto) 0.9 Baso % (Auto) 0.1 Absolute Neuts (auto) 7.2 Absolute Lymphs (auto) 0.62 L Nucleated RBC % 0 Sodium 143 Potassium 4.4 Chloride 107 Carbon Dioxide 33.0 H Anion Gap 3 L BUN 56 H Creatinine 1.14 Estim Creat Clear Calc 56.88 Est GFR (MDRD) Af Amer 80 Est GFR (MDRD) Non-Af 66 BUN/Creatinine Ratio 49.1 H Glucose 155 H Calcium 8.4 L POC Glucose 233 H 03/08/20 03/09/20 03/09/20 17:05 00:25 04:20 WBC 9.8 RBC 4.18 L Hgb 13.4 Hct 42.4 MCV 101.4 H MCH 32.1 H MCHC 31.6 L RDW Std Deviation 50.5 H RDW Coeff of Charo 13.4 Plt Count 230 MPV 10.5 Immature Gran % (Auto) 0.600 Neut % (Auto) 87.2 H Lymph % (Auto) 7.8 L [place] % (Auto) 3.2 Eos % (Auto) 1.0 Baso % (Auto) 0.2 Absolute Neuts (auto) 8.6 H Absolute Lymphs (auto) 0.77 L Nucleated RBC % 0 Sodium Potassium Chloride Carbon Dioxide Anion Gap BUN Creatinine Estim Creat Clear Calc Est GFR (MDRD) Af Amer Est GFR (MDRD) Non-Af BUN/Creatinine Ratio Glucose Calcium POC Glucose 244 H 143 H 03/09/20 04:20 WBC RBC Hgb Hct MCV MCH MCHC RDW Std Deviation RDW Coeff of Charo Plt Count MPV Immature Gran % (Auto) Neut % (Auto) Lymph % (Auto) [place] % (Auto) Eos % (Auto) Baso % (Auto) Absolute Neuts (auto) Absolute Lymphs (auto) Nucleated RBC % Sodium 143 Potassium 4.0 Chloride 104 Carbon Dioxide 35.0 H Anion Gap 4 L BUN 62 H Creatinine 1.15 Estim Creat Clear Calc 56.38 Est GFR (MDRD) Af Amer 79 Est GFR (MDRD) Non-Af 65 BUN/Creatinine Ratio 53.9 H Glucose 157 H Calcium 8.2 L POC Glucose Microbiology 03/03/20 13:25 Blood Culture (Wb) #2 - Right Hand Blood Culture - Final No growth in 5 days. 03/03/20 13:15 Blood Culture (Wb) - Central Line Blood Culture - Final No growth in 5 days. Medical Necessity - Tobacco Use Smoking Status: Never smoker Tobacco Use: Non-smoker Assessment/Plan All Active Problems Septic shock (Acute) Acute respiratory failure with hypoxia (Acute) Pneumonia due to COVID-19 virus (Acute) Hyperglycemia (Acute) SURINDER (acute kidney injury) (Acute) RECOMMENDATIONS: 1. Continue patient on assist control mode of mechanical ventilation and wean FiO2 and PEEP to maintain saturations at or above 90%. 2. Continue Decadron and antimicrobials per ID recommendations. 3. Continue systemic anticoagulation with Eliquis. 4. Continue tube feeds as tolerated. 5. Continue gentle diuresis as tolerated by hemodynamics and renal function. 6. Continue appropriate GI prophylaxis. IMPRESSIONS: 1. Acute hypoxemic respiratory failure secondary to COVID-19 pneumonia The patient presented as a transfer from an outside facility with Covid-like symptoms for approximately 1 week. Unfortunately, the patient decompensated from a respiratory perspective despite noninvasive positive pressure ventilatory support, eventually requiring intubation. The patient did receive convalescent plasma and has completed treatment courses of both remdesivir and Decadron. In addition to the aforementioned, the patient remains on antimicrobials, given Serratia and Streptococcus isolated from cultures. Plan to continue current supportive measures along with gentle diuresis as tolerated by hemodynamics and renal function. Continue to wean FiO2 and PEEP to maintain oxygen saturations at or above 90%. Continue tube feeds as tolerated. Plan for daily paired spontaneous awakening and breathing trials. 2. Morbid obesity/hypertension/hypothyroidism/GERD Complicates care, management, recovery and prognosis. Continue home medications as indicated. Continue sliding scale insulin coverage. Physical therapy to work with the patient. TIME: 37 minutes of critical care time, independent of procedures, was spent addressing the patient's acute hypoxemic respiratory failure secondary to COVID- 19 pneumonia, review of all data and collaboration with the care team. [id number]) [phone] [id number] Critical care first hour
[2020-03-09] MEDS: Losartan Potassium 25 MG Tablet PO (11:16)
[2020-03-09] MEDS: dexAMETHasone 4 MG Tablet 6 MG PO (11:16)
[2020-03-09] MEDS: Levothyroxine 50 MCG Tablet PO (11:16)
[2020-03-09] MEDS: APIXABAN 5 MG TABLET GT ×2 (11:16→21:09)
[2020-03-09] MEDS: Carvedilol 12.5 MG Tablet PO ×2 (11:16→21:09)
[2020-03-09] MEDS: Furosemide 40 MG/4 ML Vial IV ×2 (11:17→17:17)
[2020-03-09] MEDS: Senna/Docusate Sodium 1 Tablet 2 TABLET GT ×2 (11:17→21:09)
[2020-03-09] MEDS: Chlorhexidine 15 ML PO ×2 (11:19→21:10)
[2020-03-09] MEDS: Insulin Lispro 100 UNIT/ML INSULN.PEN SC ×3 (11:22→23:58)
--- NOTE | 2020-03-09 11:44 | PCM.PN.HOSP ---
Patient Problems: Active and Suspected Problems Septic shock (Acute) Acute respiratory failure with hypoxia (Acute) Pneumonia due to COVID-19 virus (Acute) Hyperglycemia (Acute) SURINDER (acute kidney injury) (Acute) Subjective: Patient seen and examined. He had an uneventful night with no active events. Still remains mildly febrile. He remains on the ventilator and failed a spontaneous breathing trial today. Review of systems otherwise negative. Vitals/I&O's: Vital Signs Temp Pulse Resp BP Pulse Ox 100.6 F H 77 22 H 113/70 90 03/09/20 11:00 03/09/20 11:00 03/09/20 11:00 03/09/20 11:00 03/09/20 11:00 Oxygen Flow Rate (L/min) 92 Oxygen Delivery Method Mechanical Ventilator Weight: 220 lb 0.341 oz Body Mass Index (BMI) 31.1 Intake and Output for Last 24 Hours 03/07/20 03/08/20 03/09/20 23:59 23:59 23:59 Intake Total 3727.96 / 3741.76 2484.66 / 3073.26 1636.40 / 1636.40 Output Total 4520 / 4520 3375 / 3975 1200 / 1200 Balance -792.04 / -778.24 -890.34 / -901.74 436.40 / 436.40 General: - - intubated, sedated, RASS score is -1 HEENT: Atraumatic, PERRLA, EOMI, Normocephalic Oral: Dry Mucosa Neck: Supple, No JVD, Negative Carotid Bruits Lungs: - - coarse crackles in mid and lower lung greene. intubated and sedated. RASS score is -1 Cardiovascular: Regular rate, Regular Rhythm, Normal S1, Normal S2, No murmurs Abdomen: Bowel Sounds Present, Soft, Non Tender, Non-Distended, No Hepato-splenomegaly Extremities: No clubbing, No cyanosis, No edema, Capillary Refill Less than 3 Seconds Skin: No rashes, No breakdown Musculoskeletal: No Tenderness to Palpation of Joints or Extremities Lymphatic: No Cervical, Supraclavicular, or Inguinal Adenopathy Neurological: Cranial nerves II-XII grossly intact, Motor Exam 5/5 strength throughout Psych/Mental Status: - - sedated Microbiology Past 72 Hours 03/03/20 13:25 Blood Culture (Wb) #2 - Right Hand Blood Culture - Final No growth in 5 days. 03/03/20 13:15 Blood Culture (Wb) - Central Line Blood Culture - Final No growth in 5 days. 03/03/20 Unknown Sputum, Induced/Lukens Gram Stain - Final 03/03/20 Unknown Sputum, Induced/Lukens Respiratory Culture - Final Serratia marcescens Streptococcus pneumoniae Laboratory Results 03/08/20 12:24: POC Glucose 233 H 03/08/20 17:05: POC Glucose 244 H 03/09/20 00:25: POC Glucose 143 H 03/09/20 04:20: WBC 9.8, RBC 4.18 L, Hgb 13.4, Hct 42.4, MCV 101.4 H, MCH 32.1 H, MCHC 31.6 L, RDW Std Deviation 50.5 H, RDW Coeff of Charo 13.4, Plt Count 230, MPV 10.5, Immature Gran % (Auto) 0.600, Neut % (Auto) 87.2 H, Lymph % (Auto) 7.8 L, [place] % (Auto) 3.2, Eos % (Auto) 1.0, Baso % (Auto) 0.2, Absolute Neuts (auto) 8.6 H, Absolute Lymphs (auto) 0.77 L, Nucleated RBC % 0 03/09/20 04:20: Sodium 143, Potassium 4.0, Chloride 104, Carbon Dioxide 35.0 H, Anion Gap 4 L, BUN 62 H, Creatinine 1.15, Estim Creat Clear Calc 56.38, Est GFR (MDRD) Af Amer 79, Est GFR (MDRD) Non-Af 65, BUN/Creatinine Ratio 53.9 H, Glucose 157 H, Calcium 8.2 L Current Medications Acetaminophen (Acetaminophen 650 Mg/20 Ml Udc) 650 mg GT Q6H PRN PRN PRN Reason: Pain Score 1-10/Temp > 100.7 F Last Admin: 03/07/20 12:56 Dose: 650 mg Documented by: Apixaban (Apixaban 5 Mg Tablet) 5 mg GT BID [facility] Last Admin: 03/09/20 11:16 Dose: 5 mg Documented by: Carvedilol (Carvedilol 12.5 Mg Tablet) 12.5 mg PO BID [facility] Last Admin: 03/09/20 11:16 Dose: 12.5 mg Documented by: Chlorhexidine Gluconate (Chlorhexidine 15 Ml) 15 ml PO BID [facility] Last Admin: 03/09/20 11:19 Dose: 15 ml Documented by: Dexamethasone (Dexamethasone 4 Mg Tablet) 6 mg PO DAILY [facility] Stop: 03/16/20 10:01 Last Admin: 03/09/20 11:16 Dose: 6 mg Documented by: Furosemide (Furosemide 40 Mg/4 Ml Vial) 40 mg IV BID@1000,1700 [facility] Last Admin: 03/09/20 11:17 Dose: 40 mg Documented by: Guaifenesin (Guaifenesin 10 Ml Udc (200mg/10ml)) 10 ml PO Q4 [facility] Last Admin: 03/09/20 11:16 Dose: 10 ml Documented by: Propofol (Diprivan) 1,000 mg in 100 mls @ 24.336 mls/hr CONT INF .Q4H7M [facility]; Protocol Last Admin: 03/09/20 11:32 Dose: 10 mcg/kg/min, 6.1 mls/hr Documented by: Fentanyl Citrate 1,000 mcg/ (Sodium Chloride) 100 mls @ 20 mls/hr CONT INF .Q5H [facility]; Protocol Last Admin: 03/09/20 11:27 Dose: Not Given Documented by: Meropenem 500 mg/ Sodium (Chloride) 60 mls @ 100 mls/hr IV Q8 [facility] Last Infusion: 03/09/20 07:47 Dose: Infused Documented by: Pantoprazole Sodium 40 mg/ (Sodium Chloride) 110 mls @ 330 mls/hr IV Q12 [facility] Last Admin: 03/09/20 11:33 Dose: 330 mls/hr Documented by: Enteral Nutritional Formula (Vital High Protein) 1,000 mls @ 60 mls/hr GT .[id number] [facility] Last Admin: 03/09/20 04:50 Dose: Not Given Documented by: Insulin Human Lispro (Insulin Lispro 100 Unit/Ml Insuln.Pen) 0 unit SC Q6 [facility]; Protocol Last Admin: 03/09/20 11:22 Dose: 2 u Documented by: Levothyroxine Sodium (Levothyroxine 50 Mcg Tablet) 50 mcg PO DAILY [facility] Last Admin: 03/09/20 11:16 Dose: 50 mcg Documented by: Losartan Potassium (Losartan Potassium 25 Mg Tablet) 25 mg PO DAILY [facility] Last Admin: 03/09/20 11:16 Dose: 25 mg Documented by: Melatonin (Melatonin 3 Mg Tablet) 3 mg PO QHS [facility] Last Admin: 03/08/20 21:25 Dose: 3 mg Documented by: Ondansetron HCl (Ondansetron 4 Mg/2 Ml Vial) 4 mg IV Q8H PRN PRN PRN Reason: NAUSEA/VOMITING Polyethylene Glycol (Polyethylene Glycol 3350 17 Gm Packet) 17 gm GT DAILY PRN PRN Reason: Constipation Senna/Docusate Sodium (Senna/Docusate Sodium 1 Tablet) 2 tablet GT BID [facility] Last Admin: 03/09/20 11:17 Dose: 2 tablet Documented by: Sodium Chloride (0.9% Saline Lock 10 Ml Syringe) 10 - 40 ml IV UD PRN PRN Reason: Multilumen/Michel Flush Last Admin: 03/09/20 04:24 Dose: 30 ml Documented by: Sodium Chloride (0.9 % Nacl (Sterile) Posiflush 10 Ml) 10 - 40 ml IV UD PRN PRN Reason: Port access or dressing change Last Admin: 03/07/20 09:12 Dose: 10 ml Documented by: Throat Lozenges (Benzocaine/Menthol 1 Lozenge) 1 lozenge MUCOUS MEM Q2H PRN PRN PRN Reason: SORE THROAT Last Admin: 03/02/20 12:18 Dose: 1 lozenge Documented by: STROKE Vital Signs/Narrative: Vital Signs Temp Pulse Resp BP Pulse Ox 03/09/20 11:00 100.6 F H 77 22 H 113/70 90 03/09/20 10:00 100.6 F H 76 24 H 118/69 93 03/09/20 09:36 74 19 H 93 03/09/20 09:00 73 17 113/71 93 03/09/20 08:00 100.4 F H 72 22 H 122/70 H 92 Medical Necessity - Tobacco Use Smoking Status: Never smoker Tobacco Use: Non-smoker Assessment/Plan All Active Problems Septic shock (Acute) Acute respiratory failure with hypoxia (Acute) Pneumonia due to COVID-19 virus (Acute) Hyperglycemia (Acute) SURINDER (acute kidney injury) (Acute) # Acute hypoxic respiratory failure due to COVID 19 pneumonia remains intubated. and sedated. RASS score is -1 on PEEP of 8 and FiO2 of 55% sedated with propofol and fentanyl completed a course of remdesivir and decadron. also received convalescent pasma ID and pulmonology on board. remains febrile. On IV meropenem. dexamethasone restarted per ID ID recommends removal of right chest central venous catheter. blood cultures repeated on breathing treatment with bronchodilators #Septic shock: still remains febrile. On IV meropenem. Off pressors. ID on board ID recommends removal of right chest central line. blood cultures repeated. # SURINDER: resolved. # Hypertension: on losartan 25mg daily and carvedilol 12.5mg bid #Hyperlipidemia: diet controlled. #Hypothyroidism: on synthroid #GERD: on pantoprazole 20mg bid Nutrition: on tube feeding. DVT prophylaxis; on eliquis Inpatient E&M: [address] [facility] L3
[2020-03-09] MEDS: Vital High Protein 1,000 ML 60 ML GT (15:48)
--- NOTE | 2020-03-09 16:22 | PN.ID_ITS ---
Patient Problems: Active and Suspected Problems Septic shock (Acute) Acute respiratory failure with hypoxia (Acute) Pneumonia due to COVID-19 virus (Acute) Hyperglycemia (Acute) SURINDER (acute kidney injury) (Acute) Subjective: Still low grade fever, on vent - Physical Exam Vitals/I&O's: Vital Signs Temp Pulse Resp BP Pulse Ox 100.9 F H 76 19 H 115/78 94 03/09/20 12:00 03/09/20 16:00 03/09/20 16:00 03/09/20 16:00 03/09/20 16:00 Oxygen Flow Rate (L/min) 92 Oxygen Delivery Method Mechanical Ventilator Weight: 99.8 kg Body Mass Index (BMI) 31.1 Intake and Output for Last 24 Hours 03/07/20 03/08/20 03/09/20 23:59 23:59 23:59 Intake Total 3727.96 / 3741.76 2484.66 / 3073.26 2257.55 / 2257.55 Output Total 4520 / 4520 3375 / 3975 1900 / 1900 Balance -792.04 / -778.24 -890.34 / -901.74 357.55 / 357.55 General: Non-Cooperative Lungs: Diminished Cardiovascular: Regular rate, Regular Rhythm Abdomen: Soft, Non Tender, Non-Distended Skin: No rashes Microbiology Past 72 Hours 03/07/20 13:00 Blood Culture (Wb) - Left Hand Blood Culture - Preliminary No growth in 48 hours. 03/07/20 12:30 Blood Culture (Wb) - Central Line Blood Culture - Preliminary No growth in 48 hours. 03/03/20 13:25 Blood Culture (Wb) #2 - Right Hand Blood Culture - Final No growth in 5 days. 03/03/20 13:15 Blood Culture (Wb) - Central Line Blood Culture - Final No growth in 5 days. Laboratory Results 03/08/20 17:05: POC Glucose 244 H 03/09/20 00:25: POC Glucose 143 H 03/09/20 04:20: WBC 9.8, RBC 4.18 L, Hgb 13.4, Hct 42.4, MCV 101.4 H, MCH 32.1 H , MCHC 31.6 L, RDW Std Deviation 50.5 H, RDW Coeff of Charo 13.4, Plt Count 230, MPV 10.5, Immature Gran % (Auto) 0.600, Neut % (Auto) 87.2 H, Lymph % (Auto) 7.8 L, [place] % (Auto) 3.2, Eos % (Auto) 1.0, Baso % (Auto) 0.2, Absolute Neuts (auto) 8.6 H, Absolute Lymphs (auto) 0.77 L, Nucleated RBC % 0 03/09/20 04:20: Sodium 143, Potassium 4.0, Chloride 104, Carbon Dioxide 35.0 H, Anion Gap 4 L, BUN 62 H, Creatinine 1.15, Estim Creat Clear Calc 56.38, Est GFR (MDRD) Af Amer 79, Est GFR (MDRD) Non-Af 65, BUN/Creatinine Ratio 53.9 H, Glucose 157 H, Calcium 8.2 L Current Medications Acetaminophen (Acetaminophen 650 Mg/20 Ml Udc) 650 mg GT Q6H PRN PRN PRN Reason: Pain Score 1-10/Temp > 100.7 F Last Admin: 03/07/20 12:56 Dose: 650 mg Documented by: Apixaban (Apixaban 5 Mg Tablet) 5 mg GT BID [facility] Last Admin: 03/09/20 11:16 Dose: 5 mg Documented by: Carvedilol (Carvedilol 12.5 Mg Tablet) 12.5 mg PO BID [facility] Last Admin: 03/09/20 11:16 Dose: 12.5 mg Documented by: Chlorhexidine Gluconate (Chlorhexidine 15 Ml) 15 ml PO BID [facility] Last Admin: 03/09/20 11:19 Dose: 15 ml Documented by: Dexamethasone (Dexamethasone 4 Mg Tablet) 6 mg PO DAILY [facility] Stop: 03/16/20 10:01 Last Admin: 03/09/20 11:16 Dose: 6 mg Documented by: Furosemide (Furosemide 40 Mg/4 Ml Vial) 40 mg IV BID@1000,1700 [facility] Last Admin: 03/09/20 11:17 Dose: 40 mg Documented by: Guaifenesin (Guaifenesin 10 Ml Udc (200mg/10ml)) 10 ml PO Q4 [facility] Last Admin: 03/09/20 14:45 Dose: 10 ml Documented by: Propofol (Diprivan) 1,000 mg in 100 mls @ 24.336 mls/hr CONT INF .Q4H7M [facility]; Protocol Last Titration: 03/09/20 15:00 Dose: 10 mcg/kg/min, 6.1 mls/hr Documented by: Fentanyl Citrate 1,000 mcg/ (Sodium Chloride) 100 mls @ 20 mls/hr CONT INF .Q5H [facility]; Protocol Last Titration: 03/09/20 15:00 Dose: 75 mcg/hr, 7.5 mls/hr Documented by: Meropenem 500 mg/ Sodium (Chloride) 60 mls @ 100 mls/hr IV Q8 [facility] Last Infusion: 03/09/20 14:45 Dose: Infused Documented by: Pantoprazole Sodium 40 mg/ (Sodium Chloride) 110 mls @ 330 mls/hr IV Q12 [facility] Last Infusion: 03/09/20 11:54 Dose: Infused Documented by: Enteral Nutritional Formula (Vital High Protein) 1,000 mls @ 60 mls/hr GT .[id number] [facility] Last Admin: 03/09/20 15:48 Dose: 60 mls/hr Documented by: Insulin Human Lispro (Insulin Lispro 100 Unit/Ml Insuln.Pen) 0 unit SC Q6 [facility]; Protocol Last Admin: 03/09/20 11:22 Dose: 2 u Documented by: Levothyroxine Sodium (Levothyroxine 50 Mcg Tablet) 50 mcg PO DAILY [facility] Last Admin: 03/09/20 11:16 Dose: 50 mcg Documented by: Losartan Potassium (Losartan Potassium 25 Mg Tablet) 25 mg PO DAILY [facility] Last Admin: 03/09/20 11:16 Dose: 25 mg Documented by: Melatonin (Melatonin 3 Mg Tablet) 3 mg PO QHS [facility] Last Admin: 03/08/20 21:25 Dose: 3 mg Documented by: Ondansetron HCl (Ondansetron 4 Mg/2 Ml Vial) 4 mg IV Q8H PRN PRN PRN Reason: NAUSEA/VOMITING Polyethylene Glycol (Polyethylene Glycol 3350 17 Gm Packet) 17 gm GT DAILY PRN PRN Reason: Constipation Senna/Docusate Sodium (Senna/Docusate Sodium 1 Tablet) 2 tablet GT BID [facility] Last Admin: 03/09/20 11:17 Dose: 2 tablet Documented by: Sodium Chloride (0.9% Saline Lock 10 Ml Syringe) 10 - 40 ml IV UD PRN PRN Reason: Multilumen/Michel Flush Last Admin: 03/09/20 04:24 Dose: 30 ml Documented by: Sodium Chloride (0.9 % Nacl (Sterile) Posiflush 10 Ml) 10 - 40 ml IV UD PRN PRN Reason: Port access or dressing change Last Admin: 03/07/20 09:12 Dose: 10 ml Documented by: Throat Lozenges (Benzocaine/Menthol 1 Lozenge) 1 lozenge MUCOUS MEM Q2H PRN PRN PRN Reason: SORE THROAT Last Admin: 03/02/20 12:18 Dose: 1 lozenge Documented by: Medical Necessity - Tobacco Use Smoking Status: Never smoker Tobacco Use: Non-smoker Route of nutrition/ use of supplements: [] Nutritional Intake: [] IV Site: [] Kaye Catheter: [] - Assessment/Plan Antibiotics: [] Assessment/Plan: [] Active and Suspected Problems Septic shock (Acute) Acute respiratory failure with hypoxia (Acute) Pneumonia due to COVID-19 virus (Acute) Hyperglycemia (Acute) SURINDER (acute kidney injury) (Acute) covid with hypoxia - Completed 10 days of dex, completed remdesivir. CT neg for PE. Got plasma 02/26. Sx started 02/20/20. Now intubated. Persistent fever despite meropenem and sputum with only rare serratia and strep pneumo. R chest cvc was placed at OSH, recommend removal. Pending bcx x2, restarted dex. Vent setting improving, wbc normal. Cont haily for now, plan on stopping tomorrow. Will follow
[2020-03-09 17:16] LABS: Bedside Glucose 198 mg/dL (70-110)
[2020-03-09 18:10] LABS: Bedside Glucose 227 mg/dL (70-110)
[2020-03-09] MEDS: MELATONIN 3 MG TABLET PO (21:09)
[2020-03-09] MEDS: Acetaminophen 650 MG/20 ML UDC GT (21:28)
[2020-03-10] VITALS (33 sets, daily range): BP systolic 100–129; BP diastolic 61–85; PULSE 72–87; RESP 12–28; TEMP 37.7–38.6; O2SAT 87–95
[2020-03-10] MEDS: guaiFENesin 10 ML UDC (200MG/10ML) PO ×6 (02:40→21:50)
[2020-03-10] MEDS: TITRATION PARAMETER CHANGE 1 EACH IV (02:52)
[2020-03-10] MEDS: 0.9% Saline Lock 10 ML Syringe IV (04:43)
[2020-03-10 04:46] LABS: Absolute Lymphocyte Count 0.63 X10^3/uL (0.83-4.51); Absolute Neutrophil Count 8.4 X10^3/uL (2.0-7.7); Basophil# 0.03 X10^3/uL; Basophil% 0.3 % (0-1); Eosinophil# 0.12 X10^3/uL; Eosinophils% 1.3 % (0-5); Hematocrit 42.4 % (40-54); Hemoglobin 13.7 g/dL (13.0-16.5); Lymphocyte # 0.63 X10^3/ul (4.0); Lymphocyte % 6.6 % (19-41); Mean Corp Hgb Conc 32.3 g/dL (32-36); Mean Corpuscular Hgb 32.9 pg (27.0-32.0); Mean Corpuscular Volume 101.9 fL (80-94); Mean Platelet Vol. 10.5 fl (6.2-12.0); Monocyte# 0.37 X10^3/uL; Monocyte% 3.9 % (0-10); NRBC Flagged by Analyzer 0 % (0-5); Neutrophil # 8.35 X10^3/uL (2.7-7.7); Platelet Count 257 K/mm3 (150-450); RBC Distribution Width CV 13.7 % (11.6-14.6); RBC Distribution Width SD 51.7 fl (35.1-43.9); Red Blood Count 4.16 M/mm3 (4.6-6.2); White Blood Count 9.6 K/mm3 (4.4-11.0)
[2020-03-10 05:13] LABS: Anion Gap 4 (5-15); BUN 73 mg/dL (7-18); BUN/Creat Ratio 62.4 RATIO (10-20); Calcium,Total 8.3 mg/dL (8.5-10.1); Chloride 104 mmol/L (98-107); Creatinine, Serum 1.17 mg/dL (0.70-1.30); EST Glomerular Filtration Rate 64 mL/min (>60); Est Glom Filt Rate - Afr Amer 78 mL/min (>60); Estimated Creatinine Clearance 55.42 ml/min; Glucose 190 mg/dL (74-106); Potassium 4.1 mmol/L (3.5-5.1); Sodium Level 144 mmol/L (136-145); Triglycerides 193 mg/dL
[2020-03-10 05:19] LABS: CPK Total, Creatine Kinase 93 U/L (39-308)
[2020-03-10] MEDS: Propofol 10MG/Ml 1,000 MG/100 ML Bottle 5.9 MG CONT INF (06:00)
[2020-03-10] MEDS: Insulin Lispro 100 UNIT/ML INSULN.PEN SC ×4 (06:24→23:54)
[2020-03-10 06:40] LABS: Bedside Glucose 186 mg/dL (70-110)
--- NOTE | 2020-03-10 07:15 | PN_ITS ---
Subjective: The patient was seen and examined at the bedside this morning. Events from the last 24 hours have been reviewed. The patient did have a fever overnight with a T-max of 101.8 ?F. He remains hemodynamically stable, nonetheless. The patient remains on assist control mode of mechanical ventilation with an FiO2 requirement of 50% and PEEP of 5. The patient is currently documented to be overall net -3.4 L for the hospital admission. A spontaneous breathing trial was not completed this morning. Objective: The patient's most recent lab work, culture data and imaging studies have all been personally reviewed. Sputum culture dated March 03 was positive for Serratia marcescens and Streptococcus pneumoniae. General: - - Remains intubated, sedated and mechanically ventilated. HEENT: Atraumatic, PERRLA, Normocephalic Oral: No Gingival or Mucosal Lesions/ Ulcerations, - - Endotracheal and OG tubes remain in place Neck: Supple, No Nodes, Trachea Midline, - - Stable IJ triple-lumen catheter Lungs: No rhonchi, No wheeze, No rales, Diminished Cardiovascular: Regular rate, Regular Rhythm Abdomen: Bowel Sounds Present, Soft, Non Tender, Obese Extremities: No clubbing, No cyanosis, No edema Skin: No breakdown Musculoskeletal: No Tenderness to Palpation of Joints or Extremities Lymphatic: No Cervical, Supraclavicular, or Inguinal Adenopathy Neurological: - - No focal neurological deficits. Vital Signs Temp Pulse Resp BP Pulse Ox 100.3 F H 72 15 106/63 92 03/10/20 07:00 03/10/20 07:00 03/10/20 07:00 03/10/20 07:00 03/10/20 07:00 Oxygen Flow Rate (L/min) 92 Oxygen Delivery Method Mechanical Ventilator Weight: 217 lb 6.012 oz Body Mass Index (BMI) 31.1 Intake and Output for Last 24 Hours 03/08/20 03/09/20 03/10/20 23:59 23:59 23:59 Intake Total 2484.66 / 3073.26 3138.97 / 3522.57 1147.8 / 1147.8 Output Total 3375 / 3975 4100 / 4300 800 / 800 Balance -890.34 / -901.74 -961.03 / -777.43 347.8 / 347.8 Labs (Last 48 Hours) 03/08/20 03/08/20 03/09/20 12:24 17:05 00:25 WBC RBC Hgb Hct MCV MCH MCHC RDW Std Deviation RDW Coeff of Charo Plt Count MPV Immature Gran % (Auto) Neut % (Auto) Lymph % (Auto) [place] % (Auto) Eos % (Auto) Baso % (Auto) Absolute Neuts (auto) Absolute Lymphs (auto) Nucleated RBC % Sodium Potassium Chloride Carbon Dioxide Anion Gap BUN Creatinine Estim Creat Clear Calc Est GFR (MDRD) Af Amer Est GFR (MDRD) Non-Af BUN/Creatinine Ratio Glucose Calcium Total Creatine Kinase Triglycerides POC Glucose 233 H 244 H 143 H 03/09/20 03/09/20 03/09/20 04:20 04:20 11:20 WBC 9.8 RBC 4.18 L Hgb 13.4 Hct 42.4 MCV 101.4 H MCH 32.1 H MCHC 31.6 L RDW Std Deviation 50.5 H RDW Coeff of Charo 13.4 Plt Count 230 MPV 10.5 Immature Gran % (Auto) 0.600 Neut % (Auto) 87.2 H Lymph % (Auto) 7.8 L [place] % (Auto) 3.2 Eos % (Auto) 1.0 Baso % (Auto) 0.2 Absolute Neuts (auto) 8.6 H Absolute Lymphs (auto) 0.77 L Nucleated RBC % 0 Sodium 143 Potassium 4.0 Chloride 104 Carbon Dioxide 35.0 H Anion Gap 4 L BUN 62 H Creatinine 1.15 Estim Creat Clear Calc 56.38 Est GFR (MDRD) Af Amer 79 Est GFR (MDRD) Non-Af 65 BUN/Creatinine Ratio 53.9 H Glucose 157 H Calcium 8.2 L Total Creatine Kinase Triglycerides POC Glucose 198 H 03/09/20 03/10/20 03/10/20 17:15 04:35 04:35 WBC 9.6 RBC 4.16 L Hgb 13.7 Hct 42.4 MCV 101.9 H MCH 32.9 H MCHC 32.3 RDW Std Deviation 51.7 H RDW Coeff of Charo 13.7 Plt Count 257 MPV 10.5 Immature Gran % (Auto) 0.900 Neut % (Auto) 87.0 H Lymph % (Auto) 6.6 L [place] % (Auto) 3.9 Eos % (Auto) 1.3 Baso % (Auto) 0.3 Absolute Neuts (auto) 8.4 H Absolute Lymphs (auto) 0.63 L Nucleated RBC % 0 Sodium 144 Potassium 4.1 Chloride 104 Carbon Dioxide 36.0 H Anion Gap 4 L BUN 73 H Creatinine 1.17 Estim Creat Clear Calc 55.42 Est GFR (MDRD) Af Amer 78 Est GFR (MDRD) Non-Af 64 BUN/Creatinine Ratio 62.4 H Glucose 190 H Calcium 8.3 L Total Creatine Kinase Triglycerides 193 POC Glucose 227 H 03/10/20 03/10/20 04:35 06:23 WBC RBC Hgb Hct MCV MCH MCHC RDW Std Deviation RDW Coeff of Charo Plt Count MPV Immature Gran % (Auto) Neut % (Auto) Lymph % (Auto) [place] % (Auto) Eos % (Auto) Baso % (Auto) Absolute Neuts (auto) Absolute Lymphs (auto) Nucleated RBC % Sodium Potassium Chloride Carbon Dioxide Anion Gap BUN Creatinine Estim Creat Clear Calc Est GFR (MDRD) Af Amer Est GFR (MDRD) Non-Af BUN/Creatinine Ratio Glucose Calcium Total Creatine Kinase 93 Triglycerides POC Glucose 186 H Microbiology 03/07/20 13:00 Blood Culture (Wb) - Left Hand Blood Culture - Preliminary No growth in 48 hours. 03/07/20 12:30 Blood Culture (Wb) - Central Line Blood Culture - Preliminary No growth in 48 hours. 03/03/20 13:25 Blood Culture (Wb) #2 - Right Hand Blood Culture - Final No growth in 5 days. 03/03/20 13:15 Blood Culture (Wb) - Central Line Blood Culture - Final No growth in 5 days. Clinical Impression(s) from Imaging Studies Chest CTA 02/26/20 02:36 IMPRESSION: No demonstrated pulmonary embolism or arterial dissection. Scattered reticular interstitial opacities are seen in both lungs suggesting chronic interstitial lung disease. There are superimposed ill-defined groundglass opacities are seen more prominent in the upper lobes, may represent atypical pneumonia or viral pneumonia (COVID-19 ?). Electronically Signed: Meena Bro, at 6:05 EST Tel , Service support , Chest X-Ray 02/29/20 06:21 IMPRESSION: Groundglass peripheral alveolar infiltrate in the lungs bilaterally consistent with a viral pneumonia (COVID- 19 ?), which appears to have increased. Electronically Signed: Shahbaz Ahumada, at 8:40 EST Tel , Service support , Chest X-Ray 03/03/20 09:04 IMPRESSION: An NG tube and endotracheal tube are noted in place along with a PICC line in this patient with bilateral alveolar infiltrates which have increased consistent with the patient''s known Covid 19 pneumonia. Electronically Signed: Shahbaz Ahumada, at 11:57 EST Tel , Service support , Chest X-Ray 03/06/20 18:00 IMPRESSION: Gastric tube with tip in the proximal fundus, consider advancement if placement into the antrum is desired. Extensive bilateral pneumonia. Electronically Signed: Hazel Ríos, at 20:20 EST Tel , Service support , Chest X-Ray 03/06/20 23:09 IMPRESSION: Advancement of esophagogastric tube now terminating lower than the lowest portion of the study. Severe persistent bilateral airspace disease consistent with pneumonia. at 0053 Reported and signed by: Dominick Haywood MD Electronically Signed: Dominick Haywood MD at 0:52 EST Tel , Service support , Medical Necessity - Tobacco Use Smoking Status: Never smoker Tobacco Use: Non-smoker Assessment/Plan All Active Problems Septic shock (Acute) Acute respiratory failure with hypoxia (Acute) Pneumonia due to COVID-19 virus (Acute) Hyperglycemia (Acute) SURINDER (acute kidney injury) (Acute) RECOMMENDATIONS: 1. Continue patient on spontaneous mode of mechanical ventilation throughout the day and transition back to assist control tonight. 2. Continue Decadron and antimicrobials per ID recommendations. 3. Continue systemic anticoagulation with Eliquis. 4. Continue tube feeds as tolerated. 5. Continue gentle diuresis as tolerated by hemodynamics and renal function. 6. Continue appropriate GI prophylaxis. IMPRESSIONS: 1. Acute hypoxemic respiratory failure secondary to COVID-19 pneumonia The patient presented as a transfer from an outside facility with Covid-like symptoms for approximately 1 week. Unfortunately, the patient decompensated from a respiratory perspective despite noninvasive positive pressure ventilatory support, eventually requiring intubation. The patient did receive convalescent plasma and has completed treatment courses of both remdesivir and Decadron. In addition to the aforementioned, the patient remains on antimicrobials, given Serratia and Streptococcus isolated from cultures. Plan to continue current s upportive measures along with gentle diuresis as tolerated by hemodynamics and renal function. Continue to wean FiO2 and PEEP to maintain oxygen saturations at or above 90%. Continue tube feeds as tolerated. Plan for daily paired spontaneous awakening and breathing trials. 2. Morbid obesity/hypertension/hypothyroidism/GERD Complicates care, management, recovery and prognosis. Continue home medications as indicated. Continue sliding scale insulin coverage. Physical therapy to work with the patient. TIME: 35 minutes of critical care time, independent of procedures, was spent addressing the patient's acute hypoxemic respiratory failure secondary to COVID- 19 pneumonia, review of all data and collaboration with the care team. [phone] [id number] Critical care first hour
[2020-03-10] MEDS: Furosemide 40 MG/4 ML Vial IV ×2 (08:36→17:15)
[2020-03-10] MEDS: Senna/Docusate Sodium 1 Tablet 2 TABLET GT ×2 (08:38→21:51)
[2020-03-10] MEDS: dexAMETHasone 4 MG Tablet 6 MG PO (08:38)
[2020-03-10] MEDS: Levothyroxine 50 MCG Tablet PO (08:39)
[2020-03-10] MEDS: APIXABAN 5 MG TABLET GT ×2 (08:40→21:51)
[2020-03-10] MEDS: Carvedilol 12.5 MG Tablet PO ×2 (08:40→21:52)
[2020-03-10] MEDS: Chlorhexidine 15 ML PO ×2 (08:40→19:46)
[2020-03-10] MEDS: Losartan Potassium 25 MG Tablet PO (08:40)
[2020-03-10 11:15] LABS: Bedside Glucose 196 mg/dL (70-110)
[2020-03-10 12:36] LABS: Bedside Glucose 163 mg/dL (70-110)
--- NOTE | 2020-03-10 13:54 | PCM.PN.HOSP ---
Patient Problems: Active and Suspected Problems Septic shock (Acute) Acute respiratory failure with hypoxia (Acute) Pneumonia due to COVID-19 virus (Acute) Hyperglycemia (Acute) SURINDER (acute kidney injury) (Acute) Subjective: Patient seen and examined. He remains intubated. RASS score is 0. He is able to nod and shake his head in response to questions. He had no complaints. He was on spontaneous breathing trial at time of review. He has otherwise remained hemodynamically stable. He still does have a low grade fever with temperature 100.6 ?F today. Vitals/I&O's: Vital Signs Temp Pulse Resp BP Pulse Ox 100.6 F H 80 28 H 122/74 H 90 03/10/20 12:00 03/10/20 12:00 03/10/20 12:00 03/10/20 12:00 03/10/20 12:00 Oxygen Flow Rate (L/min) 92 Oxygen Delivery Method Mechanical Ventilator Weight: 217 lb 6.012 oz Body Mass Index (BMI) 31.1 Intake and Output for Last 24 Hours 03/08/20 03/09/20 03/10/20 23:59 23:59 23:59 Intake Total 2484.66 / 3073.26 3138.97 / 3522.57 1522.8 / 1522.8 Output Total 3375 / 3975 4100 / 4300 2450 / 2450 Balance -890.34 / -901.74 -961.03 / -777.43 -927.2 / -927.2 General: - - intubated, sedated, RASS score is 0 HEENT: Atraumatic, PERRLA, EOMI, Normocephalic Oral: Dry Mucosa Neck: Supple, No JVD, Negative Carotid Bruits Lungs: - - coarse crackles in mid and lower lung greene. intubated and sedated. RASS score is 0. Cardiovascular: Regular rate, Regular Rhythm, Normal S1, Normal S2, No murmurs Abdomen: Bowel Sounds Present, Soft, Non Tender, Non-Distended, No Hepato-splenomegaly Extremities: No clubbing, No cyanosis, No edema, Capillary Refill Less than 3 Seconds Skin: No rashes, No breakdown Musculoskeletal: No Tenderness to Palpation of Joints or Extremities Lymphatic: No Cervical, Supraclavicular, or Inguinal Adenopathy Neurological: Cranial nerves II-XII grossly intact, Motor Exam 5/5 strength throughout Psych/Mental Status: - - sedated Microbiology Past 72 Hours 03/07/20 13:00 Blood Culture (Wb) - Left Hand Blood Culture - Preliminary No growth in 48 hours. 03/07/20 12:30 Blood Culture (Wb) - Central Line Blood Culture - Preliminary No growth in 48 hours. 03/03/20 13:25 Blood Culture (Wb) #2 - Right Hand Blood Culture - Final No growth in 5 days. 03/03/20 13:15 Blood Culture (Wb) - Central Line Blood Culture - Final No growth in 5 days. Laboratory Results 03/09/20 11:20: POC Glucose 198 H 03/09/20 17:15: POC Glucose 227 H 03/09/20 23:57: POC Glucose 163 H 03/10/20 04:35: WBC 9.6, RBC 4.16 L, Hgb 13.7, Hct 42.4, MCV 101.9 H, MCH 32.9 H, MCHC 32.3, RDW Std Deviation 51.7 H, RDW Coeff of Charo 13.7, Plt Count 257, MPV 10.5, Immature Gran % (Auto) 0.900, Neut % (Auto) 87.0 H, Lymph % (Auto) 6.6 L, [place] % (Auto) 3.9, Eos % (Auto) 1.3, Baso % (Auto) 0.3, Absolute Neuts (auto) 8.4 H, Absolute Lymphs (auto) 0.63 L, Nucleated RBC % 0 03/10/20 04:35: Sodium 144, Potassium 4.1, Chloride 104, Carbon Dioxide 36.0 H, Anion Gap 4 L, BUN 73 H, Creatinine 1.17, Estim Creat Clear Calc 55.42, Est GFR (MDRD) Af Amer 78, Est GFR (MDRD) Non-Af 64, BUN/Creatinine Ratio 62.4 H, Glucose 190 H, Calcium 8.3 L, Triglycerides 193 03/10/20 04:35: Total Creatine Kinase 93 03/10/20 06:23: POC Glucose 186 H 03/10/20 10:42: POC Glucose 196 H Current Medications Acetaminophen (Acetaminophen 650 Mg/20 Ml Udc) 650 mg GT Q6H PRN PRN PRN Reason: Pain Score 1-10/Temp > 100.7 F Last Admin: 03/09/20 21:28 Dose: 650 mg Documented by: Apixaban (Apixaban 5 Mg Tablet) 5 mg GT BID [facility] Last Admin: 03/10/20 08:40 Dose: 5 mg Documented by: Carvedilol (Carvedilol 12.5 Mg Tablet) 12.5 mg PO BID [facility] Last Admin: 03/10/20 08:40 Dose: 12.5 mg Documented by: Chlorhexidine Gluconate (Chlorhexidine 15 Ml) 15 ml PO BID [facility] Last Admin: 03/10/20 08:40 Dose: 15 ml Documented by: Dexamethasone (Dexamethasone 4 Mg Tablet) 6 mg PO DAILY [facility] Stop: 03/16/20 10:01 Last Admin: 03/10/20 08:38 Dose: 6 mg Documented by: Furosemide (Furosemide 40 Mg/4 Ml Vial) 40 mg IV BID@1000,1700 [facility] Last Admin: 03/10/20 08:36 Dose: 40 mg Documented by: Guaifenesin (Guaifenesin 10 Ml Udc (200mg/10ml)) 10 ml PO Q4 [facility] Last Admin: 03/10/20 08:37 Dose: 10 ml Documented by: Propofol (Diprivan) 1,000 mg in 100 mls @ 23.664 mls/hr CONT INF .Q4H14M [facility]; Protocol Last Titration: 03/10/20 12:00 Dose: 0 mcg/kg/min, 0 mls/hr Documented by: Fentanyl Citrate 1,000 mcg/ (Sodium Chloride) 100 mls @ 20 mls/hr CONT INF .Q5H [facility]; Protocol Last Titration: 03/10/20 07:00 Dose: 0 mcg/hr, 0 mls/hr Documented by: Pantoprazole Sodium 40 mg/ (Sodium Chloride) 110 mls @ 330 mls/hr IV Q12 [facility] Last Admin: 03/10/20 08:35 Dose: 330 mls/hr Documented by: Enteral Nutritional Formula (Vital High Protein) 1,000 mls @ 60 mls/hr GT .[id number] [facility] Last Admin: 03/09/20 15:48 Dose: 60 mls/hr Documented by: Insulin Human Lispro (Insulin Lispro 100 Unit/Ml Insuln.Pen) 0 unit SC Q6 [facility]; Protocol Last Admin: 03/10/20 10:43 Dose: 2 u Documented by: Levothyroxine Sodium (Levothyroxine 50 Mcg Tablet) 50 mcg PO DAILY [facility] Last Admin: 03/10/20 08:39 Dose: 50 mcg Documented by: Losartan Potassium (Losartan Potassium 25 Mg Tablet) 25 mg PO DAILY [facility] Last Admin: 03/10/20 08:40 Dose: 25 mg Documented by: Melatonin (Melatonin 3 Mg Tablet) 3 mg PO QHS [facility] Last Admin: 03/09/20 21:09 Dose: 3 mg Documented by: Ondansetron HCl (Ondansetron 4 Mg/2 Ml Vial) 4 mg IV Q8H PRN PRN PRN Reason: NAUSEA/VOMITING Polyethylene Glycol (Polyethylene Glycol 3350 17 Gm Packet) 17 gm GT DAILY PRN PRN Reason: Constipation Senna/Docusate Sodium (Senna/Docusate Sodium 1 Tablet) 2 tablet GT BID [facility] Last Admin: 03/10/20 08:38 Dose: 2 tablet Documented by: Sodium Chloride (0.9% Saline Lock 10 Ml Syringe) 10 - 40 ml IV UD PRN PRN Reason: Multilumen/Michel Flush Last Admin: 03/10/20 04:43 Dose: 20 ml Documented by: Sodium Chloride (0.9 % Nacl (Sterile) Posiflush 10 Ml) 10 - 40 ml IV UD PRN PRN Reason: Port access or dressing change Last Admin: 03/07/20 09:12 Dose: 10 ml Documented by: Throat Lozenges (Benzocaine/Menthol 1 Lozenge) 1 lozenge MUCOUS MEM Q2H PRN PRN PRN Reason: SORE THROAT Last Admin: 03/02/20 12:18 Dose: 1 lozenge Documented by: STROKE Vital Signs/Narrative: Vital Signs Temp Pulse Resp BP BP Pulse Ox 03/10/20 12:00 100.6 F H 80 28 H 122/74 H 122/74 H 90 03/10/20 11:00 100.4 F H 78 20 H 116/73 90 03/10/20 10:25 77 25 H 90 03/10/20 10:00 100.2 F H 77 22 H 115/73 90 Medical Necessity - Tobacco Use Smoking Status: Never smoker Tobacco Use: Non-smoker Assessment/Plan All Active Problems Septic shock (Acute) Acute respiratory failure with hypoxia (Acute) Pneumonia due to COVID-19 virus (Acute) Hyperglycemia (Acute) SURINDER (acute kidney injury) (Acute) # Acute hypoxic respiratory failure due to COVID 19 pneumonia remains intubated. and sedated. RASS score is -1 sedated with propofol and fentanyl completed a course of remdesivir and decadron. also received convalescent pasma ID and pulmonology on board. remains febrile. On IV meropenem. dexamethasone restarted per ID sputum cultured Serratia marcescens and Strep pneumoniae ID recommends removal of right chest central venous catheter. blood cultures repeated on breathing treatment with bronchodilators continue gentle diuresis. on spontaneous breathing trial today in cumulative negative balance by 4.679L #Septic shock: still remains febrile. On IV meropenem. Off pressors. ID on board repeat blood cultures show no growth after 48 hours. # SURINDER: resolved. # Hypertension: on losartan 25mg daily and carvedilol 12.5mg bid #Hyperlipidemia: diet controlled. #Hypothyroidism: on synthroid #GERD: on pantoprazole 20mg bid Nutrition: on tube feeding. DVT prophylaxis; on eliquis Inpatient E&M: 88008 Subs Hosp L2
[2020-03-10] MEDS: Vital High Protein 1,000 ML 60 ML GT (14:17)
[2020-03-10] MEDS: Acetaminophen 650 MG/20 ML UDC GT ×2 (14:31→21:50)
--- NOTE | 2020-03-10 14:53 | PN.ID_ITS ---
Patient Problems: Active and Suspected Problems Septic shock (Acute) Acute respiratory failure with hypoxia (Acute) Pneumonia due to COVID-19 virus (Acute) Hyperglycemia (Acute) SURINDER (acute kidney injury) (Acute) Subjective: Awake on vent, tracks, able to nod. Still low grade fever. - Physical Exam Vitals/I&O's: Vital Signs Temp Pulse Resp BP Pulse Ox 100.6 F H 80 28 H 122/74 H 90 03/10/20 12:00 03/10/20 12:00 03/10/20 12:00 03/10/20 12:00 03/10/20 12:00 Oxygen Flow Rate (L/min) 92 Oxygen Delivery Method Mechanical Ventilator Weight: 98.6 kg Body Mass Index (BMI) 31.1 Intake and Output for Last 24 Hours 03/08/20 03/09/20 03/10/20 23:59 23:59 23:59 Intake Total 2484.66 / 3073.26 3138.97 / 3522.57 1522.8 / 1522.8 Output Total 3375 / 3975 4100 / 4300 3000 / 3000 Balance -890.34 / -901.74 -961.03 / -777.43 -1477.2 / -1477.2 General: Alert, Cooperative, No apparent distress Lungs: Diminished Cardiovascular: Regular rate, Regular Rhythm Abdomen: Soft, Non Tender, Non-Distended Skin: No rashes Microbiology Past 72 Hours 03/07/20 13:00 Blood Culture (Wb) - Left Hand Blood Culture - Preliminary No growth in 48 hours. 03/07/20 12:30 Blood Culture (Wb) - Central Line Blood Culture - Preliminary No growth in 48 hours. 03/03/20 13:25 Blood Culture (Wb) #2 - Right Hand Blood Culture - Final No growth in 5 days. 03/03/20 13:15 Blood Culture (Wb) - Central Line Blood Culture - Final No growth in 5 days. Laboratory Results 03/09/20 11:20: POC Glucose 198 H 03/09/20 17:15: POC Glucose 227 H 03/09/20 23:57: POC Glucose 163 H 03/10/20 04:35: WBC 9.6, RBC 4.16 L, Hgb 13.7, Hct 42.4, MCV 101.9 H, MCH 32.9 H , MCHC 32.3, RDW Std Deviation 51.7 H, RDW Coeff of Charo 13.7, Plt Count 257, MPV 10.5, Immature Gran % (Auto) 0.900, Neut % (Auto) 87.0 H, Lymph % (Auto) 6.6 L, [place] % (Auto) 3.9, Eos % (Auto) 1.3, Baso % (Auto) 0.3, Absolute Neuts (auto) 8.4 H, Absolute Lymphs (auto) 0.63 L, Nucleated RBC % 0 03/10/20 04:35: Sodium 144, Potassium 4.1, Chloride 104, Carbon Dioxide 36.0 H, Anion Gap 4 L, BUN 73 H, Creatinine 1.17, Estim Creat Clear Calc 55.42, Est GFR (MDRD) Af Amer 78, Est GFR (MDRD) Non-Af 64, BUN/Creatinine Ratio 62.4 H, Glucose 190 H, Calcium 8.3 L, Triglycerides 193 03/10/20 04:35: Total Creatine Kinase 93 03/10/20 06:23: POC Glucose 186 H 03/10/20 10:42: POC Glucose 196 H Current Medications Acetaminophen (Acetaminophen 650 Mg/20 Ml Udc) 650 mg GT Q6H PRN PRN PRN Reason: Pain Score 1-10/Temp > 100.7 F Last Admin: 03/10/20 14:31 Dose: 650 mg Documented by: Apixaban (Apixaban 5 Mg Tablet) 5 mg GT BID [facility] Last Admin: 03/10/20 08:40 Dose: 5 mg Documented by: Carvedilol (Carvedilol 12.5 Mg Tablet) 12.5 mg PO BID [facility] Last Admin: 03/10/20 08:40 Dose: 12.5 mg Documented by: Chlorhexidine Gluconate (Chlorhexidine 15 Ml) 15 ml PO BID [facility] Last Admin: 03/10/20 08:40 Dose: 15 ml Documented by: Dexamethasone (Dexamethasone 4 Mg Tablet) 6 mg PO DAILY [facility] Stop: 03/16/20 10:01 Last Admin: 03/10/20 08:38 Dose: 6 mg Documented by: Furosemide (Furosemide 40 Mg/4 Ml Vial) 40 mg IV BID@1000,1700 [facility] Last Admin: 03/10/20 08:36 Dose: 40 mg Documented by: Guaifenesin (Guaifenesin 10 Ml Udc (200mg/10ml)) 10 ml PO Q4 [facility] Last Admin: 03/10/20 14:17 Dose: 10 ml Documented by: Propofol (Diprivan) 1,000 mg in 100 mls @ 23.664 mls/hr CONT INF .Q4H14M [facility]; Protocol Last Titration: 03/10/20 12:00 Dose: 0 mcg/kg/min, 0 mls/hr Documented by: Fentanyl Citrate 1,000 mcg/ (Sodium Chloride) 100 mls @ 20 mls/hr CONT INF .Q5H [facility]; Protocol Last Titration: 03/10/20 07:00 Dose: 0 mcg/hr, 0 mls/hr Documented by: Pantoprazole Sodium 40 mg/ (Sodium Chloride) 110 mls @ 330 mls/hr IV Q12 [facility] Last Admin: 03/10/20 08:35 Dose: 330 mls/hr Documented by: Enteral Nutritional Formula (Vital High Protein) 1,000 mls @ 60 mls/hr GT .[id number] [facility] Last Admin: 03/10/20 14:17 Dose: 60 mls/hr Documented by: Insulin Human Lispro (Insulin Lispro 100 Unit/Ml Insuln.Pen) 0 unit SC Q6 [facility]; Protocol Last Admin: 03/10/20 10:43 Dose: 2 u Documented by: Levothyroxine Sodium (Levothyroxine 50 Mcg Tablet) 50 mcg PO DAILY [facility] Last Admin: 03/10/20 08:39 Dose: 50 mcg Documented by: Losartan Potassium (Losartan Potassium 25 Mg Tablet) 25 mg PO DAILY [facility] Last Admin: 03/10/20 08:40 Dose: 25 mg Documented by: Melatonin (Melatonin 3 Mg Tablet) 3 mg PO QHS [facility] Last Admin: 03/09/20 21:09 Dose: 3 mg Documented by: Ondansetron HCl (Ondansetron 4 Mg/2 Ml Vial) 4 mg IV Q8H PRN PRN PRN Reason: NAUSEA/VOMITING Polyethylene Glycol (Polyethylene Glycol 3350 17 Gm Packet) 17 gm GT DAILY PRN PRN Reason: Constipation Senna/Docusate Sodium (Senna/Docusate Sodium 1 Tablet) 2 tablet GT BID [facility] Last Admin: 03/10/20 08:38 Dose: 2 tablet Documented by: Sodium Chloride (0.9% Saline Lock 10 Ml Syringe) 10 - 40 ml IV UD PRN PRN Reason: Multilumen/Michel Flush Last Admin: 03/10/20 04:43 Dose: 20 ml Documented by: Sodium Chloride (0.9 % Nacl (Sterile) Posiflush 10 Ml) 10 - 40 ml IV UD PRN PRN Reason: Port access or dressing change Last Admin: 03/07/20 09:12 Dose: 10 ml Documented by: Throat Lozenges (Benzocaine/Menthol 1 Lozenge) 1 lozenge MUCOUS MEM Q2H PRN PRN PRN Reason: SORE THROAT Last Admin: 03/02/20 12:18 Dose: 1 lozenge Documented by: Medical Necessity - Tobacco Use Smoking Status: Never smoker Tobacco Use: Non-smoker Route of nutrition/ use of supplements: [] Nutritional Intake: [] IV Site: [] Kaye Catheter: [] - Assessment/Plan Antibiotics: [] Assessment/Plan: [] Active and Suspected Problems Septic shock (Acute) Acute respiratory failure with hypoxia (Acute) Pneumonia due to COVID-19 virus (Acute) Hyperglycemia (Acute) SURINDER (acute kidney injury) (Acute) covid with hypoxia - Completed 10 days of dex, completed remdesivir. CT neg for PE. Got plasma 02/26. Sx started 02/20/20. Now intubated. Persistent fever despite meropenem and sputum with only rare serratia and strep pneumo. On dex. Vent setting improving, wbc normal. Stopping haily today. Will follow
[2020-03-10 17:25] LABS: Bedside Glucose 225 mg/dL (70-110)
[2020-03-10] MEDS: MELATONIN 3 MG TABLET PO (21:53)
[2020-03-11] VITALS (38 sets, daily range): BP systolic 104–146; BP diastolic 65–92; PULSE 67–91; RESP 12–32; TEMP 37.2–38.3; O2SAT 88–97
[2020-03-11 00:11] LABS: Bedside Glucose 186 mg/dL (70-110)
[2020-03-11] MEDS: guaiFENesin 10 ML UDC (200MG/10ML) PO ×2 (02:15→05:46)
[2020-03-11 04:31] LABS: Absolute Lymphocyte Count 0.68 X10^3/uL (0.83-4.51); Absolute Neutrophil Count 7.6 X10^3/uL (2.0-7.7); Basophil# 0.02 X10^3/uL; Basophil% 0.2 % (0-1); Eosinophil# 0.06 X10^3/uL; Eosinophils% 0.7 % (0-5); Hematocrit 41.7 % (40-54); Hemoglobin 13.4 g/dL (13.0-16.5); Lymphocyte # 0.68 X10^3/ul (4.0); Lymphocyte % 7.7 % (19-41); Mean Corp Hgb Conc 32.1 g/dL (32-36); Mean Corpuscular Hgb 32.1 pg (27.0-32.0); Mean Platelet Vol. 10.3 fl (6.2-12.0); Monocyte# 0.37 X10^3/uL; Monocyte% 4.2 % (0-10); NRBC Flagged by Analyzer 0 % (0-5); Neutrophil # 7.61 X10^3/uL (2.7-7.7); Neutrophil % 86.2 % (47-70); Platelet Count 241 K/mm3 (150-450); RBC Distribution Width CV 13.5 % (11.6-14.6); RBC Distribution Width SD 50.6 fl (35.1-43.9); Red Blood Count 4.17 M/mm3 (4.6-6.2); White Blood Count 8.8 K/mm3 (4.4-11.0)
[2020-03-11 04:47] LABS: Anion Gap 7 (5-15); BUN 68 mg/dL (7-18); BUN/Creat Ratio 64.8 RATIO (10-20); Calcium,Total 8.2 mg/dL (8.5-10.1); Chloride 103 mmol/L (98-107); Creatinine, Serum 1.05 mg/dL (0.70-1.30); EST Glomerular Filtration Rate 73 mL/min (>60); Est Glom Filt Rate - Afr Amer 88 mL/min (>60); Estimated Creatinine Clearance 61.75 ml/min; Glucose 199 mg/dL (74-106); Potassium 3.7 mmol/L (3.5-5.1); Sodium Level 143 mmol/L (136-145)
[2020-03-11] MEDS: Insulin Lispro 100 UNIT/ML INSULN.PEN SC ×4 (05:47→23:08)
--- NOTE | 2020-03-11 05:49 | PN_ITS ---
Subjective: The patient was seen and examined at the bedside this morning. Events from the last 24 hours have been reviewed. The patient is currently afebrile, hemodynamically stable and maintaining appropriate oxygen saturations on spontaneous mode of mechanical ventilation with an FiO2 requirement of 50%. The patient is currently documented to be overall net -4.8 L for the hospital admission. The patient did pass his spontaneous breathing trial this morning. He is currently alert and following commands appropriately. Objective: The patient's most recent lab work, culture data and imaging studies have all been personally reviewed. Sputum culture dated March 03 was positive for Serratia marcescens and Streptococcus pneumoniae. General: Alert, No apparent distress, - - Remains intubated and mechanically ventilated. HEENT: Atraumatic, PERRLA, Normocephalic Oral: No Gingival or Mucosal Lesions/ Ulcerations, - - Endotracheal and OG tubes remain in place Neck: Supple, No Nodes, Trachea Midline Lungs: Diminished Cardiovascular: Regular rate, Regular Rhythm Abdomen: Bowel Sounds Present, Soft, Non Tender, Obese Extremities: No clubbing, No cyanosis, No edema Skin: No breakdown Musculoskeletal: No Tenderness to Palpation of Joints or Extremities Lymphatic: No Cervical, Supraclavicular, or Inguinal Adenopathy Neurological: - - No focal neurological deficits. The patient is alert and following commands appropriately. Vital Signs Temp Pulse Resp BP Pulse Ox 100.7 F H 84 30 H 125/84 H 91 03/11/20 05:00 03/11/20 05:30 03/11/20 05:30 03/11/20 05:00 03/11/20 05:30 Oxygen Flow Rate (L/min) 92 Oxygen Delivery Method Mechanical Ventilator Weight: 216 lb 7.903 oz Body Mass Index (BMI) 31.1 Intake and Output for Last 24 Hours 03/09/20 03/10/20 03/11/20 23:59 23:59 23:59 Intake Total 3138.97 / 3522.57 2805.8 / 2930.8 884 / 884 Output Total 4100 / 4300 4360 / 4360 385 / 385 Balance -961.03 / -777.43 -1554.2 / -1429.2 499 / 499 Labs (Last 48 Hours) 03/09/20 03/09/20 03/09/20 11:20 17:15 23:57 WBC RBC Hgb Hct MCV MCH MCHC RDW Std Deviation RDW Coeff of Charo Plt Count MPV Immature Gran % (Auto) Neut % (Auto) Lymph % (Auto) [place] % (Auto) Eos % (Auto) Baso % (Auto) Absolute Neuts (auto) Absolute Lymphs (auto) Nucleated RBC % Sodium Potassium Chloride Carbon Dioxide Anion Gap BUN Creatinine Estim Creat Clear Calc Est GFR (MDRD) Af Amer Est GFR (MDRD) Non-Af BUN/Creatinine Ratio Glucose Calcium Total Creatine Kinase Triglycerides POC Glucose 198 H 227 H 163 H 03/10/20 03/10/20 03/10/20 04:35 04:35 04:35 WBC 9.6 RBC 4.16 L Hgb 13.7 Hct 42.4 MCV 101.9 H MCH 32.9 H MCHC 32.3 RDW Std Deviation 51.7 H RDW Coeff of Charo 13.7 Plt Count 257 MPV 10.5 Immature Gran % (Auto) 0.900 Neut % (Auto) 87.0 H Lymph % (Auto) 6.6 L [place] % (Auto) 3.9 Eos % (Auto) 1.3 Baso % (Auto) 0.3 Absolute Neuts (auto) 8.4 H Absolute Lymphs (auto) 0.63 L Nucleated RBC % 0 Sodium 144 Potassium 4.1 Chloride 104 Carbon Dioxide 36.0 H Anion Gap 4 L BUN 73 H Creatinine 1.17 Estim Creat Clear Calc 55.42 Est GFR (MDRD) Af Amer 78 Est GFR (MDRD) Non-Af 64 BUN/Creatinine Ratio 62.4 H Glucose 190 H Calcium 8.3 L Total Creatine Kinase 93 Triglycerides 193 POC Glucose 03/10/20 03/10/20 03/10/20 06:23 10:42 17:10 WBC RBC Hgb Hct MCV MCH MCHC RDW Std Deviation RDW Coeff of Charo Plt Count MPV Immature Gran % (Auto) Neut % (Auto) Lymph % (Auto) [place] % (Auto) Eos % (Auto) Baso % (Auto) Absolute Neuts (auto) Absolute Lymphs (auto) Nucleated RBC % Sodium Potassium Chloride Carbon Dioxide Anion Gap BUN Creatinine Estim Creat Clear Calc Est GFR (MDRD) Af Amer Est GFR (MDRD) Non-Af BUN/Creatinine Ratio Glucose Calcium Total Creatine Kinase Triglycerides POC Glucose 186 H 196 H 225 H 03/10/20 03/11/20 03/11/20 23:50 04:15 04:15 WBC 8.8 RBC 4.17 L Hgb 13.4 Hct 41.7 MCV 100.0 H MCH 32.1 H MCHC 32.1 RDW Std Deviation 50.6 H RDW Coeff of Charo 13.5 Plt Count 241 MPV 10.3 Immature Gran % (Auto) 1.000 H Neut % (Auto) 86.2 H Lymph % (Auto) 7.7 L [place] % (Auto) 4.2 Eos % (Auto) 0.7 Baso % (Auto) 0.2 Absolute Neuts (auto) 7.6 Absolute Lymphs (auto) 0.68 L Nucleated RBC % 0 Sodium 143 Potassium 3.7 Chloride 103 Carbon Dioxide 33.0 H Anion Gap 7 BUN 68 H Creatinine 1.05 Estim Creat Clear Calc 61.75 Est GFR (MDRD) Af Amer 88 Est GFR (MDRD) Non-Af 73 BUN/Creatinine Ratio 64.8 H Glucose 199 H Calcium 8.2 L Total Creatine Kinase Triglycerides POC Glucose 186 H Microbiology 03/07/20 13:00 Blood Culture (Wb) - Left Hand Blood Culture - Preliminary No growth in 48 hours. 03/07/20 12:30 Blood Culture (Wb) - Central Line Blood Culture - Preliminary No growth in 48 hours. Clinical Impression(s) from Imaging Studies Chest CTA 02/26/20 02:36 IMPRESSION: No demonstrated pulmonary embolism or arterial dissection. Scattered reticular interstitial opacities are seen in both lungs suggesting chronic interstitial lung disease. There are superimposed ill-defined groundglass opacities are seen more prominent in the upper lobes, may represent atypical pneumonia or viral pneumonia (COVID-19 ?). Electronically Signed: Meena Bro, at 6:05 EST Tel , Service support , Chest X-Ray 02/29/20 06:21 IMPRESSION: Groundglass peripheral alveolar infiltrate in the lungs bilaterally consistent with a viral pneumonia (COVID- 19 ?), which appears to have increased. Electronically Signed: Shahbaz Ahumada, at 8:40 EST Tel , Service support , Chest X-Ray 03/03/20 09:04 IMPRESSION: An NG tube and endotracheal tube are noted in place along with a PICC line in this patient with bilateral alveolar infiltrates which have increased consistent with the patient''s known Covid 19 pneumonia. Electronically Signed: Shahbaz Ahumada, at 11:57 EST Tel , Service support , Chest X-Ray 03/06/20 18:00 IMPRESSION: Gastric tube with tip in the proximal fundus, consider advancement if placement into the antrum is desired. Extensive bilateral pneumonia. Electronically Signed: Hazel Ríos, at 20:20 EST Tel , Service support , Chest X-Ray 03/06/20 23:09 IMPRESSION: Advancement of esophagogastric tube now terminating lower than the lowest portion of the study. Severe persistent bilateral airspace disease consistent with pneumonia. at 0053 Reported and signed by: Dominick Haywood MD Electronically Signed: Dominick Haywood MD at 0:52 EST Tel , Service support , Medical Necessity - Tobacco Use Smoking Status: Never smoker Tobacco Use: Non-smoker Assessment/Plan All Active Problems Septic shock (Acute) Acute respiratory failure with hypoxia (Acute) Pneumonia due to COVID-19 virus (Acute) Hyperglycemia (Acute) SURINDER (acute kidney injury) (Acute) RECOMMENDATIONS: 1. Proceed with a trial of extubation this morning. 2. Once extubated, the patient will be placed on either Airvo heated high flow or BiPAP, depending on need. 3. Recommend that he remain n.p.o., pending evaluation by speech therapy. 4. Continue systemic anticoagulation with Eliquis. 5. Continue Decadron and IV Lasix. 6. Encourage incentive spirometer use. Aggressive physical therapy is warranted. 7. Continue appropriate GI prophylaxis. IMPRESSIONS: 1. Acute hypoxemic respiratory failure secondary to COVID-19 pneumonia The patient presented as a transfer from an outside facility with Covid-like symptoms for approximately 1 week. Unfortunately, the patient decompensated from a respiratory perspective despite noninvasive positive pressure ventilatory support, eventually requiring intubation. The patient did receive convalescent plasma and has completed treatment courses of both remdesivir and Decadron. In addition to the aforementioned, the patient completed a treatment course of antimicrobials, given Serratia and Streptococcus isolated from cultures. Plan to continue current supportive measures along with gentle diuresis as tolerated by hemodynamics and renal function. We will proceed with a trial of extubation this morning. Once extubated, the patient will be placed on either heated high flow oxygen or BiPAP, depending on needs. 2. Morbid obesity/hypertension/hypothyroidism/GERD Complicates care, management, recovery and prognosis. Continue home medications as indicated. Continue sliding scale insulin coverage. Physical therapy to work with the patient. TIME: 38 minutes of critical care time, independent of procedures, was spent addressing the patient's acute hypoxemic respiratory failure secondary to COVID- 19 pneumonia, review of all data and collaboration with the care team. ([id number]) [phone]: [id number] Critical care first hour
[2020-03-11 06:15] LABS: Bedside Glucose 185 mg/dL (70-110)
--- NOTE | 2020-03-11 07:43 | PCM.PN.HOSP ---
Patient Problems: Active and Suspected Problems Septic shock (Acute) Acute respiratory failure with hypoxia (Acute) Pneumonia due to COVID-19 virus (Acute) Hyperglycemia (Acute) SURINDER (acute kidney injury) (Acute) Subjective: Patient seen and examined. Patient extubated today and on BIPAP. No active events. RASS score is 0. Flexible hemodynamically stable otherwise. He is in cumulative negative balance by 4.8 L. Vitals/I&O's: Vital Signs Temp Pulse Resp BP Pulse Ox 100.5 F H 80 28 H 104/65 91 03/11/20 06:00 03/11/20 06:00 03/11/20 06:00 03/11/20 06:00 03/11/20 06:00 Oxygen Flow Rate (L/min) 92 Oxygen Delivery Method Mechanical Ventilator Weight: 216 lb 7.903 oz Body Mass Index (BMI) 31.1 Intake and Output for Last 24 Hours 03/09/20 03/10/20 03/11/20 23:59 23:59 23:59 Intake Total 3138.97 / 3522.57 2805.8 / 2930.8 884 / 884 Output Total 4100 / 4300 4360 / 4360 500 / 500 Balance -961.03 / -777.43 -1554.2 / -1429.2 384 / 384 General: - - intubated, sedated, RASS score is 0 HEENT: Atraumatic, PERRLA, EOMI, Normocephalic Oral: Dry Mucosa Neck: Supple, No JVD, Negative Carotid Bruits Lungs: - - coarse crackles in mid and lower lung greene. intubated and sedated. RASS score is 0. Cardiovascular: Regular rate, Regular Rhythm, Normal S1, Normal S2, No murmurs Abdomen: Bowel Sounds Present, Soft, Non Tender, Non-Distended, No Hepato-splenomegaly Extremities: No clubbing, No cyanosis, No edema, Capillary Refill Less than 3 Seconds Skin: No rashes, No breakdown Musculoskeletal: No Tenderness to Palpation of Joints or Extremities Lymphatic: No Cervical, Supraclavicular, or Inguinal Adenopathy Neurological: Cranial nerves II-XII grossly intact, Motor Exam 5/5 strength throughout Psych/Mental Status: - - sedated Microbiology Past 72 Hours 03/07/20 13:00 Blood Culture (Wb) - Left Hand Blood Culture - Preliminary No growth in 48 hours. 03/07/20 12:30 Blood Culture (Wb) - Central Line Blood Culture - Preliminary No growth in 48 hours. 03/03/20 13:25 Blood Culture (Wb) #2 - Right Hand Blood Culture - Final No growth in 5 days. 03/03/20 13:15 Blood Culture (Wb) - Central Line Blood Culture - Final No growth in 5 days. Laboratory Results 03/09/20 23:57: POC Glucose 163 H 03/10/20 10:42: POC Glucose 196 H 03/10/20 17:10: POC Glucose 225 H 03/10/20 23:50: POC Glucose 186 H 03/11/20 04:15: WBC 8.8, RBC 4.17 L, Hgb 13.4, Hct 41.7, MCV 100.0 H, MCH 32.1 H, MCHC 32.1, RDW Std Deviation 50.6 H, RDW Coeff of Charo 13.5, Plt Count 241, MPV 10.3, Immature Gran % (Auto) 1.000 H, Neut % (Auto) 86.2 H, Lymph % (Auto) 7.7 L, [place] % (Auto) 4.2, Eos % (Auto) 0.7, Baso % (Auto) 0.2, Absolute Neuts (auto) 7.6, Absolute Lymphs (auto) 0.68 L, Nucleated RBC % 0 03/11/20 04:15: Sodium 143, Potassium 3.7, Chloride 103, Carbon Dioxide 33.0 H, Anion Gap 7, BUN 68 H, Creatinine 1.05, Estim Creat Clear Calc 61.75, Est GFR (MDRD) Af Amer 88, Est GFR (MDRD) Non-Af 73, BUN/Creatinine Ratio 64.8 H, Glucose 199 H, Calcium 8.2 L 03/11/20 05:45: POC Glucose 185 H Current Medications Acetaminophen (Acetaminophen 650 Mg/20 Ml Udc) 650 mg GT Q6H PRN PRN PRN Reason: Pain Score 1-10/Temp > 100.7 F Last Admin: 03/10/20 21:50 Dose: 650 mg Documented by: Apixaban (Apixaban 5 Mg Tablet) 5 mg GT BID [facility] Last Admin: 03/10/20 21:51 Dose: 5 mg Documented by: Carvedilol (Carvedilol 12.5 Mg Tablet) 12.5 mg PO BID [facility] Last Admin: 03/10/20 21:52 Dose: 12.5 mg Documented by: Chlorhexidine Gluconate (Chlorhexidine 15 Ml) 15 ml PO BID [facility] Last Admin: 03/10/20 19:46 Dose: 15 ml Documented by: Dexamethasone (Dexamethasone 4 Mg Tablet) 6 mg PO DAILY [facility] Stop: 03/16/20 10:01 Last Admin: 03/10/20 08:38 Dose: 6 mg Documented by: Furosemide (Furosemide 40 Mg/4 Ml Vial) 40 mg IV BID@1000,1700 [facility] Last Admin: 03/10/20 17:15 Dose: 40 mg Documented by: Guaifenesin (Guaifenesin 10 Ml Udc (200mg/10ml)) 10 ml PO Q4 [facility] Last Admin: 03/11/20 05:46 Dose: 10 ml Documented by: Propofol (Diprivan) 1,000 mg in 100 mls @ 23.664 mls/hr CONT INF .Q4H14M [facility]; Protocol Last Admin: 03/11/20 05:30 Dose: Not Given Documented by: Fentanyl Citrate 1,000 mcg/ (Sodium Chloride) 100 mls @ 20 mls/hr CONT INF .Q5H [facility]; Protocol Last Admin: 03/11/20 07:03 Dose: Not Given Documented by: Pantoprazole Sodium 40 mg/ (Sodium Chloride) 110 mls @ 330 mls/hr IV Q12 [facility] Last Infusion: 03/10/20 22:13 Dose: Infused Documented by: Enteral Nutritional Formula (Vital High Protein) 1,000 mls @ 60 mls/hr GT .[id number] [facility] Last Admin: 03/11/20 07:02 Dose: Not Given Documented by: Insulin Human Lispro (Insulin Lispro 100 Unit/Ml Insuln.Pen) 0 unit SC Q6 [facility]; Protocol Last Admin: 03/11/20 05:47 Dose: 1 u Documented by: Levothyroxine Sodium (Levothyroxine 50 Mcg Tablet) 50 mcg PO DAILY [facility] Last Admin: 03/10/20 08:39 Dose: 50 mcg Documented by: Losartan Potassium (Losartan Potassium 25 Mg Tablet) 25 mg PO DAILY [facility] Last Admin: 03/10/20 08:40 Dose: 25 mg Documented by: Melatonin (Melatonin 3 Mg Tablet) 3 mg PO QHS [facility] Last Admin: 03/10/20 21:53 Dose: 3 mg Documented by: Ondansetron HCl (Ondansetron 4 Mg/2 Ml Vial) 4 mg IV Q8H PRN PRN PRN Reason: NAUSEA/VOMITING Polyethylene Glycol (Polyethylene Glycol 3350 17 Gm Packet) 17 gm GT DAILY PRN PRN Reason: Constipation Senna/Docusate Sodium (Senna/Docusate Sodium 1 Tablet) 2 tablet GT BID [facility] Last Admin: 03/10/20 21:51 Dose: 2 tablet Documented by: Sodium Chloride (0.9% Saline Lock 10 Ml Syringe) 10 - 40 ml IV UD PRN PRN Reason: Multilumen/Michel Flush Last Admin: 03/10/20 04:43 Dose: 20 ml Documented by: Sodium Chloride (0.9 % Nacl (Sterile) Posiflush 10 Ml) 10 - 40 ml IV UD PRN PRN Reason: Port access or dressing change Last Admin: 03/07/20 09:12 Dose: 10 ml Documented by: Throat Lozenges (Benzocaine/Menthol 1 Lozenge) 1 lozenge MUCOUS MEM Q2H PRN PRN PRN Reason: SORE THROAT Last Admin: 03/02/20 12:18 Dose: 1 lozenge Documented by: STROKE Vital Signs/Narrative: Vital Signs Temp Pulse Resp BP Pulse Ox 03/11/20 06:00 100.5 F H 80 28 H 104/65 91 03/11/20 05:30 84 30 H 91 03/11/20 05:00 100.7 F H 84 26 H 125/84 H 90 03/11/20 04:00 100.7 F H 79 20 H 120/77 90 Medical Necessity - Tobacco Use Smoking Status: Never smoker Tobacco Use: Non-smoker Assessment/Plan All Active Problems Septic shock (Acute) Acute respiratory failure with hypoxia (Acute) Pneumonia due to COVID-19 virus (Acute) Hyperglycemia (Acute) SURINDER (acute kidney injury) (Acute) # Acute hypoxic respiratory failure due to COVID 19 pneumonia extubated today, on BIPAP completed a course of remdesivir and decadron. also received convalescent pasma ID and pulmonology on board. remains febrile. On IV meropenem. dexamethasone restarted per ID sputum cultured Serratia marcescens and Strep pneumoniae on breathing treatment with bronchodilators continue gentle diuresis. for likely extubation today #Septic shock: still remains febrile. On IV meropenem. Off pressors. ID on board repeat blood cultures show no growth after 48 hours. # SURINDER: resolved. # Hypertension: on losartan 25mg daily and carvedilol 12.5mg bid #Hyperlipidemia: diet controlled. #Hypothyroidism: on synthroid #GERD: on pantoprazole 20mg bid Nutrition: on tube feeding. DVT prophylaxis; on eliquis Inpatient E&M: [id number] [facility]
[2020-03-11] MEDS: Furosemide 40 MG/4 ML Vial IV ×2 (10:06→17:16)
[2020-03-11] MEDS: 0.9% Saline Lock 10 ML Syringe IV (10:06)
[2020-03-11] MEDS: Chlorhexidine 15 ML PO ×2 (10:06→19:52)
--- NOTE | 2020-03-11 15:06 | PN.ID_ITS ---
Patient Problems: Active and Suspected Problems Septic shock (Acute) Acute respiratory failure with hypoxia (Acute) Pneumonia due to COVID-19 virus (Acute) Hyperglycemia (Acute) SURINDER (acute kidney injury) (Acute) Subjective: Extubated, on bipap, improved fever - Physical Exam Vitals/I&O's: Vital Signs Temp Pulse Resp BP Pulse Ox 99.2 F H 70 16 114/76 97 03/11/20 13:00 03/11/20 13:05 03/11/20 13:05 03/11/20 13:00 03/11/20 13:05 Oxygen Flow Rate (L/min) 60 Oxygen Delivery Method Bi-pap Weight: 98.2 kg Body Mass Index (BMI) 31.1 Intake and Output for Last 24 Hours 03/09/20 03/10/20 03/11/20 23:59 23:59 23:59 Intake Total 3138.97 / 3522.57 2805.8 / 2930.8 884 / 884 Output Total 4100 / 4300 4360 / 4360 1900 / 1900 Balance -961.03 / -777.43 -1554.2 / -1429.2 -1016 / -1016 General: Lethargic Lungs: Diminished Cardiovascular: Regular rate, Regular Rhythm Abdomen: Soft, Non Tender, Non-Distended Skin: No rashes Microbiology Past 72 Hours 03/07/20 13:00 Blood Culture (Wb) - Left Hand Blood Culture - Preliminary No growth in 48 hours. 03/07/20 12:30 Blood Culture (Wb) - Central Line Blood Culture - Preliminary No growth in 48 hours. 03/03/20 13:25 Blood Culture (Wb) #2 - Right Hand Blood Culture - Final No growth in 5 days. 03/03/20 13:15 Blood Culture (Wb) - Central Line Blood Culture - Final No growth in 5 days. Laboratory Results 03/10/20 17:10: POC Glucose 225 H 03/10/20 23:50: POC Glucose 186 H 03/11/20 04:15: WBC 8.8, RBC 4.17 L, Hgb 13.4, Hct 41.7, MCV 100.0 H, MCH 32.1 H , MCHC 32.1, RDW Std Deviation 50.6 H, RDW Coeff of Charo 13.5, Plt Count 241, MPV 10.3, Immature Gran % (Auto) 1.000 H, Neut % (Auto) 86.2 H, Lymph % (Auto) 7.7 L , [place] % (Auto) 4.2, Eos % (Auto) 0.7, Baso % (Auto) 0.2, Absolute Neuts (auto) 7.6, Absolute Lymphs (auto) 0.68 L, Nucleated RBC % 0 03/11/20 04:15: Sodium 143, Potassium 3.7, Chloride 103, Carbon Dioxide 33.0 H, Anion Gap 7, BUN 68 H, Creatinine 1.05, Estim Creat Clear Calc 61.75, Est GFR (MDRD) Af Amer 88, Est GFR (MDRD) Non-Af 73, BUN/Creatinine Ratio 64.8 H, Glucose 199 H, Calcium 8.2 L 03/11/20 05:45: POC Glucose 185 H Current Medications Acetaminophen (Acetaminophen 650 Mg/20 Ml Udc) 650 mg GT Q6H PRN PRN PRN Reason: Pain Score 1-10/Temp > 100.7 F Last Admin: 03/10/20 21:50 Dose: 650 mg Documented by: Apixaban (Apixaban 5 Mg Tablet) 5 mg GT BID [facility] Last Admin: 03/11/20 09:57 Dose: Not Given Documented by: Carvedilol (Carvedilol 12.5 Mg Tablet) 12.5 mg PO BID [facility] Last Admin: 03/11/20 09:57 Dose: Not Given Documented by: Chlorhexidine Gluconate (Chlorhexidine 15 Ml) 15 ml PO BID [facility] Last Admin: 03/11/20 10:06 Dose: 15 ml Documented by: Dexamethasone (Dexamethasone 4 Mg Tablet) 6 mg PO DAILY [facility] Stop: 03/16/20 10:01 Last Admin: 03/11/20 09:57 Dose: Not Given Documented by: Furosemide (Furosemide 40 Mg/4 Ml Vial) 40 mg IV BID@1000,1700 [facility] Last Admin: 03/11/20 10:06 Dose: 40 mg Documented by: Pantoprazole Sodium 40 mg/ (Sodium Chloride) 110 mls @ 330 mls/hr IV Q12 [facility] Last Admin: 03/11/20 09:49 Dose: 330 mls/hr Documented by: Enteral Nutritional Formula (Vital High Protein) 1,000 mls @ 60 mls/hr GT .[id number] [facility] Last Admin: 03/11/20 07:02 Dose: Not Given Documented by: Insulin Human Lispro (Insulin Lispro 100 Unit/Ml Insuln.Pen) 0 unit SC Q6 [facility]; Protocol Last Admin: 03/11/20 12:01 Dose: 2 u Documented by: Levothyroxine Sodium (Levothyroxine 50 Mcg Tablet) 50 mcg PO DAILY [facility] Last Admin: 03/11/20 09:56 Dose: Not Given Documented by: Losartan Potassium (Losartan Potassium 25 Mg Tablet) 25 mg PO DAILY [facility] Last Admin: 03/11/20 09:57 Dose: Not Given Documented by: Melatonin (Melatonin 3 Mg Tablet) 3 mg PO QHS [facility] Last Admin: 03/10/20 21:53 Dose: 3 mg Documented by: Ondansetron HCl (Ondansetron 4 Mg/2 Ml Vial) 4 mg IV Q8H PRN PRN PRN Reason: NAUSEA/VOMITING Polyethylene Glycol (Polyethylene Glycol 3350 17 Gm Packet) 17 gm GT DAILY PRN PRN Reason: Constipation Senna/Docusate Sodium (Senna/Docusate Sodium 1 Tablet) 2 tablet GT BID [facility] Last Admin: 03/11/20 09:56 Dose: Not Given Documented by: Sodium Chloride (0.9% Saline Lock 10 Ml Syringe) 10 - 40 ml IV UD PRN PRN Reason: Multilumen/Michel Flush Last Admin: 03/11/20 10:06 Dose: 10 ml Documented by: Sodium Chloride (0.9 % Nacl (Sterile) Posiflush 10 Ml) 10 - 40 ml IV UD PRN PRN Reason: Port access or dressing change Last Admin: 03/07/20 09:12 Dose: 10 ml Documented by: Throat Lozenges (Benzocaine/Menthol 1 Lozenge) 1 lozenge MUCOUS MEM Q2H PRN PRN PRN Reason: SORE THROAT Last Admin: 03/02/20 12:18 Dose: 1 lozenge Documented by: Medical Necessity - Tobacco Use Smoking Status: Never smoker Tobacco Use: Non-smoker Route of nutrition/ use of supplements: [] Nutritional Intake: [] IV Site: [] Kaye Catheter: [] - Assessment/Plan Antibiotics: [] Assessment/Plan: [] Active and Suspected Problems Septic shock (Acute) Acute respiratory failure with hypoxia (Acute) Pneumonia due to COVID-19 virus (Acute) Hyperglycemia (Acute) SURINDER (acute kidney injury) (Acute) covid with hypoxia - Completed 10 days of dex, completed remdesivir. CT neg for PE. Got plasma 02/26. Sx started 02/20/20. Now intubated. Persistent fever despite meropenem and sputum with only rare serratia and strep pneumo. On dex. Finished haily 03/10. Wbc normal, now off vent, fever resolved this AM. Will follow
[2020-03-11 15:21] LABS: Bedside Glucose 213 mg/dL (70-110)
--- NOTE | 2020-03-11 16:52 | CASEMGMT ---
Social Work SW attended pt rounds. Pt was extubated today and is now on bipap. Team stating pt is very weak and will likely need SNF placement prior to returning home alone. Pt is from out of town. SW placed calls to SNFs closer to pt home. The following are not accepting covid positive pt: [facility] VM left for [facility] and no answer at [facility]. SW spoke with BAO at [facility] and with [facility] who both state they would consider accepting pt if they are 14 days past onset and no longer symptomatic. SW to follow up next week when pt is closer to discharge. GARRET Gonzalez
[2020-03-11 17:35] LABS: Bedside Glucose 190 mg/dL (70-110)
--- NOTE | 2020-03-11 21:24 | PN_ITS ---
Progress Note Notified of by nursing team that patient is not getting Eliquis since patient is on BiPAP and he cannot come off BiPAP. Review of record shows acute left peroneal vein thrombosis. Will start patient on heparin bolus and drip. [employer] Dr[employer] and rounding physicians to follow-up in a.m. STROKE Vital Signs/Narrative: Vital Signs Temp Pulse Resp BP Pulse Ox 03/11/20 21:00 73 22 H 116/74 97 03/11/20 20:00 98.9 F 69 20 H 131/86 H 95 03/11/20 19:23 71 03/11/20 19:00 72 15 131/86 H 96 03/11/20 18:33 78 32 H 96 03/11/20 18:00 99 F 81 22 H 116/79 94
[2020-03-11] MEDS: Enoxaparin 100 MG/ML Syringe 90 MG SC (23:08)
[2020-03-12] VITALS (33 sets, daily range): BP systolic 87–132; BP diastolic 57–88; PULSE 67–109; RESP 12–28; TEMP 37–37.6; O2SAT 91–99
[2020-03-12 01:05] LABS: Bedside Glucose 182 mg/dL (70-110)
[2020-03-12 03:35] LABS: Absolute Lymphocyte Count 0.66 X10^3/uL (0.83-4.51); Absolute Neutrophil Count 10.1 X10^3/uL (2.0-7.7); Basophil# 0.03 X10^3/uL; Basophil% 0.3 % (0-1); Eosinophil# 0.08 X10^3/uL; Eosinophils% 0.7 % (0-5); Hematocrit 46.2 % (40-54); Hemoglobin 14.8 g/dL (13.0-16.5); Lymphocyte # 0.66 X10^3/ul (4.0); Lymphocyte % 5.7 % (19-41); Mean Corpuscular Volume 99.8 fL (80-94); Mean Platelet Vol. 10.4 fl (6.2-12.0); Monocyte# 0.52 X10^3/uL; Monocyte% 4.5 % (0-10); NRBC Flagged by Analyzer 0 % (0-5); Neutrophil # 10.13 X10^3/uL (2.7-7.7); Neutrophil % 88.3 % (47-70); Platelet Count 266 K/mm3 (150-450); RBC Distribution Width CV 13.3 % (11.6-14.6); RBC Distribution Width SD 49.5 fl (35.1-43.9); Red Blood Count 4.63 M/mm3 (4.6-6.2); White Blood Count 11.5 K/mm3 (4.4-11.0)
[2020-03-12 03:50] LABS: Anion Gap 6 (5-15); BUN 64 mg/dL (7-18); BUN/Creat Ratio 59.8 RATIO (10-20); Calcium,Total 8.3 mg/dL (8.5-10.1); Chloride 105 mmol/L (98-107); Creatinine, Serum 1.07 mg/dL (0.70-1.30); EST Glomerular Filtration Rate 71 mL/min (>60); Est Glom Filt Rate - Afr Amer 86 mL/min (>60); Glucose 163 mg/dL (74-106); Potassium 3.5 mmol/L (3.5-5.1); Sodium Level 145 mmol/L (136-145)
--- NOTE | 2020-03-12 05:50 | PN_ITS ---
Subjective: The patient was seen and examined at the bedside this morning. Events from the last 24 hours have been reviewed. The patient is currently afebrile, hemodynamically stable and maintaining appropriate oxygen saturations on BiPAP with an FiO2 requirement of 50%. Although the patient was successfully extubated yesterday, he remains exceedingly weak from a musculoskeletal perspective and was placed on BiPAP to assist with alveolar recruitment. The patient is currently documented to be overall net -8.2 L for the hospital admission. Objective: The patient's most recent lab work, culture data and imaging studies have all been personally reviewed. Sputum culture dated March 03 was positive for Serratia marcescens and Streptococcus pneumoniae. General: Alert, Cooperative, - - BiPAP remains in place HEENT: Atraumatic, Normocephalic Oral: Dry Mucosa Neck: Supple, No Nodes, Trachea Midline Lungs: Diminished Cardiovascular: Regular rate, Regular Rhythm Abdomen: Bowel Sounds Present, Soft, Non Tender, Obese Extremities: No clubbing, No cyanosis, No edema Skin: No breakdown Lymphatic: No Cervical, Supraclavicular, or Inguinal Adenopathy Neurological: Neuro grossly intact Psych/Mental Status: Normal Affect Vital Signs Temp Pulse Resp BP Pulse Ox 99.0 F 71 14 132/86 H 96 03/12/20 05:00 03/12/20 05:00 03/12/20 05:00 03/12/20 05:00 03/12/20 05:00 Oxygen Flow Rate (L/min) 60 Oxygen Delivery Method Bi-pap Weight: 209 lb 14.081 oz Body Mass Index (BMI) 31.1 Intake and Output for Last 24 Hours 03/10/20 03/11/20 03/12/20 23:59 23:59 23:59 Intake Total 2805.8 / 2930.8 1104 / 1104 Output Total 4360 / 4360 3675 / 3675 385 / 385 Balance -1554.2 / -1429.2 -2571 / -2571 -385 / -385 Labs (Last 48 Hours) 03/09/20 03/10/20 03/10/20 23:57 06:23 10:42 WBC RBC Hgb Hct MCV MCH MCHC RDW Std Deviation RDW Coeff of Charo Plt Count MPV Immature Gran % (Auto) Neut % (Auto) Lymph % (Auto) [place] % (Auto) Eos % (Auto) Baso % (Auto) Absolute Neuts (auto) Absolute Lymphs (auto) Nucleated RBC % Sodium Potassium Chloride Carbon Dioxide Anion Gap BUN Creatinine Estim Creat Clear Calc Est GFR (MDRD) Af Amer Est GFR (MDRD) Non-Af BUN/Creatinine Ratio Glucose Calcium POC Glucose 163 H 186 H 196 H 03/10/20 03/10/20 03/11/20 17:10 23:50 04:15 WBC 8.8 RBC 4.17 L Hgb 13.4 Hct 41.7 MCV 100.0 H MCH 32.1 H MCHC 32.1 RDW Std Deviation 50.6 H RDW Coeff of Charo 13.5 Plt Count 241 MPV 10.3 Immature Gran % (Auto) 1.000 H Neut % (Auto) 86.2 H Lymph % (Auto) 7.7 L [place] % (Auto) 4.2 Eos % (Auto) 0.7 Baso % (Auto) 0.2 Absolute Neuts (auto) 7.6 Absolute Lymphs (auto) 0.68 L Nucleated RBC % 0 Sodium Potassium Chloride Carbon Dioxide Anion Gap BUN Creatinine Estim Creat Clear Calc Est GFR (MDRD) Af Amer Est GFR (MDRD) Non-Af BUN/Creatinine Ratio Glucose Calcium POC Glucose 225 H 186 H 03/11/20 03/11/20 03/11/20 04:15 05:45 11:57 WBC RBC Hgb Hct MCV MCH MCHC RDW Std Deviation RDW Coeff of Charo Plt Count MPV Immature Gran % (Auto) Neut % (Auto) Lymph % (Auto) [place] % (Auto) Eos % (Auto) Baso % (Auto) Absolute Neuts (auto) Absolute Lymphs (auto) Nucleated RBC % Sodium 143 Potassium 3.7 Chloride 103 Carbon Dioxide 33.0 H Anion Gap 7 BUN 68 H Creatinine 1.05 Estim Creat Clear Calc 61.75 Est GFR (MDRD) Af Amer 88 Est GFR (MDRD) Non-Af 73 BUN/Creatinine Ratio 64.8 H Glucose 199 H Calcium 8.2 L POC Glucose 185 H 213 H 03/11/20 03/11/20 03/12/20 17:16 23:04 03:30 WBC 11.5 H RBC 4.63 Hgb 14.8 Hct 46.2 MCV 99.8 H MCH 32.0 MCHC 32.0 RDW Std Deviation 49.5 H RDW Coeff of Charo 13.3 Plt Count 266 MPV 10.4 Immature Gran % (Auto) 0.500 Neut % (Auto) 88.3 H Lymph % (Auto) 5.7 L [place] % (Auto) 4.5 Eos % (Auto) 0.7 Baso % (Auto) 0.3 Absolute Neuts (auto) 10.1 H Absolute Lymphs (auto) 0.66 L Nucleated RBC % 0 Sodium Potassium Chloride Carbon Dioxide Anion Gap BUN Creatinine Estim Creat Clear Calc Est GFR (MDRD) Af Amer Est GFR (MDRD) Non-Af BUN/Creatinine Ratio Glucose Calcium POC Glucose 190 H 182 H 03/12/20 03:30 WBC RBC Hgb Hct MCV MCH MCHC RDW Std Deviation RDW Coeff of Charo Plt Count MPV Immature Gran % (Auto) Neut % (Auto) Lymph % (Auto) [place] % (Auto) Eos % (Auto) Baso % (Auto) Absolute Neuts (auto) Absolute Lymphs (auto) Nucleated RBC % Sodium 145 Potassium 3.5 Chloride 105 Carbon Dioxide 34.0 H Anion Gap 6 BUN 64 H Creatinine 1.07 Estim Creat Clear Calc 60.60 Est GFR (MDRD) Af Amer 86 Est GFR (MDRD) Non-Af 71 BUN/Creatinine Ratio 59.8 H Glucose 163 H Calcium 8.3 L POC Glucose Clinical Impression(s) from Imaging Studies Chest CTA 02/26/20 02:36 IMPRESSION: No demonstrated pulmonary embolism or arterial dissection. Scattered reticular interstitial opacities are seen in both lungs suggesting chronic interstitial lung disease. There are superimposed ill-defined groundglass opacities are seen more prominent in the upper lobes, may represent atypical pneumonia or viral pneumonia (COVID-19 ?). Electronically Signed: Meena Bro, at 6:05 EST Tel , Service support , Chest X-Ray 02/29/20 06:21 IMPRESSION: Groundglass peripheral alveolar infiltrate in the lungs bilaterally consistent with a viral pneumonia (COVID- 19 ?), which appears to have increased. Electronically Signed: Shahbaz Ahumada, at 8:40 EST Tel , Service support , Chest X-Ray 03/03/20 09:04 IMPRESSION: An NG tube and endotracheal tube are noted in place along with a PICC line in this patient with bilateral alveolar infiltrates which have increased consistent with the patient''s known Covid 19 pneumonia. Electronically Signed: Shahbaz Ahumada, at 11:57 EST Tel , Service support , Chest X-Ray 03/06/20 18:00 IMPRESSION: Gastric tube with tip in the proximal fundus, consider advancement if placement into the antrum is desired. Extensive bilateral pneumonia. Electronically Signed: Hazel Ríos, at 20:20 EST Tel , Service support , Chest X-Ray 03/06/20 23:09 IMPRESSION: Advancement of esophagogastric tube now terminating lower than the lowest portion of the study. Severe persistent bilateral airspace disease consistent with pneumonia. at 0053 Reported and signed by: Dominick Haywood MD Electronically Signed: Dominick Haywood MD at 0:52 EST Tel , Service support , Medical Necessity - Tobacco Use Smoking Status: Never smoker Tobacco Use: Non-smoker Assessment/Plan All Active Problems Septic shock (Acute) Acute respiratory failure with hypoxia (Acute) Pneumonia due to COVID-19 virus (Acute) Hyperglycemia (Acute) SURINDER (acute kidney injury) (Acute) RECOMMENDATIONS: 1. Transition patient from BiPAP to Airvo as tolerated. Wean FiO2 to maintain oxygen saturations at or above 90%. 2. Await speech therapy evaluation prior to advancing diet. 3. Continue systemic anticoagulation with Lovenox. 4. Continue Decadron and IV Lasix. 5. Encourage incentive spirometer use. Aggressive physical therapy is warranted. 6. Continue appropriate GI prophylaxis. IMPRESSIONS: 1. Acute hypoxemic respiratory failure secondary to COVID-19 pneumonia The patient presented as a transfer from an outside facility with Covid-like symptoms for approximately 1 week. Unfortunately, the patient decompensated from a respiratory perspective despite noninvasive positive pressure ventilatory support, eventually requiring intubation. The patient did receive convalescent plasma and has completed treatment courses of both remdesivir and Decadron. In addition to the aforementioned, the patient completed a treatment course of antimicrobials, given Serratia and Streptococcus isolated from cultures. Plan to continue current supportive measures along with gentle diuresis as tolerated by hemodynamics and renal function. The patient was able to be successfully extubated on March 11. Plan to continue BIPAP or Airvo to maintain oxygen saturations at or above 90%. 2. Morbid obesity/hypertension/hypothyroidism/GERD Complicates care, management, recovery and prognosis. Continue home medications as indicated. Continue sliding scale insulin coverage. Physical therapy to work with the patient. This note was generated with VisiQuate dictation software. It may contain incorrect words, spelling, and punctuation that were not noted in checking the note before signing. Inpatient E&M: [id number] [facility] Hosp L3
[2020-03-12 06:40] LABS: Bedside Glucose 154 mg/dL (70-110)
--- NOTE | 2020-03-12 11:44 | PCM.PN.HOSP ---
Patient Problems: Active and Suspected Problems Septic shock (Acute) Acute respiratory failure with hypoxia (Acute) Pneumonia due to COVID-19 virus (Acute) Hyperglycemia (Acute) SURINDER (acute kidney injury) (Acute) Subjective: Patient seen and examined. He was on Airvo and had no complaints. He feels much better and shortness of breath is improved. Review of symptoms otherwise negative. He has remained hemodynamically stable otherwise. WBC slightly up to 11.5. Vitals/I&O's: Vital Signs Temp Pulse Resp BP Pulse Ox 99.0 F 76 20 H 122/83 H 96 03/12/20 05:00 03/12/20 07:00 03/12/20 07:00 03/12/20 07:00 03/12/20 07:00 Oxygen Flow Rate (L/min) 50 Oxygen Delivery Method Airvo Weight: 209 lb 14.081 oz Body Mass Index (BMI) 31.1 Intake and Output for Last 24 Hours 03/10/20 03/11/20 03/12/20 23:59 23:59 23:59 Intake Total 2805.8 / 2930.8 1104 / 1104 Output Total 4360 / 4360 3675 / 3675 385 / 385 Balance -1554.2 / -1429.2 -2571 / -2571 -385 / -385 General: - alert, oriented, cooperative HEENT: Atraumatic, PERRLA, EOMI, Normocephalic Oral: Dry Mucosa Neck: Supple, No JVD, Negative Carotid Bruits Lungs: - -diminished breath sounds bibasally, on AirVo Cardiovascular: Regular rate, Regular Rhythm, Normal S1, Normal S2, No murmurs Abdomen: Bowel Sounds Present, Soft, Non Tender, Non-Distended, No Hepato-splenomegaly Extremities: No clubbing, No cyanosis, No edema, Capillary Refill Less than 3 Seconds Skin: No rashes, No breakdown Musculoskeletal: No Tenderness to Palpation of Joints or Extremities Lymphatic: No Cervical, Supraclavicular, or Inguinal Adenopathy Neurological: Cranial nerves II-XII grossly intact, Motor Exam 5/5 strength throughout Psych/Mental Status: normal affect Microbiology Past 72 Hours 03/07/20 13:00 Blood Culture (Wb) - Left Hand Blood Culture - Preliminary No growth in 48 hours. 03/07/20 12:30 Blood Culture (Wb) - Central Line Blood Culture - Preliminary No growth in 48 hours. Laboratory Results 03/11/20 11:57: POC Glucose 213 H 03/11/20 17:16: POC Glucose 190 H 03/11/20 23:04: POC Glucose 182 H 03/12/20 03:30: WBC 11.5 H, RBC 4.63, Hgb 14.8, Hct 46.2, MCV 99.8 H, MCH 32.0, MCHC 32.0, RDW Std Deviation 49.5 H, RDW Coeff of Charo 13.3, Plt Count 266, MPV 10.4, Immature Gran % (Auto) 0.500, Neut % (Auto) 88.3 H, Lymph % (Auto) 5.7 L, [place] % (Auto) 4.5, Eos % (Auto) 0.7, Baso % (Auto) 0.3, Absolute Neuts (auto) 10.1 H, Absolute Lymphs (auto) 0.66 L, Nucleated RBC % 0 03/12/20 03:30: Sodium 145, Potassium 3.5, Chloride 105, Carbon Dioxide 34.0 H, Anion Gap 6, BUN 64 H, Creatinine 1.07, Estim Creat Clear Calc 60.60, Est GFR (MDRD) Af Amer 86, Est GFR (MDRD) Non-Af 71, BUN/Creatinine Ratio 59.8 H, Glucose 163 H, Calcium 8.3 L 03/12/20 05:02: POC Glucose 154 H Diagnostic Data Chest CTA 02/26/20 02:36 IMPRESSION: No demonstrated pulmonary embolism or arterial dissection. Scattered reticular interstitial opacities are seen in both lungs suggesting chronic interstitial lung disease. There are superimposed ill-defined groundglass opacities are seen more prominent in the upper lobes, may represent atypical pneumonia or viral pneumonia (COVID-19 ?). Electronically Signed: Meena Bro, at 6:05 EST Tel , Service support , Chest X-Ray 03/06/20 23:09 IMPRESSION: Advancement of esophagogastric tube now terminating lower than the lowest portion of the study. Severe persistent bilateral airspace disease consistent with pneumonia. at 0053 Reported and signed by: Dominick Haywood MD Electronically Signed: Dominick Haywood MD at 0:52 EST Tel , Service support , Current Medications Acetaminophen (Acetaminophen 650 Mg/20 Ml Udc) 650 mg GT Q6H PRN PRN PRN Reason: Pain Score 1-10/Temp > 100.7 F Last Admin: 03/10/20 21:50 Dose: 650 mg Documented by: Apixaban (Apixaban 5 Mg Tablet) 5 mg GT BID [facility] Last Admin: 03/11/20 19:52 Dose: Not Given Documented by: Carvedilol (Carvedilol 12.5 Mg Tablet) 12.5 mg PO BID [facility] Last Admin: 03/11/20 19:53 Dose: Not Given Documented by: Chlorhexidine Gluconate (Chlorhexidine 15 Ml) 15 ml PO BID [facility] Last Admin: 03/11/20 19:52 Dose: 15 ml Documented by: Dexamethasone (Dexamethasone 4 Mg Tablet) 6 mg PO DAILY [facility] Stop: 03/16/20 10:01 Last Admin: 03/11/20 09:57 Dose: Not Given Documented by: Enoxaparin Sodium (Enoxaparin 100 Mg/Ml Syringe) 90 mg SC BID JONO Furosemide (Furosemide 40 Mg/4 Ml Vial) 40 mg IV BID@1000,1700 [facility] Last Admin: 03/11/20 17:16 Dose: 40 mg Documented by: Pantoprazole Sodium 40 mg/ (Sodium Chloride) 110 mls @ 330 mls/hr IV Q12 [facility] Last Infusion: 03/11/20 20:33 Dose: Infused Documented by: Enteral Nutritional Formula (Vital High Protein) 1,000 mls @ 60 mls/hr GT .[id number] [facility] Last Admin: 03/11/20 19:53 Dose: Not Given Documented by: Sodium Chloride () 250 mls @ 15 mls/hr IV .[id number] PRN PRN Reason: Saline Flush Sodium Chloride () 250 mls @ 15 mls/hr IV .[id number] PRN PRN Reason: Additional IVPB Infusion Insulin Human Lispro (Insulin Lispro 100 Unit/Ml Insuln.Pen) 0 unit SC Q6 [facility]; Protocol Last Admin: 03/12/20 05:04 Dose: Not Given Documented by: Levothyroxine Sodium (Levothyroxine 50 Mcg Tablet) 50 mcg PO DAILY [facility] Last Admin: 03/11/20 09:56 Dose: Not Given Documented by: Losartan Potassium (Losartan Potassium 25 Mg Tablet) 25 mg PO DAILY [facility] Last Admin: 03/11/20 09:57 Dose: Not Given Documented by: Melatonin (Melatonin 3 Mg Tablet) 3 mg PO QHS [facility] Last Admin: 03/11/20 19:52 Dose: Not Given Documented by: Ondansetron HCl (Ondansetron 4 Mg/2 Ml Vial) 4 mg IV Q8H PRN PRN PRN Reason: NAUSEA/VOMITING Polyethylene Glycol (Polyethylene Glycol 3350 17 Gm Packet) 17 gm GT DAILY PRN PRN Reason: Constipation Senna/Docusate Sodium (Senna/Docusate Sodium 1 Tablet) 2 tablet GT BID [facility] Last Admin: 03/11/20 19:53 Dose: Not Given Documented by: Sodium Chloride (0.9% Saline Lock 10 Ml Syringe) 10 - 40 ml IV UD PRN PRN Reason: Multilumen/Michel Flush Last Admin: 03/11/20 10:06 Dose: 10 ml Documented by: Sodium Chloride (0.9 % Nacl (Sterile) Posiflush 10 Ml) 10 - 40 ml IV UD PRN PRN Reason: Port access or dressing change Last Admin: 03/07/20 09:12 Dose: 10 ml Documented by: Throat Lozenges (Benzocaine/Menthol 1 Lozenge) 1 lozenge MUCOUS MEM Q2H PRN PRN PRN Reason: SORE THROAT Last Admin: 03/02/20 12:18 Dose: 1 lozenge Documented by: Medical Necessity - Tobacco Use Smoking Status: Never smoker Tobacco Use: Non-smoker Assessment/Plan All Active Problems Septic shock (Acute) Acute respiratory failure with hypoxia (Acute) Pneumonia due to COVID-19 virus (Acute) Hyperglycemia (Acute) SURINDER (acute kidney injury) (Acute) # Acute hypoxic respiratory failure due to COVID 19 pneumonia on AirVo completed a course of remdesivir and decadron. also received convalescent pasma ID and pulmonology on board. On IV meropenem and dexamethasone sputum cultured Serratia marcescens and Strep pneumoniae on breathing treatment with bronchodilators continue gentle diuresis. #Septic shock: temperature is settling. On IV meropenem. Off pressors. ID on board repeat blood cultures show no growth after 48 hours. # SURINDER: resolved. # Hypertension: on losartan 25mg daily and carvedilol 12.5mg bid #Hyperlipidemia: diet controlled. #Hypothyroidism: on synthroid #GERD: on pantoprazole 20mg bid Nutrition: on tube feeding. DVT prophylaxis; on eliquis Inpatient E&M: [id number] [facility] Hosp L3
[2020-03-12] MEDS: Carvedilol 12.5 MG Tablet PO ×2 (13:24→22:17)
[2020-03-12] MEDS: Senna/Docusate Sodium 1 Tablet 2 TABLET PO (13:24)
[2020-03-12] MEDS: Losartan Potassium 25 MG Tablet PO (13:25)
[2020-03-12] MEDS: Furosemide 40 MG/4 ML Vial IV (13:25)
[2020-03-12] MEDS: Levothyroxine 50 MCG Tablet PO (13:25)
[2020-03-12] MEDS: dexAMETHasone 4 MG Tablet 6 MG PO (13:25)
[2020-03-12] MEDS: Enoxaparin 100 MG/ML Syringe 90 MG SC ×2 (13:26→22:17)
[2020-03-12] MEDS: Insulin Lispro 100 UNIT/ML INSULN.PEN SC ×2 (13:39→17:37)
[2020-03-12] MEDS: 0.9% Saline Lock 10 ML Syringe IV ×2 (13:39→22:16)
[2020-03-12 17:35] LABS: Bedside Glucose 168 mg/dL (70-110)
[2020-03-12 18:00] LABS: Bedside Glucose 179 mg/dL (70-110)
--- NOTE | 2020-03-12 20:30 | CASEMGMT ---
SOCIAL WORK Attempted to complete Advanced Directives with patient. Patient stated to nursing wishes for nephew, Kevin Jenkins [phone] ([id number] [place] [id number]) to be HPOA. Patient was unable to complete forms at this time as he began to have difficulty following commands. SW to follow up. Meggan Moya, [employer], RETURNING OFFICER
[2020-03-12] MEDS: APIXABAN 5 MG TABLET PO (22:16)
[2020-03-12] MEDS: MELATONIN 3 MG TABLET PO (22:17)
[2020-03-13] VITALS (33 sets, daily range): BP systolic 60–119; BP diastolic 39–101; PULSE 62–90; RESP 12–26; TEMP 36.2–37.4; O2SAT 88–100
[2020-03-13] MEDS: Insulin Lispro 100 UNIT/ML INSULN.PEN SC ×4 (00:24→15:46)
--- NOTE | 2020-03-13 00:38 | NURSING ---
0000: pt awake and restless in bed. attempting to pull off bipap & sit up on the edge of bed. emotional support given. pt persistent on taking off bipap. assessment completed.
[2020-03-13] MEDS: Haloperidol Lactate 5 MG/ML Vial 1 MG IV (00:56)
--- NOTE | 2020-03-13 01:01 | NURSING ---
haldol 1 mg iv given per new order for pt's restlessness and pulling off bipap
[2020-03-13 01:36] LABS: Bedside Glucose 158 mg/dL (70-110)
[2020-03-13 04:29] LABS: Absolute Neutrophil Count 9.2 X10^3/uL (2.0-7.7); Basophil# 0.02 X10^3/uL; Basophil% 0.2 % (0-1); Eosinophil# 0.08 X10^3/uL; Eosinophils% 0.8 % (0-5); Hematocrit 42.7 % (40-54); Hemoglobin 13.6 g/dL (13.0-16.5); Lymphocyte % 5.8 % (19-41); Mean Corp Hgb Conc 31.9 g/dL (32-36); Mean Corpuscular Hgb 31.6 pg (27.0-32.0); Mean Corpuscular Volume 99.1 fL (80-94); Mean Platelet Vol. 10.9 fl (6.2-12.0); Monocyte# 0.43 X10^3/uL; Monocyte% 4.1 % (0-10); NRBC Flagged by Analyzer 0 % (0-5); Neutrophil # 9.16 X10^3/uL (2.7-7.7); Neutrophil % 88.3 % (47-70); POSITIVE DIFFERENTIAL YES; Platelet Count 217 K/mm3 (150-450); RBC Distribution Width CV 13.5 % (11.6-14.6); RBC Distribution Width SD 49.7 fl (35.1-43.9); Red Blood Count 4.31 M/mm3 (4.6-6.2); White Blood Count 10.4 K/mm3 (4.4-11.0)
[2020-03-13 04:45] LABS: Differential Indicated SCAN CRITERIA MET
[2020-03-13 04:46] LABS: Anion Gap 5 (5-15); BUN 64 mg/dL (7-18); Calcium,Total 8.1 mg/dL (8.5-10.1); Chloride 105 mmol/L (98-107); Creatinine, Serum 1.05 mg/dL (0.70-1.30); EST Glomerular Filtration Rate 73 mL/min (>60); Est Glom Filt Rate - Afr Amer 88 mL/min (>60); Estimated Creatinine Clearance 61.75 ml/min; Glucose 151 mg/dL (74-106); Magnesium 2.9 mg/dL (1.6-2.6); Phosphorus 3.9 mg/dL (2.5-4.9); Potassium 3.4 mmol/L (3.5-5.1); Sodium Level 144 mmol/L (136-145)
[2020-03-13 05:12] LABS: Differential Comment SCANNED
--- NOTE | 2020-03-13 05:30 | NURSING ---
haldol effective x 3 hours.
--- NOTE | 2020-03-13 05:47 | PCM.PN.INT ---
Subjective: The patient was seen and examined at the bedside this morning. Events from the last 24 hours have been reviewed. The patient is currently afebrile, hemodynamically stable and maintaining appropriate oxygen saturations on BiPAP with an FiO2 requirement of 50%. Potassium is low this morning at 3.4. Creatinine is stable. The patient is currently documented to be overall net negative 8 L for the hospital admission. The patient was eventually able to be transitioned to Airvo heated high flow and is currently sitting in the bedside recliner without any specific complaints. Objective: The patient's most recent lab work, culture data and imaging studies have all been personally reviewed. Sputum culture dated March 03 was positive for Serratia marcescens and Streptococcus pneumoniae. General: Alert, Cooperative, No apparent distress, - - Sitting in bedside recliner. HEENT: Atraumatic, Normocephalic Oral: Dry Mucosa Neck: Supple, No Nodes, Trachea Midline Lungs: No rhonchi, No wheeze, No rales, Diminished Cardiovascular: Regular rate, Regular Rhythm, Normal S1, Normal S2 Abdomen: Bowel Sounds Present, Soft, Non Tender Extremities: No clubbing, No cyanosis, No edema Skin: No breakdown Musculoskeletal: No Tenderness to Palpation of Joints or Extremities Lymphatic: No Cervical, Supraclavicular, or Inguinal Adenopathy Neurological: Cranial nerves II-XII grossly intact, Neuro grossly intact Psych/Mental Status: Flat Affect Vital Signs Temp Pulse Resp BP Pulse Ox 97.2 F L 74 22 H 106/72 91 03/13/20 05:00 03/13/20 05:00 03/13/20 05:00 03/13/20 05:00 03/13/20 05:00 Oxygen Flow Rate (L/min) 60 Oxygen Delivery Method Bi-pap Weight: 214 lb 1.102 oz Body Mass Index (BMI) 31.1 Intake and Output for Last 24 Hours 03/11/20 03/12/20 03/13/20 23:59 23:59 23:59 Intake Total 1104 / 1104 960 / 960 Output Total 3675 / 3675 1260 / 1260 0 / 0 Balance -2571 / -2571 -300 / -300 0 / 0 Labs (Last 48 Hours) 03/11/20 03/11/20 03/11/20 05:45 11:57 17:16 WBC RBC Hgb Hct MCV MCH MCHC RDW Std Deviation RDW Coeff of Charo Plt Count MPV Immature Gran % (Auto) Neut % (Auto) Lymph % (Auto) [place] % (Auto) Eos % (Auto) Baso % (Auto) Absolute Neuts (auto) Absolute Lymphs (auto) Nucleated RBC % Differential Comment Sodium Potassium Chloride Carbon Dioxide Anion Gap BUN Creatinine Estim Creat Clear Calc Est GFR (MDRD) Af Amer Est GFR (MDRD) Non-Af BUN/Creatinine Ratio Glucose Calcium Phosphorus Magnesium POC Glucose 185 H 213 H 190 H 03/11/20 03/12/20 03/12/20 23:04 03:30 03:30 WBC 11.5 H RBC 4.63 Hgb 14.8 Hct 46.2 MCV 99.8 H MCH 32.0 MCHC 32.0 RDW Std Deviation 49.5 H RDW Coeff of Charo 13.3 Plt Count 266 MPV 10.4 Immature Gran % (Auto) 0.500 Neut % (Auto) 88.3 H Lymph % (Auto) 5.7 L [place] % (Auto) 4.5 Eos % (Auto) 0.7 Baso % (Auto) 0.3 Absolute Neuts (auto) 10.1 H Absolute Lymphs (auto) 0.66 L Nucleated RBC % 0 Differential Comment Sodium 145 Potassium 3.5 Chloride 105 Carbon Dioxide 34.0 H Anion Gap 6 BUN 64 H Creatinine 1.07 Estim Creat Clear Calc 60.60 Est GFR (MDRD) Af Amer 86 Est GFR (MDRD) Non-Af 71 BUN/Creatinine Ratio 59.8 H Glucose 163 H Calcium 8.3 L Phosphorus Magnesium POC Glucose 182 H 03/12/20 03/12/20 03/12/20 05:02 13:29 17:32 WBC RBC Hgb Hct MCV MCH MCHC RDW Std Deviation RDW Coeff of Charo Plt Count MPV Immature Gran % (Auto) Neut % (Auto) Lymph % (Auto) [place] % (Auto) Eos % (Auto) Baso % (Auto) Absolute Neuts (auto) Absolute Lymphs (auto) Nucleated RBC % Differential Comment Sodium Potassium Chloride Carbon Dioxide Anion Gap BUN Creatinine Estim Creat Clear Calc Est GFR (MDRD) Af Amer Est GFR (MDRD) Non-Af BUN/Creatinine Ratio Glucose Calcium Phosphorus Magnesium POC Glucose 154 H 168 H 179 H 03/13/20 03/13/2020 00:04 04:10 04:10 WBC 10.4 RBC 4.31 L Hgb 13.6 Hct 42.7 MCV 99.1 H MCH 31.6 MCHC 31.9 L RDW Std Deviation 49.7 H RDW Coeff of Charo 13.5 Plt Count 217 MPV 10.9 Immature Gran % (Auto) 0.800 Neut % (Auto) 88.3 H Lymph % (Auto) 5.8 L [place] % (Auto) 4.1 Eos % (Auto) 0.8 Baso % (Auto) 0.2 Absolute Neuts (auto) 9.2 H Absolute Lymphs (auto) 0.60 L Nucleated RBC % 0 Differential Comment SCANNED Sodium 144 Potassium 3.4 L Chloride 105 Carbon Dioxide 34.0 H Anion Gap 5 BUN 64 H Creatinine 1.05 Estim Creat Clear Calc 61.75 Est GFR (MDRD) Af Amer 88 Est GFR (MDRD) Non-Af 73 BUN/Creatinine Ratio 61.0 H Glucose 151 H Calcium 8.1 L Phosphorus 3.9 Magnesium 2.9 H POC Glucose 158 H Microbiology 03/07/20 13:00 Blood Culture (Wb) - Left Hand Blood Culture - Final No growth in 5 days. 03/07/20 12:30 Blood Culture (Wb) - Central Line Blood Culture - Final No growth in 5 days. Clinical Impression(s) from Imaging Studies Chest CTA 02/26/20 02:36 IMPRESSION: No demonstrated pulmonary embolism or arterial dissection. Scattered reticular interstitial opacities are seen in both lungs suggesting chronic interstitial lung disease. There are superimposed ill-defined groundglass opacities are seen more prominent in the upper lobes, may represent atypical pneumonia or viral pneumonia (COVID-19 ?). Electronically Signed: Meena Bro, at 6:05 EST Tel , Service support , Chest X-Ray 02/29/20 06:21 IMPRESSION: Groundglass peripheral alveolar infiltrate in the lungs bilaterally consistent with a viral pneumonia (COVID- 19 ?), which appears to have increased. Electronically Signed: Shahbaz Ahumada, at 8:40 EST Tel , Service support , Chest X-Ray 03/03/20 09:04 IMPRESSION: An NG tube and endotracheal tube are noted in place along with a PICC line in this patient with bilateral alveolar infiltrates which have increased consistent with the patient''s known Covid 19 pneumonia. Electronically Signed: Shahbaz Ahumada, at 11:57 EST Tel , Service support , Chest X-Ray 03/06/20 18:00 IMPRESSION: Gastric tube with tip in the proximal fundus, consider advancement if placement into the antrum is desired. Extensive bilateral pneumonia. Electronically Signed: Hazel Ríos, at 20:20 EST Tel , Service support , Chest X-Ray 03/06/20 23:09 IMPRESSION: Advancement of esophagogastric tube now terminating lower than the lowest portion of the study. Severe persistent bilateral airspace disease consistent with pneumonia. at 0053 Reported and signed by: Dominick Haywood MD Electronically Signed: Dominick Haywood MD at 0:52 EST Tel , Service support , Medical Necessity - Tobacco Use Smoking Status: Never smoker Tobacco Use: Non-smoker Assessment/Plan All Active Problems Septic shock (Acute) Acute respiratory failure with hypoxia (Acute) Pneumonia due to COVID-19 virus (Acute) Hyperglycemia (Acute) SURINDER (acute kidney injury) (Acute) RECOMMENDATIONS: 1. Transition patient from BiPAP to Airvo as tolerated. Wean FiO2 to maintain oxygen saturations at or above 90%. 2. Continue systemic anticoagulation with Eliquis. 3. Hold Lasix, given tenuous hemodynamics. 4. Potassium repletion. 5. Continue Decadron as ordered. 6. Encourage incentive spirometer use. 7. Aggressive physical therapy is warranted. IMPRESSIONS: 1. Acute hypoxemic respiratory failure secondary to COVID-19 pneumonia The patient presented as a transfer from an outside facility with Covid-like symptoms for approximately 1 week. Unfortunately, the patient decompensated from a respiratory perspective despite noninvasive positive pressure ventilatory support, eventually requiring intubation. The patient did receive convalescent plasma and has completed treatment courses of both remdesivir and Decadron. In addition to the aforementioned, the patient completed a treatment course of antimicrobials, given Serratia and Streptococcus isolated from cultures. Plan to continue current supportive measures. The patient was able to be successfully extubated on March 11. The patient will be continued on systemic anticoagulation with Eliquis. Lasix will be held today given tenuous hemodynamics. 2. Hypokalemia Electrolyte repletion as ordered. Recheck levels in the morning. 3. Morbid obesity/hypertension/hypothyroidism/GERD Complicates care, management, recovery and prognosis. Continue home medications as indicated. Continue sliding scale insulin coverage. Physical therapy to work with the patient. This note was generated with [employer] dictation software. It may contain incorrect words, spelling, and punctuation that were not noted in checking the note before signing. Inpatient E&M: [id number] [facility] L3
[2020-03-13] MEDS: 0.9% Saline Lock 10 ML Syringe IV ×2 (06:00→11:10)
[2020-03-13 06:10] LABS: Bedside Glucose 155 mg/dL (70-110)
--- NOTE | 2020-03-13 07:32 | PN_ITS ---
Patient Problems: Active and Suspected Problems Septic shock (Acute) Acute respiratory failure with hypoxia (Acute) Pneumonia due to COVID-19 virus (Acute) Hyperglycemia (Acute) SURINDER (acute kidney injury) (Acute) Subjective: Patient seen and examined. He was sitting in a chair comfortably and had no complaints. He is on AirVO. He has remained hemodynamically stable. Review of systems is otherwise negative. He was on BIPAP overnight, and was transitioned to AirVo this morning. Review of systems otherwise negative. Vitals/I&O's: Vital Signs Temp Pulse Resp BP Pulse Ox 97.2 F L 72 16 104/70 91 03/13/20 05:00 03/13/20 06:00 03/13/20 06:00 03/13/20 06:00 03/13/20 06:00 Oxygen Flow Rate (L/min) 60 Oxygen Delivery Method Bi-pap Weight: 214 lb 1.102 oz Body Mass Index (BMI) 31.1 Intake and Output for Last 24 Hours 03/11/20 03/12/20 03/13/20 23:59 23:59 23:59 Intake Total 1104 / 1104 960 / 960 Output Total 3675 / 3675 1260 / 1260 0 / 0 Balance -2571 / -2571 -300 / -300 0 / 0 General: - alert, oriented, cooperative HEENT: Atraumatic, PERRLA, EOMI, Normocephalic Oral: Dry Mucosa Neck: Supple, No JVD, Negative Carotid Bruits Lungs: - -diminished breath sounds bibasally, on AirVo Cardiovascular: Regular rate, Regular Rhythm, Normal S1, Normal S2, No murmurs Abdomen: Bowel Sounds Present, Soft, Non Tender, Non-Distended, No Hepato- splenomegaly Extremities: No clubbing, No cyanosis, No edema, Capillary Refill Less than 3 Seconds Skin: No rashes, No breakdown Musculoskeletal: No Tenderness to Palpation of Joints or Extremities Lymphatic: No Cervical, Supraclavicular, or Inguinal Adenopathy Neurological: Cranial nerves II-XII grossly intact, Motor Exam 5/5 strength throughout Psych/Mental Status: normal affect Microbiology Past 72 Hours 03/07/20 13:00 Blood Culture (Wb) - Left Hand Blood Culture - Final No growth in 5 days. 03/07/20 12:30 Blood Culture (Wb) - Central Line Blood Culture - Final No growth in 5 days. Laboratory Results 03/12/20 13:29: POC Glucose 168 H 03/12/20 17:32: POC Glucose 179 H 03/13/20 00:04: POC Glucose 158 H 03/13/20 04:10: WBC 10.4, RBC 4.31 L, Hgb 13.6, Hct 42.7, MCV 99.1 H, MCH 31.6, MCHC 31.9 L, RDW Std Deviation 49.7 H, RDW Coeff of Charo 13.5, Plt Count 217, MPV 10.9, Immature Gran % (Auto) 0.800, Neut % (Auto) 88.3 H, Lymph % (Auto) 5.8 L, [place] % (Auto) 4.1, Eos % (Auto) 0.8, Baso % (Auto) 0.2, Absolute Neuts (auto) 9.2 H, Absolute Lymphs (auto) 0.60 L, Nucleated RBC % 0, Differential Comment SCANNED 03/13/20 04:10: Sodium 144, Potassium 3.4 L, Chloride 105, Carbon Dioxide 34.0 H , Anion Gap 5, BUN 64 H, Creatinine 1.05, Estim Creat Clear Calc 61.75, Est GFR (MDRD) Af Amer 88, Est GFR (MDRD) Non-Af 73, BUN/Creatinine Ratio 61.0 H, Glucose 151 H, Calcium 8.1 L, Phosphorus 3.9, Magnesium 2.9 H 03/13/20 05:56: POC Glucose 155 H Current Medications Acetaminophen (Acetaminophen 650 Mg/20 Ml Udc) 650 mg PO Q6H PRN PRN PRN Reason: Pain Score 1-10/Temp > 100.7 F Apixaban (Apixaban 5 Mg Tablet) 5 mg PO BID [facility] Last Admin: 03/12/20 22:16 Dose: 5 mg Documented by: Carvedilol (Carvedilol 12.5 Mg Tablet) 12.5 mg PO BID [facility] Last Admin: 03/12/20 22:17 Dose: 12.5 mg Documented by: Dexamethasone (Dexamethasone 4 Mg Tablet) 6 mg PO DAILY [facility] Stop: 03/16/20 10:01 Last Admin: 03/12/20 13:25 Dose: 6 mg Documented by: Enoxaparin Sodium (Enoxaparin 100 Mg/Ml Syringe) 90 mg SC BID [facility] Last Admin: 03/12/20 22:17 Dose: 90 mg Documented by: Furosemide (Furosemide 40 Mg/4 Ml Vial) 40 mg IV BID@1000,1700 [facility] Last Admin: 03/12/20 18:59 Dose: Not Given Documented by: Pantoprazole Sodium 40 mg/ (Sodium Chloride) 110 mls @ 330 mls/hr IV Q12 [facility] Last Infusion: 03/12/20 22:41 Dose: Infused Documented by: Sodium Chloride () 250 mls @ 15 mls/hr IV .[id number] PRN PRN Reason: Saline Flush Sodium Chloride () 250 mls @ 15 mls/hr IV .[id number] PRN PRN Reason: Additional IVPB Infusion Insulin Human Lispro (Insulin Lispro 100 Unit/Ml Insuln.Pen) 0 unit SC Q6 [facility]; Protocol Last Admin: 03/13/20 05:59 Dose: 1 u Documented by: Levothyroxine Sodium (Levothyroxine 50 Mcg Tablet) 50 mcg PO DAILY [facility] Last Admin: 03/12/20 13:25 Dose: 50 mcg Documented by: Losartan Potassium (Losartan Potassium 25 Mg Tablet) 25 mg PO DAILY [facility] Last Admin: 03/12/20 13:25 Dose: 25 mg Documented by: Melatonin (Melatonin 3 Mg Tablet) 3 mg PO QHS [facility] Last Admin: 03/12/20 22:17 Dose: 3 mg Documented by: Ondansetron HCl (Ondansetron 4 Mg/2 Ml Vial) 4 mg IV Q8H PRN PRN PRN Reason: NAUSEA/VOMITING Polyethylene Glycol (Polyethylene Glycol 3350 17 Gm Packet) 17 gm PO DAILY PRN PRN Reason: Constipation Senna/Docusate Sodium (Senna/Docusate Sodium 1 Tablet) 2 tablet PO BID [facility] Last Admin: 03/12/20 22:08 Dose: Not Given Documented by: Sodium Chloride (0.9% Saline Lock 10 Ml Syringe) 10 - 40 ml IV UD PRN PRN Reason: Multilumen/Michel Flush Last Admin: 03/13/20 06:00 Dose: 10 ml Documented by: Sodium Chloride (0.9 % Nacl (Sterile) Posiflush 10 Ml) 10 - 40 ml IV UD PRN PRN Reason: Port access or dressing change Last Admin: 03/07/20 09:12 Dose: 10 ml Documented by: Throat Lozenges (Benzocaine/Menthol 1 Lozenge) 1 lozenge MUCOUS MEM Q2H PRN PRN PRN Reason: SORE THROAT Last Admin: 03/02/20 12:18 Dose: 1 lozenge Documented by: STROKE Vital Signs/Narrative: Vital Signs Temp Pulse Resp BP Pulse Ox 03/13/20 06:00 72 16 104/70 91 03/13/20 05:00 97.2 F L 74 22 H 106/72 91 03/13/20 04:00 72 18 93/64 96 Medical Necessity - Tobacco Use Smoking Status: Never smoker Tobacco Use: Non-smoker Assessment/Plan All Active Problems Septic shock (Acute) Acute respiratory failure with hypoxia (Acute) Pneumonia due to COVID-19 virus (Acute) Hyperglycemia (Acute) SURINDER (acute kidney injury) (Acute) # Acute hypoxic respiratory failure due to COVID 19 pneumonia * remains on AirVo * completed a course of remdesivir and decadron. also received convalescent pasma * ID and pulmonology on board. * remains on PO dexamethasone. has completed a course of Meropenem * sputum cultured Serratia marcescens and Strep pneumoniae * on breathing treatment with bronchodilators * continue gentle diuresis. * #Septic shock: * temperature is settling. completed a course of meropenem. Off pressors. ID on board * repeat blood cultures show no growth after 48 hours. * # SURINDER: resolved. # Hypertension: on losartan 25mg daily and carvedilol 12.5mg bid #Hyperlipidemia: diet controlled. #Hypothyroidism: on synthroid #GERD: on pantoprazole 20mg bid Nutrition: now on 2gram low sodium diet DVT prophylaxis; on eliquis Inpatient E&M: [id number] [facility] H[facility] L2
[2020-03-13] MEDS: Carvedilol 12.5 MG Tablet PO ×2 (08:04→20:55)
[2020-03-13] MEDS: dexAMETHasone 4 MG Tablet 6 MG PO (08:04)
[2020-03-13] MEDS: Levothyroxine 50 MCG Tablet PO (08:04)
[2020-03-13] MEDS: APIXABAN 5 MG TABLET PO ×2 (08:05→20:54)
[2020-03-13] MEDS: Losartan Potassium 25 MG Tablet PO (08:05)
[2020-03-13] MEDS: Potassium Chloride 10mEq/100mL 10 MEQ/100 ML IV.SOLN. 100 MEQ IV BOLUS ×4 (10:15→15:47)
[2020-03-13] MEDS: 0.9% Normal Saline 1,000 ML 75 ML IV (11:15)
[2020-03-13] MEDS: Pantoprazole Sodium 40 MG Tablet PO ×2 (12:30→20:55)
[2020-03-13 14:50] LABS: Bedside Glucose 267 mg/dL (70-110)
[2020-03-13 16:50] LABS: Bedside Glucose 247 mg/dL (70-110)
[2020-03-13 21:45] LABS: Bedside Glucose 134 mg/dL (70-110)
[2020-03-14] VITALS (33 sets, daily range): BP systolic 90–137; BP diastolic 45–94; PULSE 67–91; RESP 12–24; TEMP 36.9–37.8; O2SAT 90–100
--- NOTE | 2020-03-14 00:55 | NURSING ---
RESTLESS, TRYING TO GET OUT OF BED. EMOTIONAL SUPPORT GIVEN AND PT REPOSITIONED BACK UP IN THE BED. BIPAP REMAINS ON. PT ENCOURAGED TO LEAVE BIPAP ON
[2020-03-14 07:10] LABS: Bedside Glucose 147 mg/dL (70-110)
--- NOTE | 2020-03-14 07:31 | PCM.PN.INT ---
Subjective: Patient did okay overnight. Patient continues to be impulsive and nursing reports very little sleep overnight. Patient did tolerate Airvo for most of the evening until he fell asleep and then was placed on BiPAP. Oxygenation status has been improving. General: Alert, Cooperative - Intermittently HEENT: Atraumatic, PERRLA, EOMI, Normocephalic, - - Slight scleral injection Oral: No Gingival or Mucosal Lesions/ Ulcerations, Dry Mucosa Neck: Supple, No JVD, No Nodes, Trachea Midline Lungs: No rhonchi, No wheeze, No rales, Diminished Cardiovascular: Regular rate, Regular Rhythm, Normal S1, Normal S2, No murmurs, No rub noted, No Gallop Abdomen: Bowel Sounds Present, Soft, Non Tender, Non-Distended Extremities: No cyanosis Skin: No rashes, No breakdown Musculoskeletal: No Tenderness to Palpation of Joints or Extremities Lymphatic: No Cervical, Supraclavicular, or Inguinal Adenopathy Neurological: Cranial nerves II-XII grossly intact, Neuro grossly intact, Motor Exam 5/5 strength throughout Psych/Mental Status: Impulsive, Restless Vital Signs Temp Pulse Resp BP Pulse Ox 37.5 C H 67 20 H 137/68 H 97 03/14/20 06:54 03/14/20 07:21 03/14/20 07:21 03/14/20 06:54 03/14/20 07:21 Oxygen Flow Rate (L/min) 50 Oxygen Delivery Method Bi-pap Weight: 98.112 kg Body Mass Index (BMI) 31.1 Intake and Output for Last 24 Hours 03/12/20 03/13/20 03/14/20 23:59 23:59 23:59 Intake Total 960 / 960 2410 / 2410 1000 / 1000 Output Total 1260 / 1260 1600 / 1600 350 / 350 Balance -300 / -300 810 / 810 650 / 650 Labs (Last 48 Hours) 03/12/20 03/12/20 03/13/20 13:29 17:32 00:04 WBC RBC Hgb Hct MCV MCH MCHC RDW Std Deviation RDW Coeff of Charo Plt Count MPV Immature Gran % (Auto) Neut % (Auto) Lymph % (Auto) [place] % (Auto) Eos % (Auto) Baso % (Auto) Absolute Neuts (auto) Absolute Lymphs (auto) Nucleated RBC % Differential Comment Sodium Potassium Chloride Carbon Dioxide Anion Gap BUN Creatinine Estim Creat Clear Calc Est GFR (MDRD) Af Amer Est GFR (MDRD) Non-Af BUN/Creatinine Ratio Glucose Calcium Phosphorus Magnesium POC Glucose 168 H 179 H 158 H 03/13/20 03/13/20 03/13/20 04:10 04:10 05:56 WBC 10.4 RBC 4.31 L Hgb 13.6 Hct 42.7 MCV 99.1 H MCH 31.6 MCHC 31.9 L RDW Std Deviation 49.7 H RDW Coeff of Charo 13.5 Plt Count 217 MPV 10.9 Immature Gran % (Auto) 0.800 Neut % (Auto) 88.3 H Lymph % (Auto) 5.8 L [place] % (Auto) 4.1 Eos % (Auto) 0.8 Baso % (Auto) 0.2 Absolute Neuts (auto) 9.2 H Absolute Lymphs (auto) 0.60 L Nucleated RBC % 0 Differential Comment SCANNED Sodium 144 Potassium 3.4 L Chloride 105 Carbon Dioxide 34.0 H Anion Gap 5 BUN 64 H Creatinine 1.05 Estim Creat Clear Calc 61.75 Est GFR (MDRD) Af Amer 88 Est GFR (MDRD) Non-Af 73 BUN/Creatinine Ratio 61.0 H Glucose 151 H Calcium 8.1 L Phosphorus 3.9 Magnesium 2.9 H POC Glucose 155 H 03/13/20 03/13/20 03/13/20 11:07 15:45 20:53 WBC RBC Hgb Hct MCV MCH MCHC RDW Std Deviation RDW Coeff of Charo Plt Count MPV Immature Gran % (Auto) Neut % (Auto) Lymph % (Auto) [place] % (Auto) Eos % (Auto) Baso % (Auto) Absolute Neuts (auto) Absolute Lymphs (auto) Nucleated RBC % Differential Comment Sodium Potassium Chloride Carbon Dioxide Anion Gap BUN Creatinine Estim Creat Clear Calc Est GFR (MDRD) Af Amer Est GFR (MDRD) Non-Af BUN/Creatinine Ratio Glucose Calcium Phosphorus Magnesium POC Glucose 267 H 247 H 134 H 03/14/20 03/14/20 03/14/20 05:10 05:10 06:52 WBC 9.7 RBC 4.03 L Hgb 13.2 Hct 39.5 L MCV 98.0 H MCH 32.8 H MCHC 33.4 RDW Std Deviation 47.2 H RDW Coeff of Charo 13.2 Plt Count 211 MPV 10.5 Immature Gran % (Auto) 1.000 H Neut % (Auto) 85.8 H Lymph % (Auto) 5.7 L [place] % (Auto) 5.5 Eos % (Auto) 1.9 Baso % (Auto) 0.1 Absolute Neuts (auto) 8.3 H Absolute Lymphs (auto) 0.55 L Nucleated RBC % 0 Differential Comment Sodium 145 Potassium 2.9 L Chloride 113 H Carbon Dioxide 26.0 Anion Gap 6 BUN 43 H Creatinine 0.73 Estim Creat Clear Calc 64.84 Est GFR (MDRD) Af Amer 133 Est GFR (MDRD) Non-Af 110 BUN/Creatinine Ratio 58.7 H Glucose 130 H Calcium 6.4 L* Phosphorus Magnesium POC Glucose 147 H Microbiology 03/07/20 13:00 Blood Culture (Wb) - Left Hand Blood Culture - Final No growth in 5 days. 03/07/20 12:30 Blood Culture (Wb) - Central Line Blood Culture - Final No growth in 5 days. Medical Necessity - Tobacco Use Smoking Status: Never smoker Tobacco Use: Non-smoker Assessment/Plan All Active Problems Septic shock (Acute) Acute respiratory failure with hypoxia (Acute) Pneumonia due to COVID-19 virus (Acute) Hyperglycemia (Acute) SURINDER (acute kidney injury) (Acute) RECOMMENDATIONS: 1. Transition patient from BiPAP to Airvo as tolerated. Wean FiO2 to maintain oxygen saturations at or above 90%. 2. Continue systemic anticoagulation with Eliquis. 3. Hold Lasix, given tenuous hemodynamics. 4. Recheck labs prior to electrolyte repletion 5. Continue Decadron as ordered. 6. Encourage incentive spirometer use. 7. Aggressive physical therapy is warranted. IMPRESSIONS: 1. Acute hypoxemic respiratory failure secondary to COVID-19 pneumonia The patient presented as a transfer from an outside facility with Covid-like symptoms for approximately 1 week. Unfortunately, the patient decompensated from a respiratory perspective despite noninvasive positive pressure ventilatory support, eventually requiring intubation. The patient did receive convalescent plasma and has completed treatment courses of both remdesivir and Decadron. Lasix has been held and patient is doing okay. Continue to stress out of bed and pulmonary recruitment measures. Potential transfer from the intensive care unit in the next 24 to 48 hours pending respiratory status. 2. Hypokalemia Electrolyte repletion as ordered. Significant decrease in calcium and multiple other electrolytes. Will recheck BMP prior to providing supplementation. 3. Morbid obesity/hypertension/hypothyroidism/GERD Complicates care, management, recovery and prognosis. Continue home medications as indicated. Continue sliding scale insulin coverage. Physical therapy to work with the patient. Inpatient E&M: [id number] [facility]osp L3
[2020-03-14 08:53] LABS: Basophil# 0.02 X10^3/uL; Basophil% 0.2 % (0-1); Eosinophil# 0.32 X10^3/uL; Eosinophils% 3.8 % (0-5); Hematocrit 38.5 % (40-54); Hemoglobin 12.9 g/dL (13.0-16.5); Lymphocyte % 7.1 % (19-41); Mean Corp Hgb Conc 33.5 g/dL (32-36); Mean Corpuscular Volume 98.5 fL (80-94); Monocyte% 4.7 % (0-10); NRBC Flagged by Analyzer 0 % (0-5); Neutrophil # 7.03 X10^3/uL (2.7-7.7); Neutrophil % 83.1 % (47-70); POSITIVE DIFFERENTIAL YES; Platelet Count 207 K/mm3 (150-450); RBC Distribution Width CV 13.3 % (11.6-14.6); RBC Distribution Width SD 47.7 fl (35.1-43.9); Red Blood Count 3.91 M/mm3 (4.6-6.2); White Blood Count 8.5 K/mm3 (4.4-11.0)
[2020-03-14 08:55] LABS: Differential Indicated SCAN CRITERIA MET
[2020-03-14 09:19] LABS: Albumin, Serum 2.2 g/dL (3.2-5.0); Anion Gap 5 (5-15); BUN 47 mg/dL (7-18); BUN/Creat Ratio 50.1 RATIO (10-20); Calcium,Total 7.7 mg/dL (8.5-10.1); Chloride 109 mmol/L (98-107); Creatinine, Serum 0.94 mg/dL (0.70-1.30); EST Glomerular Filtration Rate 83 mL/min (>60); Est Glom Filt Rate - Afr Amer 100 mL/min (>60); Estimated Creatinine Clearance 68.98 ml/min; Glucose 135 mg/dL (74-106); Magnesium 2.7 mg/dL (1.6-2.6); Phosphorus 3.1 mg/dL (2.5-4.9); Potassium 3.5 mmol/L (3.5-5.1); Sodium Level 145 mmol/L (136-145)
[2020-03-14] MEDS: dexAMETHasone 4 MG Tablet 6 MG PO (09:23)
[2020-03-14] MEDS: Levothyroxine 50 MCG Tablet PO (09:23)
[2020-03-14] MEDS: QUEtiapine 25 MG Tablet 50 MG PO ×2 (09:23→22:07)
[2020-03-14] MEDS: APIXABAN 5 MG TABLET PO ×2 (09:23→22:07)
[2020-03-14] MEDS: Carvedilol 12.5 MG Tablet PO ×2 (09:23→22:07)
[2020-03-14] MEDS: Pantoprazole Sodium 40 MG Tablet PO ×2 (09:23→22:07)
--- NOTE | 2020-03-14 11:17 | CASEMGMT ---
SW participated in ICU rounds. As per RN, pt is not fully answering questions. SW did attempt to call pt's room, he did not answer. SW called nephemigdio Jenkins in regard to pt. SW explained to Kevin that pt did tell the SW on Saturday he wanted Kevin to be his medical POA but then could not finish the paperwork as pt became confused (as per note he was having difficulty following commands). SW explained to nephemigdio it isn't clear at this point if pt is having some confusion or if he is choosing to not answer questions, however SW explained we will continue to try to include him in the decision making process. SW explained to devonte that pt may need to go to either a care home or LTACH after this hospitalization, briefly explained both levels of care to devonte. Devonte was interested in reviewing lists of facilities. SW explained will email him lists of both nursing homes taking COVID+ patients and the LTACHs. He also asked about [facility] in [place], SW explained will call to see if they take COVID+ patients and let him know. SW called [facility], message left for admissions. SW emailed devonte Brown the lists of nursing homes taking COVID+ patients and the list of LTACHs. SW also included in the email that a message was left for [facility]. PLAN: TBD, SNF vs LTACH [facility] will continue to follow. ALFIE Singh
[2020-03-14] MEDS: Insulin Lispro 100 UNIT/ML INSULN.PEN SC ×3 (12:13→22:11)
--- NOTE | 2020-03-14 12:29 | CASEMGMT ---
Addendum entered by Arianna Munguia 03/14/20 12:38: SW did email pt's nephew with the information regarding [facility]. ALFIE Singh Original Note: SW spoke w/Junie from [facility] in [place]. They may consider pt since it's been some time since his positive COVID test. The maximum they can manage for oxygen however is 10LPM. Should pt improve, family may want to consider this facility for pt. , fax: [phone]. SW will continue to follow. ALFIE Singh
[2020-03-14 14:20] LABS: Bedside Glucose 234 mg/dL (70-110)
--- NOTE | 2020-03-14 16:08 | PCM.PN.ID ---
Patient Problems: Active and Suspected Problems Septic shock (Acute) Acute respiratory failure with hypoxia (Acute) Pneumonia due to COVID-19 virus (Acute) Hyperglycemia (Acute) SURINDER (acute kidney injury) (Acute) Subjective: Feeling better, O2 improved - Physical Exam Vitals/I&O's: Vital Signs Temp Pulse Resp BP Pulse Ox 99.8 F H 77 22 H 119/72 93 03/14/20 15:00 03/14/20 15:22 03/14/20 15:22 03/14/20 15:00 03/14/20 15:22 Oxygen Flow Rate (L/min) 60 Oxygen Delivery Method Airvo Weight: 98.112 kg Body Mass Index (BMI) 31.1 Intake and Output for Last 24 Hours 03/12/20 03/13/20 03/14/20 23:59 23:59 23:59 Intake Total 960 / 960 2410 / 2410 1480 / 1480 Output Total 1260 / 1260 1600 / 1600 1000 / 1000 Balance -300 / -300 810 / 810 480 / 480 General: Cooperative, No apparent distress Lungs: Clear to auscultation, Diminished Cardiovascular: Regular rate, Regular Rhythm Abdomen: Soft, Non Tender, Non-Distended Skin: No rashes Microbiology Past 72 Hours 03/07/20 13:00 Blood Culture (Wb) - Left Hand Blood Culture - Final No growth in 5 days. 03/07/20 12:30 Blood Culture (Wb) - Central Line Blood Culture - Final No growth in 5 days. Laboratory Results 03/13/20 15:45: POC Glucose 247 H 03/13/20 20:53: POC Glucose 134 H 03/14/20 05:10: WBC Cancelled, Corrected WBC Cancelled, RBC Cancelled, Hgb Cancelled, Hct Cancelled, MCV Cancelled, MCH Cancelled, MCHC Cancelled, RDW Std Deviation Cancelled, RDW Coeff of Charo Cancelled, Plt Count Cancelled, MPV Cancelled, Immature Gran % (Auto) Cancelled, Neut % (Auto) Cancelled, Lymph % (Auto) Cancelled, Harrison % (Auto) Cancelled, Eos % (Auto) Cancelled, Baso % (Auto) Cancelled, Absolute Neuts (auto) Cancelled, Absolute Lymphs (auto) Cancelled, Total Counted Cancelled, Neutrophils % (Manual) Cancelled, Band Neutrophils % Cancelled, Lymphocytes % (Manual) Cancelled, Monocytes % (Manual) Cancelled, Eosinophils % (Manual) Cancelled, Basophils % (Manual) Cancelled, Metamyelocytes % Cancelled, Myelocytes % Cancelled, Promyelocytes % Cancelled, Blast Cells % Cancelled, Plasma Cell % (Manual) Cancelled, Other Cells % Cancelled, Nucleated RBC % Cancelled, Nucleated RBCs/100 WBC Cancelled, Differential Comment Cancelled, Diff Path Review Cancelled, Hypersegmented Neuts Cancelled, Atypical Lymphocytes Cancelled, Reactive Lymphocytes Cancelled, Smudge Cells Cancelled, Toxic Granulation Cancelled, Toxic Vacuolation Cancelled, Dohle Bodies Cancelled, Morales Rods Cancelled, Platelet Estimate Cancelled, Plt Morphology Comment Cancelled, RBC Morphology Cancelled, Polychromasia Cancelled, Hypochromasia Cancelled, Poikilocytosis Cancelled, Basophilic Stippling Cancelled, Anisocytosis Cancelled, Microcytosis Cancelled, Macrocytosis Cancelled, Spherocytes Cancelled, Sickle Cells Cancelled, Target Cells Cancelled, Tear Drop Cells Cancelled, Ovalocytes Cancelled, Stomatocytes Cancelled, [place] Bodies Cancelled, Skye Cells Cancelled, Bite Cells Cancelled, Crenated Cell Cancelled, Acanthocytes (Spur) Cancelled, Rouleaux Cancelled, Schistocytes Cancelled 03/14/20 05:10: Sodium Cancelled, Potassium Cancelled, Chloride Cancelled, Carbon Dioxide Cancelled, Anion Gap Cancelled, BUN Cancelled, Creatinine Cancelled, Estim Creat Clear Calc Cancelled, Est GFR (MDRD) Af Amer Cancelled, Est GFR (MDRD) Non-Af Cancelled, BUN/Creatinine Ratio Cancelled, Glucose Cancelled, Calcium Cancelled 03/14/20 06:52: POC Glucose 147 H 03/14/20 07:50: Sodium Cancelled, Potassium Cancelled, Chloride Cancelled, Carbon Dioxide Cancelled, Anion Gap Cancelled, BUN Cancelled, Creatinine Cancelled, Estim Creat Clear Calc Cancelled, Est GFR (MDRD) Af Amer Cancelled, Est GFR (MDRD) Non-Af Cancelled, BUN/Creatinine Ratio Cancelled, Glucose Cancelled, Calcium Cancelled, Phosphorus Cancelled, Magnesium Cancelled, Albumin Cancelled 03/14/20 08:30: Sodium 145, Potassium 3.5, Chloride 109 H, Carbon Dioxide 31.0, Anion Gap 5, BUN 47 H, Creatinine 0.94, Estim Creat Clear Calc 68.98, Est GFR (MDRD) Af Amer 100, Est GFR (MDRD) Non-Af 83, BUN/Creatinine Ratio 50.1 H, Glucose 135 H, Calcium 7.7 L, Phosphorus 3.1, Magnesium 2.7 H, Albumin 2.2 L 03/14/20 08:30: WBC 8.5, RBC 3.91 L, Hgb 12.9 L, Hct 38.5 L, MCV 98.5 H, MCH 33.0 H, MCHC 33.5 D, RDW Std Deviation 47.7 H, RDW Coeff of Charo 13.3, Plt Count 207, MPV 11.0, Immature Gran % (Auto) 1.100 H, Neut % (Auto) 83.1 H, Lymph % (Auto) 7.1 L, Harrison % (Auto) 4.7, Eos % (Auto) 3.8, Baso % (Auto) 0.2, Absolute Neuts (auto) 7.0, Absolute Lymphs (auto) 0.60 L, Nucleated RBC % 0, Differential Comment COMMENT 03/14/20 12:12: POC Glucose 234 H Current Medications Acetaminophen (Acetaminophen 650 Mg/20 Ml Udc) 650 mg PO Q6H PRN PRN PRN Reason: Pain Score 1-10/Temp > 100.7 F Apixaban (Apixaban 5 Mg Tablet) 5 mg PO BID [facility] Last Admin: 03/14/20 09:23 Dose: 5 mg Documented by: Carvedilol (Carvedilol 12.5 Mg Tablet) 12.5 mg PO BID [facility] Last Admin: 03/14/20 09:23 Dose: 12.5 mg Documented by: Dexamethasone (Dexamethasone 4 Mg Tablet) 6 mg PO DAILY [facility] Stop: 03/16/20 10:01 Last Admin: 03/14/20 09:23 Dose: 6 mg Documented by: Sodium Chloride () 250 mls @ 15 mls/hr IV .[id number] PRN PRN Reason: Saline Flush Sodium Chloride () 250 mls @ 15 mls/hr IV .[id number] PRN PRN Reason: Additional IVPB Infusion Insulin Human Lispro (Insulin Lispro 100 Unit/Ml Insuln.Pen) 0 unit SC ACHS [facility]; Protocol Last Admin: 03/14/20 12:13 Dose: 3 units Documented by: Levothyroxine Sodium (Levothyroxine 50 Mcg Tablet) 50 mcg PO DAILY [facility] Last Admin: 03/14/20 09:23 Dose: 50 mcg Documented by: Ondansetron HCl (Ondansetron 4 Mg/2 Ml Vial) 4 mg IV Q8H PRN PRN PRN Reason: NAUSEA/VOMITING Pantoprazole Sodium (Pantoprazole Sodium 40 Mg Tablet) 40 mg PO BID [facility] Last Admin: 03/14/20 09:23 Dose: 40 mg Documented by: Polyethylene Glycol (Polyethylene Glycol 3350 17 Gm Packet) 17 gm PO DAILY PRN PRN Reason: Constipation Quetiapine Fumarate (Quetiapine 25 Mg Tablet) 50 mg PO BID [facility] Last Admin: 03/14/20 09:23 Dose: 50 mg Documented by: Senna/Docusate Sodium (Senna/Docusate Sodium 1 Tablet) 2 tablet PO DAILY PRN PRN Reason: CONSTIPATION Sodium Chloride (0.9% Saline Lock 10 Ml Syringe) 10 - 40 ml IV UD PRN PRN Reason: Multilumen/Michel Flush Last Admin: 03/13/20 11:10 Dose: 10 ml Documented by: Sodium Chloride (0.9 % Nacl (Sterile) Posiflush 10 Ml) 10 - 40 ml IV UD PRN PRN Reason: Port access or dressing change Last Admin: 03/07/20 09:12 Dose: 10 ml Documented by: Tamsulosin HCl (Tamsulosin Hcl 0.4 Mg Capsule) 0.4 mg PO DAILY@1730 [facility] Throat Lozenges (Benzocaine/Menthol 1 Lozenge) 1 lozenge MUCOUS MEM Q2H PRN PRN PRN Reason: SORE THROAT Last Admin: 03/02/20 12:18 Dose: 1 lozenge Documented by: Medical Necessity - Tobacco Use Smoking Status: Never smoker Tobacco Use: Non-smoker Route of nutrition/ use of supplements: [] Nutritional Intake: [] IV Site: [] Kaye Catheter: [] - Assessment/Plan Antibiotics: [] Assessment/Plan: [] Active and Suspected Problems Septic shock (Acute) Acute respiratory failure with hypoxia (Acute) Pneumonia due to COVID-19 virus (Acute) Hyperglycemia (Acute) SURINDER (acute kidney injury) (Acute) covid with hypoxia - Covid (+) 02/23 at OSH. Completed 10 days of dex, completed remdesivir. CT neg for PE. Got plasma 02/26. Sx started around 02/18/20. Required intubation. Persistent fever despite meropenem and sputum with only rare serratia and strep pneumo. Restarted on another course of dex. Finished haily 03/10. Wbc normal, now off vent, fever resolved. Ok to stop isolation as he is over 3 weeks into his course with steadily improving O2. Will follow, d/w nursing
[2020-03-14] MEDS: Tamsulosin HCl 0.4 MG Capsule PO (16:42)
[2020-03-14 16:45] LABS: Bedside Glucose 249 mg/dL (70-110)
--- NOTE | 2020-03-14 17:09 | PN_ITS ---
Patient Problems: Active and Suspected Problems Septic shock (Acute) Acute respiratory failure with hypoxia (Acute) Pneumonia due to COVID-19 virus (Acute) Hyperglycemia (Acute) SURINDER (acute kidney injury) (Acute) Reason for Visit: COVID 19 Subjective: Breathing well. Vitals/I&O's: Vital Signs Temp Pulse Resp BP Pulse Ox 37.5 C H 83 24 H 113/71 98 03/14/20 16:00 03/14/20 16:00 03/14/20 16:00 03/14/20 16:00 03/14/20 16:00 Oxygen Flow Rate (L/min) 60 Oxygen Delivery Method Airvo Weight: 98.112 kg Body Mass Index (BMI) 31.1 Intake and Output for Last 24 Hours 03/12/20 03/13/20 03/14/20 23:59 23:59 23:59 Intake Total 960 / 960 2410 / 2410 1480 / 1480 Output Total 1260 / 1260 1600 / 1600 1000 / 1000 Balance -300 / -300 810 / 810 480 / 480 General: Alert, No apparent distress, - - up in chair. HEENT: Atraumatic, Normocephalic Oral: Moist Mucosa, No Gingival or Mucosal Lesions/ Ulcerations Neck: No Nodes, Thyroid Normal Size and Texture Lungs: Normal air movement, - - coarse breath sounds. Cardiovascular: Regular rate, Regular Rhythm, Normal S1, Normal S2, No murmurs Abdomen: Bowel Sounds Present, Soft, Non Tender, Non-Distended, No Hepato- splenomegaly Extremities: No edema, No Calf Tenderness Skin: No rashes, No breakdown Musculoskeletal: No Tenderness to Palpation of Joints or Extremities, No Muscle Wasting Microbiology Past 72 Hours 03/07/20 13:00 Blood Culture (Wb) - Left Hand Blood Culture - Final No growth in 5 days. 03/07/20 12:30 Blood Culture (Wb) - Central Line Blood Culture - Final No growth in 5 days. Laboratory Results 03/13/20 20:53: POC Glucose 134 H 03/14/20 05:10: WBC Cancelled, Corrected WBC Cancelled, RBC Cancelled, Hgb Cancelled, Hct Cancelled, MCV Cancelled, MCH Cancelled, MCHC Cancelled, RDW Std Deviation Cancelled, RDW Coeff of Charo Cancelled, Plt Count Cancelled, MPV Cancelled, Immature Gran % (Auto) Cancelled, Neut % (Auto) Cancelled, Lymph % (Auto) Cancelled, Morrow % (Auto) Cancelled, Eos % (Auto) Cancelled, Baso % (Auto) Cancelled, Absolute Neuts (auto) Cancelled, Absolute Lymphs (auto) Cancelled, To luis Counted Cancelled, Neutrophils % (Manual) Cancelled, Band Neutrophils % Cancelled, Lymphocytes % (Manual) Cancelled, Monocytes % (Manual) Cancelled, Eosinophils % (Manual) Cancelled, Basophils % (Manual) Cancelled, Metamyelocytes % Cancelled, Myelocytes % Cancelled, Promyelocytes % Cancelled, Blast Cells % Cancelled, Plasma Cell % (Manual) Cancelled, Other Cells % Cancelled, Nucleated RBC % Cancelled, Nucleated RBCs/100 WBC Cancelled, Differential Comment Cancelled, Diff Path Review Cancelled, Hypersegmented Neuts Cancelled, Atypical Lymphocytes Cancelled, Reactive Lymphocytes Cancelled, Smudge Cells Cancelled, Toxic Granulation Cancelled, Toxic Vacuolation Cancelled, Dohle Bodies Cancelled, Morales Rods Cancelled, Platelet Estimate Cancelled, Plt Morphology Comment Cancelled, RBC Morphology Cancelled, Polychromasia Cancelled, Hypochromasia Cancelled, Poikilocytosis Cancelled, Basophilic Stippling Cancelled, Anisocytosis Cancelled, Microcytosis Cancelled, Macrocytosis Cancelled, Spherocytes Cancelled, Sickle Cells Cancelled, Target Cells Cancelled, Tear Drop Cells Cancelled, Ovalocytes Cancelled, Stomatocytes Cancelled, [place] Bodies Cancelled, Skye Cells Cancelled, Bite Cells Cancelled, Crenated Cell Cancelled, Acanthocytes (Spur) Cancelled, Rouleaux Cancelled, Schistocytes Cancelled 03/14/20 05:10: Sodium Cancelled, Potassium Cancelled, Chloride Cancelled, Carbon Dioxide Cancelled, Anion Gap Cancelled, BUN Cancelled, Creatinine Cancelled, Estim Creat Clear Calc Cancelled, Est GFR (MDRD) Af Amer Cancelled, Est GFR (MDRD) Non-Af Cancelled, BUN/Creatinine Ratio Cancelled, Glucose Cancelled, Calcium Cancelled 03/14/20 06:52: POC Glucose 147 H 03/14/20 07:50: Sodium Cancelled, Potassium Cancelled, Chloride Cancelled, Carbon Dioxide Cancelled, Anion Gap Cancelled, BUN Cancelled, Creatinine Cancelled, Estim Creat Clear Calc Cancelled, Est GFR (MDRD) Af Amer Cancelled, Est GFR (MDRD) Non-Af Cancelled, BUN/Creatinine Ratio Cancelled, Glucose Cancelled, Calcium Cancelled, Phosphorus Cancelled, Magnesium Cancelled, Albumin Cancelled 03/14/20 08:30: Sodium 145, Potassium 3.5, Chloride 109 H, Carbon Dioxide 31.0, Anion Gap 5, BUN 47 H, Creatinine 0.94, Estim Creat Clear Calc 68.98, Est GFR (MDRD) Af Amer 100, Est GFR (MDRD) Non-Af 83, BUN/Creatinine Ratio 50.1 H, Glucose 135 H, Calcium 7.7 L, Phosphorus 3.1, Magnesium 2.7 H, Albumin 2.2 L 03/14/20 08:30: WBC 8.5, RBC 3.91 L, Hgb 12.9 L, Hct 38.5 L, MCV 98.5 H, MCH 33.0 H, MCHC 33.5 D, RDW Std Deviation 47.7 H, RDW Coeff of Charo 13.3, Plt Count 207, MPV 11.0, Immature Gran % (Auto) 1.100 H, Neut % (Auto) 83.1 H, Lymph % (Auto) 7.1 L, [place]row % (Auto) 4.7, Eos % (Auto) 3.8, Baso % (Auto) 0.2, Absolute Neuts (auto) 7.0, Absolute Lymphs (auto) 0.60 L, Nucleated RBC % 0, Differential Comment COMMENT 03/14/20 12:12: POC Glucose 234 H 03/14/20 16:36: POC Glucose 249 H Current Medications Acetaminophen (Acetaminophen 650 Mg/20 Ml Udc) 650 mg PO Q6H PRN PRN PRN Reason: Pain Score 1-10/Temp > 100.7 F Apixaban (Apixaban 5 Mg Tablet) 5 mg PO BID [facility] Last Admin: 03/14/20 09:23 Dose: 5 mg Documented by: Carvedilol (Carvedilol 12.5 Mg Tablet) 12.5 mg PO BID [facility] Last Admin: 03/14/20 09:23 Dose: 12.5 mg Documented by: Dexamethasone (Dexamethasone 4 Mg Tablet) 6 mg PO DAILY [facility] Stop: 03/16/20 10:01 Last Admin: 03/14/20 09:23 Dose: 6 mg Documented by: Sodium Chloride () 250 mls @ 15 mls/hr IV .[id number] PRN PRN Reason: Saline Flush Sodium Chloride () 250 mls @ 15 mls/hr IV .[id number] PRN PRN Reason: Additional IVPB Infusion Insulin Human Lispro (Insulin Lispro 100 Unit/Ml Insuln.Pen) 0 unit SC [facility]; Protocol Last Admin: 03/14/20 16:37 Dose: 3 units Documented by: Levothyroxine Sodium (Levothyroxine 50 Mcg Tablet) 50 mcg PO DAILY [facility] Last Admin: 03/14/20 09:23 Dose: 50 mcg Documented by: Ondansetron HCl (Ondansetron 4 Mg/2 Ml Vial) 4 mg IV Q8H PRN PRN PRN Reason: NAUSEA/VOMITING Pantoprazole Sodium (Pantoprazole Sodium 40 Mg Tablet) 40 mg PO BID [facility] Last Admin: 03/14/20 09:23 Dose: 40 mg Documented by: Polyethylene Glycol (Polyethylene Glycol 3350 17 Gm Packet) 17 gm PO DAILY PRN PRN Reason: Constipation Quetiapine Fumarate (Quetiapine 25 Mg Tablet) 50 mg PO BID [facility] Last Admin: 03/14/20 09:23 Dose: 50 mg Documented by: Senna/Docusate Sodium (Senna/Docusate Sodium 1 Tablet) 2 tablet PO DAILY PRN PRN Reason: CONSTIPATION Sodium Chloride (0.9% Saline Lock 10 Ml Syringe) 10 - 40 ml IV UD PRN PRN Reason: Multilumen/Michel Flush Last Admin: 03/13/20 11:10 Dose: 10 ml Documented by: Sodium Chloride (0.9 % Nacl (Sterile) Posiflush 10 Ml) 10 - 40 ml IV UD PRN PRN Reason: Port access or dressing change Last Admin: 03/07/20 09:12 Dose: 10 ml Documented by: Tamsulosin HCl (Tamsulosin Hcl 0.4 Mg Capsule) 0.4 mg PO DAILY@1730 [facility] Last Admin: 03/14/20 16:42 Dose: 0.4 mg Documented by: Throat Lozenges (Benzocaine/Menthol 1 Lozenge) 1 lozenge MUCOUS MEM Q2H PRN PRN PRN Reason: SORE THROAT Last Admin: 03/02/20 12:18 Dose: 1 lozenge Documented by: STROKE Vital Signs/Narrative: Vital Signs Temp Pulse Resp BP Pulse Ox 03/14/20 16:00 37.5 C H 83 24 H 113/71 98 03/14/20 15:22 77 22 H 93 03/14/20 15:00 37.7 C H 81 18 119/72 94 03/14/20 14:00 37.7 C H 70 20 H 90/50 L 92 Medical Necessity - Tobacco Use Smoking Status: Never smoker Tobacco Use: Non-smoker Assessment/Plan All Active Problems Septic shock (Acute) Acute respiratory failure with hypoxia (Acute) Pneumonia due to COVID-19 virus (Acute) Hyperglycemia (Acute) SURINDER (acute kidney injury) (Acute) 1. acute hypoxic respiratory failure * 2/2 COVID 19 pneumonia/ALI * wean oxygen as tolerated, currently on AirVo * required intubation 2. Acute COVID 19 pneumonia * completed isolated * received convalescent plasma * completed remdesivir and dexamethasone * 2nd round of dexamethasone through the 9th * on anticoagulation with apixaban 3. Septic shock * resolved * 2/2 COVID 19 Inpatient E&M: [id number] Subs Hosp L2
[2020-03-14 22:20] LABS: Bedside Glucose 167 mg/dL (70-110)
[2020-03-15] VITALS (27 sets, daily range): BP systolic 87–154; BP diastolic 48–94; PULSE 64–90; RESP 12–21; TEMP 36.7–37.4; O2SAT 91–100
--- NOTE | 2020-03-15 01:23 | CPS ---
decreased FIO2 to 40% and AirVo to 50 L/M
[2020-03-15 06:45] LABS: Absolute Lymphocyte Count 0.58 X10^3/uL (0.83-4.51); Basophil# 0.02 X10^3/uL; Basophil% 0.3 % (0-1); Eosinophil# 0.24 X10^3/uL; Eosinophils% 3.3 % (0-5); Lymphocyte # 0.58 X10^3/ul (4.0); Mean Corp Hgb Conc 32.4 g/dL (32-36); Mean Corpuscular Hgb 32.3 pg (27.0-32.0); Mean Corpuscular Volume 99.5 fL (80-94); Mean Platelet Vol. 10.9 fl (6.2-12.0); Monocyte# 0.31 X10^3/uL; Monocyte% 4.3 % (0-10); NRBC Flagged by Analyzer 0 % (0-5); Neutrophil # 5.97 X10^3/uL (2.7-7.7); Neutrophil % 82.9 % (47-70); POSITIVE DIFFERENTIAL YES; Platelet Count 178 K/mm3 (150-450); RBC Distribution Width CV 13.1 % (11.6-14.6); RBC Distribution Width SD 47.8 fl (35.1-43.9); Red Blood Count 3.72 M/mm3 (4.6-6.2); White Blood Count 7.2 K/mm3 (4.4-11.0)
[2020-03-15 07:10] LABS: Differential Indicated SCAN CRITERIA MET
--- NOTE | 2020-03-15 07:57 | PCM.PN.INT ---
Subjective: Patient did okay overnight. Patient did have a fall to his knees, but no pain or weakness is reported by the patient at this time. Patient's oxygenation has improved. Patient reportedly had broke his high flow nasal cannula overnight and was tried on regular nasal cannula. Patient tolerating 8 L/min. Patient reportedly did sleep better with Seroquel. Patient has pulled on his Kaye intermittently leading to hematuria that was reportedly transient. General: Alert, Oriented x3, Cooperative - Intermittently HEENT: Atraumatic, PERRLA, EOMI, Normocephalic, - - No scleral icterus or injection noted Oral: Moist Mucosa, No Gingival or Mucosal Lesions/ Ulcerations Neck: Supple, No JVD, No Nodes, Trachea Midline Lungs: No rhonchi, No wheeze, No rales, Diminished, - - Symmetric expansion. No dullness to percussion Cardiovascular: Regular rate, Regular Rhythm, Normal S1, Normal S2, No murmurs, No rub noted, No Gallop Abdomen: Bowel Sounds Present, Soft, Non Tender, Non-Distended Extremities: No clubbing, No cyanosis, No edema Skin: No rashes, No breakdown Musculoskeletal: No Tenderness to Palpation of Joints or Extremities Lymphatic: No Cervical, Supraclavicular, or Inguinal Adenopathy Neurological: Cranial nerves II-XII grossly intact, Neuro grossly intact, Motor Exam 5/5 strength throughout Psych/Mental Status: Appropriate, Flat Affect Vital Signs Temp Pulse Resp BP Pulse Ox 37.2 C 73 15 105/51 L 97 03/15/20 06:00 03/15/20 07:47 03/15/20 06:00 03/15/20 06:00 03/15/20 07:08 Oxygen Flow Rate (L/min) 8 Oxygen Delivery Method Nasal Cannula Weight: 98.5 kg Body Mass Index (BMI) 31.1 Intake and Output for Last 24 Hours 03/13/20 03/14/20 03/15/20 23:59 23:59 23:59 Intake Total 2410 / 2410 1840 / 1840 Output Total 1600 / 1600 1950 / 2200 550 / 550 Balance 810 / 810 -110 / -360 -550 / -550 Labs (Last 48 Hours) 03/13/20 03/13/20 03/13/20 11:07 15:45 20:53 WBC Corrected WBC RBC Hgb Hct MCV MCH MCHC RDW Std Deviation RDW Coeff of Charo Plt Count MPV Immature Gran % (Auto) Neut % (Auto) Lymph % (Auto) Talbot % (Auto) Eos % (Auto) Baso % (Auto) Absolute Neuts (auto) Absolute Lymphs (auto) Total Counted Neutrophils % (Manual) Band Neutrophils % Lymphocytes % (Manual) Monocytes % (Manual) Eosinophils % (Manual) Basophils % (Manual) Metamyelocytes % Myelocytes % Promyelocytes % Blast Cells % Plasma Cell % (Manual) Other Cells % Nucleated RBC % Nucleated RBCs/100 WBC Differential Comment Diff Path Review Hypersegmented Neuts Atypical Lymphocytes Reactive Lymphocytes Smudge Cells Toxic Granulation Toxic Vacuolation Dohle Bodies Morales Rods Platelet Estimate Plt Morphology Comment RBC Morphology Polychromasia Hypochromasia Poikilocytosis Basophilic Stippling Anisocytosis Microcytosis Macrocytosis Spherocytes Sickle Cells Target Cells Tear Drop Cells Ovalocytes Stomatocytes Giron-[place] Bodies Vallecitos Cells Bite Cells Crenated Cell Acanthocytes (Spur) Rouleaux Schistocytes Sodium Potassium Chloride Carbon Dioxide Anion Gap BUN Creatinine Estim Creat Clear Calc Est GFR (MDRD) Af Amer Est GFR (MDRD) Non-Af BUN/Creatinine Ratio Glucose Calcium Phosphorus Magnesium Albumin POC Glucose 267 H 247 H 134 H 03/14/20 03/14/20 03/14/20 05:10 05:10 06:52 WBC Cancelled Corrected WBC Cancelled RBC Cancelled Hgb Cancelled Hct Cancelled MCV Cancelled MCH Cancelled MCHC Cancelled RDW Std Deviation Cancelled RDW Coeff of Charo Cancelled Plt Count Cancelled MPV Cancelled Immature Gran % (Auto) Cancelled Neut % (Auto) Cancelled Lymph % (Auto) Cancelled Talbot % (Auto) Cancelled Eos % (Auto) Cancelled Baso % (Auto) Cancelled Absolute Neuts (auto) Cancelled Absolute Lymphs (auto) Cancelled Total Counted Cancelled Neutrophils % (Manual) Cancelled Band Neutrophils % Cancelled Lymphocytes % (Manual) Cancelled Monocytes % (Manual) Cancelled Eosinophils % (Manual) Cancelled Basophils % (Manual) Cancelled Metamyelocytes % Cancelled Myelocytes % Cancelled Promyelocytes % Cancelled Blast Cells % Cancelled Plasma Cell % (Manual) Cancelled Other Cells % Cancelled Nucleated RBC % Cancelled Nucleated RBCs/100 WBC Cancelled Differential Comment Cancelled Diff Path Review Cancelled Hypersegmented Neuts Cancelled Atypical Lymphocytes Cancelled Reactive Lymphocytes Cancelled Smudge Cells Cancelled Toxic Granulation Cancelled Toxic Vacuolation Cancelled Dohle Bodies Cancelled Morales Rods Cancelled Platelet Estimate Cancelled Plt Morphology Comment Cancelled RBC Morphology Cancelled Polychromasia Cancelled Hypochromasia Cancelled Poikilocytosis Cancelled Basophilic Stippling Cancelled Anisocytosis Cancelled Microcytosis Cancelled Macrocytosis Cancelled Spherocytes Cancelled Sickle Cells Cancelled Target Cells Cancelled Tear Drop Cells Cancelled Ovalocytes Cancelled Stomatocytes Cancelled [place] Bodies Cancelled Vallecitos Cells Cancelled Bite Cells Cancelled Crenated Cell Cancelled Acanthocytes (Spur) Cancelled Rouleaux Cancelled Schistocytes Cancelled Sodium Cancelled Potassium Cancelled Chloride Cancelled Carbon Dioxide Cancelled Anion Gap Cancelled BUN Cancelled Creatinine Cancelled Estim Creat Clear Calc Cancelled Est GFR (MDRD) Af Amer Cancelled Est GFR (MDRD) Non-Af Cancelled BUN/Creatinine Ratio Cancelled Glucose Cancelled Calcium Cancelled Phosphorus Magnesium Albumin POC Glucose 147 H 03/14/20 03/14/20 03/14/20 07:50 08:30 08:30 WBC 8.5 Corrected WBC RBC 3.91 L Hgb 12.9 L Hct 38.5 L MCV 98.5 H MCH 33.0 H MCHC 33.5 D RDW Std Deviation 47.7 H RDW Coeff of Charo 13.3 Plt Count 207 MPV 11.0 Immature Gran % (Auto) 1.100 H Neut % (Auto) 83.1 H Lymph % (Auto) 7.1 L Talbot % (Auto) 4.7 Eos % (Auto) 3.8 Baso % (Auto) 0.2 Absolute Neuts (auto) 7.0 Absolute Lymphs (auto) 0.60 L Total Counted Neutrophils % (Manual) Band Neutrophils % Lymphocytes % (Manual) Monocytes % (Manual) Eosinophils % (Manual) Basophils % (Manual) Metamyelocytes % Myelocytes % Promyelocytes % Blast Cells % Plasma Cell % (Manual) Other Cells % Nucleated RBC % 0 Nucleated RBCs/100 WBC Differential Comment COMMENT Diff Path Review Hypersegmented Neuts Atypical Lymphocytes Reactive Lymphocytes Smudge Cells Toxic Granulation Toxic Vacuolation Dohle Bodies Morales Rods Platelet Estimate Plt Morphology Comment RBC Morphology Polychromasia Hypochromasia Poikilocytosis Basophilic Stippling Anisocytosis Microcytosis Macrocytosis Spherocytes Sickle Cells Target Cells Tear Drop Cells Ovalocytes Stomatocytes [place] Bodies Vallecitos Cells Bite Cells Crenated Cell Acanthocytes (Spur) Rouleaux Schistocytes Sodium Cancelled 145 Potassium Cancelled 3.5 Chloride Cancelled 109 H Carbon Dioxide Cancelled 31.0 Anion Gap Cancelled 5 BUN Cancelled 47 H Creatinine Cancelled 0.94 Estim Creat Clear Calc Cancelled 68.98 Est GFR (MDRD) Af Amer Cancelled 100 Est GFR (MDRD) Non-Af Cancelled 83 BUN/Creatinine Ratio Cancelled 50.1 H Glucose Cancelled 135 H Calcium Cancelled 7.7 L Phosphorus Cancelled 3.1 Magnesium Cancelled 2.7 H Albumin Cancelled 2.2 L POC Glucose 03/14/20 03/14/20 03/14/20 12:12 16:36 22:06 WBC Corrected WBC RBC Hgb Hct MCV MCH MCHC RDW Std Deviation RDW Coeff of Charo Plt Count MPV Immature Gran % (Auto) Neut % (Auto) Lymph % (Auto) Talbot % (Auto) Eos % (Auto) Baso % (Auto) Absolute Neuts (auto) Absolute Lymphs (auto) Total Counted Neutrophils % (Manual) Band Neutrophils % Lymphocytes % (Manual) Monocytes % (Manual) Eosinophils % (Manual) Basophils % (Manual) Metamyelocytes % Myelocytes % Promyelocytes % Blast Cells % Plasma Cell % (Manual) Other Cells % Nucleated RBC % Nucleated RBCs/100 WBC Differential Comment Diff Path Review Hypersegmented Neuts Atypical Lymphocytes Reactive Lymphocytes Smudge Cells Toxic Granulation Toxic Vacuolation Dohle Bodies Morales Rods Platelet Estimate Plt Morphology Comment RBC Morphology Polychromasia Hypochromasia Poikilocytosis Basophilic Stippling Anisocytosis Microcytosis Macrocytosis Spherocytes Sickle Cells Target Cells Tear Drop Cells Ovalocytes Stomatocytes [place] Bodies Vallecitos Cells Bite Cells Crenated Cell Acanthocytes (Spur) Rouleaux Schistocytes Sodium Potassium Chloride Carbon Dioxide Anion Gap BUN Creatinine Estim Creat Clear Calc Est GFR (MDRD) Af Amer Est GFR (MDRD) Non-Af BUN/Creatinine Ratio Glucose Calcium Phosphorus Magnesium Albumin POC Glucose 234 H 249 H 167 H 03/15/20 04:25 WBC 7.2 Corrected WBC RBC 3.72 L Hgb 12.0 L Hct 37.0 L MCV 99.5 H MCH 32.3 H MCHC 32.4 RDW Std Deviation 47.8 H RDW Coeff of Charo 13.1 Plt Count 178 MPV 10.9 Immature Gran % (Auto) 1.200 H Neut % (Auto) 82.9 H Lymph % (Auto) 8.0 L Talbot % (Auto) 4.3 Eos % (Auto) 3.3 Baso % (Auto) 0.3 Absolute Neuts (auto) 6.0 Absolute Lymphs (auto) 0.58 L Total Counted Neutrophils % (Manual) Band Neutrophils % Lymphocytes % (Manual) Monocytes % (Manual) Eosinophils % (Manual) Basophils % (Manual) Metamyelocytes % Myelocytes % Promyelocytes % Blast Cells % Plasma Cell % (Manual) Other Cells % Nucleated RBC % 0 Nucleated RBCs/100 WBC Differential Comment Diff Path Review Hypersegmented Neuts Atypical Lymphocytes Reactive Lymphocytes Smudge Cells Toxic Granulation Toxic Vacuolation Dohle Bodies Morales Rods Platelet Estimate Plt Morphology Comment RBC Morphology Polychromasia Hypochromasia Poikilocytosis Basophilic Stippling Anisocytosis Microcytosis Macrocytosis Spherocytes Sickle Cells Target Cells Tear Drop Cells Ovalocytes Stomatocytes [place] Bodies Skye Cells Bite Cells Crenated Cell Acanthocytes (Spur) Rouleaux Schistocytes Sodium Potassium Chloride Carbon Dioxide Anion Gap BUN Creatinine Estim Creat Clear Calc Est GFR (MDRD) Af Amer Est GFR (MDRD) Non-Af BUN/Creatinine Ratio Glucose Calcium Phosphorus Magnesium Albumin POC Glucose Medical Necessity - Tobacco Use Smoking Status: Never smoker Tobacco Use: Non-smoker Assessment/Plan All Active Problems Septic shock (Acute) Acute respiratory failure with hypoxia (Acute) Pneumonia due to COVID-19 virus (Acute) Hyperglycemia (Acute) SURINDER (acute kidney injury) (Acute) RECOMMENDATIONS: 1. Okay to continue low flow nasal cannula. Wean FiO2 to maintain oxygen saturations at or above 90%. 2. Continue systemic anticoagulation with Eliquis. 3. Challenge with diuretics 4. Consider discontinuation of Kaye catheter 5. Continue Decadron as ordered. 6. Encourage incentive spirometer use. 7. Aggressive physical therapy is warranted. 8. Okay to leave the intensive care unit from my perspective IMPRESSIONS: 1. Acute hypoxemic respiratory failure secondary to COVID-19 pneumonia The patient presented as a transfer from an outside facility with Covid-like symptoms for approximately 1 week. Unfortunately, the patient decompensated from a respiratory perspective despite noninvasive positive pressure ventilatory support, eventually requiring intubation. The patient did receive convalescent plasma and has completed treatment courses of both remdesivir and Decadron. Balance with Lasix therapy. Continue to stress out of bed and pulmonary recruitment measures. Okay to leave the intensive care unit. 2. Hypokalemia Electrolyte repletion as ordered. Yesterday's hypokalemia and hypocalcemia were likely secondary to lab error. Patient appears to be appropriate today. 3. Morbid obesity/hypertension/hypothyroidism/GERD/hematuria Complicates care, management, recovery and prognosis. Continue home medications as indicated. Continue sliding scale insulin coverage. Physical therapy to work with the patient. Clinical suspicion for hematuria secondary to Kaye trauma. Patient did have urinary retention previously, but has been on Flomax for over 24 hours. Could consider trial of discontinuation. Inpatient E&M: [id number] [facility] L3
[2020-03-15] MEDS: 0.9% Saline Lock 10 ML Syringe IV (10:04)
[2020-03-15] MEDS: Furosemide 40 MG/4 ML Vial IV (10:04)
[2020-03-15] MEDS: dexAMETHasone 4 MG Tablet 6 MG PO (10:05)
[2020-03-15] MEDS: APIXABAN 5 MG TABLET PO ×2 (10:06→20:53)
[2020-03-15] MEDS: Pantoprazole Sodium 40 MG Tablet PO ×2 (10:06→20:52)
[2020-03-15] MEDS: Levothyroxine 50 MCG Tablet PO (10:07)
[2020-03-15] MEDS: Carvedilol 12.5 MG Tablet PO ×2 (10:07→20:52)
[2020-03-15] MEDS: QUEtiapine 25 MG Tablet 50 MG PO ×2 (10:08→20:52)
--- NOTE | 2020-03-15 10:21 | CASEMGMT ---
RN CM Note: participated in ICU interdisciplinary rounds. Patient is currently on 8L NC. Remains on Eliquis, Decadron and insulin with coverage. Passed mobility, PT/OT to work with pt today. Discussed dc planning of LTACH vs SNF. Per Dr. Horner, pt will need 24-48 more hours and if stable on 6L O2 or less, SNF would be appropriate. DC PLAN: anticipate SNF if pt's respiratory status remains stable and is able to wean to 6L NC. Ashley REYNA RN ACM
[2020-03-15] MEDS: Insulin Lispro 100 UNIT/ML INSULN.PEN SC ×3 (12:09→20:53)
[2020-03-15 12:10] LABS: Bedside Glucose 204 mg/dL (70-110)
--- NOTE | 2020-03-15 12:53 | PN_ITS ---
Patient Problems: Active and Suspected Problems Septic shock (Acute) Acute respiratory failure with hypoxia (Acute) Pneumonia due to COVID-19 virus (Acute) Hyperglycemia (Acute) SURINDER (acute kidney injury) (Acute) Reason for Visit: COVID 19 Subjective: Found on his knees yesterday. No head injury. Vitals/I&O's: Vital Signs Temp Pulse Resp BP Pulse Ox 37.1 C 76 18 101/65 100 03/15/20 11:00 03/15/20 11:00 03/15/20 11:00 03/15/20 11:00 03/15/20 11:00 Oxygen Flow Rate (L/min) 8 Oxygen Delivery Method Nasal Cannula Weight: 98.5 kg Body Mass Index (BMI) 31.1 Intake and Output for Last 24 Hours 03/13/20 03/14/20 03/15/20 23:59 23:59 23:59 Intake Total 2410 / 2410 1840 / 1840 300 / 300 Output Total 1600 / 1600 1950 / 2200 2049 / 2049 Balance 810 / 810 -110 / -360 -1750 / -1750 General: Alert, No apparent distress HEENT: Atraumatic, Normocephalic Oral: Moist Mucosa, No Gingival or Mucosal Lesions/ Ulcerations Neck: No Nodes, Thyroid Normal Size and Texture Lungs: Clear to auscultation, Normal air movement, No rhonchi, No wheeze, No rales Cardiovascular: Regular rate, Regular Rhythm, Normal S1, Normal S2 Abdomen: Bowel Sounds Present, Soft, Non Tender, Non-Distended, No Hepato- splenomegaly Extremities: No edema, No Calf Tenderness Skin: No rashes, No breakdown Psych/Mental Status: Normal Affect, Appropriate Microbiology Past 72 Hours 03/07/20 13:00 Blood Culture (Wb) - Left Hand Blood Culture - Final No growth in 5 days. 03/07/20 12:30 Blood Culture (Wb) - Central Line Blood Culture - Final No growth in 5 days. Laboratory Results 03/14/20 12:12: POC Glucose 234 H 03/14/20 16:36: POC Glucose 249 H 03/14/20 22:06: POC Glucose 167 H 03/15/20 04:25: WBC 7.2, RBC 3.72 L, Hgb 12.0 L, Hct 37.0 L, MCV 99.5 H, MCH 32.3 H, MCHC 32.4, RDW Std Deviation 47.8 H, RDW Coeff of Charo 13.1, Plt Count 178, MPV 10.9, Immature Gran % (Auto) 1.200 H, Neut % (Auto) 82.9 H, Lymph % (Auto) 8.0 L, Gila % (Auto) 4.3, Eos % (Auto) 3.3, Baso % (Auto) 0.3, Absolute Neuts (auto) 6.0, Absolute Lymphs (auto) 0.58 L, Nucleated RBC % 0 03/15/20 12:07: POC Glucose 204 H Current Medications Acetaminophen (Acetaminophen 650 Mg/20 Ml Udc) 650 mg PO Q6H PRN PRN PRN Reason: Pain Score 1-10/Temp > 100.7 F Apixaban (Apixaban 5 Mg Tablet) 5 mg PO BID [facility] Last Admin: 03/15/20 10:06 Dose: 5 mg Documented by: Carvedilol (Carvedilol 12.5 Mg Tablet) 12.5 mg PO BID [facility] Last Admin: 03/15/20 10:07 Dose: 12.5 mg Documented by: Dexamethasone (Dexamethasone 4 Mg Tablet) 6 mg PO DAILY [facility] Stop: 03/16/20 10:01 Last Admin: 03/15/20 10:05 Dose: 6 mg Documented by: Sodium Chloride () 250 mls @ 15 mls/hr IV .[id number] PRN PRN Reason: Saline Flush Sodium Chloride () 250 mls @ 15 mls/hr IV .[id number] PRN PRN Reason: Additional IVPB Infusion Insulin Human Lispro (Insulin Lispro 100 Unit/Ml Insuln.Pen) 0 unit SC [facility]; Protocol Last Admin: 03/15/20 12:09 Dose: 2 units Documented by: Levothyroxine Sodium (Levothyroxine 50 Mcg Tablet) 50 mcg PO DAILY [facility] Last Admin: 03/15/20 10:07 Dose: 50 mcg Documented by: Ondansetron HCl (Ondansetron 4 Mg/2 Ml Vial) 4 mg IV Q8H PRN PRN PRN Reason: NAUSEA/VOMITING Pantoprazole Sodium (Pantoprazole Sodium 40 Mg Tablet) 40 mg PO BID [facility] Last Admin: 03/15/20 10:06 Dose: 40 mg Documented by: Polyethylene Glycol (Polyethylene Glycol 3350 17 Gm Packet) 17 gm PO DAILY PRN PRN Reason: Constipation Quetiapine Fumarate (Quetiapine 25 Mg Tablet) 50 mg PO BID [facility] Last Admin: 03/15/20 10:08 Dose: 50 mg Documented by: Senna/Docusate Sodium (Senna/Docusate Sodium 1 Tablet) 2 tablet PO DAILY PRN PRN Reason: CONSTIPATION Sodium Chloride (0.9% Saline Lock 10 Ml Syringe) 10 - 40 ml IV UD PRN PRN Reason: Multilumen/Michel Flush Last Admin: 03/15/20 10:04 Dose: 10 ml Documented by: Sodium Chloride (0.9 % Nacl (Sterile) Posiflush 10 Ml) 10 - 40 ml IV UD PRN PRN Reason: Port access or dressing change Last Admin: 03/07/20 09:12 Dose: 10 ml Documented by: Tamsulosin HCl (Tamsulosin Hcl 0.4 Mg Capsule) 0.4 mg PO DAILY@1730 [facility] Last Admin: 03/14/20 16:42 Dose: 0.4 mg Documented by: Throat Lozenges (Benzocaine/Menthol 1 Lozenge) 1 lozenge MUCOUS MEM Q2H PRN PRN PRN Reason: SORE THROAT Last Admin: 03/02/20 12:18 Dose: 1 lozenge Documented by: STROKE Vital Signs/Narrative: Vital Signs Temp Pulse Resp BP Pulse Ox 03/15/20 11:00 37.1 C 76 18 101/65 100 03/15/20 10:00 37.1 C 84 21 H 110/59 L 100 03/15/20 09:00 37.2 C 69 14 121/48 H 100 Medical Necessity - Tobacco Use Smoking Status: Never smoker Tobacco Use: Non-smoker Assessment/Plan All Active Problems Septic shock (Acute) Acute respiratory failure with hypoxia (Acute) Pneumonia due to COVID-19 virus (Acute) Hyperglycemia (Acute) SURINDER (acute kidney injury) (Acute) 1. acute hypoxic respiratory failure * 2/2 COVID 19 pneumonia/ALI * wean oxygen as tolerated, currently 8 liters * required intubation 2. Acute COVID 19 pneumonia * completed isolated * received convalescent plasma * completed remdesivir and dexamethasone * 2nd round of dexamethasone through the * on anticoagulation with apixaban 3. Septic shock * resolved * 2/2 COVID 19 Inpatient E&M: 12115 [facility] L2
--- NOTE | 2020-03-15 14:41 | CASEMGMT ---
SW particpated in ICU rounds this morning. Pt's oxygen needs are decreasing, pt may be able to go to a custodial rather than LTACH. SW called nephew Kevin this afternoon and explained this to him, explained that [facility] may consider pt. He is agreeable to SW sending referral, would like SW to make sure pt agreeable also. SW explained will try to speak w/pt and see if he is agreeable, will let him know. SW spoke w/pt in room, pt more alert and oriented this afternoon. SW spoke w/him initially about the LW/POA forms. Pt states he thought he completed them already. SW explained we have discussed it but not completed them. Pt may be agreeable to complete the forms tomorrow, states he wants his nephew as POA. SW then spoke w/pt about plans after the hospitalization, spoke w/him about going to a custodial for rehab. Pt is agreeable and does not have a preference for where he goes, is agreeable to referral being sent to [facility]. Pt's nephew then called in and asked if pt should not go to a COVID unit in a custodial, wondering if he could catch it again. SW explained that we are trying to get him into [facility] which does not have a COVID unit, and being that he is further away in time from his testing he may not have to go to a COVID unit. SW explained cannot speak to this however, if pt can get COVID again, and this is a better question for the doctor. Nephew would like to speak w/the doctor, SW will text him to let him know. SW did let nephew know that pt agreeable to referral being sent to [facility]. SW called [facility], let them know referral being sent. SW faxed referral, will continue to follow. ALFIE Singh
[2020-03-15 16:21] LABS: Bedside Glucose 328 mg/dL (70-110)
[2020-03-15] MEDS: Tamsulosin HCl 0.4 MG Capsule PO (16:24)
[2020-03-15 21:06] LABS: Bedside Glucose 271 mg/dL (70-110)
[2020-03-16] VITALS (11 sets, daily range): BP systolic 105–124; BP diastolic 57–95; PULSE 63–90; RESP 18–22; TEMP 36.6–37.6; O2SAT 92–95
[2020-03-16 05:55] LABS: Absolute Lymphocyte Count 0.66 X10^3/uL (0.83-4.51); Absolute Neutrophil Count 7.1 X10^3/uL (2.0-7.7); Basophil# 0.02 X10^3/uL; Basophil% 0.2 % (0-1); Eosinophil# 0.26 X10^3/uL; Hematocrit 34.9 % (40-54); Hemoglobin 11.7 g/dL (13.0-16.5); Lymphocyte # 0.66 X10^3/ul (4.0); Lymphocyte % 7.7 % (19-41); Mean Corp Hgb Conc 33.5 g/dL (32-36); Mean Corpuscular Hgb 32.4 pg (27.0-32.0); Mean Corpuscular Volume 96.7 fL (80-94); Mean Platelet Vol. 10.5 fl (6.2-12.0); Monocyte# 0.36 X10^3/uL; Monocyte% 4.2 % (0-10); NRBC Flagged by Analyzer 0 % (0-5); Neutrophil % 83.1 % (47-70); Platelet Count 173 K/mm3 (150-450); RBC Distribution Width CV 13.1 % (11.6-14.6); RBC Distribution Width SD 46.5 fl (35.1-43.9); Red Blood Count 3.61 M/mm3 (4.6-6.2); White Blood Count 8.6 K/mm3 (4.4-11.0)
[2020-03-16 06:09] LABS: Anion Gap 4 (5-15); BUN 33 mg/dL (7-18); Calcium,Total 7.6 mg/dL (8.5-10.1); Chloride 105 mmol/L (98-107); Creatinine, Serum 0.92 mg/dL (0.70-1.30); EST Glomerular Filtration Rate 85 mL/min (>60); Est Glom Filt Rate - Afr Amer 103 mL/min (>60); Estimated Creatinine Clearance 70.48 ml/min; Glucose 127 mg/dL (74-106); Magnesium 2.5 mg/dL (1.6-2.6); Phosphorus 2.6 mg/dL (2.5-4.9); Potassium 3.8 mmol/L (3.5-5.1); Sodium Level 141 mmol/L (136-145)
[2020-03-16] MEDS: Insulin Lispro 100 UNIT/ML INSULN.PEN SC ×4 (06:56→21:14)
--- NOTE | 2020-03-16 07:39 | PCM.PN.INT ---
Subjective: Patient did okay overnight. Patient was able to sit in a chair most of the day yesterday on low flow nasal cannula. Patient with no complaints this morning. No hemodynamic instability was noted overnight. General: Alert, Oriented x3, Cooperative - Intermittently, No apparent distress HEENT: Atraumatic, PERRLA, EOMI, Normocephalic, - - No scleral icterus or injection noted Oral: Moist Mucosa, No Gingival or Mucosal Lesions/ Ulcerations Neck: Supple, No JVD, No Nodes, Trachea Midline Lungs: No rhonchi, No wheeze, Diminished, Rales - Right base Cardiovascular: Regular rate, Regular Rhythm, Normal S1, Normal S2, No murmurs, No rub noted, No Gallop Abdomen: Bowel Sounds Present, Soft, Non Tender, Non-Distended, Obese Extremities: No clubbing, No cyanosis, No edema Skin: - - No change from previous Musculoskeletal: No Tenderness to Palpation of Joints or Extremities Lymphatic: No Cervical, Supraclavicular, or Inguinal Adenopathy Neurological: Cranial nerves II-XII grossly intact, Neuro grossly intact, Motor Exam 5/5 strength throughout Psych/Mental Status: Appropriate, Flat Affect Vital Signs Temp Pulse Resp BP Pulse Ox 36.6 C 81 18 120/57 L 92 03/16/20 03:50 03/16/20 03:50 03/16/20 03:50 03/16/20 03:50 03/16/20 03:50 Oxygen Flow Rate (L/min) 8 Oxygen Delivery Method Nasal Cannula Weight: 98.293 kg Body Mass Index (BMI) 31.1 Intake and Output for Last 24 Hours 03/14/20 03/15/20 03/16/20 23:59 23:59 23:59 Intake Total 1840 / 1840 860 / 980 360 / 360 Output Total 1950 / 2200 2850 / 3350 825 / 825 Balance -110 / -360 -1990 / -2370 -465 / -465 Labs (Last 48 Hours) 03/14/20 03/14/20 03/14/20 05:10 05:10 07:50 WBC Cancelled Corrected WBC Cancelled RBC Cancelled Hgb Cancelled Hct Cancelled MCV Cancelled MCH Cancelled MCHC Cancelled RDW Std Deviation Cancelled RDW Coeff of Charo Cancelled Plt Count Cancelled MPV Cancelled Immature Gran % (Auto) Cancelled Neut % (Auto) Cancelled Lymph % (Auto) Cancelled Childress % (Auto) Cancelled Eos % (Auto) Cancelled Baso % (Auto) Cancelled Absolute Neuts (auto) Cancelled Absolute Lymphs (auto) Cancelled Total Counted Cancelled Neutrophils % (Manual) Cancelled Band Neutrophils % Cancelled Lymphocytes % (Manual) Cancelled Monocytes % (Manual) Cancelled Eosinophils % (Manual) Cancelled Basophils % (Manual) Cancelled Metamyelocytes % Cancelled Myelocytes % Cancelled Promyelocytes % Cancelled Blast Cells % Cancelled Plasma Cell % (Manual) Cancelled Other Cells % Cancelled Nucleated RBC % Cancelled Nucleated RBCs/100 WBC Cancelled Differential Comment Cancelled Diff Path Review Cancelled Hypersegmented Neuts Cancelled Atypical Lymphocytes Cancelled Reactive Lymphocytes Cancelled Smudge Cells Cancelled Toxic Granulation Cancelled Toxic Vacuolation Cancelled Dohle Bodies Cancelled Morales Rods Cancelled Platelet Estimate Cancelled Plt Morphology Comment Cancelled RBC Morphology Cancelled Polychromasia Cancelled Hypochromasia Cancelled Poikilocytosis Cancelled Basophilic Stippling Cancelled Anisocytosis Cancelled Microcytosis Cancelled Macrocytosis Cancelled Spherocytes Cancelled Sickle Cells Cancelled Target Cells Cancelled Tear Drop Cells Cancelled Ovalocytes Cancelled Stomatocytes Cancelled [place] Bodies Cancelled Skye Cells Cancelled Bite Cells Cancelled Crenated Cell Cancelled Acanthocytes (Spur) Cancelled Rouleaux Cancelled Schistocytes Cancelled Sodium Cancelled Cancelled Potassium Cancelled Cancelled Chloride Cancelled Cancelled Carbon Dioxide Cancelled Cancelled Anion Gap Cancelled Cancelled BUN Cancelled Cancelled Creatinine Cancelled Cancelled Estim Creat Clear Calc Cancelled Cancelled Est GFR (MDRD) Af Amer Cancelled Cancelled Est GFR (MDRD) Non-Af Cancelled Cancelled BUN/Creatinine Ratio Cancelled Cancelled Glucose Cancelled Cancelled Calcium Cancelled Cancelled Phosphorus Cancelled Magnesium Cancelled Albumin Cancelled POC Glucose 03/14/20 03/14/20 03/14/20 08:30 08:30 12:12 WBC 8.5 Corrected WBC RBC 3.91 L Hgb 12.9 L Hct 38.5 L MCV 98.5 H MCH 33.0 H MCHC 33.5 D RDW Std Deviation 47.7 H RDW Coeff of Charo 13.3 Plt Count 207 MPV 11.0 Immature Gran % (Auto) 1.100 H Neut % (Auto) 83.1 H Lymph % (Auto) 7.1 L Child[place] % (Auto) 4.7 Eos % (Auto) 3.8 Baso % (Auto) 0.2 Absolute Neuts (auto) 7.0 Absolute Lymphs (auto) 0.60 L Total Counted Neutrophils % (Manual) Band Neutrophils % Lymphocytes % (Manual) Monocytes % (Manual) Eosinophils % (Manual) Basophils % (Manual) Metamyelocytes % Myelocytes % Promyelocytes % Blast Cells % Plasma Cell % (Manual) Other Cells % Nucleated RBC % 0 Nucleated RBCs/100 WBC Differential Comment COMMENT Diff Path Review Hypersegmented Neuts Atypical Lymphocytes Reactive Lymphocytes Smudge Cells Toxic Granulation Toxic Vacuolation Dohle Bodies Morales Rods Platelet Estimate Plt Morphology Comment RBC Morphology Polychromasia Hypochromasia Poikilocytosis Basophilic Stippling Anisocytosis Microcytosis Macrocytosis Spherocytes Sickle Cells Target Cells Tear Drop Cells Ovalocytes Stomatocytes [place] Bodies [place] Cells Bite Cells Crenated Cell Acanthocytes (Spur) Rouleaux Schistocytes Sodium 145 Potassium 3.5 Chloride 109 H Carbon Dioxide 31.0 Anion Gap 5 BUN 47 H Creatinine 0.94 Estim Creat Clear Calc 68.98 Est GFR (MDRD) Af Amer 100 Est GFR (MDRD) Non-Af 83 BUN/Creatinine Ratio 50.1 H Glucose 135 H Calcium 7.7 L Phosphorus 3.1 Magnesium 2.7 H Albumin 2.2 L POC Glucose 234 H 03/14/20 03/14/20 03/15/20 16:36 22:06 04:25 WBC 7.2 Corrected WBC RBC 3.72 L Hgb 12.0 L Hct 37.0 L MCV 99.5 H MCH 32.3 H MCHC 32.4 RDW Std Deviation 47.8 H RDW Coeff of Charo 13.1 Plt Count 178 MPV 10.9 Immature Gran % (Auto) 1.200 H Neut % (Auto) 82.9 H Lymph % (Auto) 8.0 L [place] % (Auto) 4.3 Eos % (Auto) 3.3 Baso % (Auto) 0.3 Absolute Neuts (auto) 6.0 Absolute Lymphs (auto) 0.58 L Total Counted Neutrophils % (Manual) Band Neutrophils % Lymphocytes % (Manual) Monocytes % (Manual) Eosinophils % (Manual) Basophils % (Manual) Metamyelocytes % Myelocytes % Promyelocytes % Blast Cells % Plasma Cell % (Manual) Other Cells % Nucleated RBC % 0 Nucleated RBCs/100 WBC Differential Comment Diff Path Review Hypersegmented Neuts Atypical Lymphocytes Reactive Lymphocytes Smudge Cells Toxic Granulation Toxic Vacuolation Dohle Bodies Morales Rods Platelet Estimate Plt Morphology Comment RBC Morphology Polychromasia Hypochromasia Poikilocytosis Basophilic Stippling Anisocytosis Microcytosis Macrocytosis Spherocytes Sickle Cells Target Cells Tear Drop Cells Ovalocytes Stomatocytes [place] Bodies [place] Cells Bite Cells Crenated Cell Acanthocytes (Spur) Rouleaux Schistocytes Sodium Potassium Chloride Carbon Dioxide Anion Gap BUN Creatinine Estim Creat Clear Calc Est GFR (MDRD) Af Amer Est GFR (MDRD) Non-Af BUN/Creatinine Ratio Glucose Calcium Phosphorus Magnesium Albumin POC Glucose 249 H 167 H 03/15/20 03/15/20 03/15/20 12:07 16:14 20:50 WBC Corrected WBC RBC Hgb Hct MCV MCH MCHC RDW Std Deviation RDW Coeff of Charo Plt Count MPV Immature Gran % (Auto) Neut % (Auto) Lymph % (Auto) [place] % (Auto) Eos % (Auto) Baso % (Auto) Absolute Neuts (auto) Absolute Lymphs (auto) Total Counted Neutrophils % (Manual) Band Neutrophils % Lymphocytes % (Manual) Monocytes % (Manual) Eosinophils % (Manual) Basophils % (Manual) Metamyelocytes % Myelocytes % Promyelocytes % Blast Cells % Plasma Cell % (Manual) Other Cells % Nucleated RBC % Nucleated RBCs/100 WBC Differential Comment Diff Path Review Hypersegmented Neuts Atypical Lymphocytes Reactive Lymphocytes Smudge Cells Toxic Granulation Toxic Vacuolation Dohle Bodies Morales Rods Platelet Estimate Plt Morphology Comment RBC Morphology Polychromasia Hypochromasia Poikilocytosis Basophilic Stippling Anisocytosis Microcytosis Macrocytosis Spherocytes Sickle Cells Target Cells Tear Drop Cells Ovalocytes Stomatocytes [place] Bodies [place] Cells Bite Cells Crenated Cell Acanthocytes (Spur) Rouleaux Schistocytes Sodium Potassium Chloride Carbon Dioxide Anion Gap BUN Creatinine Estim Creat Clear Calc Est GFR (MDRD) Af Amer Est GFR (MDRD) Non-Af BUN/Creatinine Ratio Glucose Calcium Phosphorus Magnesium Albumin POC Glucose 204 H 328 H 271 H 03/16/20 03/16/20 05:50 05:50 WBC 8.6 Corrected WBC RBC 3.61 L Hgb 11.7 L Hct 34.9 L MCV 96.7 H MCH 32.4 H MCHC 33.5 RDW Std Deviation 46.5 H RDW Coeff of Charo 13.1 Plt Count 173 MPV 10.5 Immature Gran % (Auto) 1.800 H Neut % (Auto) 83.1 H Lymph % (Auto) 7.7 L [place] % (Auto) 4.2 Eos % (Auto) 3.0 Baso % (Auto) 0.2 Absolute Neuts (auto) 7.1 Absolute Lymphs (auto) 0.66 L Total Counted Neutrophils % (Manual) Band Neutrophils % Lymphocytes % (Manual) Monocytes % (Manual) Eosinophils % (Manual) Basophils % (Manual) Metamyelocytes % Myelocytes % Promyelocytes % Blast Cells % Plasma Cell % (Manual) Other Cells % Nucleated RBC % 0 Nucleated RBCs/100 WBC Differential Comment Diff Path Review Hypersegmented Neuts Atypical Lymphocytes Reactive Lymphocytes Smudge Cells Toxic Granulation Toxic Vacuolation Dohle Bodies Morales Rods Platelet Estimate Plt Morphology Comment RBC Morphology Polychromasia Hypochromasia Poikilocytosis Basophilic Stippling Anisocytosis Microcytosis Macrocytosis Spherocytes Sickle Cells Target Cells Tear Drop Cells Ovalocytes Stomatocytes [place] Bodies Skye Cells Bite Cells Crenated Cell Acanthocytes (Spur) Rouleaux Schistocytes Sodium 141 Potassium 3.8 Chloride 105 Carbon Dioxide 32.0 Anion Gap 4 L BUN 33 H Creatinine 0.92 Estim Creat Clear Calc 70.48 Est GFR (MDRD) Af Amer 103 Est GFR (MDRD) Non-Af 85 BUN/Creatinine Ratio 36.0 H Glucose 127 H Calcium 7.6 L Phosphorus 2.6 Magnesium 2.5 Albumin POC Glucose Medical Necessity - Tobacco Use Smoking Status: Never smoker Tobacco Use: Non-smoker Assessment/Plan All Active Problems Septic shock (Acute) Acute respiratory failure with hypoxia (Acute) Pneumonia due to COVID-19 virus (Acute) Hyperglycemia (Acute) SURINDER (acute kidney injury) (Acute) RECOMMENDATIONS: 1. Okay to discontinue BiPAP/Airvo. Wean low flow FiO2 to maintain oxygen saturations at or above 90%. 2. Continue systemic anticoagulation with Eliquis. 3. Continue challenge with diuretics 4. Consider discontinuation of Kaye catheter after Kaye response 5. Continue Decadron (day 9 of 10) as ordered. 6. Encourage incentive spirometer use. 7. Aggressive physical therapy is warranted. 8. Okay to leave the intensive care unit from my perspective IMPRESSIONS: 1. Acute hypoxemic respiratory failure secondary to COVID-19 pneumonia The patient presented as a transfer from an outside facility with Covid-like symptoms for approximately 1 week. Unfortunately, the patient decompensated from a respiratory perspective despite noninvasive positive pressure ventilatory support, eventually requiring intubation. The patient did receive convalescent plasma and has completed treatment courses of both remdesivir and Decadron. Continue to challenge with Lasix therapy. Continue to stress out of bed and pulmonary recruitment measures. Okay to leave the intensive care unit. 2. Hypokalemia Electrolyte repletion as ordered. Patient appears to be appropriate today. 3. Morbid obesity/hypertension/hypothyroidism/GERD/hematuria Complicates care, management, recovery and prognosis. Continue home medications as indicated. Continue sliding scale insulin coverage. Physical therapy to work with the patient. Clinical suspicion for hematuria secondary to Kaye trauma. Patient did have urinary retention previously, but has been on Flomax for over 48 hours. Could consider trial of discontinuation after response to Lasix therapy. Inpatient E&M: 55063 Subs Hosp L2
[2020-03-16] MEDS: Carvedilol 12.5 MG Tablet PO ×2 (08:59→21:13)
[2020-03-16] MEDS: APIXABAN 5 MG TABLET PO ×2 (08:59→21:13)
[2020-03-16] MEDS: Levothyroxine 50 MCG Tablet PO (08:59)
[2020-03-16] MEDS: QUEtiapine 25 MG Tablet 50 MG PO ×2 (08:59→21:13)
[2020-03-16] MEDS: Pantoprazole Sodium 40 MG Tablet PO ×2 (08:59→21:13)
[2020-03-16] MEDS: Furosemide 40 MG/4 ML Vial IV (09:00)
[2020-03-16] MEDS: dexAMETHasone 4 MG Tablet 6 MG PO (09:00)
[2020-03-16 11:21] LABS: Bedside Glucose 152 mg/dL (70-110)
[2020-03-16 11:26] LABS: Bedside Glucose 352 mg/dL (70-110)
--- NOTE | 2020-03-16 14:04 | PN_ITS ---
Patient Problems: Active and Suspected Problems Septic shock (Acute) Acute respiratory failure with hypoxia (Acute) Pneumonia due to COVID-19 virus (Acute) Hyperglycemia (Acute) SURINDER (acute kidney injury) (Acute) Reason for Visit: COVID 19 Subjective: stable on nasal canula. Vitals/I&O's: Vital Signs Temp Pulse Resp BP Pulse Ox 37.2 C 78 21 H 105/62 95 03/16/20 12:00 03/16/20 12:00 03/16/20 12:00 03/16/20 12:00 03/16/20 12:00 Oxygen Flow Rate (L/min) 6 Oxygen Delivery Method Nasal Cannula Weight: 98.293 kg Body Mass Index (BMI) 31.1 Intake and Output for Last 24 Hours 03/14/20 03/15/20 03/16/20 23:59 23:59 23:59 Intake Total 1840 / 1840 860 / 980 360 / 360 Output Total 1950 / 2200 2850 / 3350 825 / 825 Balance -110 / -360 -1990 / -2370 -465 / -465 General: Alert, No apparent distress HEENT: Atraumatic, Normocephalic Oral: Moist Mucosa, No Gingival or Mucosal Lesions/ Ulcerations Neck: No Nodes, Thyroid Normal Size and Texture Lungs: Clear to auscultation, Normal air movement, No rhonchi, No wheeze, No rales Cardiovascular: Regular rate, Regular Rhythm, Normal S1, Normal S2 Abdomen: Bowel Sounds Present, Soft, Non Tender, Non-Distended, No Hepato- splenomegaly Extremities: No edema, No Calf Tenderness Psych/Mental Status: Normal Affect, Appropriate Laboratory Results 03/15/20 16:14: POC Glucose 328 H 03/15/20 20:50: POC Glucose 271 H 03/16/20 05:50: WBC 8.6, RBC 3.61 L, Hgb 11.7 L, Hct 34.9 L, MCV 96.7 H, MCH 32.4 H, MCHC 33.5, RDW Std Deviation 46.5 H, RDW Coeff of Charo 13.1, Plt Count 173, MPV 10.5, Immature Gran % (Auto) 1.800 H, Neut % (Auto) 83.1 H, Lymph % (Auto) 7.7 L, Terry % (Auto) 4.2, Eos % (Auto) 3.0, Baso % (Auto) 0.2, Absolute Neuts (auto) 7.1, Absolute Lymphs (auto) 0.66 L, Nucleated RBC % 0 03/16/20 05:50: Sodium 141, Potassium 3.8, Chloride 105, Carbon Dioxide 32.0, Anion Gap 4 L, BUN 33 H, Creatinine 0.92, Estim Creat Clear Calc 70.48, Est GFR (MDRD) Af Amer 103, Est GFR (MDRD) Non-Af 85, BUN/Creatinine Ratio 36.0 H, Glucose 127 H, Calcium 7.6 L, Phosphorus 2.6, Magnesium 2.5 03/16/20 06:55: POC Glucose 152 H 03/16/20 11:18: POC Glucose 352 H Current Medications Acetaminophen (Acetaminophen 650 Mg/20 Ml Udc) 650 mg PO Q6H PRN PRN PRN Reason: Pain Score 1-10/Temp > 100.7 F Apixaban (Apixaban 5 Mg Tablet) 5 mg PO BID [facility] Last Admin: 03/16/20 08:59 Dose: 5 mg Documented by: Carvedilol (Carvedilol 12.5 Mg Tablet) 12.5 mg PO BID [facility] Last Admin: 03/16/20 08:59 Dose: 12.5 mg Documented by: Sodium Chloride () 250 mls @ 15 mls/hr IV .[id number] PRN PRN Reason: Saline Flush Sodium Chloride () 250 mls @ 15 mls/hr IV .[id number] PRN PRN Reason: Additional IVPB Infusion Insulin Human Lispro (Insulin Lispro 100 Unit/Ml Insuln.Pen) 0 unit SC [facility]; Protocol Last Admin: 03/16/20 11:26 Dose: 6 units Documented by: Levothyroxine Sodium (Levothyroxine 50 Mcg Tablet) 50 mcg PO DAILY [facility] Last Admin: 03/16/20 08:59 Dose: 50 mcg Documented by: Ondansetron HCl (Ondansetron 4 Mg/2 Ml Vial) 4 mg IV Q8H PRN PRN PRN Reason: NAUSEA/VOMITING Pantoprazole Sodium (Pantoprazole Sodium 40 Mg Tablet) 40 mg PO BID [facility] Last Admin: 03/16/20 08:59 Dose: 40 mg Documented by: Polyethylene Glycol (Polyethylene Glycol 3350 17 Gm Packet) 17 gm PO DAILY PRN PRN Reason: Constipation Quetiapine Fumarate (Quetiapine 25 Mg Tablet) 50 mg PO BID [facility] Last Admin: 03/16/20 08:59 Dose: 50 mg Documented by: Senna/Docusate Sodium (Senna/Docusate Sodium 1 Tablet) 2 tablet PO DAILY PRN PRN Reason: CONSTIPATION Sodium Chloride (0.9% Saline Lock 10 Ml Syringe) 10 - 40 ml IV UD PRN PRN Reason: Multilumen/Michel Flush Last Admin: 03/15/20 10:04 Dose: 10 ml Documented by: Sodium Chloride (0.9 % Nacl (Sterile) Posiflush 10 Ml) 10 - 40 ml IV UD PRN PRN Reason: Port access or dressing change Last Admin: 03/07/20 09:12 Dose: 10 ml Documented by: Tamsulosin HCl (Tamsulosin Hcl 0.4 Mg Capsule) 0.4 mg PO DAILY@1730 [facility] Last Admin: 03/15/20 16:24 Dose: 0.4 mg Documented by: Throat Lozenges (Benzocaine/Menthol 1 Lozenge) 1 lozenge MUCOUS MEM Q2H PRN PRN PRN Reason: SORE THROAT Last Admin: 03/02/20 12:18 Dose: 1 lozenge Documented by: STROKE Vital Signs/Narrative: Vital Signs Temp Pulse Resp BP Pulse Ox 03/16/20 12:00 37.2 C 78 21 H 105/62 95 03/16/20 11:00 95 Medical Necessity - Tobacco Use Smoking Status: Never smoker Tobacco Use: Non-smoker Assessment/Plan All Active Problems Septic shock (Acute) Acute respiratory failure with hypoxia (Acute) Pneumonia due to COVID-19 virus (Acute) Hyperglycemia (Acute) SURINDER (acute kidney injury) (Acute) 1. acute hypoxic respiratory failure * 2/2 COVID 19 pneumonia/ALI * wean oxygen as tolerated, currently 8 liters * required intubation 2. Acute COVID 19 pneumonia * completed isolated * received convalescent plasma * completed remdesivir and dexamethasone * 2nd round of dexamethasone through the 9 * on anticoagulation with apixaban 3. Septic shock * resolved * 2/2 COVID 19 3. Debility: to SNF eventually. Inpatient E&M: 30857 Subs Hosp L2
--- NOTE | 2020-03-16 16:09 | CASEMGMT ---
Social Work SEBASTIAN spoke with Junie at [facility] and they are able to accept pt or Saturday. SEBASTIAN met with pt in room to discuss discharge plans. Pt is aware that referral had been made to [facility]. Pt hopeful that he would not have to go to SNF. SW and pt discussed weakened condition related to illness and need for rehabilitation prior to returning home. Pt is hesitant but agreeable to SNF placement. SW also spoke with pt regarding HCPOA and Living Will. Pt stating he thinks he completed paperwork already. SW assured pt paperwork was not completed while at this hospital and that Kevin does not have a copy. Pt willing to complete paperwork at this time and would like to name nephew Kevin Jenkins as HCPOA. Pt clearly stating he does not want any alternates listed. SEBASTIAN assisted pt in completing HCPOA and Living Will per pt wishes. Copy placed on chart and original given to pt. Phone Call to pt nephew Kevin and updated on acceptance to [facility] and that advance directives were completed. Plan: [facility] GARRET Gonzalez
[2020-03-16] MEDS: Tamsulosin HCl 0.4 MG Capsule PO (16:59)
[2020-03-16 17:06] LABS: Bedside Glucose 236 mg/dL (70-110)
[2020-03-16 23:40] LABS: Bedside Glucose 245 mg/dL (70-110)
[2020-03-17] VITALS (9 sets, daily range): BP systolic 110–132; BP diastolic 60–76; PULSE 67–88; RESP 16–20; TEMP 36.3–38.2; O2SAT 81–96
[2020-03-17] MEDS: Pantoprazole Sodium 40 MG Tablet PO (08:12)
[2020-03-17] MEDS: Carvedilol 12.5 MG Tablet PO (08:12)
[2020-03-17] MEDS: APIXABAN 5 MG TABLET PO (08:12)
[2020-03-17] MEDS: QUEtiapine 25 MG Tablet 50 MG PO (08:12)
[2020-03-17] MEDS: Levothyroxine 50 MCG Tablet PO (08:13)
[2020-03-17 08:15] LABS: Bedside Glucose 125 mg/dL (70-110)
--- NOTE | 2020-03-17 09:27 | PCM.PN.PUL ---
Patient Problems: Active and Suspected Problems Septic shock (Acute) Acute respiratory failure with hypoxia (Acute) Pneumonia due to COVID-19 virus (Acute) Hyperglycemia (Acute) SURINDER (acute kidney injury) (Acute) Subjective: Patient did okay overnight. Patient remains impulsive and tries to get out of bed on his own. However, patient has been tolerating nasal cannula oxygen without complications. Patient is currently MedSurg status, but has not moved from the intensive care unit secondary to bed availability. - Physical Exam Vitals/I&O's: Vital Signs Temp Pulse Resp BP Pulse Ox 36.3 C L 79 20 H 132/76 H 89 03/17/20 08:05 03/17/20 08:05 03/17/20 08:05 03/17/20 08:05 03/17/20 08:05 Oxygen Flow Rate (L/min) 8 Oxygen Delivery Method Nasal Cannula Weight: 96.36 kg Body Mass Index (BMI) 31.1 Intake and Output for Last 24 Hours 03/15/20 03/16/20 03/17/20 23:59 23:59 23:59 Intake Total 860 / 980 900 / 900 360 / 360 Output Total 2850 / 3350 2024 / 2024 400 / 400 Balance -1989 / -2370 -1125 / -1125 -40 / -40 General: Alert, Oriented x3, Cooperative - Intermittently, No apparent distress HEENT: Atraumatic, PERRLA, EOMI, Normocephalic, - - Slight scleral injection without icterus Oral: Moist Mucosa, No Gingival or Mucosal Lesions/ Ulcerations Neck: Supple, No JVD, No Nodes, Trachea Midline Lungs: No rhonchi, No wheeze, No rales, Diminished, - - Symmetric expansion Cardiovascular: Regular rate, Regular Rhythm, Normal S1, Normal S2, No murmurs, No rub noted, No Gallop Abdomen: Bowel Sounds Present, Soft, Non Tender, Non-Distended, Obese Extremities: No clubbing, No cyanosis, Edema - Trace lower extremity Skin: - - No change compared to previous Musculoskeletal: No Tenderness to Palpation of Joints or Extremities Lymphatic: No Cervical, Supraclavicular, or Inguinal Adenopathy Neurological: Cranial nerves II-XII grossly intact, Neuro grossly intact, Motor Exam 5/5 strength throughout Psych/Mental Status: Alert and oriented to time, place, person, mood and affect Laboratory Results 03/16/20 06:55: POC Glucose 152 H 03/16/20 11:18: POC Glucose 352 H 03/16/20 16:57: POC Glucose 236 H 03/16/20 21:12: POC Glucose 245 H 03/17/20 08:10: POC Glucose 125 H Current Medications Acetaminophen (Acetaminophen 650 Mg/20 Ml Udc) 650 mg PO Q6H PRN PRN PRN Reason: Pain Score 1-10/Temp > 100.7 F Apixaban (Apixaban 5 Mg Tablet) 5 mg PO BID [facility] Last Admin: 03/17/20 08:12 Dose: 5 mg Documented by: Carvedilol (Carvedilol 12.5 Mg Tablet) 12.5 mg PO BID [facility] Last Admin: 03/17/20 08:12 Dose: 12.5 mg Documented by: Sodium Chloride () 250 mls @ 15 mls/hr IV .[id number] PRN PRN Reason: Saline Flush Sodium Chloride () 250 mls @ 15 mls/hr IV .[id number] PRN PRN Reason: Additional IVPB Infusion Insulin Human Lispro (Insulin Lispro 100 Unit/Ml Insuln.Pen) 0 unit SC [facility]; Protocol Last Admin: 03/17/20 08:11 Dose: Not Given Documented by: Levothyroxine Sodium (Levothyroxine 50 Mcg Tablet) 50 mcg PO DAILY [facility] Last Admin: 03/17/20 08:13 Dose: 50 mcg Documented by: Ondansetron HCl (Ondansetron 4 Mg/2 Ml Vial) 4 mg IV Q8H PRN PRN PRN Reason: NAUSEA/VOMITING Pantoprazole Sodium (Pantoprazole Sodium 40 Mg Tablet) 40 mg PO BID [facility] Last Admin: 03/17/20 08:12 Dose: 40 mg Documented by: Polyethylene Glycol (Polyethylene Glycol 3350 17 Gm Packet) 17 gm PO DAILY PRN PRN Reason: Constipation Quetiapine Fumarate (Quetiapine 25 Mg Tablet) 50 mg PO BID [facility] Last Admin: 03/17/20 08:12 Dose: 50 mg Documented by: Senna/Docusate Sodium (Senna/Docusate Sodium 1 Tablet) 2 tablet PO DAILY PRN PRN Reason: CONSTIPATION Sodium Chloride (0.9% Saline Lock 10 Ml Syringe) 10 - 40 ml IV UD PRN PRN Reason: Multilumen/Michel Flush Last Admin: 03/15/20 10:04 Dose: 10 ml Documented by: Sodium Chloride (0.9 % Nacl (Sterile) Posiflush 10 Ml) 10 - 40 ml IV UD PRN PRN Reason: Port access or dressing change Last Admin: 03/07/20 09:12 Dose: 10 ml Documented by: Tamsulosin HCl (Tamsulosin Hcl 0.4 Mg Capsule) 0.4 mg PO DAILY@1730 [facility]ON[facility] Last Admin: 03/16/20 16:59 Dose: 0.4 mg Documented by: Throat Lozenges (Benzocaine/Menthol 1 Lozenge) 1 lozenge MUCOUS MEM Q2H PRN PRN PRN Reason: SORE THROAT Last Admin: 03/02/20 12:18 Dose: 1 lozenge Documented by: Medical Necessity - Tobacco Use Smoking Status: Never smoker Tobacco Use: Non-smoker Assessment/Plan All Active Problems Septic shock (Acute) Acute respiratory failure with hypoxia (Acute) Pneumonia due to COVID-19 virus (Acute) Hyperglycemia (Acute) SURINDER (acute kidney injury) (Acute) RECOMMENDATIONS: 1. Wean low flow FiO2 to maintain oxygen saturations at or above 90%. 2. Continue systemic anticoagulation with Eliquis. 3. Continue challenge with diuretics as tolerated 4. Possible discharge if able to ambulate on 6 L or less 5. Complete Decadron (day 10 of 10) as ordered. 6. Encourage incentive spirometer use. IMPRESSIONS: 1. Acute hypoxemic respiratory failure secondary to COVID-19 pneumonia The patient presented as a transfer from an outside facility with Covid-like symptoms for approximately 1 week. Unfortunately, the patient decompensated from a respiratory perspective despite noninvasive positive pressure ventilatory support, eventually requiring intubation. The patient did receive convalescent plasma and has completed treatment courses of both remdesivir and Decadron. Patient is doing well on nasal cannula oxygen at this time. Continue to wean as tolerated. From my perspective, patient can likely go to a prison/snf facility once able to tolerate 6 L or less. 2. Hypokalemia Electrolyte repletion as ordered. Patient appears to be appropriate today. 3. Morbid obesity/hypertension/hypothyroidism/GERD/hematuria Complicates care, management, recovery and prognosis. Continue home medications as indicated. Continue sliding scale insulin coverage. Physical therapy to work with the patient. Clinical suspicion for hematuria secondary to Kaye trauma. Patient did have urinary retention previously, but has been on Flomax for over 48 hours. Hold on Lasix challenge today. Possibly recheck labs tomorrow with an additional challenge of Lasix Inpatient E&M: 11763 Subs Hosp L2
--- NOTE | 2020-03-17 10:58 | CASEMGMT ---
Social Work Pt is listed with Medicare insurance and no secondary. Pt nephew Kevin informing SW that he thinks pt has secondary insurance but does not really know. SW met with pt in room to discuss. Pt confirms that he does have [employer] Insurance for secondary. Pt gave permission for SW to look through his belongings for cards. In shirt pocket SW located Medicare Card, Prescription Insurance Card, [employer] Card and credit card. Copy of insurance cards made and registration updated on pt secondary. SW returned cards to pt and placed all four cards in [place] Envelop along with Living Will and Health Care POA. Pt watched SW place cards in envelop and SW explained what items were in envelop and marked the outside. Envelop placed in pt belonging bag with clothes. Pt is aware. Phone call to Nephew and informed of above. GARRET Gonzalez
[2020-03-17] MEDS: Insulin Lispro 100 UNIT/ML INSULN.PEN SC (11:28)
[2020-03-17 11:31] LABS: Bedside Glucose 184 mg/dL (70-110)
--- NOTE | 2020-03-17 13:21 | PCM.TXEXTCAR ---
- Diet 03/13/20 12:35 Diet: Regular - General Food consistency:: Soft & Bite Sized Liquid Consistency:: Regular/Thin Is pt able to select menu?: Yes Diet Comments: Distant Supervision - Routine Orders/Code Status O2 Liters per Minute: 8 O2 Frequency: Continuous Keep PO Greater than or Equal to (%): 90 Routine Lab Work: CBC, BMP Code Status: Full Code - Wound(s) Right bridge of nose Wound Type: Pressure Injury RT & LT bridge of nose Wound Type: Pressure Injury - Therapies Physical Therapy: Eval and Treat Occupational Therapy: Eval and Treat - Allergies/Procedures Done in Hospital Allergies/Adverse Reactions: Allergies No Known Allergies Allergy (Verified 02/26/20 01:38) - Type of Care/Length of Stay Estimated LOS: Convalescent Care Less Than 30 days Type of Care Needed: Skilled Rehab Potential: Fair Prognosis: Fair - Additional Orders/Day of Discharge Day of Discharge: 03/17/20 - Dietary and Speech Recommendations Dietitian Recommendations/Changes: Will d/c ONS w/ meals d/t improved po intake. Speech Linguistic Eval Summary: Orientation: Pt oriented to month, year, day of the week, . Reoriented pt to place and city. Auditory Comprehension: Pt followed 2-step directions with 4/5 accuracy and 3-step directions with 1/3 accuracy. Verbal Expression: Divergent naming task for concrete category completed X8 items in 1 minute with 1 perseveration. Divergent naming task for abstract category completed X3 items in 1 minute. Memory: Pt immediately recalled 3 words presented verbally with 3/3 accuracy. With 3 minute delay, pt recalled 2/3 words increasing to 3/3 with minimal verbal cues. Pt presents with moderate cognitive-linguistic impairment characterized by deficits in orientation, auditory comprehension, memory, and word retrieval. - Follow Up Care Primary Care Physician: Redd Kenyon MD [Primary Care Provider] - Within 2 Weeks
--- NOTE | 2020-03-17 13:26 | DS.PCM_ITS ---
Discharge Date and Diagnosis - Problem List Patient Problems: Active and Suspected Problems Septic shock (Acute) Acute respiratory failure with hypoxia (Acute) Pneumonia due to COVID-19 virus (Acute) Hyperglycemia (Acute) SURINDER (acute kidney injury) (Acute) Date of Admission: 02/26/20 Date of Discharge: 03/17/20 - Primary Discharge Diagnosis Acute Problems: Active Problems Septic shock (Acute) Acute respiratory failure with hypoxia (Acute) Pneumonia due to COVID-19 virus (Acute) Hyperglycemia (Acute) SURINDER (acute kidney injury) (Acute) - Secondary Discharge Diagnosis Chronic Problems: Chronic Problems Hypertension (Chronic) Hyperlipidemia (Chronic) Hypothyroidism (Chronic) Morbid obesity (Chronic) GERD (gastroesophageal reflux disease) (Chronic) Hospital Course and Treatment Imaging Results: Clinical Impression(s) from Imaging Studies Chest CTA 02/26/20 02:36 IMPRESSION: No demonstrated pulmonary embolism or arterial dissection. Scattered reticular interstitial opacities are seen in both lungs suggesting chronic interstitial lung disease. There are superimposed ill-defined groundglass opacities are seen more prominent in the upper lobes, may represent atypical pneumonia or viral pneumonia (COVID-19 ?). Electronically Signed: Meena Bro, at 6:05 EST Tel , Service support , Chest X-Ray 02/29/20 06:21 IMPRESSION: Groundglass peripheral alveolar infiltrate in the lungs bilaterally consistent with a viral pneumonia (COVID- 19 ?), which appears to have increased. Electronically Signed: Shahbaz Ahumada, at 8:40 EST Tel , Service support , Chest X-Ray 03/03/20 09:04 IMPRESSION: An NG tube and endotracheal tube are noted in place along with a PICC line in this patient with bilateral alveolar infiltrates which have increased consistent with the patient''s known Covid 19 pneumonia. Electronically Signed: Shahbaz Ahumada, at 11:57 EST Tel , Service support , Chest X-Ray 03/06/20 18:00 IMPRESSION: Gastric tube with tip in the proximal fundus, consider advancement if placement into the antrum is desired. Extensive bilateral pneumonia. Electronically Signed: Hazel Ríos, at 20:20 EST Tel , Service support , Chest X-Ray 03/06/20 23:09 IMPRESSION: Advancement of esophagogastric tube now terminating lower than the lowest portion of the study. Severe persistent bilateral airspace disease consistent with pneumonia. at 0053 Reported and signed by: Dominick Haywood MD Electronically Signed: Dominick Haywood MD at 0:52 EST Tel , Service support , Shara, JEFFREY Evens/AURELIA Pires Operations: None Procedures: Intubation Summary of Care Provided: The patient is a 79 year old M presents with SOB on 02/24 from OSH. He had been ill for 1 week prior. Pt diagnosed with COVID 19. Pt had respiratory failure and was put on BiPAP. Eventually, patient was intubated on the extubated on 03/11. Patient was on remdesivir and 2 rounds of dexamethasone. Kaye placed however, had to be replaced due to urinary retention. Pt will continue with t amsulosin. Overall pt is improved. He will go to a SNF. He is still requiring high-flow oxygen at 8liters/m. He is stable. [] Patient Problems: Active and Suspected Problems Septic shock (Acute) Acute respiratory failure with hypoxia (Acute) Pneumonia due to COVID-19 virus (Acute) Hyperglycemia (Acute) SURINDER (acute kidney injury) (Acute) - Physical Exam Vitals/I&O's: Vital Signs Temp Pulse Resp BP Pulse Ox 36.3 C L 79 20 H 132/76 H 93 03/17/20 08:05 03/17/20 08:05 03/17/20 08:05 03/17/20 08:05 03/17/20 09:30 Oxygen Flow Rate (L/min) 8 Oxygen Delivery Method Nasal Cannula Weight: 96.36 kg Body Mass Index (BMI) 31.1 Intake and Output for Last 24 Hours 03/15/20 03/16/20 03/17/20 23:59 23:59 23:59 Intake Total 860 / 980 900 / 900 360 / 360 Output Total 2850 / 3350 2024 400 / 400 Balance -1990 / -2370 -1125 / -1125 -40 / -40 General: Alert, Cooperative, No apparent distress HEENT: Atraumatic, Normocephalic Oral: Moist Mucosa, No Gingival or Mucosal Lesions/ Ulcerations Neck: No Nodes, Thyroid Normal Size and Texture Lungs: No rales, - - coarse breath sounds Cardiovascular: Regular rate, No murmurs Abdomen: Bowel Sounds Present, Soft, Non Tender, Non-Distended, No Hepato- splenomegaly Extremities: No edema, No Calf Tenderness Skin: No rashes, No breakdown Laboratory Results 03/16/20 16:57: POC Glucose 236 H 03/16/20 21:12: POC Glucose 245 H 03/17/20 08:10: POC Glucose 125 H 03/17/20 11:25: POC Glucose 184 H Current Medications Acetaminophen (Acetaminophen 650 Mg/20 Ml Udc) 650 mg PO Q6H PRN PRN PRN Reason: Pain Score 1-10/Temp > 100.7 F Apixaban (Apixaban 5 Mg Tablet) 5 mg PO BID [facility] Last Admin: 03/17/20 08:12 Dose: 5 mg Documented by: Carvedilol (Carvedilol 12.5 Mg Tablet) 12.5 mg PO BID [facility] Last Admin: 03/17/20 08:12 Dose: 12.5 mg Documented by: Sodium Chloride () 250 mls @ 15 mls/hr IV .[id number] PRN PRN Reason: Saline Flush Sodium Chloride () 250 mls @ 15 mls/hr IV .[id number] PRN PRN Reason: Additional IVPB Infusion Insulin Human Lispro (Insulin Lispro 100 Unit/Ml Insuln.Pen) 0 unit SC [facility]; Protocol Last Admin: 03/17/20 11:28 Dose: 1 units Documented by: Levothyroxine Sodium (Levothyroxine 50 Mcg Tablet) 50 mcg PO DAILY [facility] Last Admin: 03/17/20 08:13 Dose: 50 mcg Documented by: Ondansetron HCl (Ondansetron 4 Mg/2 Ml Vial) 4 mg IV Q8H PRN PRN PRN Reason: NAUSEA/VOMITING Pantoprazole Sodium (Pantoprazole Sodium 40 Mg Tablet) 40 mg PO BID [facility] Last Admin: 03/17/20 08:12 Dose: 40 mg Documented by: Polyethylene Glycol (Polyethylene Glycol 3350 17 Gm Packet) 17 gm PO DAILY PRN PRN Reason: Constipation Quetiapine Fumarate (Quetiapine 25 Mg Tablet) 50 mg PO BID [facility] Last Admin: 03/17/20 08:12 Dose: 50 mg Documented by: Senna/Docusate Sodium (Senna/Docusate Sodium 1 Tablet) 2 tablet PO DAILY PRN PRN Reason: CONSTIPATION Sodium Chloride (0.9% Saline Lock 10 Ml Syringe) 10 - 40 ml IV UD PRN PRN Reason: Multilumen/Michel Flush Last Admin: 03/15/20 10:04 Dose: 10 ml Documented by: Sodium Chloride (0.9 % Nacl (Sterile) Posiflush 10 Ml) 10 - 40 ml IV UD PRN PRN Reason: Port access or dressing change Last Admin: 03/07/20 09:12 Dose: 10 ml Documented by: Tamsulosin HCl (Tamsulosin Hcl 0.4 Mg Capsule) 0.4 mg PO DAILY@1730 [facility] Last Admin: 03/16/20 16:59 Dose: 0.4 mg Documented by: Throat Lozenges (Benzocaine/Menthol 1 Lozenge) 1 lozenge MUCOUS MEM Q2H PRN PRN PRN Reason: SORE THROAT Last Admin: 03/02/20 12:18 Dose: 1 lozenge Documented by: Discharge Diet: No Restrictions Home Medications: Medications to take at Discharge Carvedilol [Coreg (Beta Zach)] 12.5 mg PO BID 02/26/20 Levothyroxine [Synthroid] 50 mcg PO DAILY 02/26/20 Losartan Potassium 100 mg PO DAILY 02/26/20 Omeprazole 40 mg PO DAILY 02/26/20 Acetaminophen Liquid [Tylenol Liquid] 650 mg PO Q6H PRN PRN udc 03/17/20 Apixaban [Eliquis] 5 mg PO BID tab 03/17/20 Quetiapine Fumarate [Seroquel] 50 mg PO BID tab 03/17/20 Tamsulosin HCl [Flomax] 0.4 mg PO DAILY@1730 [facility] 03/17/20 Primary Care Physician: Redd Kenyon MD [Primary Care Provider] - Within 2 Weeks Disposition: Detention facility Minutes spent on discharge:: 35 Patient Condition:: Fair Medical Necessity - Tobacco Use Smoking Status: Never smoker Tobacco Use: Non-smoker Meaningful Use Info Meaningful Use Diagnoses (Choose all that apply): None applicable Inpatient E&M: 98311 Disch Hosp
--- NOTE | 2020-03-17 14:49 | CASEMGMT ---
Social Work Pt is ready for discharge today. 7000 convalescent form completed in [employer] system and faxed along with orders to [facility]. Transportation arranged with [facility] for cot transport and pickup at 1430. SW met with pt and informed of this and he is agreeable to d/c plan. Phone call to Junie at [facility] and updated on discharge and time of pickup. Phone call to pt MARY Brown and updated on d/c plan, Kevin agreeable. Nursing notified and provided phone number for report. GARRET Gonzalez
== END 2020-03-17 14:55 | disposition skilled nursing facility (03) | DRG 870 ==
PROVIDERS: Hospitalist; Internal Medicine; Internal Medicine Critical Care Medicine; Internal Medicine Infectious Disease; Student in an Organized Health Care Education/Training Program; Admitting Provider Family Medicine
DX: A41.89 Other specified sepsis (principal); U07.1 COVID-19; J15.6 Pneumonia due to other Gram-negative bacteria; J13 Pneumonia due to Streptococcus pneumoniae; R65.21 Severe sepsis with septic shock; J96.01 Acute respiratory failure with hypoxia; J12.89 Other viral pneumonia; G93.41 Metabolic encephalopathy; N17.9 Acute kidney failure, unspecified; E87.0 Hyperosmolality and hypernatremia; I82.452 Acute embolism and thrombosis of left peroneal vein; T83.83XA Hemorrhage due to genitourinary prosthetic devices, implants and grafts, initial encounter; R73.9 Hyperglycemia, unspecified; I10 Essential (primary) hypertension; E78.5 Hyperlipidemia, unspecified; K21.9 Gastro-esophageal reflux disease without esophagitis; E03.9 Hypothyroidism, unspecified; E66.01 Morbid (severe) obesity due to excess calories; Z79.899 Other long term (current) drug therapy; Z68.30 Body mass index [BMI] 30.0-30.9, adult; D69.6 Thrombocytopenia, unspecified; D64.9 Anemia, unspecified; D72.819 Decreased white blood cell count, unspecified; E86.0 Dehydration; E87.6 Hypokalemia; E87.8 Other disorders of electrolyte and fluid balance, not elsewhere classified; R73.03 Prediabetes; Z68.34 Body mass index [BMI] 34.0-34.9, adult; Z79.01 Long term (current) use of anticoagulants; Z79.890 Hormone replacement therapy; Z91.81 History of falling; K94.29 Other complications of gastrostomy; R33.9 Retention of urine, unspecified; R31.9 Hematuria, unspecified
CPT/HCPCS: 31500; 31720; 36600; 71045; 71275; 80048; 80053; 80202; 82040; 82550; 82728; 82803; 82962; 83036; 83605; 83615; 83735; 84075; 84100; 84145; 84478; 85025; 85027; 85379; 86140; 86850; 86900; 86901; 87040; 87070; 87077; 87086; 87186; 87205; 87449; 87633; 92507; 92523; 92526; 92610; 93970; 94002; 94003; 94660; 97110; 97162; 97163; 97166; 97530; 97535; 97802; 97803; 99251; J2185; J7030; J7040; J7050; Q9967; A4216; G0463; J1940; J3010